=== PATIENT | male | born 1990 | race Caucasian/White ===

== ENCOUNTER 2017-09-25 17:48 | Emergency (ER) | payer SELFPAY ==
[~2017-09-25 17:48] MED LIST: CEPHALEXIN 500 MG CAP PO SCH
[2017-09-25] MEDS ORDERED: EPINEPHrine RACEMIC INH 0.5 ML DEYVIAL IH ONE (19:05)
[2017-09-25] MEDS ORDERED: IPRATROPIUM/ALBUTEROL 3 ML DEYVIAL ONE (19:06)
[2017-09-25] MEDS ORDERED: ALBUTEROL 3 ML DEYVIAL ONE (19:06)
--- NOTE | 2017-09-25 19:34 | EDPHY ---
H & P Stated Complaint: FELL YESTERDAY CUT R HAND ON ROCK/?INFECTION KNUCKLE Time Seen by Provider: 09/25/17 19:18 HPI/ROS: CHIEF COMPLAINT: Infection HISTORY OF PRESENT ILLNESS: The patient is a 26-year-old homeless man who comes to the emergency department complaining of infection to his right hand. He has an old abrasion/laceration to his right 3rd MTP joint with swelling and purulence. He states that he had an infection there year ago and had to stay in the hospital because he got into his arm and tendon. He states that it was healed until yesterday when he scraped it on a rock trying to climb and now it is swollen and painful again. He states that he saw some pus come out of it. He denies fight bite. He has no pain with movement of his joint. REVIEW OF SYSTEMS: Constitutional: denies: chills, fever, recent illness, recent injury EENTM: denies: blurred vision, double vision, nose congestion Respiratory: denies: cough, shortness of breath Cardiac: denies: chest pain, irregular heart rate, lightheadedness, palpitations Gastrointestinal/Abdominal: denies: abdominal pain, diarrhea, nausea, vomiting, blood streaked stools Genitourinary: denies: dysuria, frequency, hematuria, pain Musculoskeletal: denies: joint pain, muscle pain Skin: See HPI Neurological: denies: headache, numbness, paresthesia, tingling, dizziness, weakness Hematologic/Lymphatic: denies: blood clots, easy bleeding, easy bruising Immunologic/allergic: denies: HIV/AIDS, transplant EXAM: GENERAL: Well-appearing, well-nourished and in no acute distress. HEAD: Atraumatic, normocephalic. EYES: Pupils equal round and reactive to light, extraocular movements intact, sclera anicteric, conjunctiva are normal. ENT: TMs normal, nares patent, oropharynx clear without exudates. Moist mucous membranes. NECK: Normal range of motion, supple without lymphadenopathy or JVD. LUNGS: Breath sounds clear to auscultation bilaterally and equal. No wheezes rales or rhonchi. HEART: Regular rate and rhythm without murmurs, rubs or gallops. ABDOMEN: Soft, nontender, normoactive bowel sounds. No guarding, no rebound. No masses appreciated. BACK: No CVA tenderness, no spinal tenderness, step-offs or deformities EXTREMITIES: Old wound, purulence and swelling over the right MTP joint. Fluctuant, NEUROLOGICAL: Cranial nerves II through XII grossly intact. Normal speech, normal gait. 5/5 strength, normal movement in all extremities, normal sensation PSYCH: Normal mood, normal affect. SKIN: Warm, dry, normal turgor, no visible rashes or lesions. Source: Patient Exam Limitations: No limitations - Personal History Current Tetanus/Diphtheria Vaccine: Unsure - Medical/Surgical History Hx Asthma: No Hx Chronic Respiratory Disease: No Hx Diabetes: No Hx Cardiac Disease: No Hx Renal Disease: No Hx Cirrhosis: No Hx Alcoholism: No Hx HIV/AIDS: No Hx Splenectomy or Spleen Trauma: No Other PMH: TENDON INFECTION - Family History Significant Family History: No pertinent family hx - Social History Smoking Status: Current every day smoker Alcohol Use: Heavy Drug Use: Other Constitutional: Initial Vital Signs Temperature (C) 37 C 09/25/17 17:58 Heart Rate 102 H 09/25/17 17:58 Respiratory Rate 18 09/25/17 17:58 Blood Pressure 125/72 H 09/25/17 17:58 O2 Sat (%) 94 09/25/17 17:58 O2 Delivery Mode Room Air Allergies/Adverse Reactions: No Known Allergies Allergy (Unverified 09/25/17 17:58) Home Medications: Medication Instructions Recorded Cephalexin [Keflex] 500 mg PO Q6H #28 cap 09/25/17 Medical Decision Making ED Course/Re-evaluation: Tried to I and D the patient's infection. I do not think at this point that it is in the joint. He adamantly denies fight bite injury. He refuses I and D because he is scared of needles and scalpel. I warned him sternly that his symptoms will likely get worse if it is not ID'd. He continues to refuse I and D just wants to start taking Keflex. He states that this worked for him last time. He understands that this is against my medical advice. He is currently not febrile or toxic appearing. Differential Diagnosis: Partial list of the Differential diagnosis considered include but were not limited to; abscess, osteomyelitis, septic joint, fight bite and although unlikely based on the history and physical exam, I also considered flexor tenosynovitis, sepsis. - Data Points Medications Given: Discontinued Medications Cephalexin HCl (Keflex) 500 mg PO EDNOW ONE PRN Reason: Protocol Stop: 09/25/17 19:37 Last Admin: 09/25/17 19:42 Dose: 500 mg Departure - Departure Disposition: Against Medical Advice Clinical Impression: Abscess of right hand Condition: Fair Instructions: Abscess (ED) Referrals: NONE *PRIMARY CARE P,. [Primary Care Provider] - As per Instructions Prescriptions: Cephalexin [Keflex] 500 mg PO Q6H #28 cap
[2017-09-25] MEDS ORDERED: CEPHALEXIN 500 MG CAP PO ONE (19:36)
[2017-09-25 19:46] VITALS: BP 124/70; PULSE 90; RESP 20; TEMP 98.1; O2SAT 97
== END 2017-09-25 20:05 | disposition left against medical advice (07) ==
DX: L02.511 Cutaneous abscess of right hand (principal); F17.200 Nicotine dependence, unspecified, uncomplicated
CPT/HCPCS: J7613

== ENCOUNTER 2017-10-24 13:16 | Inpatient (IN) | payer MEDICAID ==
--- NOTE | 2017-10-24 13:42 | EDPHY ---
H & P Stated Complaint: right hand infection Time Seen by Provider: 10/24/17 13:28 HPI/ROS: CHIEF COMPLAINT: "My right hand is infected" HISTORY OF PRESENT ILLNESS: 26-year-old [id number] homeless male with up-to-date tetanus complaining of progressive pain, erythema, purulence and smell to his right hand dorsal aspect at the 3rd MCP. This has been present for several weeks, initially occurred after he bumped a pre-existing abrasion approximately 4 weeks ago, when he was climbing a rock. Denies altercation or contact with a persons mouth. He was seen the ER shortly thereafter started on oral antibiotics. He notes that the pain swelling and discharge have progressively increased. He is unable to actively or passively extend or flex secondary to pain. No fever or chills. No nausea or vomiting. PRIMARY CARE PROVIDER: None REVIEW OF SYSTEMS: A ten point review of systems was performed and is negative with the exception of the items mentioned in the HPI PAST MEDICAL & SURGICAL HISTORY: No pertinent medical or surgical history . Tetanus is up-to-date SOCIAL HISTORY: Positive smoker. Homeless. PHYSICAL EXAM (Prior to examination, patient consented to physical exam, hands were washed and my usual and customary physical exam procedures followed) 1) GENERAL: Well-developed, well-nourished, alert and oriented. Appears to be in no acute distress. 2) HEAD: Normocephalic, atraumatic 3) HEENT: Pupils equal, round, reactive to light bilaterally. Sclera anicteric. 4) NECK: Full range of motion, no meningeal signs. 5) LUNGS: Clear auscultation bilaterally, no wheezes, no rhonchi, no retractions. 6) HEART: Regular rate and rhythm, no murmur, no heave, no gallop. 7) ABDOMEN: No guarding, no rebound, no focal tenderness, 8) MUSCULOSKELETAL: Right upper extremity: Right 3rd MCP dorsal aspect erythema , soft tissue swelling, purulent foul-smelling discharge. Patient is unable to actively or passively extend secondary to pain. No crepitus. No lymphangitic streaking. 9) BACK: No visual or palpable abnormality. 10) SKIN: No rash, no petechiae. 11) Psychiatric: Patient is oriented X 3, there is no agitation. DIFFERENTIAL DIAGNOSIS: In no particular include but limited to cellulitis, abscess, septic arthritis, osteomyelitis, necrotizing fasciitis - Personal History Current Tetanus Diphtheria and Acellular Pertussis (TDAP): Unsure - Medical/Surgical History Hx Asthma: No Hx Chronic Respiratory Disease: No Hx Diabetes: No Hx Cardiac Disease: No Hx Renal Disease: No Hx Cirrhosis: No Hx Alcoholism: No Hx HIV/AIDS: No Hx Splenectomy or Spleen Trauma: No Other PMH: TENDON INFECTION - Social History Smoking Status: Current every day smoker Constitutional: Initial Vital Signs Temperature (C) 36.3 C 10/24/17 13:17 Heart Rate 86 10/24/17 13:17 Respiratory Rate 18 10/24/17 13:17 Blood Pressure 140/87 H 10/24/17 13:17 O2 Sat (%) 99 10/24/17 13:17 O2 Delivery Mode Room Air Allergies/Adverse Reactions: No Known Allergies Allergy (Unverified 09/25/17 17:58) Home Medications: Medication Instructions Recorded Albuterol [Proventil Inhaler HFA 1 - 2 puffs IH Q4H PRN 10/24/17 (*)] Cyanocobalamin [Vitamin B12 (*)] 1,000 mcg PO DAILY 10/24/17 Medical Decision Making - Diagnostics Imaging Results: Imaging Impressions Hand X-Ray 10/24/17 13:25 Impression: No acute osseous abnormality seen right hand. Images reviewed myself ED Course/Re-evaluation: 1:40 p.m.: Phone consultation with hospitalist Rekha, admit to Dr. Mcrae. Awaiting hand consultation call back. Care of patient under supervision of secondary supervising physician Dr Chopra with whom I discussed case . 1:50 p.m.: Phone consult Dr. Kandace Deleon will plan on taking the patient to the operating room this afternoon for irrigation and and debridement. Patient remains NPO since dinner last night. - Data Points Microbiology Results: MICROBIOLOGY 10/24/17 11:30 Hand - Swab Gram Stain - Final Medications Given: Vancomycin/Sodium Chloride (Vancomycin 1 Gm (Premix)) 250 mls @ 250 mls/hr IV EDNOW ONE PRN Reason: Protocol Stop: 10/24/17 14:44 Last Admin: 10/24/17 14:11 Dose: 250 mls Departure - Departure Disposition: [facility] Inpatient Acute Clinical Impression: Cellulitis of right hand Condition: Fair
[2017-10-24] MEDS ORDERED: VANCOMYCIN HCL/NORMAL SALINE 250 ML IV ONE (13:45)
[2017-10-24 13:49] LABS: PLATELET COUNT 222 10^3/uL (150-400)
[2017-10-24] MEDS ORDERED: ONDANSETRON 4 MG/2 ML VIAL IVP PRN (15:02)
[2017-10-24] MEDS ORDERED: ONDANSETRON DISINTEGRATING 4 MG TAB PO PRN (15:02)
[2017-10-24] MEDS ORDERED: methylPREDNISolone SOD SUCC 125 MG/2 ML VIAL IVP ONE (15:05)
--- NOTE | 2017-10-24 15:11 | PDGENHP ---
History and Physical - Chief Complaint right hand pain - History of Present Illness 26-year-old [id number] homeless male with up-to-date tetanus complaining of progressive pain, erythema, purulence and smell to his right hand dorsal aspect at the 3rd MCP. This has been present for several weeks, initially occurred after he bumped a pre-existing abrasion approximately 4 weeks ago, when he was climbing a rock. Denies altercation or contact with a persons mouth. He was seen the ER shortly thereafter started on oral antibiotics. He notes that the pain swelling and discharge have progressively increased. He is unable to actively or passively extend or flex secondary to pain. No fever or chills. No nausea or vomiting. Dr. Kandace Deleon is planning on I&D today. He does c/o of coughing and wheezing. He is on RA. He has a hx of Asthma. He has not had a fever. He is not tachycardic. His cough is not productive He denies cp or SOB. PAST MEDICAL & SURGICAL HISTORY: Asthma, previous right hand I&D SOCIAL HISTORY: Positive tobacco smoker. Homeless. no ETOH, + Marijuana FmHx: + CV disease both mother and father Labs/studies: hand XR unremarkable, (personally reviewed) CBC ok, BMP ok History Information - Allergies/Home Medication List Allergies/Adverse Reactions: No Known Allergies Allergy (Unverified 09/25/17 17:58) Home Medications: Albuterol [Proventil Inhaler HFA (*)] 1 - 2 puffs IH Q4H PRN 10/24/17 [Last Taken 10/24/17] Cyanocobalamin [Vitamin B12 (*)] 1,000 mcg PO DAILY 10/24/17 [Last Taken Unknown ] I have personally reviewed and updated: medical history, social history - Social History Smoking Status: Current every day smoker Review of Systems Review of Systems: ROS: 10pt was reviewed & negative except for what was stated in HPI & below Physical Exam Physical Exam: Temp Pulse Resp BP Pulse Ox 36.3 C 86 18 140/87 H 99 10/24/17 13:17 10/24/17 13:17 10/24/17 13:17 10/24/17 13:17 10/24/17 13:17 Constitutional: no apparent distress, appears nourished Eyes: PERRL, EOMI Ears, Nose, Mouth, Throat: moist mucous membranes, hearing normal Cardiovascular: regular rate and rhythym, no murmur, rub, or gallop, No edema Respiratory: no respiratory distress, expiratory wheeze Gastrointestinal: normoactive bowel sounds, soft, non-tender abdomen Genitourinary: no bladder fullness Skin: warm Musculoskeletal: full muscle strength Neurologic: AAOx3 Psychiatric: interacting appropriately, not anxious, not encephalopathic, thought process linear Lymph, Heme, Immunologic: No petechiae Lab Data & Imaging Review 10/24/17 13:45 10/24/17 13:45 WBC 7.79 10^3/uL (3.80-9.50) 10/24/17 13:45 RBC 5.04 10^6/uL (4.40-6.38) 10/24/17 13:45 Hgb 14.4 g/dL (13.7-17.5) 10/24/17 13:45 Hct 42.6 % (40.0-51.0) 10/24/17 13:45 MCV 84.5 fL (81.5-99.8) 10/24/17 13:45 MCH 28.6 pg (27.9-34.1) 10/24/17 13:45 MCHC 33.8 g/dL (32.4-36.7) 10/24/17 13:45 RDW 14.2 % (11.5-15.2) 10/24/17 13:45 Plt Count 222 10^3/uL (150-400) 10/24/17 13:45 MPV 9.1 fL (8.7-11.7) 10/24/17 13:45 Neut % (Auto) 54.7 % (39.3-74.2) 10/24/17 13:45 Lymph % (Auto) 32.9 % (15.0-45.0) 10/24/17 13:45 Culberson % (Auto) 8.5 % (4.5-13.0) 10/24/17 13:45 Eos % (Auto) 3.1 % (0.6-7.6) 10/24/17 13:45 Baso % (Auto) 0.5 % (0.3-1.7) 10/24/17 13:45 Nucleat RBC Rel Count 0.0 % (0.0-0.2) 10/24/17 13:45 Absolute Neuts (auto) 4.27 10^3/uL (1.70-6.50) 10/24/17 13:45 Absolute Lymphs (auto) 2.56 10^3/uL (1.00-3.00) 10/24/17 13:45 Absolute Monos (auto) 0.66 10^3/uL (0.30-0.80) 10/24/17 13:45 Absolute Eos (auto) 0.24 10^3/uL (0.03-0.40) 10/24/17 13:45 Absolute Basos (auto) 0.04 10^3/uL (0.02-0.10) 10/24/17 13:45 Absolute Nucleated RBC 0.00 10^3/uL (0-0.01) 10/24/17 13:45 Immature Gran % 0.3 % (0.0-1.1) 10/24/17 13:45 Immature Gran # 0.02 10^3/uL (0.00-0.10) 10/24/17 13:45 Sodium 142 mEq/L (135-145) 10/24/17 13:45 Potassium 5.1 mEq/L (3.5-5.2) 10/24/17 13:45 Chloride 109 mEq/L (97-110) 10/24/17 13:45 Carbon Dioxide 25 mEq/l (22-31) 10/24/17 13:45 Anion Gap 8 mEq/L (8-16) 10/24/17 13:45 BUN 10 mg/dL (7-23) 10/24/17 13:45 Creatinine 0.7 mg/dL (0.7-1.3) 10/24/17 13:45 Estimated GFR > 60 10/24/17 13:45 Glucose 76 mg/dL (70-100) 10/24/17 13:45 Calcium 9.2 mg/dL (8.5-10.4) 10/24/17 13:45 Specimen Hemolysis 126 10/24/17 13:45 Assessment & Plan Assessment: #Cellulitis of right hand (Acute) #Asthma with mild exacerbation #Tobacco abuse disorder #Homelessness Plan: Surgical mgmt today Cont Vancomycin Given that he will have surgery, I will give one time dose of IV steroids. Plan for oral steroids tomorrow, can treat with short burst Nebs pain mgmt IVF early ambulation full code
[2017-10-24] MEDS ORDERED: D5W 1/2 NS 1,000 ML IV SCH (15:15)
[2017-10-24] MEDS ORDERED: BACITRACIN 50,000 UNITS/10 ML SYR IRR ONE (16:19)
[2017-10-24] MEDS ORDERED: BUPIVACAINE 0.5% 30 ML SDV ONE (16:19)
[2017-10-24] MEDS ORDERED: POLYMYXIN B SULFATE 500,000 UNIT/10 ML SYR IRR ONE (16:19)
[2017-10-24] MEDS ORDERED: LR 1,000 ML IV ONE (16:34)
[2017-10-24] MEDS: ALBUTEROL 3 ML DEYVIAL IH SCH ×2 (17:00→20:49)
--- NOTE | 2017-10-24 17:34 | PDANEPAE ---
ANE History of Present Illness 26yo with infected right hand ANE Past Medical History - Pulmonary History Hx Asthma/Reactive Airway Disease: Yes Hx Oxygen in Use at Home: No Hx Sleep Apnea: No - Endocrine History Hx Diabetes: No ANE Review of Systems Review of Systems: - Systems Respiratory: Reports: wheezing ANE Patient History - Allergies Allergies/Adverse Reactions: No Known Allergies Allergy (Unverified 09/25/17 17:58) - Home Medications Home Medications: Albuterol [Proventil Inhaler HFA (*)] 1 - 2 puffs IH Q4H PRN 10/24/17 [Last Taken 10/24/17] Cyanocobalamin [Vitamin B12 (*)] 1,000 mcg PO DAILY 10/24/17 [Last Taken Unknown ] - NPO status NPO Since - Liquids (Date): 10/23/17 NPO Since - Solids (Date): 10/23/17 - Smoking Hx Smoking Status: Current every day smoker ANE Labs/Vital Signs - Labs Result Diagrams: 10/24/17 13:45 10/24/17 13:45 - Vital Signs Blood Pressure: 147/85 Heart Rate: 65 Respiratory Rate: 16 O2 Sat (%): 90 Height: 200.66 cm Weight: 104.326 kg ANE Physical Exam - Airway Mallampati Score: Class 1 - Pulmonary Pulmonary: no respiratory distress, expiratory wheeze - Cardiovascular Cardiovascular: regular rate and rhythym - ASA Status ASA Status: II ANE Anesthesia Plan Anesthesia Plan: GA w LMA
[2017-10-24] MEDS ORDERED: MIDAZOLAM 2 MG/2 ML VIAL IVP ONE (17:37)
[2017-10-24] MEDS: ALBUTEROL 3 ML DEYVIAL IH PRN ×2 (17:43→17:55)
--- NOTE | 2017-10-24 18:03 | PDMN ---
Medical Necessity Medical necessity: est los>2mn for R hand cellulitis, & mild asthma exacerbation ; admit for I&D, IV abx, nebs, and IVF; comorbid asthma, homelessness; per order and H&P 10/24/17
[2017-10-24] MEDS ORDERED: fentaNYL 100 MCG/2 ML INJ ONE ×2 (18:04→19:25)
[2017-10-24] MEDS ORDERED: PROPOFOL 200 MG/20 ML VIAL ONE (18:05)
[2017-10-24] MEDS ORDERED: ALBUTEROL 3 ML DEYVIAL IH PRN (19:05)
[2017-10-24] MEDS ORDERED: HYDROmorphONE/DILAUDID 2 MG/ML INJ IVP PRN (19:05)
[2017-10-24] MEDS ORDERED: PROMETHAZINE HCL 25 MG/ML INJ IVP PRN (19:05)
[2017-10-24] MEDS ORDERED: NALOXONE HCL 0.4 MG/ML INJ IVP PRN (19:05)
--- NOTE | 2017-10-24 19:18 | POSTOPPROG ---
Post Op Note Date of Operation: 10/24/17 Surgeon: Kandace Deleon Anesthesiologist: warm Anesthesia: LMA Pre-op Diagnosis: r hand infection Procedure: I&D r hand Inf/Abcess present in the surg proc area at time of surgery?: Yes Depth: Deep Incisional (Fascial) EBL: 50-100
[2017-10-24] MEDS: fentaNYL 100 MCG/2 ML INJ IVP PRN ×3 (19:26→19:48)
--- NOTE | 2017-10-24 19:26 | POSTANESTH ---
Post Anesthetic Evaluation Cardiovascular Status: Normal, Stable Respiratory Status: Normal, Stable Level of Consciousness/Mental Status: Mildly Sleepy, Arousable Pain Control: Adequate, Prn Tx Ordered Nausea/Vomiting Control: Adequate, Prn Tx Ordered Complications Possibly Related to Anesthesia: None Noted
--- NOTE | 2017-10-24 19:43 | SOAPPROG ---
SOAP Progress Note Assessment/Plan: Assessment: Plan: Subjective: pain in hand neg fluctuance and neg Kanavel signs cont abx will re-eval tomorrow full note dictated Objective: Vital Signs Temp Pulse Resp BP Pulse Ox 36.4 C 65 16 147/85 H 95 10/24/17 19:19 10/24/17 17:47 10/24/17 17:47 10/24/17 17:47 10/24/17 19:19 ICD10 Worksheet Patient Problems: Problems Problem Status Onset Cellulitis of right hand Acute
[2017-10-24] MEDS ORDERED: HYDROmorphONE/DILAUDID 2 MG/ML INJ ONE (19:48)
--- NOTE | 2017-10-24 19:59 | GOP ---
[f rep st] OPERATIVE REPORT DATE OF OPERATION: 10/24/2017 SURGEON: Kandace Deleon MD ANESTHESIA: LMA. PREOPERATIVE DIAGNOSIS: Right hand infection. POSTOPERATIVE DIAGNOSIS: Right hand infection. PROCEDURE PERFORMED: I and D of right hand. FINDINGS: INDICATIONS: This is a 26-year-old male, who states that he has been dealing with some sort of infec tion on the knuckle of the middle finger for the last month. He has been treated by antibiotics by [facility] different emergency rooms, but is getting worse as time goes on. It was decided that he need ed surgery in order to resolve the problem. DESCRIPTION OF PROCEDURE: The patient brought to the operating room after the right third finger had been identified as the correct finger by the patient, nurse, and physician. Once in the operating r oom, he was placed under general anesthesia using LMA. Once asleep, a tourniquet placed around the u pper portion of the right forearm, with the right upper extremity sterilely prepped and draped in usu al fashion using GSI solution. Once prepped and draped, the limb was elevated for 2 minutes. Tourni quet was inflated to 250 mmHg. There was a large 3 cm x 1 cm opening over the area of the dorsal por tion of the third MCP joint. A culture swab was taken, driven deep into the wound in order to try to attempt to get a decent culture. The area was then debrided. The wound was extended 2 cm both prox imally and distally in order to gain further access onto the extensor miranda. The extensor tendon was noted to be intact, but macerated. There appeared to have a nidus of infection at the ulnar border o f the MCP joint of the middle finger at the area of the lumbricals. Therefore, the area was debrided . Tissues were . There was no pocket of pus noted anywhere. 3 L of antibiotic solution wa s irrigated through the wound using a bulb syringe. Once completed, the covering over the extensor t endon was sewn over the extensor tendon in order to gain some kind of coverage. Once in place, a Pen leta drain was placed and the skin was closed over the Annie drain to try to get apposition of the skin. Tourniquet was deflated at 30 minutes. 20 cc of Marcaine 0.5% plain was injected around eithe r side of the metacarpal. The wound was dressed with Xeroform, 4 x 4's, wrapped in Kerlix. Arm was completely undraped in the operating room, tourniquet removed from the forearm, and an Uriel wrap place d around the hand. The patient was then woken up, extubated, transferred onto a bed, and sent to rec overy room in good condition. TOURNIQUET TIME: 30 minutes. /[id number]/MODL
--- NOTE | 2017-10-24 20:03 | GCON ---
[f rep st] CONSULTATION DATE OF CONSULTATION: 10/24/2017 CURRENT COMPLAINT: Right hand pain and drainage. HISTORY OF PRESENT ILLNESS: The patient is a 26-year-old male, who states that he had abrasion on th e dorsal portion of his knuckle that continued to get irritated and more inflamed. He felt it was ge tting infected and over the last month has gone from emergency room to emergency room getting treated with antibiotics, but the wound continues to get worse. He presented to the ER. I was asked to see the patient for further evaluation and more definitive treatment. He remains grossly neurologically intact to the radial, median, and ulnar nerves. He has a large abimbola ining wound on the dorsal portion of his 3rd MCP joint. He is able to move his flexor tendons, but h as any pain to motion across the MCP joint secondary to the wound he has in the area. It was decided taken to the operating room. ASSESSMENT: The patient is status post right hand infection. PLAN: To take him to the operating room, as soon as time is available for formal irrigation and debr idement. /[id number]/MODL
[2017-10-24] MEDS: oxyCODONE IR 5 MG TAB PO PRN (20:32)
[2017-10-24] MEDS: VANCOMYCIN 1.5 GM in NS 250 ML IV SCH (22:07)
[2017-10-24] MEDS: traMADol 50 MG TAB PO SCH (23:27)
[2017-10-25 04:53] LABS: PLATELET COUNT 188 10^3/uL (150-400)
[2017-10-25] MEDS: NICOTINE 21 MG/24 HR PATCH TD SCH ×2 (05:26→08:08)
[2017-10-25] MEDS: traMADol 50 MG TAB PO SCH ×3 (05:27→17:44)
[2017-10-25] MEDS: ALBUTEROL 3 ML DEYVIAL IH SCH ×4 (06:11→22:03)
[2017-10-25] MEDS: ACETAMINOPHEN 325 MG TAB PO PRN (08:10)
[2017-10-25] MEDS: predniSONE 20 MG TAB PO SCH (08:10)
[2017-10-25] MEDS: VANCOMYCIN 1.5 GM in NS 250 ML IV SCH (08:13)
[2017-10-25] MEDS: oxyCODONE IR 5 MG TAB PO PRN ×2 (10:23→20:07)
--- NOTE | 2017-10-25 13:19 | SOAPPROG ---
SOAP Progress Note Assessment/Plan: Assessment: Plan: Subjective: pain is slightly less than yesterday digits NVI min drainage from alejandro cont abx await ID input Objective: Vital Signs Temp Pulse Resp BP Pulse Ox 36.9 C 64 15 128/63 H 94 10/25/17 11:34 10/25/17 11:34 10/25/17 11:34 10/25/17 11:34 10/25/17 11:34 Microbiology 10/24/17 18:36 Gram Stain - Final Hand - Eswab Laboratory Results 10/25/17 04:25 10/25/17 04:25 10/24/17 10/25/17 10/26/17 05:59 05:59 05:59 Intake Total 1020 Output Total 10 Balance 1010 ICD10 Worksheet Patient Problems: Problems Problem Status Onset Cellulitis of right hand Acute
--- NOTE | 2017-10-25 14:10 | HOSPPROG ---
Hospitalist Progress Note Assessment/Plan: * Right hand cellulitis s/p I&D -IV [facility] -d/w Dr. Urbina - ID to consult * Asthma exacerbation -prednisone, nebs * Tobacco dependence -nicotine patch * Homeless Subjective: no complaints Objective: Vital Signs Temp Pulse Resp BP Pulse Ox 36.9 C 64 15 128/63 H 94 10/25/17 11:34 10/25/17 11:34 10/25/17 11:34 10/25/17 11:34 10/25/17 11:34 Microbiology 10/24/17 18:36 Gram Stain - Final Hand - Eswab Laboratory Results 10/25/17 04:25 10/25/17 04:25 10/24/17 10/25/17 10/26/17 05:59 05:59 05:59 Intake Total 1020 Output Total 10 Balance 1010 Hand xray - no osteo - Physical Exam Constitutional: no apparent distress, appears nourished, not in pain Cardiovascular: regular rate and rhythym, no murmur, rub, or gallop Respiratory: no respiratory distress, no rales or rhonchi, clear to auscultation Gastrointestinal: normoactive bowel sounds, soft, non-tender abdomen, no palpable masses Skin: no rashes or abrasions, no fluctuance, no induration Neurologic: AAOx3, sensation intact bilaterally Psychiatric: interacting appropriately, not anxious, not encephalopathic, thought process linear ICD10 Worksheet Patient Problems: Problems Problem Status Onset Cellulitis of right hand Acute
--- NOTE | 2017-10-25 15:28 | ASMTCMCOM ---
CM Note CM Note Notes: Pt is homeless, here w/hand infection- had I&D yesterday. ID to consult. DC needs not clear yet. Date Signed: 10/25/2017 03:28 PM Electronically Signed By:Janet Lozano RN
--- NOTE | 2017-10-25 18:47 | GCON ---
[f rep st] CONSULTATION DATE OF CONSULTATION: 10/25/2017 REFERRING PHYSICIAN: Shawna Barker MD REASON FOR CONSULTATION: Right hand infection. CHIEF COMPLAINT: Pain, swelling, and drainage from the right hand. HISTORY OF PRESENT ILLNESS: This is a 26-year-old homeless gentleman with a past medical history significant for asthma and a previous right hand infection 1 year ago. He states that about 1-2 months ago he said he was hiking [employer] and slipped and fell, cut his hand right over an area where he has had previous abrasion and infection over the 3rd MCP. He stated that after climbing to the top, he came down and then washed his hands. He came to the ER the next day because it became red, swollen, and started draining pus. Upon review of the ER note, he states that he was advised to have an I and D, but he refused. No cultures were taken at the time. No labs were done, and he was placed on Keflex. The patient tells me that he was put on Keflex for a couple of weeks, and then because of increasing swelling and redness, he went to see [facility] in [place] and was evaluated there. He states that nothing further was done for him there either, but he was put on a couple weeks of Keflex. He states that he has been off antibiotics for 1 week now and there has been increased redness and pain and swelling. He denies fevers or shaking chills throughout this process. He went to the OR yesterday where he had an I and D. upon review of the operative notes, it states that he had a large 3 x 1 cm opening over the area of the distal portion of the 3rd MCP joint. A swab was taken from that site and then the area was debrided. The wound was extended 2 cm proximally and distally. The tendon was noted and was macerated. There was also a statement of a nidus infection on the ulnar border of the MCP joint at the area of the lumbricals. This area was debrided as well. Cultures at present are showing a preliminary MSSA. Patient has been on vancomycin at this time. Infectious Disease is now consulted for further opinion. REVIEW OF SYSTEMS: GENERAL: No fevers or shaking chills. HEAD: No headaches. EYES: He does normally wear glasses and is having some difficulty with vision. He does not have his glasses with it. HEENT: Denies any sore throat, difficulty swallowing, ear pain or drainage. CARDIOVASCULAR: No chest pain or rapid heartbeat. RESPIRATORY: Has some chronic shortness of breath and cough and sputum production. ABDOMEN: No nausea, vomiting, abdominal pain , diarrhea. : No dysuria. MUSCULOSKELETAL: No other joint pains or muscle aches. SKIN: No other rashes or open wounds. Rest of 10-point review of systems essentially negative except as above. PAST MEDICAL HISTORY: Significant for asthma, a previous history of right 3rd MCP infection. This is 1 year ago in [place]. He cannot remember what the infection was due to, but he states he was on antibiotics for a while. He, however, states that he was not on IV antibiotics. He was just on oral antibiotics for like a month. He states that he did have to come back in between that time for recurrent infection, but then thereafter it had healed. Other past medical history, he had some type of tree branch injury to his right leg when he was 17 years of age. PAST SURGICAL HISTORY: Significant for surgery as outlined above from yesterday , surgery from his right leg at the age of 17, and the likely previous debridement of his right MCP, although the details of this is really vague. ALLERGIES: No known drug allergies. SOCIAL HISTORY: He smokes. He denies alcohol. He uses marijuana. He denies any history of illicit drug usage. He is homeless. He is sexually active with a female preference. He states he uses condoms all the time. FAMILY HISTORY: He states his father in his sleep when the patient was 16 years of age, and he became estranged to his mother, and at some point, his mother as well, although he does not know from what. He states that there has been coronary artery disease in the history as well as aneurysms in the history from his family. MEDICATIONS: As per SEP. PHYSICAL EXAMINATION: VITAL SIGNS: Temperature current is 36.6, pulse 65, blood pressure 137/88, respiratory rate is 12, saturation 92% on room air. GENERAL: Patient is sitting up in bed. No acute respiratory distress. Awake, alert, and oriented x3. HEENT: Head is normocephalic, atraumatic. Eyes without conjunctival injection or petechiae. Oropharynx is clear. There is no posterior erythema or thrush. CARDIOVASCULAR: S1, S2. Regular rate and rhythm. No obvious murmurs appreciated. RESPIRATORY: Clear to auscultation bilaterally. No rhonchi or rales appreciated. ABDOMEN: Positive bowel sounds in all quadrants. Soft, nontender, nondistended. EXTREMITIES: No lower extremity edema. Previous right lower extremity scar noted which is well healed. Right hand, an operative dressing, so I did not take down. There does not appear to be any lymphangitic cellulitic spread up the forearm or arm at this time. LABORATORY DATA: White blood cell count is 5.9, hemoglobin 12.9, platelets are 188, neutrophil count is 74%. Sodium 139, potassium 5.0, chloride 106, bicarb 26, BUN is 8, creatinine 0.7. Blood cultures x2 sets are pending. Hand swab from the ER as well as operative swabs are growing out Staph aureus with a preliminary ID of MSSA. The patient is currently on vancomycin. IMAGING: Hand x-ray noted, reviewed, and shows joint spaces are normal with remodeling of the midshaft of the right 5th metacarpal from a previous remote fracture. ASSESSMENT: 1. Right hand infection with abscess and probable infectious tenosynovitis secondary to methicillin-susceptible Staph aureus. PLAN: Given preliminary ID of MSSA, we will change vancomycin to Ancef therapy 2 g IV q.8 hours. Will add C-reactive protein to labs from 10/24/2017 to help follow going forward if elevated. Will examine the wound once operative dressings are taken down. Care coordinated with Dr. Deleon, he states joint and bone not involved. Plan of care was discussed with the patient in detail. Care coordinated with his nurse as well. I thank you very much for the opportunity to care for your patient in consultation. /[id number]/MODL MTDD
[2017-10-25] MEDS: ceFAZolin 2 GM/SWFI 2 GM/20 ML SYR IVP SCH (22:21)
[2017-10-26] MEDS: ceFAZolin 2 GM/SWFI 2 GM/20 ML SYR IVP SCH ×3 (06:00→22:56)
[2017-10-26] MEDS: traMADol 50 MG TAB PO SCH ×5 (06:01→22:55)
[2017-10-26] MEDS: ALBUTEROL 3 ML DEYVIAL IH SCH ×3 (06:07→16:31)
[2017-10-26] MEDS: ACETAMINOPHEN 325 MG TAB PO PRN ×2 (06:32→16:05)
[2017-10-26] MEDS: NICOTINE 21 MG/24 HR PATCH TD SCH (06:45)
[2017-10-26] MEDS: CYANO/VITAMIN B12 1000 MCG TAB PO SCH (08:51)
[2017-10-26] MEDS: predniSONE 20 MG TAB PO SCH (08:51)
--- NOTE | 2017-10-26 12:58 | PCMIDPN ---
Assessment/Plan: Assessment/Plan: 1. Right hand infection with abscess and possible infectious tenosynovitis: - s/p I & D - appreciate ortho. discussed OPerative findings - Cultures with MSSA - on Ancef -blood cx ngtd -Continue with treatment - care coordinated with ortho today Meds ancef 2g q8- 10/25/17 Subjective: afebrile. still with pain on movement of fingers. has numbness involving index, middle, finger and thumb. op dressing in place. denies sob. denies abd pain or diarrhea. had BM today Objective: Vital Signs Temp Pulse Resp BP Pulse Ox 36.7 C 78 14 112/61 96 10/26/17 08:28 10/26/17 11:37 10/26/17 11:37 10/26/17 08:28 10/26/17 11:37 Microbiology 10/24/17 18:36 Gram Stain - Final Hand - Eswab Laboratory Results 10/25/17 04:25 10/25/17 04:25 10/25/17 10/26/17 10/27/17 05:59 05:59 05:59 Intake Total 1020 1716 Output Total 10 Balance 1010 1716 C-Reactive Protein 7.7 mg/L (<10.0) 10/25/17 04:25 - Physical Exam General Appearance: alert, no apparent distress Respiratory: lungs clear Cardiac/Chest: regular rate, rhythm Extremities: other (right hand dressed in operative dressing.) Abdomen: normal bowel sounds, non-tender, soft, No distended Skin: No erythema ICD10 Worksheet Patient Problems: Problems Problem Status Onset Cellulitis of right hand Acute
--- NOTE | 2017-10-26 15:42 | SOAPPROG ---
SOAP Progress Note Assessment/Plan: Assessment: Plan: Subjective: states his hand still hurts but is a little better than yesterday dressings with no change in drainage cont abx change dressing tomorrow Objective: Vital Signs Temp Pulse Resp BP Pulse Ox 36.7 C 78 14 112/61 96 10/26/17 08:28 10/26/17 11:37 10/26/17 11:37 10/26/17 08:28 10/26/17 11:37 Microbiology 10/24/17 18:36 Gram Stain - Final Hand - Eswab Laboratory Results 10/25/17 04:25 10/25/17 04:25 10/25/17 10/26/17 10/27/17 05:59 05:59 05:59 Intake Total 1020 1716 Output Total 10 Balance 1010 1716 ICD10 Worksheet Patient Problems: Problems Problem Status Onset Cellulitis of right hand Acute
--- NOTE | 2017-10-26 17:21 | HOSPPROG ---
Hospitalist Progress Note Assessment/Plan: * Right hand cellulitis s/p I&D -IV Ancef (MSSA) -ortho to take down dressing in am * Asthma exacerbation -prednisone, nebs * Tobacco dependence -nicotine patch * Homeless Subjective: No new complaints Objective: Vital Signs Temp Pulse Resp BP Pulse Ox 37.0 C 67 14 132/81 H 96 10/26/17 16:00 10/26/17 16:32 10/26/17 16:32 10/26/17 16:00 10/26/17 16:32 Microbiology 10/24/17 18:36 Gram Stain - Final Hand - Eswab Laboratory Results 10/25/17 04:25 10/25/17 04:25 10/25/17 10/26/17 10/27/17 05:59 05:59 05:59 Intake Total 1020 1716 Output Total 10 Balance 1010 1716 - Physical Exam Constitutional: no apparent distress, appears nourished, not in pain Cardiovascular: regular rate and rhythym, no murmur, rub, or gallop Respiratory: no respiratory distress, expiratory wheeze, rhonchi, No inspiratory crackles Gastrointestinal: normoactive bowel sounds, soft, non-tender abdomen, no palpable masses Skin: no rashes or abrasions, no fluctuance, no induration Neurologic: AAOx3, sensation intact bilaterally Psychiatric: interacting appropriately, not anxious, not encephalopathic, thought process linear ICD10 Worksheet Patient Problems: Problems Problem Status Onset Cellulitis of right hand Acute
[2017-10-26] MEDS: oxyCODONE IR 5 MG TAB PO PRN (20:48)
[2017-10-26] MEDS: ALBUTEROL 3 ML DEYVIAL IH PRN (21:05)
[2017-10-26] MEDS: FLUTICASONE/SALMETER 250/50MCG DISKUS IH SCH (21:06)
[2017-10-27] MEDS: traMADol 50 MG TAB PO SCH ×4 (05:33→22:58)
[2017-10-27] MEDS: ceFAZolin 2 GM/SWFI 2 GM/20 ML SYR IVP SCH ×3 (05:33→22:58)
[2017-10-27] MEDS: ALBUTEROL 3 ML DEYVIAL IH PRN ×3 (06:26→21:02)
[2017-10-27] MEDS: predniSONE 20 MG TAB PO SCH (10:28)
[2017-10-27] MEDS: oxyCODONE IR 5 MG TAB PO PRN (10:29)
[2017-10-27] MEDS: CYANO/VITAMIN B12 1000 MCG TAB PO SCH (10:29)
[2017-10-27] MEDS: FLUTICASONE/SALMETER 250/50MCG DISKUS IH SCH ×3 (10:30→21:04)
[2017-10-27] MEDS: NICOTINE 21 MG/24 HR PATCH TD SCH (13:20)
--- NOTE | 2017-10-27 13:48 | HOSPPROG ---
Hospitalist Progress Note Assessment/Plan: # R hand cellulitis/abscess s/p I&D by Dr Deleon - cx with MSSA - cont ancef # asthma exacerbation - prednisone x 5 days, inhalers # tobacco use - nicotine patch # homeless Subjective: hand feels better; ROM improving; still numb in 2nd finger Objective: Vital Signs Temp Pulse Resp BP Pulse Ox 36.6 C 71 20 106/59 L 99 10/27/17 08:00 10/27/17 11:32 10/27/17 11:32 10/27/17 08:00 10/27/17 11:32 Microbiology 10/24/17 18:36 Gram Stain - Final Hand - Eswab Laboratory Results 10/25/17 04:25 10/25/17 04:25 10/26/17 10/27/17 10/28/17 05:59 05:59 05:59 Intake Total 1716 400 Balance 1716 400 chart reviewed op note reviewed hand XR reviewed - Physical Exam Constitutional: no apparent distress, appears nourished Cardiovascular: regular rate and rhythym, no murmur, rub, or gallop Respiratory: no respiratory distress, no rales or rhonchi Gastrointestinal: soft, non-tender abdomen, no palpable masses Musculoskeletal: other (R hand in emilia wrap) ICD10 Worksheet Patient Problems: Problems Problem Status Onset Cellulitis of right hand Acute
--- NOTE | 2017-10-27 14:29 | SOAPPROG ---
SOAP Progress Note Assessment/Plan: Assessment: Plan: - dressing changed, drain advanced, will monitor closely 10/27/17 14:28 Subjective: pt is doing well, minimal pain, no issues with the dressing Objective: Vital Signs Temp Pulse Resp BP Pulse Ox 36.6 C 71 20 106/59 L 99 10/27/17 08:00 10/27/17 11:32 10/27/17 11:32 10/27/17 08:00 10/27/17 11:32 Microbiology 10/24/17 18:36 Gram Stain - Final Hand - Eswab Laboratory Results 10/25/17 04:25 10/25/17 04:25 10/26/17 10/27/17 10/28/17 05:59 05:59 05:59 Intake Total 1716 400 Balance 1716 400 mod drainage from alejandro, good rom of fingers, nvi - Time Spent With Patient Time Spent With Patient: 10 - Pending Discharge Pending Discharge Within 24 Hours: No Pending Discharge Within 48 Hours: No ICD10 Worksheet Patient Problems: Problems Problem Status Onset Cellulitis of right hand Acute
--- NOTE | 2017-10-27 16:21 | PCMIDPN ---
Assessment/Plan: Assessment: Right Hand abscess and tenosynovitis secondary to methicillin sensitive Staph aureus. Patient now on IV cefazolin. Suspect since the tendon is involved that the patient will need 4 weeks of IV antibiotic therapy. This complicates his discharge as he is homeless. Will discuss situation with case management. Plan: 1. Continue IV cefazolin. 2. Follow surgical opinion. 3. Follow up with case management about need for probable 4 weeks of treatment. 10/27/17 16:19 Subjective: Patient is resting comfortably in his hospital bed. He notes no new complaint. States that he regained feeling in his right thumb. Right index and 3rd fingers are still somewhat numb. Swelling is decreased. No fevers or chills. Objective: Cefazolin # 2 Vital Signs Temp Pulse Resp BP Pulse Ox 36.6 C 71 20 106/59 L 99 10/27/17 08:00 10/27/17 11:32 10/27/17 11:32 10/27/17 08:00 10/27/17 11:32 Microbiology 10/24/17 18:36 Gram Stain - Final Hand - Eswab Laboratory Results 10/25/17 04:25 10/25/17 04:25 10/26/17 10/27/17 10/28/17 05:59 05:59 05:59 Intake Total 1716 400 Balance 1716 400 C-Reactive Protein 7.7 mg/L (<10.0) 10/25/17 04:25 - Physical Exam General Appearance: WD/WN, alert, no apparent distress, non-toxic Cardiac/Chest: regular rate, rhythm, No tachycardia Extremities: non-tender, No normal inspection (Right hand status post surgery. No dressing strike through.) Skin: normal color, warm/dry, No rash Neuro/Psych: alert, normal mood/affect, oriented x 3 ICD10 Worksheet Patient Problems: Problems Problem Status Onset Cellulitis of right hand Acute
[2017-10-27] MEDS: HYDROCODONE/APAP 5/325 TAB PO PRN ×2 (17:43→19:16)
[2017-10-27] MEDS ORDERED: levETIRAcetam 500 MG TAB PO SCH (21:00)
[2017-10-28] MEDS: ceFAZolin 2 GM/SWFI 2 GM/20 ML SYR IVP SCH ×3 (05:52→22:33)
[2017-10-28] MEDS: traMADol 50 MG TAB PO SCH ×4 (05:52→22:33)
[2017-10-28] MEDS: FLUTICASONE/SALMETER 250/50MCG DISKUS IH SCH ×2 (08:17→20:45)
[2017-10-28] MEDS: predniSONE 20 MG TAB PO SCH (08:21)
[2017-10-28] MEDS: CYANO/VITAMIN B12 1000 MCG TAB PO SCH (08:22)
[2017-10-28] MEDS: NICOTINE 21 MG/24 HR PATCH TD SCH (08:23)
[2017-10-28] MEDS: ALBUTEROL 3 ML DEYVIAL IH PRN ×2 (08:41→21:48)
--- NOTE | 2017-10-28 09:45 | PCMIDPN ---
Assessment/Plan: Assessment/Plan: 1. Right hand infection with abscess and possible infectious tenosynovitis: - s/p I & D - appreciate ortho. discussed OPerative findings - Cultures with MSSA, gbs - on Ancef -blood cx ngtd -Continue with treatment -care coordinated with case management. will have her work on possible Ceftriaxone via 3E and PIV. hesitate to put in picc line given he is homeless. - discussed treatment options wiht pateint and he is fine with this option. -Pt still have alejandro drain in place and will this is out before leaving. - care coordinated with hospitalist team Meds ancef 2g q8- 10/25/17 Subjective: afebrile. feeling better. residual numbness involving right 2nd 3rd fingers. able to flex fingers a little better but still painful. alejandro drain still in place. no erythema up forearm. denies sob, abd pain, or diarrhea. Objective: Vital Signs Temp Pulse Resp BP Pulse Ox 36.4 C 58 L 17 147/73 H 96 10/28/17 08:10 10/28/17 08:42 10/28/17 08:42 10/28/17 08:10 10/28/17 08:42 Microbiology 10/24/17 18:36 Gram Stain - Final Hand - Eswab Laboratory Results 10/25/17 04:25 10/25/17 04:25 10/27/17 10/28/17 10/29/17 05:59 05:59 05:59 Intake Total 4350 Output Total 2500 Balance 1850 C-Reactive Protein 7.7 mg/L (<10.0) 10/25/17 04:25 - Physical Exam General Appearance: alert, no apparent distress Respiratory: lungs clear Cardiac/Chest: regular rate, rhythm Extremities: swelling Abdomen: normal bowel sounds, non-tender, soft, No distended Skin: other (right hand: incision on dorsum of hand with alejandro drain noted. tender around that area. pain with movement of fingers. no erythema. residual swelling of hand. ), No erythema - Time Spent With Patient Time Spent with Patient: greater than 35 minutes Time Spent with Patient: Greater than 35 minutes spent on this patients care, greater than 50% of time spent counseling, educating, and coordinating care regarding the above mentioned plan. ICD10 Worksheet Patient Problems: Problems Problem Status Onset Cellulitis of right hand Acute
--- NOTE | 2017-10-28 09:47 | HOSPPROG ---
Hospitalist Progress Note Assessment/Plan: # R hand cellulitis/abscess s/p I&D by Dr Deleon - cx with MSSA, group B strep - cont ancef # asthma exacerbation - prednisone x 5 days, dc after dose tomorrow, inhalers # tobacco use - nicotine patch # homeless # dispo - somewhat difficult; will need at least 2 weeks IV abx; still has alejandro drain; CM involved Subjective: bandage taken down today by ID; still very tender, some reduced ROM Objective: Vital Signs Temp Pulse Resp BP Pulse Ox 36.4 C 58 L 17 147/73 H 96 10/28/17 08:10 10/28/17 08:42 10/28/17 08:42 10/28/17 08:10 10/28/17 08:42 Microbiology 10/24/17 18:36 Gram Stain - Final Hand - Eswab Laboratory Results 10/25/17 04:25 10/25/17 04:25 10/27/17 10/28/17 10/29/17 05:59 05:59 05:59 Intake Total 4350 Output Total [address] Shruthi Urbina - Physical Exam Constitutional: no apparent distress, appears nourished Cardiovascular: regular rate and rhythym, no murmur, rub, or gallop Respiratory: no respiratory distress, no rales or rhonchi Gastrointestinal: soft, non-tender abdomen, no palpable masses ICD10 Worksheet Patient Problems: Problems Problem Status Onset Cellulitis of right hand Acute
--- NOTE | 2017-10-28 12:10 | SOAPPROG ---
SOAP Progress Note Assessment/Plan: Assessment: Plan: - cont dressing, will monitor 10/27/17 14:28 10/28/17 12:09 Subjective: pain improved, overall doing better Objective: Vital Signs Temp Pulse Resp BP Pulse Ox 36.4 C 58 L 17 147/73 H 96 10/28/17 08:10 10/28/17 08:42 10/28/17 08:42 10/28/17 08:10 10/28/17 08:42 Microbiology 10/24/17 18:36 Gram Stain - Final Hand - Eswab Laboratory Results 10/25/17 04:25 10/25/17 04:25 10/27/17 10/28/17 10/29/17 05:59 05:59 05:59 Intake Total 4350 Output Total 2500 Balance 1850 dressing cdi, nvi, infect improving - Time Spent With Patient Time Spent With Patient: 5 - Pending Discharge Pending Discharge Within 24 Hours: No Pending Discharge Within 48 Hours: No ICD10 Worksheet Patient Problems: Problems Problem Status Onset Cellulitis of right hand Acute
[2017-10-28] MEDS: HYDROCODONE/APAP 5/325 TAB PO PRN ×3 (12:30→22:34)
--- NOTE | 2017-10-28 14:19 | SOAPPROG ---
SOAP Progress Note Assessment/Plan: Assessment: Plan: Subjective: states he's been comfrtable dressing with min drainage skin continues to improve drain advanced cont abx will change dressing tomorrow Objective: Vital Signs Temp Pulse Resp BP Pulse Ox 36.4 C 58 L 17 147/73 H 96 10/28/17 08:10 10/28/17 08:42 10/28/17 08:42 10/28/17 08:10 10/28/17 08:42 Microbiology 10/24/17 18:36 Gram Stain - Final Hand - Eswab Laboratory Results 10/25/17 04:25 10/25/17 04:25 10/27/17 10/28/17 10/29/17 05:59 05:59 05:59 Intake Total 4350 Output Total 2500 Balance 1850 ICD10 Worksheet Patient Problems: Problems Problem Status Onset Cellulitis of right hand Acute
[2017-10-28] MEDS: HYDROmorphone HCL/NS 0.5 MG/ML SYR IVP PRN (15:11)
[2017-10-29 05:13] LABS: PLATELET COUNT 251 10^3/uL (150-400)
[2017-10-29] MEDS: traMADol 50 MG TAB PO SCH ×4 (05:43→22:59)
[2017-10-29] MEDS: ceFAZolin 2 GM/SWFI 2 GM/20 ML SYR IVP SCH ×3 (05:44→22:57)
[2017-10-29] MEDS: HYDROCODONE/APAP 5/325 TAB PO PRN ×3 (08:37→18:22)
[2017-10-29] MEDS: CYANO/VITAMIN B12 1000 MCG TAB PO SCH (08:37)
[2017-10-29] MEDS: predniSONE 20 MG TAB PO SCH (08:38)
[2017-10-29] MEDS: NICOTINE 21 MG/24 HR PATCH TD SCH (08:38)
--- NOTE | 2017-10-29 08:55 | ASMTCMCOM ---
CM Note CM Note Notes: Pt requires 2-4 weeks IV Ancef and can come to [facility] infusion center with peripheral IV. As of yesterday pt still had alejandro drain. CM to follow. Date Signed: 10/29/2017 08:54 AM Electronically Signed By:REUBEN Reyes
--- NOTE | 2017-10-29 10:00 | SOAPPROG ---
SOAP Progress Note Assessment/Plan: Assessment: Plan: - changed dressing today, advanced drain - cont abx - ortho will follow 10/27/17 14:28 10/28/17 12:09 10/29/17 09:59 Subjective: Reports improvement in pain, no issues. Objective: Vital Signs Temp Pulse Resp BP Pulse Ox 36.5 C 61 12 142/71 H 97 10/29/17 08:00 10/29/17 08:00 10/29/17 08:00 10/29/17 08:00 10/29/17 08:00 Microbiology 10/24/17 18:36 Gram Stain - Final Hand - Eswab Laboratory Results 10/29/17 04:17 10/29/17 04:17 10/28/17 10/29/17 10/30/17 05:59 05:59 05:59 Intake Total 4350 500 Output Total 2500 Balance 1850 500 Dressing removed, minimal drainage from drain, advanced drain, good ROM of fingers, nvi - Time Spent With Patient Time Spent With Patient: 10 - Pending Discharge Pending Discharge Within 24 Hours: No Pending Discharge Within 48 Hours: No ICD10 Worksheet Patient Problems: Problems Problem Status Onset Cellulitis of right hand Acute
[2017-10-29] MEDS: HYDROmorphone HCL/NS 0.5 MG/ML SYR IVP PRN (11:12)
[2017-10-29] MEDS: FLUTICASONE/SALMETER 250/50MCG DISKUS IH SCH ×2 (12:36→20:14)
--- NOTE | 2017-10-29 13:10 | HOSPPROG ---
Hospitalist Progress Note Assessment/Plan: 26y male with c/o hand pain and being tired. First encounter, chart reviewed. D/ W RN and CM. # R hand cellulitis/abscess s/p I&D by Dr Deleon - cx with MSSA, group B strep - cont ancef -attempt to arrange outpt abx # asthma exacerbation - prednisone x 5 days, dc # tobacco use - nicotine patch # homeless # dispo - somewhat difficult; will need at least 2 weeks IV abx; still has alejandro drain; CM involved D/W Dr Mitchell Subjective: Feeling better today. Tired. Less pain. Objective: Vital Signs Temp Pulse Resp BP Pulse Ox 36.5 C 86 18 142/71 H 96 10/29/17 08:00 10/29/17 12:35 10/29/17 12:35 10/29/17 08:00 10/29/17 12:35 Microbiology 10/24/17 18:36 Gram Stain - Final Hand - Eswab Laboratory Results 10/29/17 04:17 10/29/17 04:17 10/28/17 10/29/17 10/30/17 05:59 05:59 05:59 Intake Total 4350 500 Output Total 2500 Balance 1850 500 - Physical Exam Constitutional: no apparent distress, appears nourished, uncomfortable Eyes: PERRL, anicteric sclera, EOMI Ears, Nose, Mouth, Throat: moist mucous membranes, hearing normal, ears appear normal Cardiovascular: regular rate and rhythym, No JVD, No edema Respiratory: no respiratory distress, no rales or rhonchi, reduced air movement Gastrointestinal: normoactive bowel sounds, No tenderness, No ascites Skin: warm, abrasion, erythema Musculoskeletal: no joint effusions, joint tenderness, pain with ROM, generalized weakness Neurologic: AAOx3 Psychiatric: interacting appropriately, not anxious, not encephalopathic, thought process linear ICD10 Worksheet Patient Problems: Problems Problem Status Onset Cellulitis of right hand Acute
--- NOTE | 2017-10-29 16:45 | PCMIDPN ---
Assessment/Plan: R hand tenosynovitis over 3rd MCP, MSSA GBP. obvious exposed tendon, no residual cellulitis, mildly purulent drainage --cefazolin while in house --> start ceftriaxone daily tomorrow for dc --wound healing visit 11/05 11am --IV ceftriaxone for 2 weeks, D#5 today, 11/07 last day med cefazolin 2gm IV q8h #4 Subjective: patient still w fair amount of pain does not want to leave hospital unless he has a place to stay since he is homeless Objective: Vital Signs Temp Pulse Resp BP Pulse Ox 36.5 C 63 12 173/93 H 96 10/29/17 16:00 10/29/17 16:00 10/29/17 16:00 10/29/17 16:00 10/29/17 16:00 Microbiology 10/24/17 18:36 Gram Stain - Final Hand - Eswab Laboratory Results 10/29/17 04:17 10/29/17 04:17 10/28/17 10/29/17 10/30/17 05:59 05:59 05:59 Intake Total 4350 500 Output Total 2500 Balance 1850 500 C-Reactive Protein 7.7 mg/L (<10.0) 10/25/17 04:25 - Physical Exam General Appearance: alert, no apparent distress, thin Respiratory: No accessory muscle use Cardiac/Chest: regular rate, rhythm Extremities: other (R hand open wound over 3rd MCP with semi-purulent discharge , no erythema, ROM limited by pain, no cellulitic changes), No pedal edema Skin: normal color, warm/dry, No rash Neuro/Psych: alert, normal mood/affect, oriented x 3 - Time Spent With Patient Time Spent with Patient: greater than 35 minutes (care coordinated with hospitalist, case management, wound healing center) Time Spent with Patient: Greater than 35 minutes spent on this patients care, greater than 50% of time spent counseling, educating, and coordinating care regarding the above mentioned plan. ICD10 Worksheet Patient Problems: Problems Problem Status Onset Cellulitis of right hand Acute
--- NOTE | 2017-10-29 16:49 | ASMTCMCOM ---
CM Note CM Note Notes: Today MDs would like a plan to assist Pt. with getting outpatient care safely. After discussion with team and CM Agricultural Research Technician, came up with the following plan for d/c tomorrow 10/30/17: 3 nights in [facility] respite hotel - [facility] appt - 11/03/17, show up at 2:25pm, appt. at 2:40pm, [facility] Xiong [facility] - Friday11/05/17 at 11:00, [address] Daily [facility] infusion center appointment at 10:00am for ceftriaxone via peripheral IV SWer met w/ Pt. in room. Pt. good with above plan. Pt. signed [facility] contract. To arrange Meals on Wheels tomorrow morning. To get meds filled by [facility] tomorrow am. To arrange transport to hotel. CM to follow. Date Signed: 10/29/2017 04:49 PM Electronically Signed By:Zainab Moran LCSW
[2017-10-29] MEDS: ALBUTEROL 3 ML DEYVIAL IH PRN (17:13)
[2017-10-30] MEDS: traMADol 50 MG TAB PO SCH (05:50)
[2017-10-30 07:43] VITALS: BP 138/90
[2017-10-30] MEDS: FLUTICASONE/SALMETER 250/50MCG DISKUS IH SCH (08:14)
[2017-10-30] MEDS: ALBUTEROL 3 ML DEYVIAL IH PRN (08:16)
[2017-10-30] MEDS: HYDROCODONE/APAP 5/325 TAB PO PRN (08:42)
[2017-10-30] MEDS: CYANO/VITAMIN B12 1000 MCG TAB PO SCH (08:46)
[2017-10-30] MEDS: NICOTINE 21 MG/24 HR PATCH TD SCH (08:46)
[2017-10-30] MEDS ORDERED: cefTRIAXone 2 GM in STERILE WATER INJ 20 ML IV SCH (09:00)
--- NOTE | 2017-10-30 09:45 | SOAPPROG ---
SOAP Progress Note Assessment/Plan: Assessment: Plan: - changed dressing, will follow 10/27/17 14:28 10/28/17 12:09 10/29/17 09:59 10/30/17 09:44 Subjective: Improvement in pain and function over yesterday. Objective: Vital Signs Temp Pulse Resp BP Pulse Ox 37.1 C 65 18 138/90 H 96 10/30/17 07:42 10/30/17 08:17 10/30/17 08:17 10/30/17 07:42 10/30/17 08:17 Microbiology 10/24/17 18:36 Gram Stain - Final Hand - Eswab Laboratory Results 10/29/17 04:17 10/29/17 04:17 10/29/17 10/30/17 10/31/17 05:59 05:59 05:59 Intake Total 500 200 Balance 500 200 Wound still weeping a few cc's of pus, but improving, erythema and swelling improved. - Time Spent With Patient Time Spent With Patient: 20 - Pending Discharge Pending Discharge Within 24 Hours: No Pending Discharge Within 48 Hours: No ICD10 Worksheet Patient Problems: Problems Problem Status Onset Cellulitis of right hand Acute
--- NOTE | 2017-10-30 11:15 | ASMTCMCOM ---
CM Note CM Note Notes: Pt. is discharging today to the [facility] hot respite program for a 3 night stay. [facility] - Conf #[id number]. Approved by CM Assembly Machine Feeder. Pt. signed agreement and SWer gave him a copy. See chart for original. Pt's follow up appointments are as planned from yesterday (see yesterday's note). Pt. to have outpatient infusion for IV antibiotics at [facility] infusion center beginning tomorrow at 10:00 daily. Pt. informed. SWer put all appointments in nursing d/c teaching information. Meals on Wheels in set up to deliver for Friday and Friday at the hot. SWer provided bus passes. Gave Pt. food for today. Per hospitalist, Pt. has family in [facility] but is estranged. Reports a mother with a drug addiction and a father who when Pt. was age 16. Date Signed: 10/30/2017 11:15 AM Electronically Signed By:Zainab Moran LCSW
--- NOTE | 2017-10-30 13:59 | GDS ---
[f rep st] DISCHARGE SUMMARY DISCHARGE DIAGNOSES: Right hand tenosynovitis. CONSULTATIONS: 1. Infectious Disease. 2. Orthopedics. PHYSICAL EXAM: GENERAL: The patient is alert. VITAL SIGNS: Afebrile at 37.1, pulse 61, respirator y rate is 18, blood pressure is 138/90. He is saturating 90% on room air. I have seen and evaluated the patient on the day of discharge. HOSPITAL COURSE: The patient is a 26-year-old male who presented to the emergency room with complain ts of right hand pain. He was evaluated and diagnosed with: 1. Right hand cellulitis with abscess and tenosynovitis. During this hospitalization, he received a n I and D performed by Dr. Deleon. Cultures have demonstrated MSSA and he is been treated with IV Ance f during this hospitalization. He will be transitioned to IV Rocephin for daily infusions, to return to [facility] at 10 a.m. to receive these. The patient is in agreement with this plan. He will also cid ve dressing changes in the outpatient setting, which Case Management has arranged for him. 2. Asthma exacerbation. He has been on prednisone for a total of 5 days. This has been resolved. DISPOSITION: The patient will be discharged to respite care in the outpatient setting. He will foll ow up with daily IV infusions at 10 a.m. He will also follow up at [facility] on 11/03/2017, at 2:25 in the afternoon. Case Management has also arranged Wound Care Clinic for him on Friday, , at 11 a.m. I spent greater than 35 minutes in the care, coordination, and management of this patient's dispositi on. /[id number]/MODL
== END 2017-10-30 11:39 | disposition home or self-care (01) | DRG 364 ==
LOC: OBSVTOIN 15:02 → F3N 15:14 → F3E 10-28 17:27
PROVIDERS: ADMIT Family Medicine; ATTEND Family Medicine
PROC: 0J9J00Z Drainage of Right Hand Subcutaneous Tissue and Fascia with Drainage Device, Open Approach (ICD-10-PCS; principal; 2017-10-24 15:30)
DX: L02.511 Cutaneous abscess of right hand (principal); J45.901 Unspecified asthma with (acute) exacerbation; L03.113 Cellulitis of right upper limb; M65.141 Other infective (teno)synovitis, right hand; B95.61 Methicillin susceptible Staphylococcus aureus infection as the cause of diseases classified elsewhere; Z59.0 Homelessness; Z72.0 Tobacco use
CPT/HCPCS: 96365; J0690; J0696; J1170; J2250; J2704; J3010; J3370; J7512; J7613

== ENCOUNTER 2017-11-08 14:59 | Emergency (ER) | payer MEDICAID ==
--- NOTE | 2017-11-08 15:49 | EDPHY ---
H & P Time Seen by Provider: 11/08/17 15:08 HPI/ROS: Chief complaint. Hand infection, out of inhaler HPI. 26-year-old male who had been seen in our hospital on October 24 for abrasion and concern for tenosynovitis had a washout in the OR. Cultures grew a.m. SSA. He was discharged October 30. He was supposed to go to wound clinic and return to [facility] at 10:00 a.m. Daily for daily infusions of Rocephin. He has not been doing this and has not had antibiotics for 1 week. He has asthma and he is out of his inhaler. He does not think he is going to be able to return for his daily Rocephin next week as he is camping. He has stiffness to move his finger. No fever. No redness. Patient is right handed. He has had no fever ROS Constitutional. no fever/chills, no weakness Eyes. no problems with vision ENT. no sore throat, no nasal drainage Cardiovascular. no chest pain Respiratory. Needs inhaler with some cough Abdominal. no abdominal pain, no nausea/vomiting, no diarrhea . no problems urinating MS. no calf pain/swelling, no neck/back pain, no joint pain Skin. Right hand infection status post OR Lymph. no swollen glands Neuro. no headache, no dizziness, no difficulty walking or with speech Past Medical/Surgical History: Tenosynovitis, asthma Social History: Single homeless, daily smoker, no alcohol, Smoking Status: Current every day smoker Physical Exam: General Appearance: Alert well-developed male no distress vital signs are stable. He is afebrile Eyes: Pupils equal and round no pallor or injection. ENT, Mouth: Mucous membranes are moist. Respiratory: There are no retractions, lungs are clear to auscultation. Cardiovascular: Regular rate and rhythm. Gastrointestinal: Abdomen is soft and nontender, no masses, bowel sounds normal. Neurological: Awake and alert, sensory and motor exams grossly normal. Skin: Warm and dry, no rashes. Musculoskeletal: Neck is supple nontender. Extremities dorsum of his right hand shows a healing wound. Sutures are in place still. It is somewhat swollen right over the incision but no surrounding erythema or swelling. No lymphangitis. He does move the 3rd digit spontaneously both flexion and extension. Psychiatric: Patient is oriented X 3, there is no agitation. Constitutional: Initial Vital Signs Temperature (C) 36.6 C 11/08/17 15:05 Heart Rate 76 11/08/17 15:05 Respiratory Rate 18 11/08/17 15:05 Blood Pressure 121/76 H 11/08/17 15:05 O2 Sat (%) 98 11/08/17 15:05 O2 Delivery Mode Room Air Allergies/Adverse Reactions: No Known Allergies Allergy (Verified 11/08/17 15:04) Home Medications: Medication Instructions Recorded Albuterol [Proventil Inhaler HFA 1 - 2 puffs IH Q4H PRN 10/24/17 (*)] Cyanocobalamin [Vitamin B12 (*)] 1,000 mcg PO DAILY 10/24/17 Acetaminophen [Tylenol 325mg (*)] 650 mg PO Q4HRS PRN tab 10/30/17 Fluticasone/Salmeter 250/50Mcg 1 puffs IH BID disk 10/30/17 [Advair 250/50 (*)] Hydrocodone/APAP 5/325 [[place] 1 - 2 tab PO Q4HRS PRN #15 tab 10/30/17 5/325 (*)] cefTRIAXone [Rocephin] 2 gm IV DAILY vial 10/30/17 Albuterol Hfa Anes Only [Proair 2 puffs IH QID PRN #1 mdi 11/08/17 Hfa Icu (*)] Cephalexin [Keflex (*)] 500 mg PO TID #21 cap 11/08/17 Medical Decision Making ED Course/Re-evaluation: Will get gearcase assembler to try to fill prescription for cephalexin and albuterol MDI. Patient and I discussed the importance of continuing to return to the wound clinic and further evaluation and treatment. He expresses understanding and agrees Differential Diagnosis: Healing MSSA infection on the right hand. No obvious evidence for infection, tenosynovitis, lymphangitis. Out of his inhaler however there is no retractions or wheezing or evidence of needing antibiotics or prednisone. Departure - Departure Disposition: Home, Routine, Self-Care Clinical Impression: Hand laceration Qualifiers: Encounter type: sequela Foreign body presence: without foreign body Laterality : right Qualified Code(s): S61.411S - Laceration without foreign body of right hand, sequela Condition: Good Instructions: Cellulitis (ED) Additional Instructions: Keep you're hand clean and dry. Cephalexin as antibiotic 3 times daily. On Friday return to [facility] at 10:00 a.m. For IV Rocephin infusion. Referrals: NONE *PRIMARY CARE P,. [Primary Care Provider] - As per Instructions Karime Mitchell MD [Medical Doctor] - 2-3 days without fail Prescriptions: Albuterol Hfa Anes Only [Proair Hfa Icu (*)] 2 puffs IH QID PRN #1 mdi PRN Reason: Short Of Breath/Dyspnea Cephalexin [Keflex (*)] 500 mg PO TID #21 cap
[2017-11-08 16:42] VITALS: BP 135/89
--- NOTE | 2017-11-08 17:18 | ASMTCMCOM ---
CM Note CM Note Notes: Pt presented to the Emergency Department with a hand infection. Pt was discharged from [facility] on 10/24/17 with tenosynovitis s/p a washout. The pt was supposed to follow up at the [address] [place] [address] for IV antibiotics, but failed to do so. Pt is single and homeless. Asked to see pt by Dr. Hartley for assistance with medications and discharge needs. Pt states he does not have any money or ability to pay for prescriptions. Pt has Medicaid, but denies the ability to obtain the prescriptions from a pharmacy. Due to noncompliance Dr. Hartley requesting CM provide medications via MAP. Call placed to Marianela in the Pharmacy xt [phone]. Per Marianela, Keflex will cost $1.63. Marianela suggested the ED RN obtain the Proair from the take-home ready packets in the omni in the Emergency Department. Update provided to JAUN Sy and Dr. Hartley. Keflex obtained through MAP and provided to pt; Proair inhaler provided by JAUN Sy. Pt requesting information on [facility] (see below). Information provided via handout. CM available for any further issues or concerns. [facility] [place] is open and accepting ONLY [facility] [place] clients on active plans tonight only (Friday). [facility] [place] [facility] is CLOSED tonight only (Friday) [facility] [place] will be offered at [facility] ([place] [facility]; bus SKIP). Line-up begins at 6:30PM and doors open at 7:00PM to 9:00PM. [facility] [place] and [facility] are programs of [facility]. Date Signed: 11/08/2017 05:17 PM Electronically Signed By:Lizabeth Oleary RN
== END 2017-11-08 17:18 | disposition home or self-care (01) ==
DX: S61.411D Laceration without foreign body of right hand, subsequent encounter (principal); J45.909 Unspecified asthma, uncomplicated; F17.200 Nicotine dependence, unspecified, uncomplicated; X58.XXXD Exposure to other specified factors, subsequent encounter; Y82.8 Other medical devices associated with adverse incidents

== ENCOUNTER 2017-11-26 18:41 | Inpatient (IN) | payer MEDICAID ==
--- NOTE | 2017-11-26 18:51 | EDPHY ---
H & P Stated Complaint: slow-healing wound in right hand, now swollen and painful Time Seen by Provider: 11/26/17 18:51 HPI/ROS: CHIEF COMPLAINT: Recurrent redness, swelling and pain over dorsum of right hand HISTORY OF PRESENT ILLNESS: The patient is a homeless gentleman who presents to the emergency department with complaints of recurrent pain, erythema and redness involving the dorsal aspect of his right hand. The patient was admitted to our hospital during the 1st week of October with similar symptoms. At that point time he underwent an incision and drainage by Dr. Deleon. He was noted to have MSSA. There is no evidence of a septic arthritis at that point time. The patient had a macerated extensor tendon during that evaluation. REVIEW OF SYSTEMS: A comprehensive 10 point review of systems is otherwise negative aside from elements mentioned in the history of present illness. Source: Patient - Personal History Current Tetanus Diphtheria and Acellular Pertussis (TDAP): Yes Tetanus Vaccine Date: 2009 - Medical/Surgical History Hx Asthma: Yes Hx Chronic Respiratory Disease: No Hx Diabetes: No Hx Cardiac Disease: No Hx Renal Disease: No Hx Cirrhosis: No Hx Alcoholism: No Hx HIV/AIDS: No Hx Splenectomy or Spleen Trauma: No Other PMH: TENDON INFECTION R HAND, asthma - Social History Smoking Status: Current every day smoker - Physical Exam Exam: General Appearance: Alert, slightly disheveled Eyes: Pupils equal and round no pallor or injection ENT, Mouth: Mucous membranes moist Respiratory: There are no retractions, lungs are clear to auscultation Cardiovascular: Regular rate and rhythm Gastrointestinal: Abdomen is soft and nontender, no masses, bowel sounds normal Neurological: Motor and sensory function noted to be intact throughout the right upper extremity. Skin: Warm and dry, no rashes Musculoskeletal: Open wound over the dorsum of the right MCP. Purulent drainage is noted. Constitutional: Initial Vital Signs Temperature (C) 36.9 C 11/26/17 18:44 Heart Rate 104 H 11/26/17 18:44 Respiratory Rate 18 11/26/17 18:44 Blood Pressure 110/85 H 11/26/17 18:44 O2 Sat (%) 95 11/26/17 18:44 O2 Delivery Mode Room Air Allergies/Adverse Reactions: No Known Allergies Allergy (Verified 11/26/17 18:42) Home Medications: Medication Instructions Recorded Albuterol [Proventil Inhaler HFA 1 - 2 puffs IH Q4H PRN 10/24/17 (*)] Cyanocobalamin [Vitamin B12 (*)] 1,000 mcg PO DAILY 10/24/17 Fluticasone/Salmeter 250/50Mcg 1 puffs IH BID disk 10/30/17 [Advair 250/50 (*)] Albuterol Hfa Anes Only [Proair 2 puffs IH QID PRN #1 mdi 11/08/17 Hfa Icu (*)] Medical Decision Making ED Course/Re-evaluation: I reviewed the patient's prior hospitalization. Blood cultures, screening laboratory studies and a superficial wound culture were obtained. I consulted with Dr. Deleon at 8:00 p.m. He will evaluate the patient tomorrow. He is fine with initiating IV antibiotic therapy this evening. The patient will be started on Ancef given his prior wound culture. I consulted with the hospitalist. The patient will be admitted by Dr. Rosette Berman. Differential Diagnosis: Differential diagnosis considered includes cellulitis, septic arthritis, tenosynovitis - Data Points Laboratory Results: Laboratory Results 11/26/17 19:40 11/26/17 11/26/17 19:40 19:40 WBC 7.36 10^3/uL 10^3/uL (3.80-9.50) RBC 5.04 10^6/uL 10^6/uL (4.40-6.38) Hgb 14.4 g/dL g/dL (13.7-17.5) Hct 43.6 % % (40.0-51.0) MCV 86.5 fL fL (81.5-99.8) MCH 28.6 pg pg (27.9-34.1) MCHC 33.0 g/dL g/dL (32.4-36.7) RDW 14.5 % % (11.5-15.2) Plt Count 223 10^3/uL 10^3/uL (150-400) MPV 9.1 fL fL (8.7-11.7) Neut % (Auto) 51.9 % % (39.3-74.2) Lymph % (Auto) 34.6 % % (15.0-45.0) [place] % (Auto) 9.8 % % (4.5-13.0) Eos % (Auto) 2.9 % % (0.6-7.6) Baso % (Auto) 0.5 % % (0.3-1.7) Nucleat RBC Rel Count 0.0 % % (0.0-0.2) Absolute Neuts (auto) 3.82 10^3/uL 10^3/uL (1.70-6.50) Absolute Lymphs (auto) 2.55 10^3/uL 10^3/uL (1.00-3.00) Absolute Monos (auto) 0.72 10^3/uL 10^3/uL (0.30-0.80) Absolute Eos (auto) 0.21 10^3/uL 10^3/uL (0.03-0.40) Absolute Basos (auto) 0.04 10^3/uL 10^3/uL (0.02-0.10) Absolute Nucleated RBC 0.00 10^3/uL 10^3/uL (0-0.01) Immature Gran % 0.3 % % (0.0-1.1) Immature Gran # 0.02 10^3/uL 10^3/uL (0.00-0.10) ESR Pending Sodium Pending Potassium Pending Chloride Pending Carbon Dioxide Pending Anion Gap Pending BUN Pending Creatinine Pending Estimated GFR Pending Glucose Pending Calcium Pending C-Reactive Protein Pending Departure - Departure Disposition: [facility] Inpatient Acute Clinical Impression: Cellulitis of right hand Condition: Good Referrals: NONE *PRIMARY CARE P,. [Primary Care Provider] - As per Instructions
[2017-11-26 19:57] LABS: PLATELET COUNT 223 10^3/uL (150-400)
[2017-11-26] MEDS ORDERED: ceFAZolin 2 GM/DEXTROSE 100 ML IV ONE (20:08)
[2017-11-26] MEDS ORDERED: ceFAZolin 2 GM/SWFI 2 GM/20 ML SYR IVP ONE (20:45)
[2017-11-26] MEDS ORDERED: ONDANSETRON 4 MG/2 ML VIAL IVP PRN (21:12)
[2017-11-26] MEDS ORDERED: LORazepam 0.5 MG TAB PO PRN (21:12)
[2017-11-26] MEDS ORDERED: PROMETHAZINE HCL 25 MG/ML INJ IVP PRN (21:12)
[2017-11-26] MEDS ORDERED: ONDANSETRON DISINTEGRATING 4 MG TAB PO PRN (21:12)
[2017-11-26] MEDS ORDERED: ACETAMINOPHEN 325 MG TAB PO PRN (21:12)
[2017-11-26] MEDS ORDERED: ZOLPIDEM TARTRATE 5 MG TAB PO PRN (21:49)
[2017-11-26] MEDS ORDERED: ceFAZolin 2 GM/DEXTROSE 100 ML IV SCH (22:00)
[2017-11-26] MEDS ORDERED: ALBUTEROL 60 PUFFS/8 GM MDI IH PRN (22:42)
[2017-11-26] MEDS ORDERED: ALBUTEROL 3 ML DEYVIAL IH PRN (22:42)
[2017-11-26] MEDS ORDERED: NICOTINE POLACRILEX 2 MG GUM B PRN (22:42)
[2017-11-26] MEDS: NICOTINE 21 MG/24 HR PATCH TD SCH (22:43)
[2017-11-26] MEDS: oxyCODONE IR 5 MG TAB PO PRN (22:44)
--- NOTE | 2017-11-26 22:46 | PDGENHP ---
History and Physical - Chief Complaint pain/swelling in hand - History of Present Illness 27 yo homeless man presenting with increased pain and swelling around a chronic wound over his right third MCP. Patient notes the wound has been present for months, he was hospitalized for this last month, underwent surgical debridement and at that time noted to have MSSA in wound and tenosynovitis with exposed tendon. He was discharged several weeks ago and with a plan to come to the infusion center for daily infusions but per a post discharge ED note, he was not doing that. At the last eval in the ER, it appeared that the area was healing however. Today he notes the pain and swelling are worse, he is essentially unable to move his hand. He has had chills but not sure if he has had fevers. He also notes that he has had some wheezing related to his asthma, has been out of asthma meds. History Information - Allergies/Home Medication List Allergies/Adverse Reactions: No Known Allergies Allergy (Verified 11/26/17 18:42) Home Medications: Albuterol [Proventil Inhaler HFA (*)] 1 - 2 puffs IH Q4H PRN 10/24/17 [Last Taken 10/24/17] I have personally reviewed and updated: family history, medical history, social history, surgical history - Past Medical History asthma Additional medical history: tenosynovitis/cellulitis/abscess of hand - Surgical History Additional surgical history: I& D of tenosynovitis - Family History Positive for: non-pertinent - Social History Smoking Status: Current every day smoker Alcohol Use: Occasionally Drug Use: None Review of Systems Review of Systems: ROS: 10pt was reviewed & negative except for what was stated in HPI & below Physical Exam Physical Exam: Temp Pulse Resp BP Pulse Ox 36.9 C 91 16 114/74 95 11/26/17 21:14 11/26/17 21:14 11/26/17 21:14 11/26/17 21:14 11/26/17 21:14 Constitutional: no apparent distress, appears nourished, unkempt Eyes: PERRL Ears, Nose, Mouth, Throat: moist mucous membranes, hearing normal Cardiovascular: regular rate and rhythym, no murmur, rub, or gallop, No edema Respiratory: no respiratory distress, expiratory wheeze Gastrointestinal: normoactive bowel sounds, soft, non-tender abdomen Genitourinary: no bladder tenderness Skin: warm, abrasion, erythema Musculoskeletal: full muscle strength Neurologic: AAOx3 Psychiatric: interacting appropriately, not anxious, not encephalopathic Lab Data & Imaging Review 11/26/17 19:40 11/26/17 19:40 WBC 7.36 10^3/uL (3.80-9.50) 11/26/17 19:40 RBC 5.04 10^6/uL (4.40-6.38) 11/26/17 19:40 Hgb 14.4 g/dL (13.7-17.5) 11/26/17 19:40 Hct 43.6 % (40.0-51.0) 11/26/17 19:40 MCV 86.5 fL (81.5-99.8) 11/26/17 19:40 MCH 28.6 pg (27.9-34.1) 11/26/17 19:40 MCHC 33.0 g/dL (32.4-36.7) 11/26/17 19:40 RDW 14.5 % (11.5-15.2) 11/26/17 19:40 Plt Count 223 10^3/uL (150-400) 11/26/17 19:40 MPV 9.1 fL (8.7-11.7) 11/26/17 19:40 Neut % (Auto) 51.9 % (39.3-74.2) 11/26/17 19:40 Lymph % (Auto) 34.6 % (15.0-45.0) 11/26/17 19:40 [place] % (Auto) 9.8 % (4.5-13.0) 11/26/17 19:40 Eos % (Auto) 2.9 % (0.6-7.6) 11/26/17 19:40 Baso % (Auto) 0.5 % (0.3-1.7) 11/26/17 19:40 Nucleat RBC Rel Count 0.0 % (0.0-0.2) 11/26/17 19:40 Absolute Neuts (auto) 3.82 10^3/uL (1.70-6.50) 11/26/17 19:40 Absolute Lymphs (auto) 2.55 10^3/uL (1.00-3.00) 11/26/17 19:40 Absolute Monos (auto) 0.72 10^3/uL (0.30-0.80) 11/26/17 19:40 Absolute Eos (auto) 0.21 10^3/uL (0.03-0.40) 11/26/17 19:40 Absolute Basos (auto) 0.04 10^3/uL (0.02-0.10) 11/26/17 19:40 Absolute Nucleated RBC 0.00 10^3/uL (0-0.01) 11/26/17 19:40 Immature Gran % 0.3 % (0.0-1.1) 11/26/17 19:40 Immature Gran # 0.02 10^3/uL (0.00-0.10) 11/26/17 19:40 ESR 7 MM/HR (0-15) 11/26/17 19:40 Sodium 140 mEq/L (135-145) 11/26/17 19:40 Potassium 3.9 mEq/L (3.5-5.2) 11/26/17 19:40 Chloride 103 mEq/L (97-110) 11/26/17 19:40 Carbon Dioxide 26 mEq/l (22-31) 11/26/17 19:40 Anion Gap 11 mEq/L (8-16) 11/26/17 19:40 BUN 10 mg/dL (7-23) 11/26/17 19:40 Creatinine 0.9 mg/dL (0.7-1.3) 11/26/17 19:40 Estimated GFR > 60 11/26/17 19:40 Glucose 88 mg/dL (70-100) 11/26/17 19:40 Calcium 8.9 mg/dL (8.5-10.4) 11/26/17 19:40 C-Reactive Protein 8.4 mg/L (<10.0) 11/26/17 19:40 Assessment & Plan Assessment: Cellulitis of right hand (Acute) 27 yo M with recent hospitalization for tenosynovitis of right 3rd MCP admitted with cellulitis in same area # cellulitis/tenosynovitis/abscess: with recent hospitalization for same as well as tenosynovitis/abscess of affected 3rd digit. Pain and swelling have increased since going off of abx, abx were discontinued earlier than planned. Previously growing MSSA. At this time, will start ancef, Dr. Deleon consulted who has seen the patient previously as well. Suspect he will require surgical debridement and he will be kept npo after midnight. # RAD: without e/o exacerbation however wheezing noted on exam, will start albuterol prn and monitor # tobacco use: patch and gum, recommend cessation # observation status Patient new to my care. Old records reviewed and summarized as above. Care plan reviewed with ER doctor including plans for ortho hand consult
[2017-11-27 05:17] LABS: PLATELET COUNT 208 10^3/uL (150-400)
[2017-11-27] MEDS: ceFAZolin 2 GM/SWFI 2 GM/20 ML SYR IVP SCH ×3 (05:18→21:17)
[2017-11-27] MEDS: oxyCODONE IR 5 MG TAB PO PRN ×3 (09:42→21:17)
[2017-11-27] MEDS: NICOTINE 21 MG/24 HR PATCH TD SCH (09:43)
--- NOTE | 2017-11-27 10:43 | SOAPPROG ---
SOAP Progress Note Assessment/Plan: Assessment: Plan: - continue abx - may need another I&D today or tomorrow 11/27/17 10:43 Subjective: Infection has been ongoing past week or so. Reports more severe sx last 3 days. Objective: Vital Signs Temp Pulse Resp BP Pulse Ox 36.9 C 65 16 147/84 H 94 11/27/17 08:00 11/27/17 08:00 11/27/17 08:00 11/27/17 08:00 11/27/17 08:00 Laboratory Results 11/27/17 04:20 11/26/17 11/27/17 11/28/17 05:59 05:59 05:59 Intake Total 450 Balance 450 Swelling of the 3th MP joint into the finger and about 2-3 cm proximal. No fluctuance, no drainage. Wound bed has some minor bleeding, cannot express any puss. Limited ROM of the finger and MP joint secondary to pain. No pain along extensor tendon or flexor. NVI - Time Spent With Patient Time Spent With Patient: 15 - Pending Discharge Pending Discharge Within 24 Hours: No Pending Discharge Within 48 Hours: No ICD10 Worksheet Patient Problems: Problems Problem Status Onset Cellulitis of right hand Acute
--- NOTE | 2017-11-27 12:13 | ASMTLACE ---
BONNIE # of Emergency department Answers: 3-4 visits in the last 6 months Social determinants Answers: Homelessness (street, usp) Lack of community resources and/or lack of social support (no pcp, lives alone, transportation, pankaj d) Score: 10 Date Signed: 11/27/2017 12:13 PM Electronically Signed By:Zainab Moran LCSW
--- NOTE | 2017-11-27 12:20 | ASMTCMCOM ---
CM Note CM Note Notes: Pt. is a 27-year-old man admitted with a chronic wound on his R hand - r hand cellulitis. Pt. admitted in October 2017 for same wound. Having surgical debridement(s). Currently on Ancef IV antibiotics. Pt. his homeless. Hx. of every day smoking. Pt. was discharged in October to three-night [facility] hotel respite program stay at the [facility]. Meals on Wheels set up. Pt. was not compliant with his outpatient IV antibiotic regimen. Appears that Pt. will need more asthma meds at d/c. According to past chart, Pt.s Dad when Pt. was age 16. Mother has a hx. of drug addiction. D/c plan TBD. Date Signed: 11/27/2017 12:19 PM Electronically Signed By:Zainab Moran LCSW
--- NOTE | 2017-11-27 14:20 | HOSPPROG ---
Hospitalist Progress Note Assessment/Plan: 27 yo M with recent hospitalization for tenosynovitis of right 3rd MCP admitted with cellulitis in same area. # cellulitis/tenosynovitis/abscess: with recent hospitalization for same as well as tenosynovitis/abscess of affected 3rd digit. Pain and swelling have increased since going off of abx, abx were discontinued earlier than planned. Previously growing MSSA. At this time, will start ancef, Dr. Deleon consulted who has seen the patient previously as well. Suspect he will require surgical debridement # RAD: without e/o exacerbation however wheezing noted on exam, will start albuterol prn and monitor # tobacco use: patch and gum, recommend cessation # Dispo change to inpt will need cont IV abx and monitoring Subjective: Tired and hungry. Objective: Vital Signs Temp Pulse Resp BP Pulse Ox 36.6 C 71 16 129/82 H 92 11/27/17 11:11 11/27/17 11:11 11/27/17 11:11 11/27/17 11:11 11/27/17 11:11 Laboratory Results 11/27/17 12:45 11/26/17 11/27/17 11/28/17 05:59 05:59 05:59 Intake Total 450 Balance 450 - Physical Exam Constitutional: chronically ill appearing, uncomfortable Eyes: PERRL, anicteric sclera Ears, Nose, Mouth, Throat: moist mucous membranes, hearing normal Cardiovascular: No JVD, No edema Respiratory: no respiratory distress, no rales or rhonchi Gastrointestinal: No tenderness, No ascites Skin: warm, erythema, induration Musculoskeletal: joint tenderness, pain with ROM, generalized weakness Neurologic: AAOx3 Psychiatric: not anxious, thought process linear, poor insight, poor judgement ICD10 Worksheet Patient Problems: Problems Problem Status Onset Cellulitis of right hand Acute
--- NOTE | 2017-11-27 16:13 | PDMN ---
Medical Necessity Medical necessity: Change to IP, as of 11/27/17, per PRODUCT MANAGER; los >2 mn for ongoing management of cellulitis/tenosynovitis/abscess of R 3rd digit; admit for further monitoring, IV abx, possible surgical debridement & pain management; hx RAD, tobacco use, homelessness; per progress note & order 11/27/17
[2017-11-27] MEDS ORDERED: VANCOMYCIN HCL/NORMAL SALINE 250 ML IV ONE (19:46)
--- NOTE | 2017-11-27 19:46 | HOSPPROG ---
Hospitalist Progress Note Assessment/Plan: wound culture reviewed - alex millan previously MSSA; - will give one dose of vanc while awaiting sensitivities Objective: Vital Signs Temp Pulse Resp BP Pulse Ox 37.3 C 66 12 132/79 H 97 11/27/17 19:17 11/27/17 19:17 11/27/17 19:17 11/27/17 19:17 11/27/17 19:17 Laboratory Results 11/27/17 12:45 11/26/17 11/27/17 11/28/17 05:59 05:59 05:59 Intake Total 450 Balance 450 ICD10 Worksheet Patient Problems: Problems Problem Status Onset Cellulitis of right hand Acute
[2017-11-27] MEDS: FLUTICASONE/SALMETER 250/50MCG DISKUS IH SCH (21:02)
[2017-11-28] MEDS: ceFAZolin 2 GM/SWFI 2 GM/20 ML SYR IVP SCH ×3 (05:13→21:51)
[2017-11-28] MEDS: oxyCODONE IR 5 MG TAB PO PRN ×2 (05:13→20:22)
[2017-11-28] MEDS: FLUTICASONE/SALMETER 250/50MCG DISKUS IH SCH ×2 (09:09→21:51)
[2017-11-28] MEDS: NICOTINE 21 MG/24 HR PATCH TD SCH (09:09)
--- NOTE | 2017-11-28 09:13 | SOAPPROG ---
SOAP Progress Note Assessment/Plan: Assessment: Plan: - continue abx - unlikely to require surgery 11/27/17 10:43 11/28/17 09:13 Subjective: Pt reports subjective improvement in sx, somewhat. Still having pain limited motion. Objective: Vital Signs Temp Pulse Resp BP Pulse Ox 36.8 C 57 L 16 122/68 H 94 11/28/17 08:00 11/28/17 08:00 11/28/17 08:00 11/28/17 08:00 11/28/17 08:00 Laboratory Results 11/27/17 12:45 11/27/17 11/28/17 11/29/17 05:59 05:59 05:59 Intake Total 450 500 Balance 450 500 Slight improvement in swelling, no crepitation no evidence of tendon involvement. - Time Spent With Patient Time Spent With Patient: 5 - Pending Discharge Pending Discharge Within 24 Hours: No Pending Discharge Within 48 Hours: No ICD10 Worksheet Patient Problems: Problems Problem Status Onset Cellulitis of right hand Acute
--- NOTE | 2017-11-28 10:30 | HOSPPROG ---
Hospitalist Progress Note Assessment/Plan: 27 yo M with recent hospitalization for tenosynovitis of right 3rd MCP admitted with cellulitis in same area. # cellulitis/tenosynovitis/abscess: with recent hospitalization for same as well as tenosynovitis/abscess of affected 3rd digit. Pain and swelling have increased since going off of abx abx were discontinued earlier than planned, pt not compliant Previously growing MSSA now with staph, cont vanco until sensitivities back Dr. Deleon consulted who has seen the patient previously as well. D/W Trace Esposito no surgery currently # RAD: without e/o exacerbation # tobacco use: patch and gum, recommend cessation # Dispo continue IV abx monitor Subjective: Tired today. Some hand pain. No other issues. Objective: Vital Signs Temp Pulse Resp BP Pulse Ox 36.8 C 57 L 16 122/68 H 94 11/28/17 08:00 11/28/17 08:00 11/28/17 08:00 11/28/17 08:00 11/28/17 08:00 Laboratory Results 11/27/17 12:45 11/27/17 11/28/17 11/29/17 05:59 05:59 05:59 Intake Total 450 500 Balance 450 500 - Physical Exam Constitutional: no apparent distress, appears nourished, uncomfortable Eyes: PERRL, anicteric sclera, EOMI Ears, Nose, Mouth, Throat: moist mucous membranes, hearing normal, ears appear normal Cardiovascular: No JVD, No tachycardia, No edema Respiratory: no respiratory distress, no rales or rhonchi, reduced air movement Gastrointestinal: normoactive bowel sounds, No tenderness, No ascites Skin: warm, erythema, induration Musculoskeletal: joint tenderness, pain with ROM, generalized weakness Neurologic: AAOx3 Psychiatric: not encephalopathic, thought process linear, poor insight, poor judgement ICD10 Worksheet Patient Problems: Problems Problem Status Onset Cellulitis of right hand Acute
--- NOTE | 2017-11-28 11:32 | ASMTCMCOM ---
CM Note CM Note Notes: Jens discussed Pt with hospitalist. Plan for d/c possibly Friday, likely with outpatient infusion center for IV antibiotics again. CM to check in with Pt. at d/c to see if he would like to go to [facility] detention bed or if he is linked in already with [facility] for either detention stays or [facility] stays. F/u [facility] appt. CM to follow. Date Signed: 11/28/2017 11:32 AM Electronically Signed By:Zainab Moran LCSW
--- NOTE | 2017-11-28 14:18 | PCMIDPN ---
Assessment/Plan: # Tenosynovitis of right 3rd MCP, open crater above 3rd MCP with purulent drainage. Swelling around the 3rd MCP, minimal cellulitic changes. Cultures show MSSA and group B strep - same pathogens as a month ago. The patient came for 3 doses of ceftriaxone after discharge 10/30/2017, 5 days a short of the planned 2 weeks of IV therapy - cont Ancef - seems like it needs debridement will obtain MRI to understand the depth of infection Medication antibiotic # 2 Ancef 2 g IV Q 8, # 1 Subjective: Patient reports significant pain over the 3rd MCP on his right hand. also has pain with flexion of his middle finger , no diarrhea Objective: Vital Signs Temp Pulse Resp BP Pulse Ox 36.8 C 57 L 16 122/68 H 94 11/28/17 08:00 11/28/17 08:00 11/28/17 08:00 11/28/17 08:00 11/28/17 08:00 Laboratory Results 11/27/17 12:45 11/27/17 11/28/17 11/29/17 05:59 05:59 05:59 Intake Total 450 500 Balance 450 500 ESR 14 MM/HR (0-15) 11/27/17 12:45 C-Reactive Protein 11.2 mg/L (<10.0) H 11/27/17 12:45 - Physical Exam General Appearance: alert, no apparent distress, other (Tanned) Respiratory: No accessory muscle use Extremities: swelling (Over right MCP with crater like area with purulent drainage in the base. Tender to palpation, range of motion of MCP is intact but painful) Skin: No rash Neuro/Psych: alert, other (Cooperative) - Time Spent With Patient Time Spent with Patient: greater than 25 minutes (discussed w Rekha Jerome) Time Spent with Patient: Greater than 25 minutes spent on this patients care, greater than 50% of time spent counseling, educating, and coordinating care regarding the above mentioned plan. ICD10 Worksheet Patient Problems: Problems Problem Status Onset Cellulitis of right hand Acute
[2017-11-28] MEDS: ALBUTEROL 60 PUFFS/8 GM MDI IH PRN ×2 (14:27→20:17)
[2017-11-28] MEDS ORDERED: LORazepam 2 MG/ML INJ IVP ONE (16:40)
--- NOTE | 2017-11-28 16:52 | GCON ---
[f rep st] CONSULTATION DATE OF CONSULTATION: 11/27/2017 CURRENT COMPLAINT: Hand pain. HISTORY OF PRESENT ILLNESS: The patient is a 27-year-old male who has previously undergone a formal irrigation and debridement of his hand with closure of a wound. He did have exposed tendon tissue in the area. He was placed on antibiotics and once discharged, was supposed to follow up for further a ntibiotics. He states he did not do this. Of late, he has had increasing pain and swelling across t he hand. He was admitted for antibiotic treatment. PHYSICAL EXAMINATION: RIGHT HAND: He has minor amount of drainage noted to the dorsal portion of th e hand. He has swelling around the 3rd MCP joint with no fluctuance and no drainage at that time. H is wound bed continues to have minor bleeding. He has limited range of motion secondary to pain. He has no tenderness along the sheath associated with the flexor tendon. He remains neurologically int act distally. ASSESSMENT AND PLAN: The patient is status post right hand infection. He is to continue with antibi otics. We will continue to follow him while he is here in the hospital, assess him for surgical elsa tment if needed. /[id number]/MODL
[2017-11-28] MEDS ORDERED: GADOBUTROL 10 ML VIAL IVP ONE (18:50)
[2017-11-28] MEDS ORDERED: BISACODYL 10 MG SUPP PR PRN (22:36)
[2017-11-28] MEDS ORDERED: POLYETHYLENE GLYCOL 3350 17 GM PKT PO PRN (22:36)
[2017-11-28] MEDS ORDERED: MAGNESIUM HYDROXIDE 30 ML UDCUP PO PRN (22:36)
[2017-11-28] MEDS ORDERED: LACTULOSE 20 GM/30 ML UDCUP PO PRN (22:36)
[2017-11-29] MEDS: oxyCODONE IR 5 MG TAB PO PRN ×4 (06:08→19:33)
[2017-11-29] MEDS: ALBUTEROL 60 PUFFS/8 GM MDI IH PRN ×2 (06:22→21:54)
[2017-11-29] MEDS: ceFAZolin 2 GM/SWFI 2 GM/20 ML SYR IVP SCH ×2 (06:25→14:13)
[2017-11-29] MEDS ORDERED: BENZONATATE 100 MG CAP PO PRN (08:48)
--- NOTE | 2017-11-29 08:51 | HOSPPROG ---
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, had not completed recommended course of abx previously - MSSA, group B strep - suspect will need debridement - cont ancef # RAD and cough - doubt pna - cont nebs/inhalers, start tessalon pearls # abd pain - occurred when coughing; no evidence of hernia - continue to monitor # tobacco use - patch and gum Subjective: still ongoing hand pain; abd pain when coughing Objective: Vital Signs Temp Pulse Resp BP Pulse Ox 37.0 C 55 L 16 103/49 L 93 11/29/17 00:00 11/29/17 00:00 11/29/17 00:00 11/29/17 00:00 11/29/17 00:00 Laboratory Results 11/27/17 12:45 11/28/17 11/29/17 11/30/17 05:59 05:59 05:59 Intake Total 500 350 Balance 500 350 chart reviewed MRI reviewed - Physical Exam Constitutional: uncomfortable Cardiovascular: regular rate and rhythym, no murmur, rub, or gallop Respiratory: no respiratory distress, expiratory wheeze, rhonchi, No reduced air movement Gastrointestinal: normoactive bowel sounds, other (soft, no hernia appreciated; TTP RUQ (no Salazar's)) ICD10 Worksheet Patient Problems: Problems Problem Status Onset Cellulitis of right hand Acute
[2017-11-29] MEDS: SENNOSIDES/DOCUSATE SODIUM TAB PO SCH ×2 (09:52→21:05)
[2017-11-29] MEDS: NICOTINE 21 MG/24 HR PATCH TD SCH (09:52)
[2017-11-29] MEDS: FLUTICASONE/SALMETER 250/50MCG DISKUS IH SCH ×2 (11:35→21:02)
--- NOTE | 2017-11-29 14:11 | PCMIDPN ---
Assessment/Plan: Assessment/Plan: * Right 3rd MCP infection with non-resolving wound: Patient feels like hand improved with less pain. MRI shows possible small abscess with question of osteomyelitis of 3rd MCP head. Cultures show growth of MSSA and Group B strep. Suspect will require repeat debridement based on MRI and clinical findings. Await additional input from Dr. Deleon. Continue cefazolin. 11/29/17 14:08 Subjective: Patient with less right hand pain. Objective: Vital Signs Temp Pulse Resp BP Pulse Ox 36.9 C 78 14 117/84 H 92 11/29/17 08:00 11/29/17 08:00 11/29/17 08:00 11/29/17 08:00 11/29/17 08:00 Laboratory Results 11/27/17 12:45 11/28/17 11/29/17 11/30/17 05:59 05:59 05:59 Intake Total 500 350 720 Balance 500 350 720 ESR 14 MM/HR (0-15) 11/27/17 12:45 C-Reactive Protein 11.2 mg/L (<10.0) H 11/27/17 12:45 Cefazolin #3 Hand cultures MSSA, Group B strep Blood cultures X 2 no growth MRI right hand with 2 X 1.3 X 0.4 cm fluid collection with enhancement between 3rd MCP head and extensor tendon; edema in medial aspect of 3rd MCP head suggestive of osteomyelitis - Physical Exam General Appearance: alert, no apparent distress EENT: No scleral icterus, No thrush Respiratory: lungs clear, No respiratory distress Cardiac/Chest: regular rate, rhythm, No systolic murmur Extremities: inflammation (right hand over dorsal surface with edematous, heaped up wound with central depression and scab with associated tenderness; no drainage; no erythema; no pain with range of motion of 3rd digit) Lymphatic: other (no right upper extremity lymphangitis) ICD10 Worksheet Patient Problems: Problems Problem Status Onset Cellulitis of right hand Acute
--- NOTE | 2017-11-29 14:56 | SOAPPROG ---
SOAP Progress Note Assessment/Plan: Assessment: Plan: Subjective: states he feels much better than on admission NVI wound granulating from base and sides no pain to MCP motion actively or passively cont abx Objective: Vital Signs Temp Pulse Resp BP Pulse Ox 36.9 C 78 14 117/84 H 92 11/29/17 08:00 11/29/17 08:00 11/29/17 08:00 11/29/17 08:00 11/29/17 08:00 Laboratory Results 11/27/17 12:45 11/28/17 11/29/17 11/30/17 05:59 05:59 05:59 Intake Total 819 183 6864 Balance 108 948 0880 ICD10 Worksheet Patient Problems: Problems Problem Status Onset Cellulitis of right hand Acute
[2017-11-29] MEDS: ceFAZolin 2 GM/DEXTROSE 100 ML IV SCH (21:03)
[2017-11-29] MEDS: BACITRACIN OINTMENT 1 PACKET TP SCH (21:05)
[2017-11-30] MEDS: oxyCODONE IR 5 MG TAB PO PRN ×4 (05:41→22:03)
[2017-11-30] MEDS: ceFAZolin 2 GM/DEXTROSE 100 ML IV SCH ×3 (05:43→21:10)
[2017-11-30] MEDS: BACITRACIN OINTMENT 1 PACKET TP SCH ×2 (08:42→21:09)
[2017-11-30] MEDS: SENNOSIDES/DOCUSATE SODIUM TAB PO SCH ×2 (08:43→21:27)
[2017-11-30] MEDS: NICOTINE 21 MG/24 HR PATCH TD SCH (08:44)
[2017-11-30] MEDS: HYDROmorphone HCL/NS 0.5 MG/ML SYR IVP PRN (08:55)
--- NOTE | 2017-11-30 09:04 | HOSPPROG ---
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, had not completed recommended course of abx previously - MSSA, group B strep, cont ancef # abd pain - recurred today - will treat with IV narcotics - check stat CT abd/pelvis with IV contrast, check CBC, CMP, lipase # RAD and cough - doubt pna - cont nebs/inhalers, tessalon pearls # tobacco use - patch and gum Subjective: curled over in severe abd pain; says this is different than yesterday; he is unable to let me examine him d/t the pain; had a normal BM last night; no emesis Objective: Vital Signs Temp Pulse Resp BP Pulse Ox 36.8 C 73 18 135/73 H 93 11/29/17 22:47 11/29/17 22:47 11/29/17 22:47 11/29/17 22:47 11/29/17 22:47 Laboratory Results 11/27/17 12:45 11/29/17 11/30/17 12/01/17 05:59 05:59 05:59 Intake Total 350 1200 Balance 350 1200 - Physical Exam Constitutional: uncomfortable (writhing and holding abdomne) Eyes: anicteric sclera Ears, Nose, Mouth, Throat: hearing normal Cardiovascular: regular rate and rhythym, no murmur, rub, or gallop Respiratory: no respiratory distress, no rales or rhonchi Gastrointestinal: other (unable to examine) Genitourinary: No horne in urethra Skin: warm Musculoskeletal: full muscle strength Neurologic: AAOx3 Psychiatric: agitated (d/t pain) ICD10 Worksheet Patient Problems: Problems Problem Status Onset Cellulitis of right hand Acute
[2017-11-30] MEDS ORDERED: IOPAMIDOL (ISOVUE-300) 100 ML BTL ONE (09:14)
[2017-11-30 09:17] LABS: PLATELET COUNT 269 10^3/uL (150-400)
[2017-11-30] MEDS: FLUTICASONE/SALMETER 250/50MCG DISKUS IH SCH ×2 (11:41→21:31)
--- NOTE | 2017-11-30 15:13 | SOAPPROG ---
SOAP Progress Note Assessment/Plan: Assessment: Plan: Subjective: states he continues to feel better but reports some minimal drainage from chiquis wound base and sides of wound look mildly better but still has some serous drainage will continue to watch ESR/CRP are borderline if not significantly better soon, will consider formal debridement again Objective: Vital Signs Temp Pulse Resp BP Pulse Ox 36.7 C 54 L 18 111/55 L 91 L 11/30/17 11:35 11/30/17 11:35 11/30/17 11:35 11/30/17 11:35 11/30/17 11:35 Laboratory Results 11/30/17 09:10 11/30/17 09:10 11/29/17 11/30/17 12/01/17 05:59 05:59 05:59 Intake Total 350 1200 Balance 350 1200 ICD10 Worksheet Patient Problems: Problems Problem Status Onset Cellulitis of right hand Acute
--- NOTE | 2017-11-30 16:36 | PCMIDPN ---
Assessment/Plan: Assessment/Plan: * Right 3rd MCP infection with non-resolving wound: Improved range of motion today with slightly softer margins of wound. Continue cefazolin based on culture findings of MSSA and group B Streptococcus. Follow clinical exam as may ultimately require additional debridement for full resolution. 11/30/17 16:34 Subjective: Patient with improved range of motion of digits. Less pain around wound bed. Objective: Vital Signs Temp Pulse Resp BP Pulse Ox 36.8 C 73 18 130/90 H 92 11/30/17 15:49 11/30/17 15:49 11/30/17 15:49 11/30/17 15:49 11/30/17 15:49 Laboratory Results 11/30/17 09:10 11/30/17 09:10 11/29/17 11/30/17 12/01/17 05:59 05:59 05:59 Intake Total 350 1200 Balance 350 1200 ESR 14 MM/HR (0-15) 11/27/17 12:45 C-Reactive Protein 11.2 mg/L (<10.0) H 11/27/17 12:45 Cefazolin # 4 - Physical Exam General Appearance: alert, no apparent distress Extremities: inflammation (Wound margins slightly less firm in texture; softer appearance to central scab with slight serous drainage; no pain with range of motion of middle finger) ICD10 Worksheet Patient Problems: Problems Problem Status Onset Cellulitis of right hand Acute
[2017-11-30] MEDS: ALBUTEROL 60 PUFFS/8 GM MDI IH PRN (21:09)
[2017-12-01] MEDS: ceFAZolin 2 GM/DEXTROSE 100 ML IV SCH ×3 (06:00→22:48)
[2017-12-01] MEDS: HYDROmorphone HCL/NS 0.5 MG/ML SYR IVP PRN (06:45)
[2017-12-01] MEDS: NICOTINE 21 MG/24 HR PATCH TD SCH (09:21)
[2017-12-01] MEDS: BACITRACIN OINTMENT 1 PACKET TP SCH ×2 (09:22→22:48)
[2017-12-01] MEDS: SENNOSIDES/DOCUSATE SODIUM TAB PO SCH ×2 (09:26→22:48)
[2017-12-01] MEDS: FLUTICASONE/SALMETER 250/50MCG DISKUS IH SCH ×2 (09:30→21:40)
--- NOTE | 2017-12-01 09:43 | HOSPPROG ---
Hospitalist Progress Note Assessment/Plan: Patient is a 27-year-old homeless man who presented the emergency room with increased pain and swelling around the chronic wound over his right 3rd MCP. He was hospitalized last month for this and underwent surgical debridement. He was discharged in the plan was to come to the infusion center but he did not follow up. Today is my 1st encounter with the patient. Chart reviewed. 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 Subjective: Lizabeth is feeling overall well. Objective: Vital Signs Temp Pulse Resp BP Pulse Ox 36.7 C 54 L 16 143/79 H 94 12/01/17 07:42 12/01/17 07:42 12/01/17 07:42 12/01/17 07:42 12/01/17 07:42 Laboratory Results 11/30/17 09:10 11/30/17 09:10 11/30/17 12/01/17 12/02/17 05:59 05:59 05:59 Intake Total 1200 500 Balance 1200 500 - Physical Exam Constitutional: no apparent distress, appears nourished, not in pain Eyes: PERRL Ears, Nose, Mouth, Throat: hearing normal Cardiovascular: regular rate and rhythym Respiratory: no respiratory distress Gastrointestinal: normoactive bowel sounds Skin: warm, other (right mcp with some swelling, no redness) Musculoskeletal: full muscle strength Neurologic: AAOx3 Psychiatric: interacting appropriately, not anxious ICD10 Worksheet Patient Problems: Problems Problem Status Onset Cellulitis of right hand Acute
--- NOTE | 2017-12-01 13:40 | ASMTCMCOM ---
CM Note CM Note Notes: CM spoke w/ Dr. Ruiz and Bruce RN regarding d/c POC. Anticipate d/c for tomorrow unless if pt needs to go in for a debridement. CM to follow. Plan: [facility] Outpatient infusion Date Signed: 12/01/2017 01:40 PM Electronically Signed By:CATHERINE Abraham
--- NOTE | 2017-12-01 14:06 | PCMIDPN ---
Assessment/Plan: Assessment: Right hand dorsal wound infection. The wound appears that is improving overnight with cefazolin therapy. The borders are not nearly is heaped up as described. Would continue the cefazolin and observe at least another 24 hr. If everything looks good would probably discharge on oral antibiotics. The reason that this wound is hard to heal is also its location. Wonder if some sort of splint that prevents flexion would allow for better outcome. Plan: 1. Continue IV cefazolin. 2. Continue wound care. New 12/01/17 14:03 Subjective: Patient is taking a nap this morning. Awakened to examine. He notes no new complaints. Denies fevers or chills. Denies rash. Objective: Cefazolin # 2 Vital Signs Temp Pulse Resp BP Pulse Ox 36.7 C 54 L 16 143/79 H 94 12/01/17 07:42 12/01/17 07:42 12/01/17 07:42 12/01/17 07:42 12/01/17 07:42 Laboratory Results 11/30/17 09:10 11/30/17 09:10 11/30/17 12/01/17 12/02/17 05:59 05:59 05:59 Intake Total 1200 500 Balance 1200 500 ESR 14 MM/HR (0-15) 11/27/17 12:45 C-Reactive Protein 11.2 mg/L (<10.0) H 11/27/17 12:45 - Physical Exam General Appearance: WD/WN, alert, non-toxic Respiratory: lungs clear, normal breath sounds, No respiratory distress Cardiac/Chest: regular rate, rhythm, No tachycardia Extremities: non-tender, No normal inspection Skin: normal color, warm/dry, No rash Neuro/Psych: alert, normal mood/affect, oriented x 3 ICD10 Worksheet Patient Problems: Problems Problem Status Onset Cellulitis of right hand Acute
[2017-12-01] MEDS: oxyCODONE IR 5 MG TAB PO PRN ×3 (14:58→22:48)
[2017-12-01] MEDS: VANCOMYCIN 125 MG/2.5 ML UDL PO SCH ×2 (18:40→22:47)
--- NOTE | 2017-12-01 20:45 | SOAPPROG ---
SOAP Progress Note Assessment/Plan: Assessment: Plan: Subjective: states his finger feels and looks better edges guille with base with beefier red tissue and no drainage will continue abx Objective: Vital Signs Temp Pulse Resp BP Pulse Ox 36.7 C 84 16 143/79 H 97 12/01/17 15:58 12/01/17 15:58 12/01/17 15:58 12/01/17 15:58 12/01/17 15:58 Microbiology 12/01/17 15:45 Gastrointestinal Tract Panel (PCR) - Final Stool Clostridium Difficile Detected Laboratory Results 11/30/17 09:10 11/30/17 09:10 11/30/17 12/01/17 12/02/17 05:59 05:59 05:59 Intake Total 1200 500 Balance 1200 500 ICD10 Worksheet Patient Problems: Problems Problem Status Onset Cellulitis of right hand Acute
[2017-12-02 00:10] VITALS: BP 128/71
[2017-12-02] MEDS: oxyCODONE IR 5 MG TAB PO PRN ×2 (02:44→06:08)
[2017-12-02] MEDS: ceFAZolin 2 GM/DEXTROSE 100 ML IV SCH (06:08)
[2017-12-02] MEDS: VANCOMYCIN 125 MG/2.5 ML UDL PO SCH (06:08)
--- NOTE | 2017-12-02 08:19 | HOSPPROG ---
Hospitalist Progress Note Assessment/Plan: Patient is a 27-year-old homeless man who presented the emergency room with increased pain and swelling around the chronic wound over his right 3rd MCP. He was hospitalized last month for this and underwent surgical debridement. He was discharged in the plan was to come to the infusion center but he did not follow up. 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 #agitation -during my interview with the patient today, he was very sleepy but willing for me to evaluate his right MCP. He told me that he was having some abdominal pain last night. I told him the CT scan was reassuring and did not show anything acute. He then stood up out of the bed and proceeded to scream at me stating he had abdominal pain. When I asked him to tell me where his pain was, he declined and continued to scream using profanity. The nurse asked the patient to quit screaming and we were there to help him. He slammed the door and security was asked to come see him due to his agitated state. He left AMA with security following him. The police were notified about the patient's discharge. Subjective: Lizabeth was screaming, refused to tell me where his abdominal pain was located. Objective: Vital Signs Temp Pulse Resp BP Pulse Ox 36.5 C 68 16 128/71 H 92 12/02/17 00:00 12/02/17 00:00 12/02/17 00:00 12/02/17 00:00 12/02/17 00:00 Microbiology 12/01/17 15:45 Gastrointestinal Tract Panel (PCR) - Final Stool Clostridium Difficile Detected Laboratory Results 11/30/17 09:10 11/30/17 09:10 12/01/17 12/02/17 12/03/17 05:59 05:59 05:59 Intake Total 500 1200 Balance 500 1200 - Physical Exam Ears, Nose, Mouth, Throat: hearing normal Psychiatric: agitated ICD10 Worksheet Patient Problems: Problems Problem Status Onset C. difficile colitis Acute Cellulitis of right hand Acute
[2017-12-02] MEDS: NICOTINE 21 MG/24 HR PATCH TD SCH (08:59)
[2017-12-02] MEDS: BACITRACIN OINTMENT 1 PACKET TP SCH (08:59)
[2017-12-02] MEDS: SENNOSIDES/DOCUSATE SODIUM TAB PO SCH (09:35)
[2017-12-02] MEDS: FLUTICASONE/SALMETER 250/50MCG DISKUS IH SCH (10:09)
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
== END 2017-12-02 10:25 | disposition left against medical advice (07) | DRG 383 ==
LOC: OBSVTOIN 21:12 → F3E 21:28
PROVIDERS: ADMIT Internal Medicine; ATTEND Internal Medicine
DX: L03.113 Cellulitis of right upper limb (principal); A04.72 Enterocolitis due to Clostridium difficile, not specified as recurrent; L02.511 Cutaneous abscess of right hand; A49.01 Methicillin susceptible Staphylococcus aureus infection, unspecified site; K59.00 Constipation, unspecified; J45.909 Unspecified asthma, uncomplicated; R45.1 Restlessness and agitation; Z72.0 Tobacco use; Z59.0 Homelessness
CPT/HCPCS: 96374; A9585; G0378; J0690; J1170; J2060; J2270; J2405; J3370; J7613; Q9967

== ENCOUNTER 2017-12-02 11:03 | Emergency (ER) | payer MEDICAID ==
[2017-12-02 11:10] VITALS: BP 128/104
--- NOTE | 2017-12-02 11:11 | EDPHY ---
H & P Smoking Status: Current every day smoker Time Seen by Provider: 12/02/17 11:04 HPI/ROS: CHIEF COMPLAINT: Medical screening for incarceration HISTORY OF PRESENT ILLNESS: 27-year-old male arrives via police, in custody of police, for medical screening prior to incarceration. He left the hospital this morning, was diagnosed with C diff colitis as well as MSSA right hand. He expresses his displeasure at his hospitalization. PHYSICAL EXAM (Prior to examination, patient consented to physical exam, hands were washed and my usual and customary physical exam procedures followed) 1) GENERAL: Well-developed, well-nourished, alert and oriented. Appears to be in no acute distress. He is handcuffed behind his back, visibly upset. 2) HEAD: Normocephalic 3) HEENT: sclera anicteric 4) LUNGS: Breathing comfortably. 5) SKIN: Right 3rd MCP tissue discoloration noted. (Subhash Tyler) Constitutional: Initial Vital Signs Temperature (C) 37 C 12/02/17 11:08 Heart Rate 81 12/02/17 11:08 Respiratory Rate 16 12/02/17 11:08 Blood Pressure 128/104 H 12/02/17 11:08 O2 Sat (%) 96 12/02/17 11:08 O2 Delivery Mode Room Air Allergies/Adverse Reactions: No Known Allergies Allergy (Verified 12/02/17 11:11) Home Medications: Medication Instructions Recorded Albuterol [Proventil Inhaler HFA 1 - 2 puffs IH Q4H PRN 10/24/17 (*)] Fluticasone/Salmeter 250/50Mcg 1 puffs IH BID disk 10/30/17 [Advair 250/50 (*)] Cephalexin [Keflex] 500 mg PO TID 10 Days cap 12/02/17 Vancomycin [Vancomycin (*)] 125 mg PO Q6 14 Days cap 12/02/17 MDM/Departure - MDM ED Course/Re-evaluation: 11:09 a.m.: I reviewed the medical chart on this patient. I discussed case with secondary supervising physician Dr. Ricardo Hartley in the ER and also spoke with hospitalist Alka Ochoa who is familiar with this care. He needs to be on oral vancomycin for his C diff colitis for 14 days, 125 mg every 6 hr, as well as oral Keflex for his MSSA right hand abscess. (Subhash Tyler) I did not see this patient while he was in the emergency department. However his care is discussed with the PA while the patient is in the department. I agree with treatment plan and management (Ricardo Hartley) - Depart Disposition: Law Enforcement/Court/Fdc Clinical Impression: Cellulitis of right hand, C. difficile colitis Condition: Good Instructions: Cellulitis (ED), Clostridium Difficile Infection (ED) Additional Instructions: You are medically cleared for incarceration. You need to stay on a regimen of prescribed antibiotic Prescriptions: Cephalexin [Keflex] 500 mg PO TID 10 Days cap Vancomycin [Vancomycin (*)] 125 mg PO Q6 14 Days cap Referrals: [facility] (ED,. [Edm Groups for Call Sched] - 12/16/17
== END 2017-12-02 11:25 ==
DX: L03.113 Cellulitis of right upper limb (principal); A04.72 Enterocolitis due to Clostridium difficile, not specified as recurrent; F17.200 Nicotine dependence, unspecified, uncomplicated

== ENCOUNTER 2017-12-10 19:58 | Emergency (ER) | payer MEDICAID ==
[2017-12-10 20:05] VITALS: BP 118/74
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
== END 2017-12-10 20:39 | disposition home or self-care (01) ==
DX: L03.113 Cellulitis of right upper limb (principal); A04.72 Enterocolitis due to Clostridium difficile, not specified as recurrent; F17.200 Nicotine dependence, unspecified, uncomplicated; J45.909 Unspecified asthma, uncomplicated

== ENCOUNTER 2017-12-30 17:47 | Emergency (ER) | payer MEDICAID ==
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
[2017-12-31 06:49] VITALS: BP 128/72
== END 2017-12-30 20:01 | disposition home or self-care (01) ==
DX: S00.83XA Contusion of other part of head, initial encounter (principal); T81.4XXA Infection following a procedure, initial encounter; J45.909 Unspecified asthma, uncomplicated; F17.200 Nicotine dependence, unspecified, uncomplicated; Y09 Assault by unspecified means; Y82.8 Other medical devices associated with adverse incidents

== ENCOUNTER 2018-01-06 15:10 | Emergency (ER) | payer MEDICAID ==
--- NOTE | 2018-01-06 15:29 | EDPHY ---
H & P Stated Complaint: med clearance Time Seen by Provider: 01/06/18 15:13 HPI/ROS: CHIEF COMPLAINT: Here for medical clearance HISTORY OF PRESENT ILLNESS: This is a 27-year-old male who arrives in police custody for medical clearance prior to being taken to long term. He has no current complaints. He was recently hospitalized with Clostridium difficile and tells me that he has completed the course of antibiotics and has not had diarrhea recently. He was also treated for a staphylococcal infection of his right hand which he tells me is not markedly improved. [facility] but was arrested before he could do so. REVIEW OF SYSTEMS: A ten point review of systems was performed and is negative with the exception of the items mentioned in the HPI. Past medical history: 1. Reactive airway disease 2. Tobacco abuse 3. Right hand MSSA 4. Clostridium difficile Social history: He is homeless. He continues to smoke cigarettes daily. General Appearance: Alert. Vital signs reviewed. Discharge hold. Eyes: Pupils equal and round, no conjunctival injection, no discharge. Anicteric. ENT, Mouth: Mucous membranes are dry, no oropharyngeal erythema or edema. Neck: No lymphadenopathy, supple. Respiratory: Lungs with bilateral wheezes. Cardiovascular: Regular rate and rhythm; no murmur, rub, or gallop. Gastrointestinal: Abdomen is soft and nontender, no masses or organomegaly, bowel sounds normal. Skin: Warm and dry, no rashes on exposed skin, normal color. Skin is saha. Back: Nontender to palpation over the thoracolumbar spine. Extremities: No lower extremity edema, no calf tenderness or swelling. He is in handcuffs. His right upper extremity has splint and Uriel wrap in place. Brisk capillary refill right digits. Dressing was removed. There is sutures in place on the dorsum of his right hand. There is mild swelling and surrounding erythema, no warmth or purulence. Neurological: Alert and oriented. Moving all four extremities easily and equally. Psychiatric: Normal affect. Cooperative, no agitation. - Personal History Current Tetanus/Diphtheria Vaccine: Yes Current Tetanus Diphtheria and Acellular Pertussis (TDAP): Yes Tetanus Vaccine Date: 2009 - Medical/Surgical History Hx Asthma: Yes Hx Chronic Respiratory Disease: No Hx Diabetes: No Hx Cardiac Disease: No Hx Renal Disease: No Hx Cirrhosis: No Hx Alcoholism: No Hx HIV/AIDS: No Hx Splenectomy or Spleen Trauma: No Other PMH: TENDON INFECTION R HAND, asthma - Social History Smoking Status: Current every day smoker Constitutional: Initial Vital Signs Temperature (C) 36.8 C 01/06/18 15:10 Heart Rate 90 01/06/18 15:10 Respiratory Rate 18 01/06/18 15:10 Blood Pressure 114/70 01/06/18 15:10 O2 Sat (%) 98 01/06/18 15:10 O2 Delivery Mode Room Air Allergies/Adverse Reactions: No Known Allergies Allergy (Verified 12/10/17 20:02) Home Medications: Medication Instructions Recorded Albuterol [Proventil Inhaler HFA 1 - 2 puffs IH Q4H PRN 10/24/17 (*)] Fluticasone/Salmeter 250/50Mcg 1 puffs IH BID disk 10/30/17 [Advair 250/50 (*)] Cephalexin [Keflex] 500 mg PO TID 10 Days cap 12/02/17 Vancomycin [Vancomycin (*)] 125 mg PO Q6 14 Days cap 12/02/17 Cephalexin [Keflex (*)] 500 mg PO TID #21 cap 12/10/17 Vancomycin [Vancomycin (*)] 125 mg PO Q6 #14 cap 12/10/17 Medical Decision Making ED Course/Re-evaluation: His right hand was cleaned and redressed. He was given a DuoNeb treatment in the emergency department with subsequent clearing of wheezes. His pulse ox was all was in the mid to high 90s while in the department. He was given an albuterol MDI to take with him. He is medically cleared for incarceration. I have not found evidence of a medical issue that would preclude incarceration. - Data Points Medications Given: Discontinued Medications Albuterol Sulfate (Proventil Inh Prepack) 1 mdi TAKEHOME EDNOW ONE Stop: 01/06/18 15:31 Last Admin: 01/06/18 16:00 Dose: 1 mdi Albuterol/Ipratropium (Duoneb) 3 ml IH EDNOW ONE Stop: 01/06/18 15:31 Last Admin: 01/06/18 15:39 Dose: 3 ml Ibuprofen (Motrin) 600 mg PO EDNOW ONE Stop: 01/06/18 15:41 Last Admin: 01/06/18 15:42 Dose: 600 mg Departure - Departure Disposition: Home, Routine, Self-Care Clinical Impression: Medical clearance for incarceration Condition: Good Instructions: Reactive Airways Disease (ED) Additional Instructions: So be a good time to quit smoking. Your wheezing in the emergency department. I am providing an albuterol inhaler that I recommend you use, 2 puffs at a time 4 times daily. Continue with your plans to follow up at [facility] for your right hand cellulitis. Referrals: [facility],. [Clinic] - As per Instructions
[2018-01-06] MEDS ORDERED: IPRATROPIUM/ALBUTEROL 3 ML DEYVIAL IH ONE (15:30)
[2018-01-06] MEDS ORDERED: ALBUTEROL INH PREPACK MDI TAKEHOME ONE (15:30)
[2018-01-06] MEDS ORDERED: IBUPROFEN 600 MG TAB PO ONE ×2 (15:40→15:41)
[2018-01-06] MEDS ORDERED: ALBUTEROL 3 ML DEYVIAL ONE (15:41)
[2018-01-06 16:07] VITALS: BP 130/69
== END 2018-01-06 16:09 | disposition home or self-care (01) ==
DX: Z02.89 Encounter for other administrative examinations (principal); J45.909 Unspecified asthma, uncomplicated; F17.200 Nicotine dependence, unspecified, uncomplicated
CPT/HCPCS: J7613

== ENCOUNTER 2018-01-10 09:22 | Emergency (ER) | payer MEDICAID ==
[2018-01-10 09:37] VITALS: BP 137/92
[2018-01-10] MEDS ORDERED: IBUPROFEN 600 MG TAB PO ONE ×2 (09:49→09:50)
[2018-01-10] MEDS ORDERED: CEPHALEXIN 500 MG CAP PO ONE (09:49)
[2018-01-10] MEDS ORDERED: SULFAMETHOX/TMP 800/160 MG 1 TAB PO ONE (09:49)
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
== END 2018-01-10 10:28 | disposition home or self-care (01) ==
DX: S61.411A Laceration without foreign body of right hand, initial encounter (principal); J45.909 Unspecified asthma, uncomplicated; F17.200 Nicotine dependence, unspecified, uncomplicated; X58.XXXA Exposure to other specified factors, initial encounter

== ENCOUNTER 2018-01-19 12:25 | Emergency (ER) | payer MEDICAID ==
[2018-01-19 12:34] VITALS: BP 132/85
--- NOTE | 2018-01-19 12:35 | EDPHY ---
H & P Stated Complaint: med clear for custodial/ skin lesions r hand on bactrim and keflex Time Seen by Provider: 01/19/18 12:35 - Personal History Current Tetanus Diphtheria and Acellular Pertussis (TDAP): Yes Tetanus Vaccine Date: 2017 - Medical/Surgical History Hx Asthma: Yes Hx Chronic Respiratory Disease: No Hx Diabetes: No Hx Cardiac Disease: No Hx Renal Disease: No Hx Cirrhosis: No Hx Alcoholism: No Hx HIV/AIDS: No Hx Splenectomy or Spleen Trauma: No Other PMH: TENDON INFECTION R HAND, asthma - Social History Smoking Status: Current every day smoker Constitutional: Initial Vital Signs Temperature (C) 36.7 C 01/19/18 12:31 Heart Rate 90 01/19/18 12:31 Respiratory Rate 17 01/19/18 12:31 Blood Pressure 132/85 H 01/19/18 12:31 O2 Sat (%) 94 01/19/18 12:31 O2 Delivery Mode Room Air Allergies/Adverse Reactions: procaine [From Novocain] Allergy (Severe, Verified 01/19/18 12:31) hard to breathe Home Medications: Medication Instructions Recorded Cephalexin [Keflex (*)] 500 mg PO QID 10 Days cap 01/10/18 Sulfamethox/Tmp 800/160 mg 1 tab PO BID 10 Days tab 01/10/18 [Bactrim Ds] Medical Decision Making ED Course/Re-evaluation: CHIEF COMPLAINT: Medical clearance HISTORY OF PRESENT ILLNESS: The patient is a 27 y/o male arriving with [facility] for medical clearance. The patient suffered from a hand laceration several weeks ago and had sutures placed. The sutures were removed and he was placed on Bactrim and Keflex for a potential infection. Today, [facility] wanted to make sure that the infection did not worsen. Denies fever, cough, sore throat, chest pain , shortness of breath, abdominal pain, urinary or bowel complaints, numbness, paresthesias. REVIEW OF SYSTEMS: A 10 point review of systems was performed and is negative with the exception of the elements mentioned in the history of present illness. PHYSICAL EXAM: HR, BP, O2 Sat, RR. Temp noted General Appearance: Tearful, alert, well hydrated, appropriate, and non-toxic appearing. Head: Atraumatic without scalp tenderness or obvious injury Eyes: Pupils equal, round, reactive to light and accommodation, EOMI, no trauma , no injection. Ears: Clear bilaterally, no perforation, normal landmarks Nose: Atraumatic, no rhinorrhea, clear. Throat: There is no erythema or exudates, no lesions, normal tonsils, mucus membranes moist. Neck: Supple, nontender, no lymphadenopathy. Respiratory: No retractions, no distress, no wheezes, and no accessory muscle use. Lungs are clear to auscultation bilaterally. Cardiovascular: Regular rate and rhythm, no murmurs, rubs, or gallops. Bilateral carotid, radial, dorsalis pedis, and posterior tibial pulses intact. Good capillary refill all extremities. Gastrointestinal: Abdomen is soft, nontender, non-distended, no masses, no rebound, no guarding, no peritoneal signs. Musculoskeletal: Normal active ROM of all extremities, well-healing wound on dorsal aspect of right hand. Neurological: Alert, appropriate, and interactive. The patient has normal DTRs and non-focal cranial nerves, motor, sensory, and cerebellar exam. Skin: No rashes, good turgor, no nodules on palpation. Past medical history: Asthma, right hand tendon infection Past surgical history: Denies Family history: Denies Social history: Homeless, single, not employed DIFFERENTIAL DIAGNOSIS: The differential diagnosis for the patient's healing wound included but was not limited to healing laceration, ligamentous injury, contusion, abrasion. MEDICAL DECISION MAKING: The patient is a 27 y/o male arriving with [facility] for medical clearance , to make sure that the patient's right hand is not infected. On exam there is a well-healing right hand laceration. Laboratory and imaging studies are not indicated at this time. 1245: Reassessed patient and discussed discharge instructions. Patient is safe to be discharged with the [facility]. Departure - Departure Disposition: Law Enforcement/Court/[facility] Clinical Impression: healing laceration of hand Laceration of right hand Qualifiers: Encounter type: initial encounter Foreign body presence: without foreign body Qualified Code(s): S61.411A - Laceration without foreign body of right hand, initial encounter Condition: Good Instructions: Acute Wounds (ED) Additional Instructions: 1. Follow-up with your primary doctor within 72 hours. 2. Return to the Emergency Department for fever, chest pain, shortness of breath , increasing pain or other worsening of condition. 3. Keep the healing wound clean and dry. Referrals: [facility],. [Clinic] - As per Instructions Report Scribed for: Gabino Olguin Report Scribed by: aMry Bose Date of Report: 01/19/18 Time of Report: 12:37
== END 2018-01-19 12:50 ==
LOC: EEVIPCON 12:25
DX: S61.411D Laceration without foreign body of right hand, subsequent encounter (principal); J45.909 Unspecified asthma, uncomplicated; F17.200 Nicotine dependence, unspecified, uncomplicated; X58.XXXD Exposure to other specified factors, subsequent encounter

== ENCOUNTER 2018-01-26 01:31 | Emergency (ER) | payer MEDICAID ==
--- NOTE | 2018-01-26 01:48 | EDPHY ---
H & P Time Seen by Provider: 01/26/18 01:48 HPI/ROS: HPI CHIEF COMPLAINT: Medical clearance for assisted. Wound to right hand. HISTORY OF PRESENT ILLNESS: 27-year-old male, presents emergency room for medical clearance for assisted. He present here for wound on the right hand. He has had this wound there for months. He states initially was a MRSA infection. He reports to me currently he is on Keflex. He was sent here because the wound needs to be dressed in clean prior to him going to assisted. Additionally upon arrival the patient states he smokes 2 packs per day and has a wheezing and he would like a breathing treatment here. Past Medical History: Asthma, chronic right hand wound. Past Surgical History: No recent surgery Social History: Smokes 2 packs per day. Denies drugs or alcohol. Family History: Noncontributory ROS REVIEW OF SYSTEMS: A comprehensive 10 point review of systems is otherwise negative aside from elements mentioned in the history of present illness. Exam Constitutional triage nursing summary reviewed, vital signs reviewed, awake/ alert. Eyes normal conjunctivae and sclera, EOMI, PERRLA. HENT normal inspection, atraumatic, moist mucus membranes, no epistaxis, neck supple/ no meningismus, no raccoon eyes. Respiratory faint wheezing bilaterally, no distress normal breath sounds, no respiratory distress Cardiovascular rate normal, regular rhythm, no murmur, no edema, distal pulses normal. Gastrointestinal soft, non-tender, no rebound, no guarding, normal bowel sounds, no distension, no pulsatile mass. Genitourinary no CVA tenderness. Musculoskeletal no midline vertebral tenderness, full range of motion, no calf swelling, no tenderness of extremities, no meningismus, good pulses, neurovascularly intact. Skin right hand: Dorsum of the right hand there is a 2 cm x 3 cm wound that is chronic in nature there is no significant redness or drainage or discharge. Appears chronic. He is already on Keflex. No abscess. No bony or tendon involvement. Full range of motion of the right hand, neurovascular intact. Neurologic awake, alert and oriented x 3, AAOx3, moves all 4 extremities equally, motor intact, sensory intact, CN II-XII intact, normal cerebellar, normal vision, normal speech. Psychiatric normal mood/affect. Heme/Lymph/Immune no lymphadenopathy. Differential Diagnosis: Includes but is not limited to in a particular order tobacco abuse, bronchitis, asthma, need for wound care. Medical Decision Making: Plan for this patient DuoNeb breathing treatment due to the wheezing, recommend refrain from smoking tobacco. Additionally will clean and dress his wound so that he can be medically cleared for assisted. He is already on Keflex recommend continuing this. 0253: Re-examination feels much better after [facility] breathing treatment. Clear lung sounds bilaterally. Good air movement. The patient's right hand wound has been dressed and cleaned. Recommend continuing Keflex. New Keflex prescription provided for him. Return precautions discussed he understands return emergency room if develops worsening signs of infection of his right hand this includes swelling, pain, redness, fever. Source: Patient, Police - Personal History Tetanus Vaccine Date: 2017 - Medical/Surgical History Hx Asthma: Yes Hx Chronic Respiratory Disease: No Hx Diabetes: No Hx Cardiac Disease: No Hx Renal Disease: No Hx Cirrhosis: No Hx Alcoholism: No Hx HIV/AIDS: No Hx Splenectomy or Spleen Trauma: No Other PMH: TENDON INFECTION R HAND, asthma - Social History Smoking Status: Current every day smoker Constitutional: Initial Vital Signs Temperature (C) 36.8 C 01/26/18 01:31 Heart Rate 70 01/26/18 01:31 Respiratory Rate 16 01/26/18 01:31 Blood Pressure 143/79 H 01/26/18 01:31 O2 Sat (%) 94 01/26/18 01:31 O2 Delivery Mode Room Air Allergies/Adverse Reactions: procaine [From Novocain] Allergy (Severe, Verified 01/19/18 12:31) hard to breathe Home Medications: Medication Instructions Recorded Albuterol 01/26/18 Cephalexin [Keflex] 500 mg PO Q6H #28 cap 01/26/18 Medical Decision Making - Data Points Medications Given: Discontinued Medications Albuterol Sulfate (Proventil Inh Prepack) 1 mdi TAKEHOME EDNOW ONE Stop: 01/26/18 02:12 Last Admin: 01/26/18 02:17 Dose: 1 mdi Albuterol/Ipratropium (Duoneb) 3 ml IH EDNOW ONE Stop: 01/26/18 02:08 Last Admin: 01/26/18 02:17 Dose: 3 ml Departure - Departure Disposition: Home, Routine, Self-Care Clinical Impression: Open wound, hand Qualifiers: Encounter type: initial encounter Open wound type: unspecified Foreign body presence: without foreign body Laterality: right Qualified Code(s): S61.401A - Unspecified open wound of right hand, initial encounter Condition: Good Instructions: Wound Infection (ED) Additional Instructions: 1. Refrain from smoking. 2. Medically cleared for assisted. 3. Continue her Keflex as previously prescribed. Referrals: NONE *PRIMARY CARE P,. [Primary Care Provider] - As per Instructions Prescriptions: Cephalexin [Keflex] 500 mg PO Q6H #28 cap
[2018-01-26] MEDS ORDERED: IPRATROPIUM/ALBUTEROL 3 ML DEYVIAL IH ONE (02:07)
[2018-01-26] MEDS ORDERED: ALBUTEROL INH PREPACK MDI TAKEHOME ONE (02:11)
[2018-01-26 03:01] VITALS: BP 138/72
== END 2018-01-26 03:11 | disposition home or self-care (01) ==
DX: S61.401D Unspecified open wound of right hand, subsequent encounter (principal); J45.909 Unspecified asthma, uncomplicated; F17.200 Nicotine dependence, unspecified, uncomplicated; X58.XXXD Exposure to other specified factors, subsequent encounter

== ENCOUNTER 2018-05-15 16:15 | Inpatient (IN) | payer MEDICAID ==
[2018-05-15] MEDS ORDERED: DAPTOMYCIN IV ONE (17:37)
[2018-05-15] MEDS ORDERED: NS IV ONE (17:37)
[2018-05-15] MEDS ORDERED: HYDROmorphONE/DILAUDID 2 MG/ML INJ IVP ONE (17:40)
[2018-05-15 17:57] LABS: PLATELET COUNT 214 10^3/uL (150-400)
[2018-05-15] MEDS ORDERED: LR 1,000 ML IV ONE (18:31)
[2018-05-15] MEDS ORDERED: LIDOCAINE 1% 300 MG/30 ML SDV ONE (18:45)
[2018-05-15] MEDS ORDERED: BUPIVACAINE 0.5% 30 ML SDV ONE (18:46)
[2018-05-15] MEDS ORDERED: BACITRACIN 50,000 UNITS/10 ML SYR IRR ONE ×2 (18:46→20:40)
[2018-05-15] MEDS ORDERED: HYDROmorphONE/DILAUDID 2 MG/ML INJ ONE (19:16)
[2018-05-15] MEDS ORDERED: MIDAZOLAM 2 MG/2 ML VIAL IVP ONE (19:34)
[2018-05-15] MEDS ORDERED: HYDROmorphONE/DILAUDID 1 MG/ML INJ IVP PRN ×2 (19:37→19:46)
--- NOTE | 2018-05-15 19:38 | PDANEPAE ---
ANE History of Present Illness Right hand injury, here for I&D ad possible ORIF ANE Past Medical History - Cardiovascular History Hx Hypertension: No Hx Arrhythmias: No Hx Chest Pain: No Hx Coronary Artery / Peripheral Vascular Disease: No Hx CHF / Valvular Disease: No Hx Palpitations: No - Pulmonary History Hx Asthma/Reactive Airway Disease: Yes Hx Oxygen in Use at Home: No Hx Sleep Apnea: No - Endocrine History Hx Diabetes: No - Renal History Hx Renal Disorders: No - Liver History Hx Hepatic Disorders: No - Neurological & Psychiatric Hx Hx Neurological and Psychiatric Disorders: No - Congenital Disorder History Hx Congenital Disorders: No - GI History GERD: no Hx Gastrointestinal Disorders: No - Chronic Pain History Chronic Pain: No ANE Review of Systems Review of Systems: ANE Patient History - Allergies Allergies/Adverse Reactions: procaine [From Novocain] Allergy (Severe, Verified 01/19/18 12:31) hard to breathe - Home Medications Home Medications: Albuterol 01/26/18 [Last Taken Unknown] - NPO status NPO Status: no food or drink >8 hours (Ate peanutbutter sandwhich at 1600, 16oz water at 1730) NPO Since - Liquids (Date): 05/15/18 NPO Since - Liquids (Time): 17:30 NPO Since - Solids (Date): 05/15/18 NPO Since - Solids (Time): 15:00 - Anes Hx Anes Hx: no prior problems - Smoking Hx Smoking Status: Current every day smoker ANE Labs/Vital Signs - Labs Result Diagrams: 05/15/18 17:45 05/15/18 17:45 - Vital Signs Blood Pressure: 125/60 Heart Rate: 70 Respiratory Rate: 14 O2 Sat (%): 94 Height: 203.2 cm Weight: 106.594 kg ANE Physical Exam - Airway Neck exam: FROM Mallampati Score: Class 2 Mouth exam: normal dental/mouth exam - Pulmonary Pulmonary: no respiratory distress - Cardiovascular Cardiovascular: regular rate and rhythym - ASA Status ASA Status: II, E (surgeon deems patient emergent on records) ANE Anesthesia Plan Anesthesia Plan: general endotracheal anesthesia Total IV Anesthesia: No
--- NOTE | 2018-05-15 19:46 | SOAPPROG ---
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 PE: RUE: Right long finger longitudinal wound dehiscence overlying the dorsal MCPJ at previous site of surgery No TTP overlying the flexor sheath No pain with passive extension +FDS, FDP, FDP-I, FPL, EPL, DI, PI <2 seconds capillary refill Right hand radiographs: no evidence for fracture, air in soft tissue or osteomyelitis Assessment and Plan 27 year old male with recurrent infection of right long finger dorsal MCPJ after previous irrigation and debridement on 10/24/17. -Recommend emergent right hand irrigation and debridement -Patient has signed the informed consent form for surgery Plan: 05/15/18 19:44 05/15/18 21:26 05/17/18 16:09 Objective: Vital Signs Temp Pulse Resp BP Pulse Ox 36.6 C 70 14 125/60 H 94 05/15/18 18:59 05/15/18 19:38 05/15/18 19:38 05/15/18 19:38 05/15/18 19:38 ICD10 Worksheet Patient Problems: Problems Problem Status Onset Cellulitis of right hand Acute
[2018-05-15] MEDS ORDERED: PROPOFOL 200 MG/20 ML VIAL ONE (19:47)
[2018-05-15] MEDS ORDERED: fentaNYL 250 MCG/5 ML INJ ONE (19:47)
[2018-05-15] MEDS ORDERED: LIDOCAINE 2% 5 ML SDV ONE (19:47)
[2018-05-15] MEDS ORDERED: SUCCINYLCHOLINE CHLORIDE 200 MG/10 ML SYR IVP ONE (19:47)
[2018-05-15] MEDS ORDERED: PROMETHAZINE HCL 25 MG/ML INJ IVP PRN ×2 (19:48→21:04)
[2018-05-15] MEDS ORDERED: ONDANSETRON 4 MG/2 ML VIAL IVP PRN (19:48)
[2018-05-15] MEDS ORDERED: POLYMYXIN B SULFATE 500,000 UNIT/10 ML SYR IRR ONE ×2 (19:52→20:40)
[2018-05-15] MEDS ORDERED: fentaNYL 100 MCG/2 ML INJ ONE ×2 (20:42→22:01)
[2018-05-15] MEDS ORDERED: HYDROCODONE/APAP 5/325 TAB PO PRN (21:04)
[2018-05-15] MEDS ORDERED: fentaNYL 100 MCG/2 ML INJ IVP PRN (21:04)
[2018-05-15] MEDS ORDERED: NALOXONE HCL 0.4 MG/ML INJ IVP PRN (21:04)
[2018-05-15] MEDS ORDERED: ONDANSETRON 4 MG/2 ML VIAL ONE (21:06)
[2018-05-15] MEDS ORDERED: SUGAMMADEX SODIUM 200 MG/2 ML VIAL IVP ONE (21:07)
[2018-05-15] MEDS ORDERED: DEXAMETHASONE 4 MG/ML VIAL ONE (21:07)
--- NOTE | 2018-05-15 21:29 | POSTOPPROG ---
Post Op Note Date of Operation: 05/15/18 Surgeon: Kumar Carney Anesthesiologist: Ben Fortune Anesthesia: GET(General Endotracheal) Pre-op Diagnosis: Right long finger MCPJ infection Post-op Diagnosis: Right long finger MCPJ infection Indication: Right long finger MCPJ infection Procedure: Right long finger MCPJ irrigation and debridement Findings: james purulence with bone involvement Inf/Abcess present in the surg proc area at time of surgery?: Yes Depth: Deep Incisional (Fascial) EBL: Minimal Complications: None
--- NOTE | 2018-05-15 21:31 | GHP ---
DATE OF ADMISSION: 05/15/2018 CHIEF COMPLAINT: Hand infection. HISTORY: The patient is a 27-year-old male with a history of an MSSA hand infection which was debrid ed in the spring. He was discharged to follow up with IV antibiotics, but he failed to follow up. Nicole hurtado was subsequently readmitted for ongoing problems with the hand infection. On his 2nd hospitalizati on, he got extremely agitated and dangerous toward staff, and eventually when security arrived he lef t AMA. He says his hand never really healed after his cellulitis in the spring and continued to fest er, although now it has gotten much worse in the last week. He has severe pain in the hand. He melinda ot use the hand because it is so swollen and debilitated. It is draining pus. He is having chills, and he does not know if he has fevers. He is homeless and it does not sound like he is keeping it cl jorje. PAST MEDICAL HISTORY: Asthma. MEDICATIONS: Please see computer record for full detailed list. ALLERGIES: Procaine. SOCIAL HISTORY: He smokes tobacco and smokes marijuana, but denies alcohol and denies any other drug use. He is homeless. His girlfriend is at bedside. REVIEW OF SYSTEMS: Complete review of systems obtained. Review of systems negative regarding consti tutional, HEENT, GI, pulmonary, cardiovascular, , hematology, skin, musculoskeletal, endocrine, psy chiatric, except for positives and negatives noted in HPI. FAMILY HISTORY: Reviewed, noncontributory to presenting complaint. PHYSICAL EXAMINATION: GENERAL: Well-developed, well-nourished male in no acute distress. VITAL SIG NS: Temperature is 36.6, pulse 90, blood pressure 141/81, saturating at 98% on room air. EYES: Nor mal conjunctivae. Pupils equal and react to light. ENT: Normal ears and nose. Hearing intact. No rmal teeth. Oropharynx moist. NECK: Trachea midline. No thyromegaly. CHEST: Normal respiratory effort. Lungs clear to auscultation bilaterally. CARDIOVASCULAR SYSTEM: Regular rhythm. No murmur . No lower extremity edema. ABDOMEN: Soft, nontender. No hepatosplenomegaly. SKIN: His right cid nd is extremely swollen with the skin on the dorsal side being split open with purulent-like material . He has decreased range of motion throughout most of the hand joints with erythema extending up tow jud the wrist. MUSCULOSKELETAL: No cyanosis or clubbing. Strength 5/5, upper and lower extremities . NEUROLOGIC: Cranial nerves intact. Normal sensation to light touch. PSYCHIATRIC: Alert and abhilash ented x3. Normal affect. Normal judgment and insight. Normal memory. LABORATORIES: White count 8.4, hematocrit 43.4, platelets 214. Sodium 141, potassium 4.3, chloride 105, bicarb 24, BUN 13, creatinine 0.8, glucose 97. This case was discussed with KAREL Silveira, in the emergency room regarding ER course. Hand x-ray shows positive for soft tissue swelling with no osteomyelitis. Medical records have been reviewed. I summarized them above regarding his 2 hospitalizations in the spring for a similar hand infection. ASSESSMENT AND PLAN: 1. Right hand infection with abscess. Going to surgery imminently this evening with Dr. Byrnes for incision and drainage. Infectious Disease has been consulted. They are recommending IV daptomycin as there is a concern he may now also have methicillin-resistant Staphylococcus aureus. Blood cultur es and wound cultures have been sent. Pain control has been difficult in the emergency room, and he has been using intravenous Dilaudid, which we will continue for now, but that can be deescalated in t he postoperative state. 2. Asthma. This is stable. We will prescribe nebulizers as needed. 3. Tobacco dependence. Will offer a nicotine patch. 4. Deep vein thrombosis prophylaxis: He is low risk. Will ambulate early. CODE STATUS: Full. ADMISSION STATUS: Will admit to inpatient given the severity of this infection. Anticipate greater t petersen 2 midnights required for stabilization. /[id number]/MODL
--- NOTE | 2018-05-15 21:32 | SOAPPROG ---
SOAP Progress Note Assessment/Plan: Assessment: HPI: 27 year old male POD#0 from right long finger MCPJ irrigation and debridement on 05/15/18 PE: RUE: Right hand dressing CDI +FPL, FDS, FDP, FDP-I, DI, PI +SILT in M/R/U distributions <2 seconds capillary refill 2+ radial and ulnar pulses Assessment and Plan 27 year old male POD#0 from right long finger MCPJ irrigation and debridement on 05/15/18 -Leave current dressing in place and keep clean and dry -Admit to medicine for long-term IV antibiotics in a controlled setting -Consult ID for recommendations on long-term IV antibiotics -Dressing to be changed by a member of the hand team on Friday or Friday ( currently three packing strips in place) -Recommend right long finger ROM as tolerated to minimize stiffness 05/15/18 21:29 Objective: Vital Signs Temp Pulse Resp BP Pulse Ox 36.6 C 70 14 125/60 H 94 05/15/18 18:59 05/15/18 19:38 05/15/18 19:38 05/15/18 19:38 05/15/18 19:38 ICD10 Worksheet Patient Problems: Problems Problem Status Onset Cellulitis of right hand Acute
[2018-05-15] MEDS ORDERED: KETOROLAC 30 MG/1 ML SDV ONE (21:43)
--- NOTE | 2018-05-15 21:44 | POSTANESTH ---
Post Anesthetic Evaluation Cardiovascular Status: Normal, Stable Respiratory Status: Normal, Stable Level of Consciousness/Mental Status: Can Participate in Eval Pain Control: Adequate, Prn Tx Ordered Nausea/Vomiting Control: Adequate, Prn Tx Ordered Complications Possibly Related to Anesthesia: None Noted
[2018-05-15] MEDS: KETOROLAC 30 MG/1 ML SDV IVP PRN (21:50)
[2018-05-15] MEDS: IPRATROPIUM/ALBUTEROL 3 ML DEYVIAL IH PRN (22:13)
--- NOTE | 2018-05-15 23:03 | EDPHY ---
H & P Stated Complaint: Right hand infection and general malaise. Time Seen by Provider: 05/15/18 17:15 HPI/ROS: Chief complaint: Right hand infection History of present illness: This is a 27-year-old male who presents to the emergency department for a right hand infection. He has had intermittent issues over the last year with an infection. He has been admitted previously for this infection that has required surgical incision and drainage and IV antibiotics. He has not followed up well with post hospitalization treatment. He states symptoms have again worsened over the last few days. He describes warmth, swelling and severe pain. He cannot use the hand secondary to the pain. He has had associated malaise. Review of systems: A 10 point review of systems was obtained and other than described above was negative - Personal History Current Tetanus Diphtheria and Acellular Pertussis (TDAP): Yes Tetanus Vaccine Date: 2017 - Medical/Surgical History Hx Asthma: Yes Hx Chronic Respiratory Disease: No Hx Diabetes: No Hx Cardiac Disease: No Hx Renal Disease: No Hx Cirrhosis: No Hx Alcoholism: No Hx HIV/AIDS: No Hx Splenectomy or Spleen Trauma: No Other PMH: TENDON INFECTION R HAND, asthma - Social History Smoking Status: Current every day smoker - Physical Exam Exam: General Appearance: Alert, appears unwell. Eyes: Pupils equal and round no pallor or injection. ENT, Mouth: Mucous membranes moist. Respiratory: There are no retractions, lungs are clear to auscultation. Cardiovascular: Regular rate and rhythm. Neurological: Alert. Skin: Diffuse erythema and edema to the dorsum of the right hand with an open wound actively draining pus. Musculoskeletal: Patient is a umbilical to move the digits of his of right hand secondary to pain. There is associated discomfort moving his wrist although he can do this. He is moving other extremities well. Psychiatric: Patient is oriented X 3, there is no agitation. Constitutional: Initial Vital Signs Temperature (C) 36.6 C 05/15/18 16:32 Heart Rate 90 05/15/18 16:32 Respiratory Rate 18 05/15/18 16:32 Blood Pressure 141/81 H 05/15/18 16:32 O2 Sat (%) 98 05/15/18 16:32 O2 Delivery Mode Room Air Allergies/Adverse Reactions: procaine [From Novocain] Allergy (Severe, Verified 01/19/18 12:31) hard to breathe Home Medications: Medication Instructions Recorded Albuterol 01/26/18 Cephalexin [Keflex] 500 mg PO Q6H #28 cap 01/26/18 Medical Decision Making - Diagnostics Imaging Results: Imaging Impressions Hand X-Ray 05/15/18 17:36 Impression: Diffuse soft tissue swelling. No evidence for underlying osteomyelitis. Imaging: I viewed and interpreted images myself ED Course/Re-evaluation: Patient is discussed with my secondary supervising physician Dr. Gabino Olguin. Patient presents to the emergency department for a right hand infection. He appears to have a severe infection to the right hand. Baseline blood studies, blood culture, a wound culture and x-ray are obtained. I have consulted with Infectious Disease, Dr. Gabino Ruiz. He recommends starting patient on daptomycin 6 milligrams/kilogram every 24 hr. I have consulted with Dr. Kumar Carney who will take the patient to the operating room this evening for debridement. I have consulted with the hospitalist Dr. Shawna Barker who will admit this patient for further evaluation and care. The plan has been discussed with the patient who voiced understanding and agreement with it. Differential Diagnosis: Included but not limited to cellulitis, abscess, infectious tenosynovitis, osteomyelitis, septic joint - Data Points Laboratory Results: Laboratory Results 05/15/18 17:45 05/15/18 17:45 05/15/18 05/15/18 17:45 17:45 WBC 8.40 10^3/uL 10^3/uL (3.80-9.50) RBC 5.04 10^6/uL 10^6/uL (4.40-6.38) Hgb 14.6 g/dL g/dL (13.7-17.5) Hct 43.4 % % (40.0-51.0) MCV 86.1 fL fL (81.5-99.8) MCH 29.0 pg pg (27.9-34.1) MCHC 33.6 g/dL g/dL (32.4-36.7) RDW 13.5 % % (11.5-15.2) Plt Count 214 10^3/uL 10^3/uL (150-400) MPV 9.2 fL fL (8.7-11.7) Neut % (Auto) 57.1 % % (39.3-74.2) Lymph % (Auto) 28.2 % % (15.0-45.0) [place] % (Auto) 12.1 % % (4.5-13.0) Eos % (Auto) 2.0 % % (0.6-7.6) Baso % (Auto) 0.4 % % (0.3-1.7) Nucleat RBC Rel Count 0.0 % % (0.0-0.2) Absolute Neuts (auto) 4.79 10^3/uL 10^3/uL (1.70-6.50) Absolute Lymphs (auto) 2.37 10^3/uL 10^3/uL (1.00-3.00) Absolute Monos (auto) 1.02 10^3/uL H 10^3/uL (0.30-0.80) Absolute Eos (auto) 0.17 10^3/uL 10^3/uL (0.03-0.40) Absolute Basos (auto) 0.03 10^3/uL 10^3/uL (0.02-0.10) Absolute Nucleated RBC 0.00 10^3/uL 10^3/uL (0-0.01) Immature Gran % 0.2 % % (0.0-1.1) Immature Gran # 0.02 10^3/uL 10^3/uL (0.00-0.10) Sodium 141 mEq/L mEq/L (135-145) Potassium 4.3 mEq/L mEq/L (3.3-5.0) Chloride 105 mEq/L mEq/L (97-110) Carbon Dioxide 24 mEq/l mEq/l (22-31) Anion Gap 12 mEq/L mEq/L (6-14) BUN 13 mg/dL mg/dL (7-23) Creatinine 0.8 mg/dL mg/dL (0.7-1.3) Estimated GFR > 60 Glucose 97 mg/dL mg/dL (70-100) Calcium 9.3 mg/dL mg/dL (8.5-10.4) Microbiology Results: MICROBIOLOGY 05/15/18 17:20 Hand - Swab Gram Stain - Final 05/15/18 17:20 Hand - Swab Wound Culture - Preliminary Medications Given: Albuterol/Ipratropium (Duoneb) 3 ml IH Q6 PRN PRN Reason: Short of Breath/Dyspnea Stop: 11/11/18 19:46 Last Admin: 05/15/18 22:13 Dose: 3 ml Hydromorphone HCl (Dilaudid) 0.2 - 0.4 mg IVP Q1H PRN PRN Reason: Pain, Severe Stop: 05/25/18 19:36 Last Admin: 05/15/18 19:45 Dose: 0.4 mg Ketorolac Tromethamine (Toradol) 30 mg IVP Q6HRS PRN PRN Reason: Pain, Moderate Stop: 05/20/18 19:47 Last Admin: 05/15/18 21:50 Dose: 30 mg Discontinued Medications Bacitracin (Bacitracin Syringe) Confirm Administered Dose 50,000 units IRR .STK- MED ONE Stop: 05/15/18 18:47 Last Admin: 05/15/18 20:30 Dose: 50,000 units Bacitracin (Bacitracin Syringe) Confirm Administered Dose 50,000 units IRR .STK- MED ONE Stop: 05/15/18 20:41 Last Admin: 05/15/18 20:42 Dose: 50,000 units Bupivacaine HCl (Sensorcaine 0.5% Vial) Confirm Administered Dose 30 ml .ROUTE .STK-MED ONE Stop: 05/15/18 18:47 Last Admin: 05/15/18 21:18 Dose: Not Given Fentanyl (Sublimaze) 25 - 100 mcg IVP Q5M PRN PRN Reason: PACU, IMMEDIATE Pain control Stop: 05/15/18 22:04 Last Admin: 05/15/18 22:05 Dose: 50 mcg Hydromorphone HCl (Dilaudid) 1 mg IVP EDNOW ONE Stop: 05/15/18 17:41 Last Admin: 05/15/18 17:55 Dose: 1 mg Daptomycin 639 mg/ Sodium (Chloride) 112.78 mls @ 200 mls/hr IV EDNOW ONE PRN Reason: Protocol Stop: 05/15/18 18:10 Last Admin: 05/15/18 18:23 Dose: 112.78 mls Lidocaine HCl (Lidocaine Hcl 1%) Confirm Administered Dose 300 mg .ROUTE .STK- MED ONE Stop: 05/15/18 18:46 Last Admin: 05/15/18 21:18 Dose: Not Given Midazolam HCl (Versed) 2 mg IVP ONCE ONE Stop: 05/15/18 19:35 Last Admin: 05/15/18 19:55 Dose: 2 mg Polymyxin B Sulfate (Polymyxin B Syringe) Confirm Administered Dose 500,000 unit IRR .STK-MED ONE Stop: 05/15/18 19:53 Last Admin: 05/15/18 20:30 Dose: 500,000 unit Polymyxin B Sulfate (Polymyxin B Syringe) Confirm Administered Dose 500,000 unit IRR .STK-MED ONE Stop: 05/15/18 20:41 Last Admin: 05/15/18 20:42 Dose: 500,000 unit Departure - Departure Disposition: To OP Cath/Surgery Clinical Impression: Cellulitis of right hand Condition: Fair
[2018-05-15] MEDS: oxyCODONE IR 5 MG TAB PO PRN ×2 (23:26→23:43)
[2018-05-16] MEDS: oxyCODONE IR 5 MG TAB PO PRN ×5 (02:57→19:13)
[2018-05-16] MEDS: NICOTINE 21 MG/24 HR PATCH TD SCH (09:40)
[2018-05-16] MEDS: DAPTOmycin 600 MG in NS 100 ML IV SCH (09:41)
--- NOTE | 2018-05-16 12:19 | GCON ---
Patient Name: JERZY JIMÉNEZ N-Number: [id number] Date of : 1990 Patient Status: Inpatient Attending Doctor: Nova Barker MD Consulting Doctor: Kumar Carney MD Date of service: 05/15/18 CPT codes: CPT code 57741 ER visit requiring admission or initial inpatient visit, level three Modifier 57 decision for surgery CHIEF COMPLAINT: Right long finger MCP joint wound with pain and drainage HISTORY OF PRESENT ILLNESS: This is a 27 year old male with a significant history for IVDU and a previous right long finger MCP joint infection required irrigation and debridement on 10/24 (Dr. Kandace Deleon). Following his surgery in October, the patient was instructed to follow-up as an outpatient for long-term IV antibiotics. It is unclear if the patient received long-term IV antibiotics following his original surgery in October of 2017. He presented to the [facility] ED earlier today (05/15/18) due to a right long finger dorsal MCP joint open wound with pain, swelling, and drainage consistent with wound dehiscence and recurrent and/or persistent infection. PROBLEM LIST: Right long finger MCP joint infection PAST MEDICAL HISTORY: Right long finger MCPJ joint infection SURGERIES: Right long finger MCP joint irrigation and debridement (10/24/17, Dr. Kandace Deleon) SOCIAL HISTORY: Probable IVDU (Heroin) FAMILY HISTORY: Non-contributory CURRENT MEDICATIONS: None ALLERGIES: NKDA REVIEW OF SYSTEMS Constitutional: No unexpected weight loss, weight gain, fevers, chills, or fatigue. Eyes: No blurred or double vision, no eye pain, redness or swelling. ENT: No headaches, difficulty swallowing, nose bleeds, tinnitus, or earaches. Cardiovascular: No chest pain, palpitations, fainting or murmurs. Respiratory: No shortness of breath, wheezing, cough, of difficulty breathing. GI: No reflux, no nausea or vomiting, no constipation, diarrhea, or bloody stools. Genitourinary: No urinary frequency or urgency, no pain with urination. Skin: No skin changes, rashes, itching, or redness. Neurologic: No unsteadiness of gait, no dizziness, tremors, or seizures. Psychiatric: No nervousness, anxiety, depression, or hallucinations. Hematologic: No increased bleeding or easy bruising. Endocrine: No excessive thirst or urination and no heat or cold intolerances. Allergic: No reactions to food or environment. Musculoskeletal: See history of present illness. PHYSICAL EXAM General: No apparent distress. Orientation: Alert and oriented times three Mood and affect: Calm, appropriate. Gait and station: Normal gait and station. Skin: Warm, dry. Lymph: Non tender neck, axillary and inguinal nodes. Chest: Equal expansion, no pain with deep breaths, speaks in coherent sentences. Cardiovascular: Regular pulse. Abdomen: Soft, non-tender, no masses, no palpable hernias. Bilateral finger examination Inspection/palpation: Right: 2cm longitudinal open wound overlying the dorsal aspect of the right long finger MCP joint consistent with wound dehiscence from prior surgery with recurrent and/or persistent right long finger MCP joint infection, minimal pain with passive extension of the right long finger, no TTP overlying the right long finger flexor sheath Left: Soft, no tenderness to palpation. Finger ROM Index MCP: 0-80 / 0-80 / 0-80 PIP: 0-105 / 0-105 / 0-105 DIP: 0-75 / 0-75 / 0-75 Long MCP: 0-20 / 0-80 / 0-80 PIP: 0-25 / 0-105 / 0-105 DIP: 0-25 / 0-75 / 0-75 Ring MCP: 0-80 / 0-80 / 0-80 PIP: 0-105 / 0-105 / 0-105 DIP: 0-75 / 0-75 / 0-75 Small MCP: 0-80 / 0-80 / 0-80 PIP: 0-105 / 0-105 / 0-105 DIP: 0-75 / 0-75 / 0-75 Finger motor and sensory Index FDS: + / + / + FDP: + / + / + EDC: + / + / + RDN: + / + / + UDN: + / + / + Long FDS: + / + / + FDP: + / + / + EDC: + / + / + RDN: + / + / + UDN: + / + / + Ring FDS: + / + / + FDP: + / + / + EDC: + / + / + RDN: + / + / + UDN: + / + / + Small FDS: + / + / + FDP: + / + / + EDC: + / + / + RDN: + / + / + UDN: + / + / + Medical decision making Data Imaging study: right hand MRI (11/2017) Action: interpreted Interpretation / pertinent findings: abscess deep to the right long finger extensor at the level of the right long finger MCP joint Imaging study: right hand radiographs, three views Action: interpreted Interpretation / pertinent findings: no evidence for fracture, dislocation, air in soft tissues, or discrete evidence for osteomyelitis Diagnoses New diagnosis: right 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 Work-up planned: yes: see assessment and plan Assessment and plan This is a 27 year old male with 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 and an associated wound dehiscence -As such I have discussed with the patient the risks, benefits, alternatives, and complications associated with both non-operative (specifically, observation , antibiotics, local wound care) and operative (specifically, right long finger MCP joint irrigation and debridement) forms of treatment and I am recommending emergent operative intervention -The patient fully understands the risks, benefits, alternatives, and complications of both forms of treatment and the patient wishes to proceed with operative intervention as outlined above - He has signed the informed consent form for surgery and surgery will be performed as soon as the OR is available Time I have spent 80 minutes of [id number] time with the patient during this visit. Over fifty percent of this time was spent counseling the patient on the risks, benefits, alternatives, and complications of both non-operative and operative forms of treatment as outlined above. /[id number]/MODL MTDD
--- NOTE | 2018-05-16 13:15 | HOSPPROG ---
Hospitalist Progress Note Assessment/Plan: 27 yo M w long finger abscess, difficulties w care abscess: appreciate hand surgery prompt attention s/p I+D on dapto micro: h/o MSSA. some abx exposure await sensitivities will likely need terminal clerk ABX behavioral issues: have been an issue currently respectful and quiet pain: continue multimodal therapy dc IV pain meds in AM proph: ambulatory Subjective: case d/w dr leon. afebrile. microw s aureus and strep Objective: Vital Signs Temp Pulse Resp BP Pulse Ox 36.9 C 90 16 132/75 H 95 05/16/18 09:50 05/16/18 09:50 05/16/18 09:50 05/16/18 09:50 05/16/18 09:50 Microbiology 05/15/18 21:52 Gram Stain - Final Finger - Other 05/15/18 20:25 Gram Stain - Final Finger - Eswab 05/15/18 05/16/18 05/17/18 05:59 05:59 05:59 Intake Total 1430 Output Total 570 650 Balance 860 -650 - Physical Exam Constitutional: no apparent distress, appears nourished Eyes: PERRL, anicteric sclera Ears, Nose, Mouth, Throat: moist mucous membranes, hearing normal Cardiovascular: regular rate and rhythym, no murmur, rub, or gallop Respiratory: no respiratory distress, no rales or rhonchi Gastrointestinal: normoactive bowel sounds, soft, non-tender abdomen Genitourinary: no bladder fullness, No horne in urethra Skin: warm, normal color Musculoskeletal: other (T middle finger bandaged, neurovascularly intact) Neurologic: AAOx3, sensation intact bilaterally Psychiatric: interacting appropriately ICD10 Worksheet Patient Problems: Problems Problem Status Onset Cellulitis of right hand Acute
--- NOTE | 2018-05-16 16:14 | ASMTCMCOM ---
CM Note CM Note Notes: Pt has been admitted with R hand cellulitis and is s/p I&D. He is on IV ABX. Pt has been here multiple times for this. In October he was discharged to a 3 day respite with planned outpatient infusion in 3E which he did not follow up with. He is homeless. D/C plan unclear at this time, most likely will need IV ABX. CM will follow for d/c needs. Date Signed: 05/16/2018 04:13 PM Electronically Signed By:REUBEN Plummer
--- NOTE | 2018-05-16 16:32 | PCMIDPN ---
Assessment/Plan: Assessment: Right dorsal hand infection-status post debridement last evening. Culture results reveal both MRSA and group a strep. Patient is on daptomycin which we will continue given its once daily dosing and likely need to continue as an outpatient. Clinically the patient is doing fairly well postoperatively. Still with some discomfort in the right hand and forearm. We will continue to follow this going forward. Plan: 1. Continue IV daptomycin at present dose. 2. Check CK at next lab draw. 05/16/18 16:29 Subjective: Patient is resting comfortably in his hospital room. He gets pain in his right hand and arm with any movement. No fevers or chills. Objective: Daptomycin # 2 Vital Signs Temp Pulse Resp BP Pulse Ox 36.9 C 83 14 141/76 H 97 05/16/18 16:00 05/16/18 16:00 05/16/18 16:00 05/16/18 16:00 05/16/18 16:00 Microbiology 05/15/18 21:52 Gram Stain - Final Finger - Other 05/15/18 20:25 Gram Stain - Final Finger - Eswab 05/15/18 05/16/18 05/17/18 05:59 05:59 05:59 Intake Total 1430 Output Total 570 650 Balance 860 -650 - Physical Exam General Appearance: WD/WN, alert, no apparent distress, non-toxic Extremities: other (No erythema or inflammation above wrist on the right side), No non-tender, No normal inspection Skin: normal color, warm/dry, No rash Neuro/Psych: alert, normal mood/affect, oriented x 3 ICD10 Worksheet Patient Problems: Problems Problem Status Onset Cellulitis of right hand Acute
--- NOTE | 2018-05-16 17:40 | PDMN ---
Medical Necessity Medical necessity: Change to IP, as of 05/16/18, per & [facility] PG-WS (Wound & Skin Management); los >2 mn for ongoing management of R hand infection w/ abscess s/p I&D; requiring further monitoring, IV abx & IV pain meds; hx MSSA hand infection, homelessness
--- NOTE | 2018-05-16 18:06 | GOP ---
PATIENT: JERZY JIMÉNEZ DATE OF SERVICE: 05/15/18 PATIENT DATE OF : 1990 SURGEON: Kumar Carney M.D. NUT GRINDER: Alessia ANESTHESIA: General PRE-OPERATIVE DIAGNOSES: Right long finger MCP joint septic arthritis (ICD-10 code M00.9 septic arthritis) Right long finger abscess (ICD-10 code L02.519 -- cutaneous abscess of hand) Right long finger dorsal MCP joint wound dehiscence (ICD-10 code S61.202S right long finger wound dehiscence) Right long finger purulent extensor tenosynovitis (ICD-10 code M65.9 right long finger purulent extensor tenosynovitis) POST-OPERATIVE DIAGNOSES: Right long finger MCP joint septic arthritis (ICD-10 code M00.9 septic arthritis) Right long finger abscess (ICD-10 code L02.519 -- cutaneous abscess of hand) Right long finger dorsal MCP joint wound dehiscence (ICD-10 code S61.202S right long finger wound dehiscence) Right long finger purulent extensor tenosynovitis (ICD-10 code M65.9 right long finger purulent extensor tenosynovitis) OPERATIVE PROCEDURES: CPT code 75192 -- Right long finger metacarpophalangeal joint arthrotomy with irrigation and debridement CPT code 95501 Right long finger drainage of extensor tendon sheath CPT code 38799 Right long finger abscess incision and drainage CPT code 15649 Right long finger metacarpal incision and drainage CPT code 24247 Debridement of bone, first 20 square cm or less CPT code 80023 Right long finger wound dehiscence repair, 2.6cm to 7.5cm Modifier 47 Regional anesthesia by surgeon EBL: 0.3cc COMPLICATIONS: None TOURNIQUET TIME: 61 minutes at 250 mmHg IMPLANTS: Three inch nu-gauze iodoform packing strips were implanted into the wound for later removal BRIEF CLINICAL NOTE: This is a 27 year old male with a 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 As such , I discussed the risks, benefits, alternatives, and complications associated with both non-operative (specifically, observation, antibiotics, local wound care) and operative (specifically, right long finger irrigation and debridement with repair of wound dehiscence) forms of treatment. The patient fully understood the risks, benefits, alternatives, and complications associated with both forms of treatment and wished to proceed with operative intervention as outlined above. The patient signed the informed consent form for surgery. OPERATIVE NOTE: On the day of surgery, all of the patients questions were answered. The patient was then transferred from the pre-operative area into the operating room and a formal, Time-Out procedure was performed. The patient was identified by name, medical record number, social security number, and date of . In addition, the patients right upper extremity was identified as the correct portion of the patients body for surgery with the patients right hand and long finger being identified as the correct portion of that extremity for surgery. The brachium was padded with webril and an 18-inch tourniquet was applied. The extremity was then prepped and draped in the normal sterile fashion. The extremity was then elevated for several minutes and the tourniquet was inflated to 250mm Hg. Dorsal longitudinal incisions were marked out immediately proximal and distal to the patients wound dehiscence overlying the right long finger MCP joint. A number 15 blade was used to incise the skin and meticulous hemostasis was obtained in the subcutaneous plane. Superficial sensory nerve branches were identified and protected. The EDC to the right long finger and the sagittal band were identified within a dense layer of scar tissue. The ulnar joint line demonstrated an abscess as well as a large tract emanating from the MCP joint with purulent drainage. The abscess was decompressed and the MCP joint capsule was incised (arthrotomy) to provide full exposure to the joint space. Swab and tissue cultures were obtained from the wound. Intravenous antibiotics were administered after cultures were obtained. The entire wound was then sharply surgically debrided including the extensor tendon and sheath, the MCP joint, and the metacarpal head. The wound was copiously irrigated with sterile normal saline mixed with bacitracin and polymixin. Three one-quarter inch nu-gauze iodoform packing strips were inserted into the wound. The incisions and the area of wound dehiscence from prior surgery was re-approximated with 3-0 nylon sutures. The hand, fingers, and thumb were then cleaned with sterile normal saline and dried. Betadine soaked gauze was applied to the incision followed by a dry sterile dressing and a compressive Coban wrap. Once the dressing was completely in place, the tourniquet was deflated. After complete deflation of the tourniquet, all fingers and the thumb demonstrated brisk capillary refill. The patient was then reversed from anesthesia and transferred from the operating room table onto the post-operative gurney and transferred from the operating room to the post-anesthesia care unit in stable condition. POST-OPERATIVE PLAN: The patient will remain in the current dressing for the next two days. The patient will be admitted to the hospitalist team and the infectious disease team will be consulted for recommendations on long-term antibiotics. The packing strips will be removed and/or replaced in 48 to 72 hours by a member of the hand team. /[id number]/MODL MTDD
[2018-05-16] MEDS: ACETAMINOPHEN 325 MG TAB PO PRN (20:06)
[2018-05-17] MEDS: IPRATROPIUM/ALBUTEROL 3 ML DEYVIAL IH PRN ×2 (00:04→15:02)
[2018-05-17] MEDS: oxyCODONE IR 5 MG TAB PO PRN ×4 (04:34→19:48)
[2018-05-17 05:22] LABS: CREATINE KINASE 91 IU/L (0-224)
[2018-05-17] MEDS: ALBUTEROL 60 PUFFS/8 GM MDI IH PRN ×2 (08:29→13:49)
[2018-05-17] MEDS: FLUTICASONE HFA 110 MCG MDI IH SCH ×2 (08:29→21:58)
[2018-05-17] MEDS: NICOTINE 21 MG/24 HR PATCH TD SCH (08:40)
[2018-05-17] MEDS: DAPTOmycin 600 MG in NS 100 ML IV SCH (09:41)
--- NOTE | 2018-05-17 10:18 | HOSPPROG ---
Hospitalist Progress Note Assessment/Plan: 27 yo M w long finger abscess, difficulties w care abscess: appreciate hand surgery prompt attention s/p I+D on dapto micro: . now MRSA ?osteomyelitis: not seen on plain film (interp by me) scenario s/o possibility of OM check esr + blood cx: c/w contaminant behavioral issues: have been an issue currently respectful and quiet 05/17- he acknowledges difficulties in past pleasant thus far pain: continue multimodal therapy dc IV pain meds in AM proph: ambulatory Subjective: case d/w dr leon. blood cx 07/22 CoNS Objective: Vital Signs Temp Pulse Resp BP Pulse Ox 36.6 C 80 12 126/75 H 95 05/17/18 08:00 05/17/18 08:00 05/17/18 08:00 05/17/18 08:00 05/17/18 08:00 05/16/18 05/17/18 05/18/18 05:59 05:59 05:59 Intake Total 1500 Balance 1500 - Physical Exam Constitutional: no apparent distress, appears nourished Eyes: PERRL, anicteric sclera Ears, Nose, Mouth, Throat: moist mucous membranes, hearing normal Cardiovascular: regular rate and rhythym, no murmur, rub, or gallop Respiratory: no respiratory distress, no rales or rhonchi Gastrointestinal: normoactive bowel sounds, soft, non-tender abdomen Genitourinary: no bladder fullness, No horne in urethra Skin: warm Musculoskeletal: other (R hand w less edema, NV intact w increased ROM. still bandaged) Neurologic: AAOx3, sensation intact bilaterally Psychiatric: interacting appropriately ICD10 Worksheet Patient Problems: Problems Problem Status Onset Cellulitis of right hand Acute
--- NOTE | 2018-05-17 13:54 | PCMIDPN ---
Assessment/Plan: Assessment: Right dorsal hand infection-status post debridement last evening. Culture results reveal both MRSA and group a strep. Patient is on daptomycin which we will continue given its once daily dosing and likely need to continue as an outpatient. Clinically the patient is doing fairly well postoperatively with regard to the right upper extremity. Still with some discomfort in the right hand and forearm but this is decreasing. We will continue to follow this going forward. Patient complains of shortness of breath today and his lung exam is quite wheezy. He does have a history of asthma. Will have him either take his asthma inhaler doses now or get a nebulizer treatment to him. I will also obtain a CBC to look for rising eosinophilia given that he is using daptomycin which on a very rare occasion can cause a drug related eosinophilic syndrome which may present with shortness of breath. Creatine kinase level is 91. Plan: 1. Continue IV daptomycin at present dose. 2. Check CBC. 3. Either nebulizer albuterol treatment as per hospitalist orders. Subjective: Patient is resting in his hospital bed. He has mildly increased effort of breathing. Complains of being short of breath. No fevers or chills. States that his right upper extremity discomfort is gradually reducing. Objective: Daptomycin # 3 Vital Signs Temp Pulse Resp BP Pulse Ox 36.6 C 80 12 126/75 H 95 05/17/18 08:00 05/17/18 08:00 05/17/18 08:00 05/17/18 08:00 05/17/18 08:00 05/16/18 05/17/18 05/18/18 05:59 05:59 05:59 Intake Total 1500 Balance 1500 - Physical Exam General Appearance: WD/WN, alert, apparent distress (Mild respiratory), non- toxic Respiratory: lungs clear, respiratory distress (Mild), crackles (Mild diffuse), wheezing, No normal breath sounds, No stridor Cardiac/Chest: regular rate, rhythm, No tachycardia Extremities: No non-tender, No normal inspection Skin: normal color, warm/dry, No rash Neuro/Psych: alert, normal mood/affect, oriented x 3 ICD10 Worksheet Patient Problems: Problems Problem Status Onset Cellulitis of right hand Acute
[2018-05-17] MEDS: KETOROLAC 30 MG/1 ML SDV IVP PRN (14:36)
[2018-05-17 14:57] LABS: PLATELET COUNT 213 10^3/uL (150-400)
--- NOTE | 2018-05-17 16:20 | SOAPPROG ---
SOAP Progress Note Assessment/Plan: Assessment: HPI: 27 year old male now POD#2 from right long finger MCPJ irrigation and debridement on 05/15/18 PE: RUE: Dressing CDI Incision nicely approximated +FDS, FDP, FDP-I, FPL, EPL, DI, PI <2 seconds capillary refill Assessment and Plan 27 year old male now POD#2 from right long finger MCPJ irrigation and debridement on 05/15/18 -All three packing strips removed -New dry sterile dressing applied to be left in place -Keep the right hand clean and dry -Continue on IV antibiotics per recommendations from infectious disease -Patient will need to remain in a controlled environment for the entirety of his antibiotic course to prevent recurrence of his infection 05/17/18 16:17 Objective: Vital Signs Temp Pulse Resp BP Pulse Ox 36.9 C 97 12 139/66 H 90 L 05/17/18 15:43 05/17/18 15:43 05/17/18 15:43 05/17/18 15:43 05/17/18 15:43 Laboratory Results 05/17/18 14:25 05/16/18 05/17/18 05/18/18 05:59 05:59 05:59 Intake Total 1500 Balance 1500 ICD10 Worksheet Patient Problems: Problems Problem Status Onset Cellulitis of right hand Acute
[2018-05-18 05:00] LABS: PLATELET COUNT 198 10^3/uL (150-400)
[2018-05-18] MEDS ORDERED: HYDROmorphONE/DILAUDID 1 MG/ML INJ IVP ONE (08:30)
--- NOTE | 2018-05-18 08:31 | SOAPPROG ---
SOAP Progress Note Assessment/Plan: Progress Note S: 27 year old male now POD#3 from right long finger MCPJ irrigation and debridement on 05/15/[address] Carney PE: RUE: Dressing CDI Incision nicely approximated with sutures intact. +FDS, FDP, FDP-I, FPL, EPL, DI, PI <2 seconds capillary refill Assessment and Plan 27 year old male now POD#3 from right long finger MCPJ irrigation and debridement on 05/15/18 -Previous dressing removed and a scant amount of yellow thin fluid expressed from mid and distal wound. Applied a new dry sterile dressing applied to be left in place -Keep the right hand clean and dry -Continue on IV antibiotics per recommendations from infectious disease -Patient will need to remain in a controlled environment for the entirety of his antibiotic course to prevent recurrence of his infection Patient was discussed with Dr. Master Darleen Lopez PA-C 05/18/18 10:39 Objective: Vital Signs Temp Pulse Resp BP Pulse Ox 36.6 C 81 16 118/73 93 05/18/18 08:00 05/18/18 08:00 05/18/18 08:00 05/18/18 08:00 05/18/18 08:00 Laboratory Results 05/18/18 04:50 05/18/18 04:50 05/17/18 05/18/18 05/19/18 05:59 05:59 05:59 Intake Total 1500 Balance 1500 ICD10 Worksheet Patient Problems: Problems Problem Status Onset Cellulitis of right hand Acute
[2018-05-18] MEDS: ALBUTEROL 60 PUFFS/8 GM MDI IH PRN ×2 (08:35→13:26)
[2018-05-18] MEDS: oxyCODONE IR 5 MG TAB PO PRN ×3 (08:38→19:54)
[2018-05-18] MEDS: NICOTINE 21 MG/24 HR PATCH TD SCH (08:39)
[2018-05-18] MEDS: FLUTICASONE HFA 110 MCG MDI IH SCH ×2 (08:42→20:02)
--- NOTE | 2018-05-18 08:57 | HOSPPROG ---
Hospitalist Progress Note Assessment/Plan: #Right 3rd MCP abscess, tenosynovitis (MRSA, Group A Strep) POD #2 debridement. Daptomycin #Asthma: no wheezing today, no eosinophilia #h/o IVDU: counseled on cessation. CM to assist with resources #DVT ppx: ambulating Inpatient admission for IV abx, pain control Subjective: pain improved this morning Objective: Vital Signs Temp Pulse Resp BP Pulse Ox 36.6 C 81 16 118/73 93 05/18/18 08:00 05/18/18 08:00 05/18/18 08:00 05/18/18 08:00 05/18/18 08:00 Laboratory Results 05/18/18 04:50 05/18/18 04:50 05/17/18 05/18/18 05/19/18 05:59 05:59 05:59 Intake Total 1500 Balance 1500 - Time Spent With Patient Time Spent with Patient: greater than 25 minutes Time Spent with Patient: Greater than 25 minutes spent on this patients care, greater than 50% of time spent counseling, educating, and coordinating care regarding the above mentioned plan. ICD10 Worksheet Patient Problems: Problems Problem Status Onset Cellulitis of right hand Acute
[2018-05-18] MEDS: DAPTOmycin 600 MG in NS 100 ML IV SCH (09:21)
--- NOTE | 2018-05-18 11:15 | PCMIDPN ---
Assessment/Plan: Assessment/Plan: * Right 3rd finger MCP septic arthritis/abscess/tenosynovitis due to MRSA and group a Streptococcus status post incision and drainage: Clinically improved post incision and drainage. Continue daptomycin which is favored over vancomycin as may be difficult to achieve good levels based on age. No further wheezing and CBC did not show evidence of eosinophilia. Resting comfortably without cough making hypersensitivity pneumonitis unlikely. * Positive blood culture for coagulase-negative Staph: Consistent with skin contamination. 05/18/18 11:12 05/18/18 11:17 Subjective: Patient notes tenderness in right hand decreased. No further wheezing or shortness of breath. Objective: Vital Signs Temp Pulse Resp BP Pulse Ox 36.6 C 81 16 118/73 93 05/18/18 08:00 05/18/18 08:00 05/18/18 08:00 05/18/18 08:00 05/18/18 08:00 Laboratory Results 05/18/18 04:50 05/18/18 04:50 05/17/18 05/18/18 05/19/18 05:59 05:59 05:59 Intake Total 1500 Balance 1500 ESR 42 MM/HR (0-15) H 05/18/18 04:50 Daptomycin # 4 Blood cultures 05/15/2018 1/2 sets coagulase-negative staph Hand cultures MRSA, group A Streptococcus - Physical Exam General Appearance: alert, no apparent distress, non-toxic Respiratory: lungs clear, No respiratory distress Cardiac/Chest: regular rate, rhythm, other (Distant heart tones) Extremities: inflammation (Right hand dressed postoperatively; pain with movement of 3rd digit with edema present) ICD10 Worksheet Patient Problems: Problems Problem Status Onset Cellulitis of right hand Acute
[2018-05-18] MEDS: IPRATROPIUM/ALBUTEROL 3 ML DEYVIAL IH PRN (17:08)
[2018-05-19] MEDS: FLUTICASONE HFA 110 MCG MDI IH SCH ×2 (09:42→21:04)
[2018-05-19] MEDS: ALBUTEROL 60 PUFFS/8 GM MDI IH PRN ×2 (09:43→21:05)
[2018-05-19] MEDS: NICOTINE 21 MG/24 HR PATCH TD SCH (09:43)
[2018-05-19] MEDS: oxyCODONE IR 5 MG TAB PO PRN ×2 (09:43→17:26)
[2018-05-19] MEDS: DAPTOmycin 600 MG in NS 100 ML IV SCH (10:08)
--- NOTE | 2018-05-19 12:06 | ASMTCMCOM ---
CM Note CM Note Notes: CM spoke to Dr. Rizo regarding d/c POC. Pt will most likely need several weeks of ivabx here at the hospital. Pt discharged last time w/ follow up to the outpatient infusion center and was non compliant. CM to follow. Plan: TBD Date Signed: 05/19/2018 12:06 PM Electronically Signed By:CATHERINE Abraham
--- NOTE | 2018-05-19 12:58 | HOSPPROG ---
Hospitalist Progress Note Assessment/Plan: #Right 3rd MCP abscess, tenosynovitis (MRSA, Group A Strep) POD #2 debridement. Daptomycin -need to determine length and route of abx with ID #Asthma: no wheezing today, no eosinophilia #h/o IVDU: counseled on cessation. CM to assist with resources #DVT ppx: ambulating Inpatient admission for IV abx, pain control Subjective: pain improved Objective: Vital Signs Temp Pulse Resp BP Pulse Ox 36.9 C 63 14 128/54 H 94 05/19/18 07:56 05/19/18 07:56 05/19/18 07:56 05/19/18 07:56 05/19/18 07:56 Laboratory Results 05/18/18 04:50 05/18/18 04:50 - Time Spent With Patient Time Spent with Patient: greater than 35 minutes Time Spent with Patient: Greater than 35 minutes spent on this patients care, greater than 50% of time spent counseling, educating, and coordinating care regarding the above mentioned plan. - Physical Exam Constitutional: no apparent distress Eyes: PERRL Ears, Nose, Mouth, Throat: moist mucous membranes Cardiovascular: regular rate and rhythym Respiratory: no respiratory distress Gastrointestinal: normoactive bowel sounds Genitourinary: no bladder fullness Skin: warm Musculoskeletal: other (right hand swollen, TTP over dorsum) Neurologic: AAOx3, CN II-XII Intact Psychiatric: interacting appropriately ICD10 Worksheet Patient Problems: Problems Problem Status Onset Cellulitis of right hand Acute
--- NOTE | 2018-05-19 16:26 | PCMIDPN ---
Assessment/Plan: Assessment/Plan: * Right 3rd finger MCP septic arthritis/abscess/tenosynovitis due to MRSA and group A Streptococcus status post incision and drainage: Slow clinical improvement with improving range of motion of digits. Still has limited extension. Continue daptomycin. Will repeat CPK in a.m.. Typically would treat with 3-4 weeks of IV antibiotics; disposition complicated by prior noncompliance and homelessness. * Positive blood culture for coagulase-negative Staph: Consistent with skin contamination. 05/19/18 16:22 05/19/18 16:26 Subjective: Patient complains of persistent right hand pain although less prominent and range of motion improving. Notes productive cough. Objective: Vital Signs Temp Pulse Resp BP Pulse Ox 36.7 C 77 14 140/74 H 96 05/19/18 15:04 05/19/18 15:04 05/19/18 15:04 05/19/18 15:04 05/19/18 15:04 Laboratory Results 05/18/18 04:50 05/18/18 04:50 ESR 42 MM/HR (0-15) H 05/18/18 04:50 Daptomycin # 5 Blood cultures 1/2 coagulase-negative Staph Operative cultures MRSA, group A Streptococcus - Physical Exam General Appearance: alert, no apparent distress EENT: No scleral icterus, No thrush Respiratory: wheezing (Occasional inspiratory bilaterally) Cardiac/Chest: regular rate, rhythm Extremities: inflammation (Right hand dressed postoperatively; improved range of motion of digits with limitation remaining with extension of 3rd through 5th digits) Abdomen: non-tender, No distended ICD10 Worksheet Patient Problems: Problems Problem Status Onset Cellulitis of right hand Acute
[2018-05-19] MEDS: IPRATROPIUM/ALBUTEROL 3 ML DEYVIAL IH PRN (17:32)
[2018-05-19] MEDS ORDERED: SODIUM CL NASAL 45 ML BTL EACHNARE PRN (17:49)
[2018-05-19] MEDS: KETOROLAC 30 MG/1 ML SDV IVP PRN (21:52)
[2018-05-20] MEDS: oxyCODONE IR 5 MG TAB PO PRN ×4 (07:55→22:41)
[2018-05-20] MEDS: KETOROLAC 30 MG/1 ML SDV IVP PRN (08:04)
[2018-05-20] MEDS: DAPTOmycin 600 MG in NS 100 ML IV SCH (09:07)
[2018-05-20] MEDS: NICOTINE 21 MG/24 HR PATCH TD SCH (09:11)
[2018-05-20] MEDS: FLUTICASONE HFA 110 MCG MDI IH SCH ×2 (09:51→20:56)
[2018-05-20] MEDS: ALBUTEROL 60 PUFFS/8 GM MDI IH PRN ×2 (09:52→20:55)
--- NOTE | 2018-05-20 10:02 | SOAPPROG ---
SOAP Progress Note Assessment/Plan: Progress Note S: 27 year old male now POD#5 from right long finger MCPJ irrigation and debridement on 05/15/[address] Carney PE: RUE: Dressing CDI Incision nicely approximated with sutures intact. +FDS, FDP, FDP-I, FPL, EPL, DI, PI <2 seconds capillary refill Assessment and Plan 27 year old male now POD#3 from right long finger MCPJ irrigation and debridement on 05/15/18 -Previous dressing removed and a scant amount of yellow bloody fluid expressed from mid and distal wound. Applied betadine and a new dry sterile dressing applied to be left in place at all times. -Keep the right hand clean and dry -Continue on IV antibiotics per recommendations from infectious disease -Patient will need to remain in a controlled environment for the entirety of his antibiotic course to prevent recurrence of his infection Patient was discussed with Dr. Master Darleen Lopez PA-C 05/20/18 10:00 Objective: Vital Signs Temp Pulse Resp BP Pulse Ox 36.8 C 69 14 115/63 95 05/20/18 07:31 05/20/18 07:31 05/20/18 07:31 05/20/18 07:31 05/20/18 07:31 Laboratory Results 05/18/18 04:50 05/18/18 04:50 ICD10 Worksheet Patient Problems: Problems Problem Status Onset Cellulitis of right hand Acute
[2018-05-20 11:15] LABS: CREATINE KINASE 36 IU/L (0-224)
[2018-05-20] MEDS: IPRATROPIUM/ALBUTEROL 3 ML DEYVIAL IH PRN (15:34)
--- NOTE | 2018-05-20 15:54 | HOSPPROG ---
Hospitalist Progress Note Assessment/Plan: #Right 3rd MCP abscess, tenosynovitis (MRSA, Group A Strep) POD #5 debridement. -Daptomycin. Concern is that he may leave AMA before recommended therapy duration per past actions #Asthma: no wheezing today, no eosinophilia #h/o IVDU: counseled on cessation. CM to assist with resources #DVT ppx: ambulating Inpatient admission for IV abx, pain control Subjective: no acute events. Dressing changed today Objective: Vital Signs Temp Pulse Resp BP Pulse Ox 36.8 C 89 14 146/90 H 95 05/20/18 15:17 05/20/18 15:17 05/20/18 15:17 05/20/18 15:17 05/20/18 15:17 Laboratory Results 05/18/18 04:50 05/18/18 04:50 - Time Spent With Patient Time Spent with Patient: greater than 25 minutes Time Spent with Patient: Greater than 25 minutes spent on this patients care, greater than 50% of time spent counseling, educating, and coordinating care regarding the above mentioned plan. - Physical Exam Constitutional: no apparent distress Eyes: PERRL Ears, Nose, Mouth, Throat: moist mucous membranes Cardiovascular: regular rate and rhythym Respiratory: no respiratory distress Gastrointestinal: normoactive bowel sounds Genitourinary: no bladder fullness Skin: warm Musculoskeletal: other (right handed dresses, swollen, good radial pulse and cap refill) Neurologic: AAOx3, CN II-XII Intact Psychiatric: flat affect, other (mildly agitated today) ICD10 Worksheet Patient Problems: Problems Problem Status Onset Cellulitis of right hand Acute
--- NOTE | 2018-05-20 18:56 | PCMIDPN ---
Assessment/Plan: Assessment/Plan: * Right 3rd finger MCP septic arthritis/abscess/tenosynovitis due to MRSA and group A Streptococcus status post incision and drainage: Continues to show slow improvement in range of motion of digits. Completing 3-4 weeks of IV daptomycin for isolated pathogens. Previously noncompliant with outpatient follow-up which complicates disposition. Patient also notes injection drug use using methamphetamines with last use of 1 month ago. CPK stable. * Positive blood culture for coagulase-negative Staph: Consistent with skin contamination. 05/20/18 18:53 Subjective: Patient notes range of motion of digits improving. Notes frustration with required hospitalization but recognizes need for IV antibiotics. No muscle pain. Objective: Vital Signs Temp Pulse Resp BP Pulse Ox 36.8 C 78 16 146/90 H 95 05/20/18 15:17 05/20/18 15:30 05/20/18 15:30 05/20/18 15:17 05/20/18 15:30 Laboratory Results 05/18/18 04:50 05/18/18 04:50 05/19/18 05/20/18 05/21/18 05:59 05:59 05:59 Intake Total 1 Balance 1 ESR 42 MM/HR (0-15) H 05/18/18 04:50 Daptomycin # 6 Laboratory Tests 05/20/18 10:26 Creatine Kinase 36 - Physical Exam General Appearance: alert, no apparent distress EENT: No scleral icterus Respiratory: No respiratory distress, No wheezing Cardiac/Chest: regular rate, rhythm Extremities: inflammation (Right hand dressed postoperatively; improved flexion of digits with some limitation in full extension) Abdomen: non-tender ICD10 Worksheet Patient Problems: Problems Problem Status Onset Cellulitis of right hand Acute
[2018-05-21] MEDS: FLUTICASONE HFA 110 MCG MDI IH SCH ×2 (09:45→19:48)
[2018-05-21] MEDS: ALBUTEROL 60 PUFFS/8 GM MDI IH PRN ×2 (09:45→17:25)
[2018-05-21] MEDS: DAPTOmycin 600 MG in NS 100 ML IV SCH (10:05)
[2018-05-21] MEDS: NICOTINE 21 MG/24 HR PATCH TD SCH (10:05)
--- NOTE | 2018-05-21 14:29 | HOSPPROG ---
Hospitalist Progress Note Assessment/Plan: #Right 3rd MCP abscess, tenosynovitis (MRSA, Group A Strep) POD #6 debridement. -less swollen today -Daptomycin. Concern is that he may leave AMA before recommended therapy duration per past actions #Asthma: no wheezing today, no eosinophilia #h/o IVDU: counseled on cessation. CM to assist with resources. Has become threatening in past when narcotics stopped #DVT ppx: ambulating Inpatient admission for IV abx, pain control Subjective: hand less swollen today Objective: Vital Signs Temp Pulse Resp BP Pulse Ox 36.6 C 77 14 111/70 94 05/21/18 08:00 05/21/18 09:45 05/21/18 09:45 05/21/18 08:00 05/21/18 09:45 Laboratory Results 05/18/18 04:50 05/18/18 04:50 05/20/18 05/21/18 05/22/18 05:59 05:59 05:59 Intake Total 1 Balance 1 - Time Spent With Patient Time Spent with Patient: greater than 25 minutes Time Spent with Patient: Greater than 25 minutes spent on this patients care, greater than 50% of time spent counseling, educating, and coordinating care regarding the above mentioned plan. - Physical Exam Constitutional: no apparent distress Eyes: PERRL Ears, Nose, Mouth, Throat: moist mucous membranes Cardiovascular: regular rate and rhythym Respiratory: no respiratory distress Gastrointestinal: normoactive bowel sounds Genitourinary: No horne in urethra Skin: warm Musculoskeletal: other (left hand left swollen. Small amount blood on dressing) Neurologic: AAOx3, CN II-XII Intact Psychiatric: interacting appropriately ICD10 Worksheet Patient Problems: Problems Problem Status Onset Cellulitis of right hand Acute
[2018-05-21] MEDS: oxyCODONE IR 5 MG TAB PO PRN ×2 (16:05→19:39)
[2018-05-21] MEDS: traMADol 50 MG TAB PO PRN (17:38)
[2018-05-21] MEDS: IPRATROPIUM/ALBUTEROL 3 ML DEYVIAL IH PRN (19:46)
[2018-05-22] MEDS: oxyCODONE IR 5 MG TAB PO PRN ×3 (07:33→20:42)
--- NOTE | 2018-05-22 08:27 | SOAPPROG ---
SOAP Progress Note Assessment/Plan: Progress Note S: 27 year old male now POD#7 from right long finger MCPJ irrigation and debridement on 05/15/[address] Carney. He reports that his pain has not worsened. PE: Gen: NAD RUE: Incision nicely approximated with most sutures intact. Scant amount of expressible purulent and bloody drainage from the mid/distal aspect of incision. No worsening erythema. Moderate amount of swelling. +FDS, FDP, FDP-I, FPL, EPL, DI, PI <2 seconds capillary refill Assessment and Plan 27 year old male now POD#7 from right long finger MCPJ irrigation and debridement on 05/15/[address] Carney -Previous dressing removed. Small amount of fluid expressed from mid/distal aspect of incision. Applied betadine and a new dry sterile dressing applied to be left in place at all times. -Keep the right hand clean and dry -Continue on IV antibiotics per recommendations from infectious disease -Patient will need to remain in a controlled environment for the entirety of his antibiotic course to prevent recurrence of his infection Patient was discussed with Dr. Master Darleen Lopez PA-C 05/22/18 08:22 Objective: Vital Signs Temp Pulse Resp BP Pulse Ox 36.9 C 73 16 131/69 H 96 05/21/18 22:28 05/21/18 22:28 05/21/18 22:28 05/21/18 22:28 05/21/18 22:28 Laboratory Results 05/18/18 04:50 05/18/18 04:50 05/21/18 05/22/18 05/23/18 05:59 05:59 05:59 Intake Total 1 Balance 1 ICD10 Worksheet Patient Problems: Problems Problem Status Onset Cellulitis of right hand Acute
[2018-05-22] MEDS: FLUTICASONE HFA 110 MCG MDI IH SCH ×2 (09:58→23:08)
[2018-05-22] MEDS: ALBUTEROL 60 PUFFS/8 GM MDI IH PRN ×2 (09:58→17:45)
--- NOTE | 2018-05-22 10:05 | PCMIDPN ---
Assessment/Plan: 1. Right 3rd finger MCP septic arthritis/tenosynovitis with abscess status post incision and drainage: Long conversation with patient today. He tells me that he will stay another week, then he is leaving. Warned him of incomplete treatment and risk of ongoing infection/development of osteomyelitis. Continue daptomycin as is; check liver function tests in the morning. CK fine. Continue wound care. 2. History of intravenous methamphetamine use: Will order HIV test and hepatitis a, B, and C serologies. Last Tdap within the past year. 3. Miscellaneous: Patient expressed lack of comprehension behind the"no visitors"policy for him. Will have social work come and talk to him. Over 25 min spent with this patient today. Subjective: Frustrated about having to be here. Worried about his girlfriend, who is homeless and not allowed to visit him. No diarrhea, nausea, vomiting or rash. Objective: Daptomycin 600 mg IV daily day 8 No fevers Vital Signs Temp Pulse Resp BP Pulse Ox 36.9 C 73 16 131/69 H 96 05/21/18 22:28 05/21/18 22:28 05/21/18 22:28 05/21/18 22:28 05/21/18 22:28 Laboratory Results 05/18/18 04:50 05/18/18 04:50 05/21/18 05/22/18 05/23/18 05:59 05:59 05:59 Intake Total 1 Balance 1 ESR 42 MM/HR (0-15) H 05/18/18 04:50 No new microbiology - Physical Exam General Appearance: alert, no apparent distress EENT: pharynx normal, No thrush Respiratory: lungs clear Extremities: other (Right hand wrapped. Patient tells me that it was just wrapped by Orthopedics and he does not want me to take the dressing off.) Abdomen: non-tender, soft Skin: No rash, No embolic lesions ICD10 Worksheet Patient Problems: Problems Problem Status Onset Cellulitis of right hand Acute
[2018-05-22] MEDS: traMADol 50 MG TAB PO PRN (10:34)
[2018-05-22] MEDS: NICOTINE 21 MG/24 HR PATCH TD SCH (10:34)
[2018-05-22] MEDS: DAPTOmycin 600 MG in NS 100 ML IV SCH (10:35)
[2018-05-22 12:32] LABS: HEPATITIS A ANTIBODY TOTAL NEGATIVE (NEGATIVE); HEPATITIS B CORE AB TOTAL NEGATIVE (NEGATIVE); HEPATITIS B SURFACE ANTIGEN NEGATIVE (NEGATIVE); HEPATITIS C ANTIBODY TOTAL NEGATIVE (NEGATIVE); HIV TYPE 1 AND 2 NEGATIVE (NEGATIVE)
--- NOTE | 2018-05-22 13:33 | HOSPPROG ---
Hospitalist Progress Note Assessment/Plan: # third finger septic arthritis, abscess, tenosynovitis s/p I&D WCX with MRSA and GAS - cont dapto per ID, ck ok - checking LFTs tomorrow # hx IVDU - HIV neg # dispo - he has been non-compliant with completing abx previously; he also has left AMA after threatening staff; he has decisional capacity; if he leaves AMA, would attempt to give him a prescription for doxy and augmentin; otherwise, plan to keep him inpatient for iv abx although he is refusing to stay for more than another week Subjective: concerned about the safety of his girlfriend; hand feels ok, pain not worse Objective: Vital Signs Temp Pulse Resp BP Pulse Ox 36.9 C 73 16 131/69 H 96 05/21/18 22:28 05/21/18 22:28 05/21/18 22:28 05/21/18 22:28 05/21/18 22:28 Laboratory Results 05/18/18 04:50 05/18/18 04:50 05/21/18 05/22/18 05/23/18 05:59 05:59 05:59 Intake Total 1 Balance 1 chart reviewed hand XR reviewed brief op note reviewed - Physical Exam Constitutional: no apparent distress, appears nourished Cardiovascular: regular rate and rhythym, no murmur, rub, or gallop Respiratory: no respiratory distress, no rales or rhonchi, clear to auscultation Gastrointestinal: soft, non-tender abdomen, no palpable masses, No guarding, No rebound, No distension ICD10 Worksheet Patient Problems: Problems Problem Status Onset Cellulitis of right hand Acute
--- NOTE | 2018-05-22 15:21 | ASMTCMCOM ---
CM Note CM Note Notes: Pt is a homeless man who has a history of leaving AMA. He is admitted for a hand infection. Last time he was here for this he was dc'd to outpt infusion but was non compliant. Plan is for him to stay and finish his course of IV abx if possible. Pt is not allowed to have visitors, due to his girlfriend using IV drugs in his room. DC Plan: Independent/ Residential? Date Signed: 05/22/2018 03:20 PM Electronically Signed By:Maggie Angela RN
[2018-05-22] MEDS: diphenhydrAMINE 25 MG CAP PO PRN (21:58)
[2018-05-22] MEDS: IPRATROPIUM/ALBUTEROL 3 ML DEYVIAL IH PRN (23:06)
[2018-05-23] MEDS: NICOTINE 21 MG/24 HR PATCH TD SCH (08:44)
[2018-05-23] MEDS: oxyCODONE IR 5 MG TAB PO PRN ×4 (08:44→21:26)
[2018-05-23] MEDS: FLUTICASONE HFA 110 MCG MDI IH SCH ×2 (08:46→21:48)
[2018-05-23] MEDS: DAPTOmycin 600 MG in NS 100 ML IV SCH (08:54)
--- NOTE | 2018-05-23 15:01 | HOSPPROG ---
Hospitalist Progress Note Assessment/Plan: # third finger septic arthritis, abscess, tenosynovitis s/p I&D WCX with MRSA and GAS - cont dapto per ID, ck ok - checking LFTs tomorrow # hx IVDU - HIV neg # dispo - The patient tells me he is leaving on Friday or Friday when his brother arrives. The plan has been to continue IV antibiotics for his complete course given his difficulties with compliance and homelessness. I discussed with Dr. Mitchell, we will likely be able to set him up for outpatient IV antibiotics as this is a better overall plan than oral antibiotics for him, and better than nothing. Subjective: discussed overall plans for abx Objective: Vital Signs Temp Pulse Resp BP Pulse Ox 36.6 C 58 L 16 134/68 H 96 05/23/18 08:00 05/23/18 08:00 05/23/18 08:00 05/23/18 08:00 05/23/18 08:00 Laboratory Results 05/18/18 04:50 05/18/18 04:50 05/22/18 05/23/18 05/24/18 05:59 05:59 04:59 Intake Total 550 Balance 550 - Physical Exam Constitutional: no apparent distress, appears nourished Eyes: anicteric sclera Ears, Nose, Mouth, Throat: hearing normal Cardiovascular: No edema Respiratory: no respiratory distress Gastrointestinal: No distension Genitourinary: No horne in urethra Skin: normal color Musculoskeletal: full muscle strength, other (R hand wrapped in surgical dressing) Neurologic: AAOx3 Psychiatric: not anxious ICD10 Worksheet Patient Problems: Problems Problem Status Onset Cellulitis of right hand Acute
[2018-05-23] MEDS: IPRATROPIUM/ALBUTEROL 3 ML DEYVIAL IH PRN (15:59)
[2018-05-23] MEDS: ACETAMINOPHEN 325 MG TAB PO PRN (16:44)
[2018-05-23] MEDS: diphenhydrAMINE 25 MG CAP PO PRN (21:31)
[2018-05-23] MEDS: ALBUTEROL 60 PUFFS/8 GM MDI IH PRN (21:48)
[2018-05-24] MEDS: oxyCODONE IR 5 MG TAB PO PRN ×5 (00:48→23:39)
[2018-05-24] MEDS: ACETAMINOPHEN 325 MG TAB PO PRN ×3 (00:50→13:16)
[2018-05-24] MEDS: DAPTOmycin 600 MG in NS 100 ML IV SCH (08:26)
[2018-05-24] MEDS: NICOTINE 21 MG/24 HR PATCH TD SCH (08:27)
[2018-05-24] MEDS: IPRATROPIUM/ALBUTEROL 3 ML DEYVIAL IH PRN ×2 (08:48→21:53)
[2018-05-24] MEDS: FLUTICASONE HFA 110 MCG MDI IH SCH ×2 (08:48→21:54)
--- NOTE | 2018-05-24 12:58 | HOSPPROG ---
Hospitalist Progress Note Assessment/Plan: # third finger septic arthritis, abscess, tenosynovitis s/p I&D WCx with MRSA and GAS - pain much worse today - Dr Carney will evaluate - check labs today - cont dapto per ID, ck ok # hx IVDU - HIV neg Subjective: shaking; c/o severe, worsening hand pain Objective: Vital Signs Temp Pulse Resp BP Pulse Ox 36.8 C 68 14 124/65 H 94 05/24/18 08:00 05/24/18 08:51 05/24/18 08:51 05/24/18 08:00 05/24/18 08:51 Laboratory Results 05/18/18 04:50 05/18/18 04:50 05/23/18 05/24/18 05/25/18 06:59 05:59 05:59 Intake Total Balance discussed with Dr Carney high risk - Physical Exam Constitutional: uncomfortable Cardiovascular: regular rate and rhythym, no murmur, rub, or gallop Respiratory: no respiratory distress, no rales or rhonchi, clear to auscultation Gastrointestinal: soft, non-tender abdomen, no palpable masses, No guarding, No rebound, No distension ICD10 Worksheet Patient Problems: Problems Problem Status Onset Cellulitis of right hand Acute
[2018-05-24 14:21] LABS: PLATELET COUNT 298 10^3/uL (150-400)
[2018-05-24] MEDS ORDERED: HYDROmorphONE/DILAUDID 4 MG TAB PO ONE (14:24)
--- NOTE | 2018-05-24 14:33 | SOAPPROG ---
SOAP Progress Note Assessment/Plan: Assessment: HPI: 27 year old male now POD#9 from right long finger MCPJ irrigation and debridement on 05/15/18 PE: RUE: Dressing CDI Incision healing well with 2cm area of superficial wound dehiscence overlying the MCP joint with healthy appearing granulation tissue, no erythema, no drainage +FDS, FDP, FDP-I, FPL, EPL, DI, PI <2 seconds capillary refill Assessment and Plan 27 year old male now POD#9 from right long finger MCPJ irrigation and debridement on 05/15/18 doing well -Some of the sutures removed today -New dry sterile dressing applied to be left in place -Keep the right hand clean and dry -Continue on IV antibiotics per recommendations from infectious disease -Patient will need to remain in a controlled environment for the entirety of his antibiotic course to prevent recurrence of his infection 05/24/18 14:31 Objective: Vital Signs Temp Pulse Resp BP Pulse Ox 36.8 C 68 14 124/65 H 94 05/24/18 08:00 05/24/18 08:51 05/24/18 08:51 05/24/18 08:00 05/24/18 08:51 Laboratory Results 05/24/18 14:00 05/23/18 05/24/18 05/25/18 06:59 05:59 05:59 Intake Total Balance ICD10 Worksheet Patient Problems: Problems Problem Status Onset Cellulitis of right hand Acute
--- NOTE | 2018-05-24 15:09 | PCMIDPN ---
Assessment/Plan: Assessment/Plan: * Right 3rd finger MCP septic arthritis/abscess/tenosynovitis due to MRSA and group A Streptococcus status post incision and drainage: Slow clinical improvement. Plan 3 weeks of IV daptomycin if patient can remain compliant with therapy. Discussed with him returning to the infusion center daily with new peripheral IV daily to complete 3 weeks of therapy. He states he will comply with this and that previous noncompliance with follow-up on the infusion center was due to he was in halfway. Would recommend providing prescription for amoxicillin 1 g orally twice daily and doxycycline 100 mg orally twice daily in event patient cannot return to infusion center. Will add CPK on to blood work done earlier today. * Positive blood culture for coagulase-negative Staph: Consistent with skin contamination. 05/24/18 15:07 Subjective: Patient complains of right hand pain after dressing change earlier today. No diffuse muscle pain. Objective: Vital Signs Temp Pulse Resp BP Pulse Ox 36.8 C 68 14 124/65 H 94 05/24/18 08:00 05/24/18 08:51 05/24/18 08:51 05/24/18 08:00 05/24/18 08:51 Laboratory Results 05/24/18 14:00 05/24/18 14:00 05/23/18 05/24/18 05/25/18 06:59 05:59 05:59 Intake Total Balance ESR 42 MM/HR (0-15) H 05/18/18 04:50 Daptomycin # 10 Laboratory Tests 05/24/18 14:00 Total Bilirubin 0.2 AST 49 ALT 64 Alkaline Phosphatase 92 - Physical Exam General Appearance: alert, no apparent distress EENT: No scleral icterus, No thrush, No conjunctival petechiae Respiratory: lungs clear, No respiratory distress Cardiac/Chest: regular rate, rhythm Extremities: other (Improving range of motion of 3rd digit) Skin: No rash ICD10 Worksheet Patient Problems: Problems Problem Status Onset Cellulitis of right hand Acute
[2018-05-24 15:31] LABS: CREATINE KINASE 46 IU/L (0-224)
[2018-05-24] MEDS: diphenhydrAMINE 25 MG CAP PO PRN (22:13)
[2018-05-24] MEDS ORDERED: LORazepam 0.5 MG TAB PO ONE (23:16)
[2018-05-25] MEDS: oxyCODONE IR 5 MG TAB PO PRN (08:20)
[2018-05-25] MEDS: NICOTINE 21 MG/24 HR PATCH TD SCH (08:21)
[2018-05-25] MEDS ORDERED: oxyCODONE IR 5 MG TAB PO PRN (08:27)
[2018-05-25 08:40] VITALS: BP 127/70
--- NOTE | 2018-05-25 09:11 | SOAPPROG ---
SOAP Progress Note Assessment/Plan: Progress Note S: 27 year old male now POD#10 from right long finger MCPJ irrigation and debridement on 05/15/[address] Carney. He states that he wants to leave the hospital and see his girlfriend. PE: Gen: NAD RUE: Incision nicely approximated with most proximal sutures intact. Scant amount of expressible thin yellow and bloody drainage from the mid/distal aspect of incision. No worsening erythema. Mild amount of swelling. +FDS, FDP, FDP-I, FPL, EPL, DI, PI <2 seconds capillary refill Assessment and Plan 27 year old male now POD#10 from right long finger MCPJ irrigation and debridement on 05/15/[address] Carney -Previous dressing removed. Scant amount of fluid expressed from mid/distal aspect of incision. Applied betadine and a new dry sterile dressing applied to be left in place at all times. -Keep the right hand clean and dry -Continue on IV antibiotics per recommendations from infectious disease -Patient will need to remain in a controlled environment for the entirety of his antibiotic course to prevent recurrence of his infection. I advised him that it would be against medical advice if he left the hospital today and he would be at risk for possible worsening infection, amputation, or . Patient was discussed with Dr. Master Darleen Lopez PA-C 05/25/18 09:08 Objective: Vital Signs Temp Pulse Resp BP Pulse Ox 36.7 C 66 20 127/70 H 95 05/25/18 08:37 05/25/18 08:37 05/25/18 08:37 05/25/18 08:37 05/25/18 08:37 Laboratory Results 05/24/18 14:00 05/24/18 14:00 ICD10 Worksheet Patient Problems: Problems Problem Status Onset Cellulitis of right hand Acute
[2018-05-25] MEDS: DAPTOmycin 600 MG in NS 100 ML IV SCH (09:43)
[2018-05-25] MEDS: FLUTICASONE HFA 110 MCG MDI IH SCH (09:54)
[2018-05-25] MEDS: ALBUTEROL 60 PUFFS/8 GM MDI IH PRN (09:55)
--- NOTE | 2018-05-25 11:08 | ASMTLACE ---
LACE Length of stay for Answers: 7-13 days current admission Acuity / Level of Answers: Yes Care: Did the patient have an inpatient admission? # of Emergency department Answers: 9-12 visits in the last 6 months Social determinants Answers: Homelessness (street, longterm) Lack of community resources and/or lack of social support (no pcp, lives alone, transportation, pankaj d) Score: 20 Date Signed: 05/25/2018 11:07 AM Electronically Signed By:CATHERINE Abraham
--- NOTE | 2018-05-25 11:19 | ASMTDCNOTE ---
Case Management Discharge Discharge Order Complete? Answers: Yes Patient to Obtain Answers: Independently Medications Transportation Arranged Answers: Bus Tokens EMTALA Complete Answers: No Case Management Transport Answers: No Form Complete Faxed Final Orders Answers: No Agency/Facility Transfer Answers: No Report Printed & Faxed to Receiving Agency Family Notified Answers: No Discharge Comments Notes: CM spoke to Dr. Ruiz and Dr. Park regarding d/c POC. Pt is being discharged today to follow up at the outpatient infusion center. Pt will get a new peripheral iv daily to complete ivabx until 06/07. CM scheduled the appointments for ivabx. CM met w/ pt and went over the appointments w/ him. Pt will also be given oral prescription if he cannot return to the infusion center. CM provided pt w/ a bus pass. CM reserved a custodial bed for pt. CM available for changes. Plan: [facility] outpatient infusion follow up Date Signed: 05/25/2018 11:17 AM Electronically Signed By:CATHERINE Abraham
--- NOTE | 2018-05-25 12:56 | ASMTCMCOM ---
CM Note CM Note Notes: Pt is leaving AMA. Jayde spoke w/ Dr. Park about having pt come to [facility] outpatient infusion. Jayde is OK w/ making an exception for pt to come to [facility] outpatient infusion with leaving AMA. Date Signed: 05/25/2018 12:43 PM Electronically Signed By:CATHERINE Abraham
--- NOTE | 2018-05-25 19:40 | GDS ---
ALL DIAGNOSES: 1. Third finger septic arthritis, abscess, tenosynovitis. 2. History of intravenous drug use. HOSPITAL COURSE: This is a 27-year-old man who has had long-standing problems with infection in his right hand. He had been admitted here in November, as well as October for the same thing. He had been initia lly debrided at that time, had been set up for outpatient IV antibiotics. He had failed to show up in the infusion center. He does have problems with this due to his homelessness. He also has had recent intravenous drug use. On this admission, he was I and D'd again. Cultures grow MRSA, as well as Stre ptococcus pyogenes. He has been treated with daptomycin intravenous for this. He is quite restless in the hospital, is insisting on leaving. We have explained that this is not our recommendation given p revious events, he does state that he will be compliant with following up in the infusion center. He has capacity to make this decision. We have set him up with outpatient antibiotics. Given his noncomp liance, I have also given him a prescription for oral antibiotics, which would be better than better than nothing. He understands this. I have also given him Dr. Carney's information for him to follow u p. He can follow up with anyone in the Infectious Disease office as well, I have given him that sivakumar scott. BILLING: I spent more than 30 minutes on the day of discharge coordinating care. /[id number]/MODL
== END 2018-05-25 12:48 | disposition left against medical advice (07) | DRG 316 ==
LOC: INTOOBSV 17:59 → F3E 22:48 → OBSVTOIN 05-16 17:09
PROVIDERS: ADMIT Internal Medicine; ATTEND Internal Medicine
PROC: 0L970ZZ Drainage of Right Hand Tendon, Open Approach (ICD-10-PCS; principal; 2018-05-16)
PROC: 0RBW0ZZ Excision of Right Finger Phalangeal Joint, Open Approach (ICD-10-PCS; principal; 2018-05-16)
PROC: 0PBT0ZZ Excision of Right Finger Phalanx, Open Approach (ICD-10-PCS; principal; 2018-05-16)
PROC: 0R9U0ZZ Drainage of Right Metacarpophalangeal Joint, Open Approach (ICD-10-PCS; principal; 2018-05-16)
DX: M65.141 Other infective (teno)synovitis, right hand (principal); L03.113 Cellulitis of right upper limb; M00.841 Arthritis due to other bacteria, right hand; L02.511 Cutaneous abscess of right hand; T81.30XA Disruption of wound, unspecified, initial encounter; B95.62 Methicillin resistant Staphylococcus aureus infection as the cause of diseases classified elsewhere; B95.0 Streptococcus, group A, as the cause of diseases classified elsewhere; J45.909 Unspecified asthma, uncomplicated; F17.210 Nicotine dependence, cigarettes, uncomplicated
CPT/HCPCS: 86704-90; 86708-90; 97165-GO; G0378; G0472; J0330; J0878; J1100; J1170; J1885; J2250; J2405; J2704; J3010

== ENCOUNTER 2018-05-28 17:03 | Inpatient (IN) | payer MEDICAID ==
--- NOTE | 2018-05-28 17:12 | EDPHY ---
H & P Time Seen by Provider: 05/28/18 17:09 HPI/ROS: HPI CHIEF COMPLAINT: Medical clearance for half-way. HISTORY OF PRESENT ILLNESS: 27-year-old male brought in by police for medical clearance for half-way. Patient has a history of right hand abscess and infection gross MRSA. He recently left the hospital on May 25. Was recommend he stays in the hospital for IV antibiotics however patient refused. He was given a prescription for doxycycline. He now presents emergency room for medical clearance for half-way. His right hand is in a splint/dressing. Past Medical History: IV drug use, history of hand MRSA infection abscess and septic joint. Past Surgical History: Recent I and D. Social History: Homeless, IV drug use. Family History: Noncontributory ROS REVIEW OF SYSTEMS: 10 Systems were reviewed and negative with the exception of the elements mentioned in the history of present illness. Exam Constitutional nontoxic. No acute distress, triage nursing summary reviewed, vital signs reviewed, awake/alert. Eyes normal conjunctivae and sclera, EOMI, PERRLA. HENT normal inspection, atraumatic, moist mucus membranes, no epistaxis, neck supple/ no meningismus, no raccoon eyes. Respiratory clear to auscultation bilaterally, normal breath sounds, no respiratory distress, no wheezing. Cardiovascular rate normal, regular rhythm, no murmur, no edema, distal pulses normal. Gastrointestinal soft, non-tender, no rebound, no guarding, normal bowel sounds, no distension, no pulsatile mass. Genitourinary no CVA tenderness. Musculoskeletal right hand: Dorsum of the right hand is erythematous, purulent drainage present. Drainage from incision site. No crepitus. Does have significant tenderness when you move his 3rd digit passively. no midline vertebral tenderness, full range of motion, no calf swelling, no tenderness of extremities, no meningismus, good pulses, neurovascularly intact. Skin pink, warm, & dry, no rash, skin atraumatic. Neurologic awake, alert and oriented x 3, AAOx3, moves all 4 extremities equally, motor intact, sensory intact, CN II-XII intact, normal cerebellar, normal vision, normal speech. Psychiatric normal mood/affect. Heme/Lymph/Immune no lymphadenopathy. Differential Diagnosis: Includes but is not limited to in a particular order medical clearance for half-way, ongoing hand infection, re-evaluation of hand infection. Medical Decision Making: This patient is right-hand appears swollen, red, there is purulent drainage coming out of the dorsum of the right hand where it is noted that he has a septic arthritis, the patient is noncompliant with his medications. He has not received any IV peripheral dapto outpatient. He only took 1 dose of doxycycline. Re-evaluation: 1717: Plan for patient be readmitted the hospital for deep space right hand infection. I have ordered him IV daptomycin. He was getting Iv Dapto 600 mg q.8 hours. Will consult the hospitalist service for readmission. The patient does agree for admission. The patient is under arrest. Plan for this patient will consult Hand surgery. I have admitted the patient to the hospitalist service. IV daptomycin has been ordered. This is what he was getting a few days ago for his hand infection. Spoke with Hand Surgery Dr. Ramos, recommends consult Dr. Carney as it is his patient. Spoke with Dr. Cheatham, discussed case in detail however he does not have hand surgery prove urges. He would recommend that I chest space with Hand surgery. Dr. Ramos will consult on patient. Dr. Douglas has accepted. Hand Surgery has been consulted. IV dapto ordered. Patient agrees for admission. Source: Patient, Police - Personal History Tetanus Vaccine Date: 2017 - Medical/Surgical History Hx Asthma: Yes Hx Chronic Respiratory Disease: No Hx Diabetes: No Hx Cardiac Disease: No Hx Renal Disease: No Hx Cirrhosis: No Hx Alcoholism: No Hx HIV/AIDS: No Hx Splenectomy or Spleen Trauma: No Other PMH: TENDON INFECTION R HAND, asthma - Social History Smoking Status: Current every day smoker Constitutional: Initial Vital Signs Temperature (C) 36.8 C 05/28/18 17:11 Heart Rate 84 05/28/18 17:11 Respiratory Rate 18 05/28/18 17:11 Blood Pressure 144/84 H 05/28/18 17:11 O2 Sat (%) 99 05/28/18 17:11 O2 Delivery Mode Room Air Allergies/Adverse Reactions: procaine [From Novocain] Allergy (Severe, Verified 01/19/18 12:31) hard to breathe Home Medications: Medication Instructions Recorded Albuterol Sulfate [Ventolin Hfa] 1 - 2 puffs IH Q4H PRN 01/26/18 Fluticasone Hfa 110 Mcg [Flovent 1 - 2 puffs IH BID 05/16/18 110 MCG Hfa MDI (*)] Amoxicillin Trihydrate [Amoxil] 1,000 mg PO BID #44 cap 05/25/18 Doxycycline Hyclate [Vibramycin 100 mg PO BID #22 cap 05/25/18 100 MG (*)] oxyCODONE IR [Oxycodone Ir (*)] 5 - 10 mg PO Q3HRS PRN #10 tab 05/25/18 Medical Decision Making - Data Points Laboratory Results: Laboratory Results 05/28/18 17:33 05/28/18 17:33 Medications Given: Albuterol (Proventil Neb) 3 ml IH Q2HRS PRN PRN Reason: Short of Breath/Dyspnea Stop: 11/24/18 20:17 Last Admin: 05/28/18 21:13 Dose: 3 ml Fluticasone Propionate (Flovent Hfa) 2 puffs IH BID MARJORIE Stop: 11/25/18 08:59 Last Admin: 05/29/18 09:46 Dose: Not Given Hydromorphone HCl (Dilaudid) 0.2 - 0.4 mg IVP Q4HRS PRN PRN Reason: Pain, Severe Unable to Take PO Stop: 06/07/18 19:25 Last Admin: 05/29/18 05:01 Dose: 0.4 mg Potassium Chloride/Dextrose/Sod Cl (D5w Ns W/ 20 Kcl/L) 1,000 mls @ 100 mls/hr IV CONT MARJORIE Stop: 11/24/18 19:44 Last Admin: 05/29/18 05:02 Dose: 1,000 mls Discontinued Medications Daptomycin 600 mg/ Sodium (Chloride) 112 mls @ 200 mls/hr IV EDNOW ONE PRN Reason: Protocol Stop: 05/28/18 17:50 Last Admin: 05/28/18 20:03 Dose: 112 mls Departure - Departure Disposition: [facility] Acute Clinical Impression: Infected hand Condition: Fair
[2018-05-28] MEDS ORDERED: DAPTOmycin 600 MG in NS 100 ML IV ONE (17:17)
[2018-05-28 17:50] LABS: PLATELET COUNT 292 10^3/uL (150-400)
[2018-05-28] MEDS ORDERED: ACETAMINOPHEN 325 MG TAB PO PRN (19:26)
[2018-05-28] MEDS ORDERED: ONDANSETRON 4 MG/2 ML VIAL IVP PRN (19:26)
[2018-05-28] MEDS ORDERED: ONDANSETRON DISINTEGRATING 4 MG TAB PO PRN (19:26)
--- NOTE | 2018-05-28 19:44 | PDGENHP ---
History and Physical - Chief Complaint right hand pain - History of Present Illness 27 yo male with h/o right hand infection, initially diagnosed in October 2017 and required I&D. His cultures have grown MRSA and strep pyogenes. He was recently re-hospitalized and followed by ID, treated with IV Daptomycin. He opted to leave AMA and it was recommended he receive daily IV Daptomycin at outpt infusion. He has not gone for IV atbx for several days. He was given oral atbx as a backup plan, high dose Amoxicillin and Doxycycline. He says he has been compliant with these meds, but today has increased hand pain and swelling. Says he can't move his right middle finger due to pain. In the ED, he was given ID Daptomycin. Hand surgery was consulted. He is admitted for further management. History Information - Allergies/Home Medication List Allergies/Adverse Reactions: procaine [From Novocain] Allergy (Severe, Verified 01/19/18 12:31) hard to breathe Home Medications: Albuterol Sulfate [Ventolin Hfa] 1 - 2 puffs IH Q4H PRN 01/26/18 [Last Taken 03/07 09:00] Fluticasone Hfa 110 Mcg [Flovent 110 MCG Hfa MDI (*)] 1 - 2 puffs IH BID [Last Taken 05/28/18 09:00] I have personally reviewed and updated: family history, medical history, social history, surgical history - Past Medical History asthma Additional medical history: tenosynovitis/cellulitis/abscess of hand. IVDA - Surgical History Additional surgical history: I& D of tenosynovitis - Family History Positive for: non-pertinent - Social History Smoking Status: Current every day smoker Drug Use: Other (IVDA) Additional social history: homeless Review of Systems Review of Systems: ROS: 10pt was reviewed & negative except for what was stated in HPI & below Physical Exam Physical Exam: Temp Pulse Resp BP Pulse Ox 37.0 C 95 16 137/68 H 97 05/28/18 18:42 05/28/18 18:42 05/28/18 18:42 05/28/18 18:42 05/28/18 18:42 Constitutional: no apparent distress Eyes: PERRL Ears, Nose, Mouth, Throat: moist mucous membranes Cardiovascular: regular rate and rhythym, no murmur, rub, or gallop Respiratory: no respiratory distress, clear to auscultation Gastrointestinal: normoactive bowel sounds, soft, non-tender abdomen Skin: warm Musculoskeletal: full muscle strength, other (right hand with erythema and edema surrounding prior incision, no james purulence. Decreased flexion / extension of 3rd finger 2/2 pain) Neurologic: AAOx3 Psychiatric: flat affect, other (sleepy / sedated) Lab Data & Imaging Review 05/28/18 17:33 05/28/18 17:33 WBC 7.05 10^3/uL (3.80-9.50) 05/28/18 17:33 RBC 4.29 10^6/uL (4.40-6.38) L 05/28/18 17:33 Hgb 12.3 g/dL (13.7-17.5) L 05/28/18 17:33 Hct 36.7 % (40.0-51.0) L 05/28/18 17:33 MCV 85.5 fL (81.5-99.8) 05/28/18 17:33 MCH 28.7 pg (27.9-34.1) 05/28/18 17:33 MCHC 33.5 g/dL (32.4-36.7) 05/28/18 17:33 RDW 13.5 % (11.5-15.2) 05/28/18 17:33 Plt Count 292 10^3/uL (150-400) 05/28/18 17:33 MPV 8.3 fL (8.7-11.7) L 05/28/18 17:33 Neut % (Auto) 50.7 % (39.3-74.2) 05/28/18 17:33 Lymph % (Auto) 36.0 % (15.0-45.0) 05/28/18 17:33 [place] % (Auto) 10.2 % (4.5-13.0) 05/28/18 17:33 Eos % (Auto) 2.6 % (0.6-7.6) 05/28/18 17:33 Baso % (Auto) 0.4 % (0.3-1.7) 05/28/18 17:33 Nucleat RBC Rel Count 0.0 % (0.0-0.2) 05/28/18 17:33 Absolute Neuts (auto) 3.57 10^3/uL (1.70-6.50) 05/28/18 17:33 Absolute Lymphs (auto) 2.54 10^3/uL (1.00-3.00) 05/28/18 17:33 Absolute Monos (auto) 0.72 10^3/uL (0.30-0.80) 05/28/18 17:33 Absolute Eos (auto) 0.18 10^3/uL (0.03-0.40) 05/28/18 17:33 Absolute Basos (auto) 0.03 10^3/uL (0.02-0.10) 05/28/18 17:33 Absolute Nucleated RBC 0.00 10^3/uL (0-0.01) 05/28/18 17:33 Immature Gran % 0.1 % (0.0-1.1) 05/28/18 17:33 Immature Gran # 0.01 10^3/uL (0.00-0.10) 05/28/18 17:33 ESR 21 MM/HR (0-15) H 05/28/18 17:33 Sodium 139 mEq/L (135-145) 05/28/18 17:33 Potassium 3.7 mEq/L (3.3-5.0) 05/28/18 17:33 Chloride 105 mEq/L (97-110) 05/28/18 17:33 Carbon Dioxide 25 mEq/l (22-31) 05/28/18 17:33 Anion Gap 9 mEq/L (6-14) 05/28/18 17:33 BUN 17 mg/dL (7-23) 05/28/18 17:33 Creatinine 0.8 mg/dL (0.7-1.3) 05/28/18 17:33 Estimated GFR > 60 05/28/18 17:33 Glucose 117 mg/dL (70-100) H 05/28/18 17:33 Calcium 9.3 mg/dL (8.5-10.4) 05/28/18 17:33 C-Reactive Protein 5.9 mg/L (<10.0) 05/28/18 17:33 Assessment & Plan Assessment: Right 3rd finger septic arthritis / tenosynovitis with prior abscess - returns after leaving AMA and was non-compliant with outpt IV atbx plan, but says he has been taking the oral atbx (Amox and Doxy). -NPO until hand surgery evaluates, likely warrants another I&D -cont IV Daptomycin per previous ID recs, ID consult in am IVDA - recent HIV, hepatitis panel neg. -check drug screen Full code Dispo - inpt, anticipate >48 hrs hospitalization for ongoing management of complicated hand infection
[2018-05-28] MEDS: HYDROmorphONE/DILAUDID 1 MG/ML INJ IVP PRN (20:02)
[2018-05-28] MEDS: D5W NS W/ 20 KCl/L 1,000 ML IV SCH (20:05)
[2018-05-28] MEDS: ALBUTEROL 3 ML DEYVIAL IH PRN (21:13)
[2018-05-29] MEDS: HYDROmorphONE/DILAUDID 1 MG/ML INJ IVP PRN ×2 (05:01→20:25)
[2018-05-29] MEDS: D5W NS W/ 20 KCl/L 1,000 ML IV SCH (05:02)
[2018-05-29 09:19] LABS: PLATELET COUNT 241 10^3/uL (150-400)
[2018-05-29] MEDS: FLUTICASONE HFA 110 MCG MDI IH SCH ×3 (09:46→20:21)
--- NOTE | 2018-05-29 09:54 | PDMN ---
Medical Necessity Medical necessity: Pt meets IP criteria per & MCG M-70; est los >2 mn for eval/tx of R 3rd finger septic arthritis/tenosynovitis w/prior abscess; pt returns after leaving hospital AMA & was non-compliant w/outpatient IV abx; requiring further monitoring, IV abx, ID consult & Hand Surgery consult w/ likely I&D ; hx IV drug use, homelessness; per IP order 05/28/18
--- NOTE | 2018-05-29 10:57 | PCMIDPN ---
Assessment/Plan: # Right 3rd finger MCP septic arthritis/abscess/tenosynovitis due to MRSA and group A Streptococcus status post incision and drainage, re-admitted after arrest by police --continue daptomycin 600mg IV daily, original plan was to give daptomycin through the Jun 08. On daptomycin due to difficulty getting adequate troughs w vancomycin and likely would not tolerate continuous infusion. Not safe to place PICC due to flight risk --patient states he is willing to star for Rx --no obvious surgical need by my exam; hand team to come by and remove stitches --contact precautions for MRSA # Drug use: HIV, HCV screen neg in 05/2018 meds daptomycin 600mg IV daily Microbiology 05/15/18 21:52 Finger - Cx: MRSA; Streptococcus Pyogenes Grp A Subjective: patient reports taking PO Amoxicillin and doxycycline but was arrested and police squeezed his hand and patient requested medical attention Objective: Vital Signs Temp Pulse Resp BP Pulse Ox 37.6 C 64 14 121/48 H 93 05/29/18 04:58 05/29/18 04:58 05/29/18 04:58 05/29/18 04:58 05/29/18 04:58 Laboratory Results 05/29/18 08:50 05/28/18 05/29/18 05/30/18 05:59 05:59 05:59 Intake Total 100 Balance 100 ESR 21 MM/HR (0-15) H 05/28/18 17:33 C-Reactive Protein 5.9 mg/L (<10.0) 05/28/18 17:33 - Physical Exam General Appearance: alert, no apparent distress, other (smells of MJ) Respiratory: No accessory muscle use Extremities: swelling (R hand over metacarpel; incision without prulence, couple stitches still in place), other (MCP with fairly good movement, no fluctuance, no erythema, few stitches still in place; radial pulse good), No erythema Skin: other (tanned), No rash Neuro/Psych: alert, normal mood/affect - Time Spent With Patient Time Spent with Patient: greater than 25 minutes Time Spent with Patient: Greater than 25 minutes spent on this patients care, greater than 50% of time spent counseling, educating, and coordinating care regarding the above mentioned plan. ICD10 Worksheet Patient Problems: Problems Problem Status Onset Infected hand Acute Cellulitis of right hand Acute
[2018-05-29 11:23] LABS: CREATINE KINASE 107 IU/L (0-224)
--- NOTE | 2018-05-29 12:41 | HOSPPROG ---
Hospitalist Progress Note Assessment/Plan: Right 3rd finger septic arthritis / tenosynovitis with prior abscess -historically non compliant with treatment recommendations -no surgery necessary at this time per ID/ortho -wound care -cont IV Daptomycin -NO PICC LINE -length of treatment per ID -discussed care plan with Dr Mitchell and Dr Fitz CASTILLO - recent HIV, hepatitis panel neg -watch closely for MS changes/check UDS MELISSA if any concerns Homeless- CM assist with dispo when appropriate as was arrested prior to admission Full code Dispo >48 hrs hospitalization for ongoing management of complicated hand infection/IV abx Subjective: Pain OK, denies n/v/d/SOB. Says he will stay as long as needed for treatment Objective: Vital Signs Temp Pulse Resp BP Pulse Ox 99.6 F 64 14 121/48 H 93 05/29/18 04:58 05/29/18 04:58 05/29/18 04:58 05/29/18 04:58 05/29/18 04:58 Laboratory Results 05/29/18 08:50 05/28/18 05/29/18 05/30/18 11:59 11:59 11:59 Intake Total 100 Balance 100 - Time Spent With Patient Time Spent with Patient: greater than 25 minutes Time Spent with Patient: Greater than 25 minutes spent on this patients care, greater than 50% of time spent counseling, educating, and coordinating care regarding the above mentioned plan. - Physical Exam Constitutional: no apparent distress, not in pain Eyes: PERRL, anicteric sclera Ears, Nose, Mouth, Throat: moist mucous membranes, hearing normal Cardiovascular: regular rate and rhythym, no murmur, rub, or gallop Respiratory: no respiratory distress, no rales or rhonchi, clear to auscultation Gastrointestinal: normoactive bowel sounds, soft, non-tender abdomen, no palpable masses, No guarding, No rebound, No distension Skin: warm Musculoskeletal: other (R hand/finger in dressing- did not remove, no obvious swelling/erythema noted on edges of dressing, moves hands/fingers without difficulty) Psychiatric: interacting appropriately, not encephalopathic ICD10 Worksheet Patient Problems: Problems Problem Status Onset Infected hand Acute Cellulitis of right hand Acute
--- NOTE | 2018-05-29 15:18 | ASMTCMCOM ---
CM Note CM Note Notes: Pt is a 27y/o homeless male who was initially brought to the ED for medical clearance prior to going to [facility]. Pt has a hx of IV drug use. Pt had recently left [facility] AMA while being treated for a hand abcess and MRSA infection. He declined to stay for IV anti-biotics and did not follow through with out-pt antibiotics. Pt readmitted with same infection. Might need [facility] bed at [facility] when d/[place]. May need appts for out-pt antibiotics infusion. Discuss possible resources for substance abuse treatment. CM will follow. D/C Plan: Possible bed at [facility]/ referral to coordinated entry and substance abuse resources. Date Signed: 05/29/2018 03:05 PM Electronically Signed By:Amanda Maya
[2018-05-29] MEDS ORDERED: DAPTOmycin 600 MG in NS 100 ML IV SCH (17:00)
--- NOTE | 2018-05-29 17:19 | SOAPPROG ---
SOAP Progress Note Assessment/Plan: Orthopedic Consultation Note S: 27 year old male now POD#14 from right long finger MCPJ irrigation and debridement on 05/15/[address] Carney. He endorses right hand pain. PE: Gen: NAD RUE: Incision nicely approximated with most proximal sutures intact. Scant amount of expressible thin yellow and bloody drainage from the mid/distal aspect of incision. Less erythema compared to a few days ago. Mild amount of swelling. +FDS, FDP, FDP-I, FPL, EPL, DI, PI <2 seconds capillary refill Assessment and Plan 27 year old male now POD#14 from right long finger MCPJ irrigation and debridement on 05/15/[address] Carney -Sutures were removed. Applied betadine and a new dry sterile dressing applied to be left in place at all times. -Keep the right hand clean and dry -Continue on IV antibiotics per recommendations from infectious disease -Patient will need to remain in a controlled environment for the entirety of his antibiotic course to prevent recurrence of his infection. Patient was discussed with Dr. Master Darleen Lopez PA-C 05/29/18 17:15 Objective: Vital Signs Temp Pulse Resp BP Pulse Ox 37.6 C 64 14 121/48 H 93 05/29/18 04:58 05/29/18 04:58 05/29/18 04:58 05/29/18 04:58 05/29/18 04:58 Laboratory Results 05/29/18 08:50 05/28/18 05/29/18 05/30/18 05:59 05:59 05:59 Intake Total 100 Balance 100 ICD10 Worksheet Patient Problems: Problems Problem Status Onset Infected hand Acute Cellulitis of right hand Acute
[2018-05-29] MEDS: DAPTOmycin 600 MG in NS 100 ML IV SCH (17:26)
--- NOTE | 2018-05-29 17:30 | ASMTCMCOM ---
CM Note CM Note Notes: ADDENDUM: Offered pt resources for drug and alcohol recovery provided by Medicaid. Pt stated he did not have a problem and wasn't using. Pt accepted list of resources however. Pt may benefit from information about coordinated entry. Date Signed: 05/29/2018 04:59 PM Electronically Signed By:Kamala Rahman
--- NOTE | 2018-05-29 17:31 | ASMTCMCOM ---
CM Note CM Note Notes: Second Addendum: Pt has a warrant for his arrest and [facility] has requested we notify them when pt is discharged. No officer at the door at this time. Date Signed: 05/29/2018 05:00 PM Electronically Signed By:Kamala Rahman
[2018-05-29] MEDS: HYDROCODONE/APAP 5/325 TAB PO PRN (20:12)
[2018-05-29] MEDS: IBUPROFEN 600 MG TAB PO PRN (20:13)
[2018-05-29] MEDS: ALBUTEROL 3 ML DEYVIAL IH PRN (20:21)
[2018-05-30] MEDS: FLUTICASONE HFA 110 MCG MDI IH SCH ×2 (08:28→19:44)
[2018-05-30] MEDS: IBUPROFEN 600 MG TAB PO PRN ×2 (11:29→20:27)
[2018-05-30] MEDS: HYDROCODONE/APAP 5/325 TAB PO PRN ×3 (11:29→22:37)
[2018-05-30] MEDS: ALBUTEROL 3 ML DEYVIAL IH PRN ×2 (12:28→19:44)
[2018-05-30] MEDS: DAPTOmycin 600 MG in NS 100 ML IV SCH (18:32)
[2018-05-31] MEDS: FLUTICASONE HFA 110 MCG MDI IH SCH ×2 (07:40→19:48)
[2018-05-31] MEDS: HYDROCODONE/APAP 5/325 TAB PO PRN ×3 (07:46→19:14)
--- NOTE | 2018-05-31 09:01 | HOSPPROG ---
Hospitalist Progress Note Assessment/Plan: Right 3rd finger septic arthritis / tenosynovitis with prior abscess -historically non compliant with treatment recommendations -no surgery necessary at this time per ID/ortho -wound care -cont IV Daptomycin -NO PICC LINE -length of treatment per ID -discussed care plan with Dr Paula CASTILLO - recent HIV, hepatitis panel neg -watch closely for MS changes/check UDS MELISSA if any concerns Homeless- CM assist with dispo when appropriate as was arrested prior to admission Anemia -check iron studies, stool Full code Dispo >48 hrs hospitalization for ongoing management of complicated hand infection/IV abx Subjective: Feels OK. Pain OK. No n/v/d/c. Encouraged ambulation. Objective: Vital Signs Temp Pulse Resp BP Pulse Ox 98.0 F 62 14 124/61 H 95 05/31/18 07:42 05/31/18 07:42 05/31/18 07:42 05/31/18 07:42 05/31/18 07:42 Laboratory Results 05/29/18 08:50 05/29/18 05/30/18 05/31/18 11:59 11:59 11:59 Intake Total 100 500 700 Balance 100 500 700 - Physical Exam Constitutional: no apparent distress, appears nourished, not in pain Eyes: PERRL, anicteric sclera Ears, Nose, Mouth, Throat: moist mucous membranes, hearing normal Cardiovascular: regular rate and rhythym, no murmur, rub, or gallop Respiratory: no respiratory distress, no rales or rhonchi, clear to auscultation Gastrointestinal: normoactive bowel sounds, soft, non-tender abdomen, no palpable masses Skin: warm Musculoskeletal: other (R hand/finger in dressing, did not remove) Psychiatric: interacting appropriately, not encephalopathic ICD10 Worksheet Patient Problems: Problems Problem Status Onset Infected hand Acute Cellulitis of right hand Acute
--- NOTE | 2018-05-31 09:04 | HOSPPROG ---
Hospitalist Progress Note Assessment/Plan: Right 3rd finger septic arthritis / tenosynovitis s/p right long finger MCPJ irrigation and debridement on 05/15/[address] Carney -historically non compliant with treatment recommendations -no surgery necessary at this time per ID/ortho -wound care per ortho recommendations -cont IV Daptomycin until 06/08/2018 per ID -NO PICC LINE IVDA - recent HIV, hepatitis panel neg -watch closely for MS changes/check UDS MELISSA if any concerns Homeless- assist with dispo when appropriate as was arrested prior to admission Anemia -check iron studies, stool sample Asthma -OK to leave inhalers at bedside for pt to administer TOB abuse -nicotine patch ordered Full code Dispo >48 hrs hospitalization for ongoing management of complicated hand infection/IV abx Subjective: Frustrated today, wants patch and inhalers. Pain OK with meds. Denies n/v/d. Objective: Vital Signs Temp Pulse Resp BP Pulse Ox 98.0 F 62 14 124/61 H 95 05/31/18 07:42 05/31/18 07:42 05/31/18 07:42 05/31/18 07:42 05/31/18 07:42 Laboratory Results 05/29/18 08:50 05/29/18 05/30/18 05/31/18 11:59 11:59 11:59 Intake Total 100 500 700 Balance 100 500 700 - Physical Exam Constitutional: no apparent distress, unkempt Eyes: PERRL, anicteric sclera Ears, Nose, Mouth, Throat: moist mucous membranes, hearing normal Cardiovascular: regular rate and rhythym, no murmur, rub, or gallop Respiratory: no respiratory distress, expiratory wheeze Gastrointestinal: normoactive bowel sounds, soft, non-tender abdomen Musculoskeletal: other (R hand/finger with bandage intact-did not remove, moves fingers/wrist, no erythema/swelling noted) Psychiatric: not encephalopathic, flat affect ICD10 Worksheet Patient Problems: Problems Problem Status Onset Infected hand Acute Cellulitis of right hand Acute
--- NOTE | 2018-05-31 09:28 | ASMTCMCOM ---
CM Note CM Note Notes: Pt returns for finger infection, last left AMA. Has been non compliant with IV abx, he is a homeless gentleman well known to us. He has a warrent out for his arrest, please call [facility] at [place] Plan: [facility], call [phone] Date Signed: 05/31/2018 09:27 AM Electronically Signed By:Maggie Angela RN
[2018-05-31] MEDS: IBUPROFEN 600 MG TAB PO PRN (12:39)
[2018-05-31] MEDS: ALBUTEROL 3 ML DEYVIAL IH PRN ×2 (13:33→20:55)
[2018-05-31] MEDS: NICOTINE 14 MG/24 HR PATCH TD SCH (13:33)
[2018-05-31] MEDS: DAPTOmycin 600 MG in NS 100 ML IV SCH (18:00)
[2018-05-31] MEDS: ZOLPIDEM TARTRATE 5 MG TAB PO PRN (22:28)
[2018-06-01 08:46] LABS: PLATELET COUNT 282 10^3/uL (150-400)
--- NOTE | 2018-06-01 09:08 | HOSPPROG ---
Hospitalist Progress Note Assessment/Plan: #Right hand infection/3rd MCP septic arthritis (Group A strep/MRSA) noncompliant with ongoing follow-up at [address] [place] [address]. IV Daptomycin through 06/08. CPK normal #Asthma: albuterol #h/o IVDU: counseled on cessation #DVT: ambulating Inpatient admission: High-risk for recurrent infection, thus inpt abx warranted given noncompliance Subjective: pain in dorsum of right hand Objective: Vital Signs Temp Pulse Resp BP Pulse Ox 36.7 C 71 16 132/63 H 96 05/31/18 22:48 05/31/18 22:48 05/31/18 22:48 05/31/18 22:48 05/31/18 22:48 Laboratory Results 06/01/18 08:30 05/31/18 06/01/18 06/02/18 05:59 05:59 05:59 Intake Total 700 750 Balance 700 750 - Time Spent With Patient Time Spent with Patient: greater than 25 minutes Time Spent with Patient: Greater than 25 minutes spent on this patients care, greater than 50% of time spent counseling, educating, and coordinating care regarding the above mentioned plan. - Physical Exam Constitutional: no apparent distress Ears, Nose, Mouth, Throat: moist mucous membranes Cardiovascular: regular rate and rhythym Respiratory: expiratory wheeze Gastrointestinal: normoactive bowel sounds, soft, non-tender abdomen Genitourinary: No horne in urethra Skin: warm Musculoskeletal: other (right hand dressed. No extending erythema) Psychiatric: interacting appropriately, flat affect ICD10 Worksheet Patient Problems: Problems Problem Status Onset Infected hand Acute Cellulitis of right hand Acute
[2018-06-01] MEDS: FLUTICASONE HFA 110 MCG MDI IH SCH ×2 (09:26→20:37)
[2018-06-01] MEDS: NICOTINE 14 MG/24 HR PATCH TD SCH (10:18)
[2018-06-01] MEDS: HYDROCODONE/APAP 5/325 TAB PO PRN ×3 (12:37→20:35)
--- NOTE | 2018-06-01 15:13 | PCMIDPN ---
Assessment/Plan: Assessment/Plan: * Right hand infection/3rd MCP septic arthritis due to group A Streptococcus and MRSA: Patient noncompliant with ongoing follow-up at [address] [place] [address]. Now readmitted for ongoing care. Tolerating daptomycin well. Continue daptomycin through 06/08/2018 given presence of septic arthritis. CPK normal. 06/01/18 15:11 Subjective: Patient readmitted for ongoing care of right 3rd MCP septic arthritis. Well known to our service from recent admission for right 3rd finger MCP septic arthritis due to group A Streptococcus and MRSA. Objective: Vital Signs Temp Pulse Resp BP Pulse Ox 36.7 C 68 14 132/63 H 98 05/31/18 22:48 06/01/18 09:28 06/01/18 09:28 05/31/18 22:48 06/01/18 09:28 Laboratory Results 06/01/18 08:30 06/01/18 08:30 05/31/18 06/01/18 06/02/18 05:59 05:59 05:59 Intake Total 700 750 Balance 700 750 ESR 21 MM/HR (0-15) H 05/28/18 17:33 C-Reactive Protein 5.9 mg/L (<10.0) 05/28/18 17:33 Daptomycin (end date 06/08/2018) Laboratory Tests 05/29/18 08:50 Creatine Kinase 107 - Physical Exam General Appearance: alert, no apparent distress Extremities: inflammation (Improved range of motion of digits on right hand versus last visit; no erythema over right wrist; hand dressed postoperatively) ICD10 Worksheet Patient Problems: Problems Problem Status Onset Infected hand Acute Cellulitis of right hand Acute
[2018-06-01] MEDS: DAPTOmycin 600 MG in NS 100 ML IV SCH (18:05)
[2018-06-01] MEDS: IBUPROFEN 600 MG TAB PO PRN (18:10)
[2018-06-01] MEDS: ZOLPIDEM TARTRATE 5 MG TAB PO PRN (20:35)
[2018-06-02] MEDS: HYDROCODONE/APAP 5/325 TAB PO PRN ×4 (06:11→22:14)
[2018-06-02] MEDS: NICOTINE 14 MG/24 HR PATCH TD SCH (09:50)
[2018-06-02] MEDS: IBUPROFEN 600 MG TAB PO PRN ×2 (09:50→19:46)
[2018-06-02] MEDS: ALBUTEROL 60 PUFFS/8 GM MDI IH PRN (09:51)
[2018-06-02] MEDS: FLUTICASONE HFA 110 MCG MDI IH SCH ×2 (09:51→20:04)
--- NOTE | 2018-06-02 16:48 | HOSPPROG ---
Hospitalist Progress Note Assessment/Plan: #Right hand infection/3rd MCP septic arthritis (Group A strep/MRSA) noncompliant with ongoing follow-up at [address] [place] [address]. IV Daptomycin through 06/08. CPK normal #Asthma: albuterol. Less wheezing today #h/o IVDU: counseled on cessation #DVT: ambulating Inpatient admission: High-risk for recurrent infection, thus inpt abx warranted given noncompliance Subjective: no wheezing today. Objective: Vital Signs Temp Pulse Resp BP Pulse Ox 36.9 C 60 15 123/67 H 96 06/02/18 08:49 06/02/18 09:56 06/02/18 09:56 06/02/18 08:49 06/02/18 09:56 Laboratory Results 06/01/18 08:30 06/01/18 08:30 06/01/18 06/02/18 06/03/18 05:59 05:59 05:59 Intake Total 750 400 500 Balance 750 400 500 - Time Spent With Patient Time Spent with Patient: greater than 25 minutes Time Spent with Patient: Greater than 25 minutes spent on this patients care, greater than 50% of time spent counseling, educating, and coordinating care regarding the above mentioned plan. - Physical Exam Constitutional: no apparent distress Eyes: PERRL Ears, Nose, Mouth, Throat: moist mucous membranes, hearing normal Cardiovascular: regular rate and rhythym Respiratory: no respiratory distress, No expiratory wheeze Gastrointestinal: normoactive bowel sounds Genitourinary: no bladder fullness Musculoskeletal: other (right hand dressed. Good radial pulse. TTP over dorsum) Neurologic: AAOx3, CN II-XII Intact Psychiatric: interacting appropriately, flat affect ICD10 Worksheet Patient Problems: Problems Problem Status Onset Infected hand Acute Cellulitis of right hand Acute
[2018-06-02] MEDS: DAPTOmycin 600 MG in NS 100 ML IV SCH (17:32)
[2018-06-02] MEDS: ZOLPIDEM TARTRATE 5 MG TAB PO PRN (19:46)
[2018-06-03] MEDS: NICOTINE 14 MG/24 HR PATCH TD SCH (10:43)
[2018-06-03] MEDS: FLUTICASONE HFA 110 MCG MDI IH SCH ×2 (10:43→21:51)
[2018-06-03] MEDS: HYDROCODONE/APAP 5/325 TAB PO PRN ×3 (10:46→18:22)
--- NOTE | 2018-06-03 16:00 | ASMTCMCOM ---
CM Note CM Note Notes: Patient paln of care reviewed in rounds. Recurrent infectious process in right hand due to noncompliance with out patient infusion orders. Was at [facility]. CM to follow. Plan: TBD Date Signed: 06/03/2018 03:59 PM Electronically Signed By:Judith Butler RN
--- NOTE | 2018-06-03 17:17 | HOSPPROG ---
Hospitalist Progress Note Assessment/Plan: #Right hand infection/3rd MCP septic arthritis (Group A strep/MRSA) -Daptomycin through 06/08. Dressing changes to be done by Hand surgeon #Asthma: albuterol #h/o IVDU: counseled on cessation #DVT: ambulating Inpatient admission: High-risk for recurrent infection, thus inpt abx warranted given noncompliance Subjective: no acute events Objective: Vital Signs Temp Pulse Resp BP Pulse Ox 36.8 C 65 14 139/81 H 98 06/03/18 15:13 06/03/18 15:13 06/03/18 15:13 06/03/18 15:13 06/03/18 15:13 Laboratory Results 06/01/18 08:30 06/01/18 08:30 06/02/18 06/03/18 06/04/18 05:59 05:59 05:59 Intake Total 400 500 Output Total 900 Balance 400 -400 - Time Spent With Patient Time Spent with Patient: greater than 25 minutes Time Spent with Patient: Greater than 25 minutes spent on this patients care, greater than 50% of time spent counseling, educating, and coordinating care regarding the above mentioned plan. - Physical Exam Constitutional: no apparent distress Eyes: PERRL Ears, Nose, Mouth, Throat: moist mucous membranes Cardiovascular: regular rate and rhythym Respiratory: no respiratory distress, No expiratory wheeze Gastrointestinal: normoactive bowel sounds Genitourinary: no bladder fullness Skin: warm Musculoskeletal: other (left hand dressed. Some incision exposed, healing. TTP improved) Neurologic: AAOx3, CN II-XII Intact Psychiatric: flat affect ICD10 Worksheet Patient Problems: Problems Problem Status Onset Infected hand Acute Cellulitis of right hand Acute
[2018-06-03] MEDS: DAPTOmycin 600 MG in NS 100 ML IV SCH (17:24)
[2018-06-03] MEDS: ZOLPIDEM TARTRATE 5 MG TAB PO PRN (18:22)
[2018-06-03] MEDS: ALBUTEROL 60 PUFFS/8 GM MDI IH PRN (19:30)
[2018-06-04] MEDS: FLUTICASONE HFA 110 MCG MDI IH SCH ×2 (08:56→21:03)
[2018-06-04] MEDS: ALBUTEROL 60 PUFFS/8 GM MDI IH PRN (08:56)
[2018-06-04] MEDS: HYDROCODONE/APAP 5/325 TAB PO PRN ×4 (09:23→21:07)
[2018-06-04] MEDS: NICOTINE 14 MG/24 HR PATCH TD SCH (09:23)
--- NOTE | 2018-06-04 16:52 | HOSPPROG ---
Hospitalist Progress Note Assessment/Plan: #Right hand infection/3rd MCP septic arthritis (Group A strep/MRSA) -Daptomycin through 06/08. Dressing changes to be done by Hand surgeon #Asthma: albuterol. No wheezing today #h/o IVDU: counseled on cessation #DVT: ambulating Inpatient admission: High-risk for recurrent infection, thus inpt abx warranted given noncompliance Subjective: dressing coming off. No fevers. Objective: Vital Signs Temp Pulse Resp BP Pulse Ox 36.6 C 56 L 16 120/69 95 06/04/18 08:00 06/04/18 08:00 06/04/18 08:00 06/04/18 08:00 06/04/18 08:00 Laboratory Results 06/01/18 08:30 06/01/18 08:30 06/03/18 06/04/18 06/05/18 05:59 05:59 05:59 Intake Total 500 120 Output Total 900 Balance -400 120 - Time Spent With Patient Time Spent with Patient: greater than 25 minutes Time Spent with Patient: Greater than 25 minutes spent on this patients care, greater than 50% of time spent counseling, educating, and coordinating care regarding the above mentioned plan. - Physical Exam Constitutional: no apparent distress Eyes: PERRL Ears, Nose, Mouth, Throat: moist mucous membranes Cardiovascular: regular rate and rhythym Respiratory: no respiratory distress Gastrointestinal: normoactive bowel sounds Genitourinary: no bladder fullness Skin: warm Musculoskeletal: other (right hand wrap. No drainage. Hand less swollen) Neurologic: AAOx3, CN II-XII Intact Psychiatric: interacting appropriately ICD10 Worksheet Patient Problems: Problems Problem Status Onset Infected hand Acute Cellulitis of right hand Acute
[2018-06-04] MEDS: DAPTOmycin 600 MG in NS 100 ML IV SCH (17:04)
[2018-06-04] MEDS: ZOLPIDEM TARTRATE 5 MG TAB PO PRN (21:07)
[2018-06-05] MEDS: NICOTINE 14 MG/24 HR PATCH TD SCH (09:12)
[2018-06-05] MEDS: ALBUTEROL 60 PUFFS/8 GM MDI IH PRN (09:18)
[2018-06-05] MEDS: FLUTICASONE HFA 110 MCG MDI IH SCH ×2 (09:19→20:14)
--- NOTE | 2018-06-05 09:35 | HOSPPROG ---
Hospitalist Progress Note Assessment/Plan: # third finger septic arthritis, abscess, tenosynovitis s/p I&D WCx with MRSA and GAS - cont dapto per ID (through 06/08 per last ID note), ck ok - pain control with PO narcotics # hx IVDU - HIV neg Subjective: c/o R hand pain Objective: Vital Signs Temp Pulse Resp BP Pulse Ox 36.8 C 64 16 127/73 H 93 06/05/18 09:19 06/05/18 09:19 06/05/18 09:19 06/05/18 09:19 06/05/18 09:19 Laboratory Results 06/01/18 08:30 06/01/18 08:30 06/04/18 06/05/18 06/06/18 05:59 05:59 05:59 Intake Total 120 1040 Balance 120 1040 chart reviewed - Physical Exam Constitutional: no apparent distress, appears nourished Cardiovascular: regular rate and rhythym, no murmur, rub, or gallop Respiratory: no respiratory distress, no rales or rhonchi, clear to auscultation Gastrointestinal: normoactive bowel sounds, soft, non-tender abdomen, no palpable masses, No rebound, No distension Musculoskeletal: other (R hand in REBECCA bandage, sensation intact in R fingers) ICD10 Worksheet Patient Problems: Problems Problem Status Onset Cellulitis of right hand Acute Infected hand Acute
[2018-06-05] MEDS: oxyCODONE IR 5 MG TAB PO PRN ×3 (10:03→18:23)
[2018-06-05 12:35] LABS: CREATINE KINASE 45 IU/L (0-224)
--- NOTE | 2018-06-05 13:48 | ASMTCMCOM ---
CM Note CM Note Notes: Patient plan of care reviewed in rounds. Septic arthritis being treated with IV antibiotics through Friday, no other needs identified at this time. Plan: dc no needs when medically cleared. Date Signed: 06/05/2018 01:21 PM Electronically Signed By:Judith Butler RN
[2018-06-05] MEDS: IBUPROFEN 600 MG TAB PO PRN (13:51)
[2018-06-05] MEDS: DAPTOmycin 600 MG in NS 100 ML IV SCH (17:48)
[2018-06-05] MEDS: ZOLPIDEM TARTRATE 5 MG TAB PO PRN (19:37)
[2018-06-05] MEDS: ALBUTEROL 3 ML DEYVIAL IH PRN (20:24)
[2018-06-06] MEDS: oxyCODONE IR 5 MG TAB PO PRN ×3 (09:58→19:04)
[2018-06-06] MEDS: NICOTINE 14 MG/24 HR PATCH TD SCH (09:58)
[2018-06-06] MEDS: FLUTICASONE HFA 110 MCG MDI IH SCH ×2 (10:33→19:08)
--- NOTE | 2018-06-06 14:01 | HOSPPROG ---
Hospitalist Progress Note Assessment/Plan: # third finger septic arthritis, abscess, tenosynovitis s/p I&D WCx with MRSA and GAS - cont dapto per ID (through 06/08 per last ID note), ck ok - pain control with PO narcotics # hx IVDU - HIV neg # behavioral - we discussed his outburst and that it is entirely inappropriate in a hospital Subjective: this morning bradley became quite aggrivated with an RT and screamed profanities in the carter; he is calm and cooperative when i see him in the afternoon Objective: Vital Signs Temp Pulse Resp BP Pulse Ox 36.9 C 84 16 130/68 H 96 06/06/18 10:00 06/06/18 10:00 06/06/18 10:00 06/06/18 10:00 06/06/18 10:00 Laboratory Results 06/01/18 08:30 06/01/18 08:30 06/05/18 06/06/18 06/07/18 05:59 05:59 05:59 Intake Total 1040 1390 Balance 1040 1390 - Physical Exam Constitutional: no apparent distress, appears nourished Eyes: anicteric sclera Ears, Nose, Mouth, Throat: hearing normal Cardiovascular: No edema Respiratory: no respiratory distress Gastrointestinal: No distension Genitourinary: No horne in urethra Skin: warm Musculoskeletal: no muscle tenderness Neurologic: AAOx3 Psychiatric: not anxious ICD10 Worksheet Patient Problems: Problems Problem Status Onset Cellulitis of right hand Acute Infected hand Acute
--- NOTE | 2018-06-06 17:15 | SOAPPROG ---
SOAP Progress Note Assessment/Plan: Orthopedic Progress Note S: 27 year old male now 3 weeks s/p right long finger MCPJ irrigation and debridement on 05/15/[address] Carney. He endorses right hand pain. PE: Gen: NAD RUE: Incision nicely approximated with scabbing. No expressible drainage. Minimal erythema. Mild swelling. +FDS, FDP, FDP-I, FPL, EPL, DI, PI <2 seconds capillary refill Assessment and Plan 27 year old male now 3 weeks s/p right long finger MCPJ irrigation and debridement on 05/15/[address] Carney -Previous dressing was removed. Applied betadine and a new dry sterile dressing applied to be left in place at all times. -Keep the right hand clean and dry -Continue on IV antibiotics per recommendations from infectious disease -Patient will need to remain in a controlled environment for the entirety of his antibiotic course to prevent recurrence of his infection. Patient was discussed with Dr. Master Darleen Lopez PA-C 06/05/18 Objective: Vital Signs Temp Pulse Resp BP Pulse Ox 37.1 C 86 20 137/67 H 94 06/06/18 16:00 06/06/18 16:00 06/06/18 16:00 06/06/18 16:00 06/06/18 16:00 Laboratory Results 06/01/18 08:30 06/01/18 08:30 06/05/18 06/06/18 06/07/18 05:59 05:59 05:59 Intake Total 1040 1390 Balance 1040 1390 ICD10 Worksheet Patient Problems: Problems Problem Status Onset Infected hand Acute Cellulitis of right hand Acute
[2018-06-06] MEDS: DAPTOmycin 600 MG in NS 100 ML IV SCH (18:40)
[2018-06-06] MEDS: ZOLPIDEM TARTRATE 5 MG TAB PO PRN (19:05)
[2018-06-07] MEDS: oxyCODONE IR 5 MG TAB PO PRN ×3 (09:38→18:44)
[2018-06-07] MEDS: NICOTINE 14 MG/24 HR PATCH TD SCH (09:39)
[2018-06-07] MEDS: FLUTICASONE HFA 110 MCG MDI IH SCH ×2 (09:39→20:07)
--- NOTE | 2018-06-07 10:59 | HOSPPROG ---
Hospitalist Progress Note Assessment/Plan: # third finger septic arthritis, abscess, tenosynovitis s/p I&D WCx with MRSA and GAS - cont dapto per ID (through 06/08 per last ID note), ck ok - pain control with PO narcotics - i discussed with Dr Ames - the ideal plan tomorrow would be to have ID and hand surgery visualize the hand tomorrow at the end of abx - he will need assistance with dressing changes on discharge - CM involved # hx IVDU - HIV neg # behavioral - he has exhibited multiple inappropriate episodes of behavioral outbursts; i have discussed this with him Subjective: hand feels ok; Objective: Vital Signs Temp Pulse Resp BP Pulse Ox 37.0 C 88 17 128/66 H 98 06/07/18 09:20 06/07/18 09:20 06/07/18 09:20 06/07/18 09:20 06/07/18 09:20 Laboratory Results 06/01/18 08:30 06/01/18 08:30 06/06/18 06/07/18 06/08/18 05:59 05:59 05:59 Intake Total 1390 Balance 1390 - Physical Exam Constitutional: no apparent distress, appears nourished Cardiovascular: regular rate and rhythym, no murmur, rub, or gallop Respiratory: no respiratory distress, no rales or rhonchi, clear to auscultation Gastrointestinal: normoactive bowel sounds, soft, non-tender abdomen, no palpable masses, No guarding, No rebound Musculoskeletal: other (R hand with gauze; good ROM of fingers) ICD10 Worksheet Patient Problems: Problems Problem Status Onset Cellulitis of right hand Acute Infected hand Acute
--- NOTE | 2018-06-07 15:54 | ASMTCMCOM ---
CM Note CM Note Notes: Patient plan of care reviewed in rounds. Patient likely to discharge tomorrow, He has no shoes. He wears a 15 and we have none that size. He shares with me he will go to the alf at discharge. CM available to reserve alf bed if needed. Plan: dc to alf when medically cleared for discharge. Date Signed: 06/07/2018 03:53 PM Electronically Signed By:Judith Butler RN
[2018-06-07] MEDS: IBUPROFEN 600 MG TAB PO PRN (17:49)
[2018-06-07] MEDS: DAPTOmycin 600 MG in NS 100 ML IV SCH (17:50)
[2018-06-07 19:38] VITALS: BP 139/81
[2018-06-07] MEDS: ZOLPIDEM TARTRATE 5 MG TAB PO PRN (20:05)
--- NOTE | 2018-06-08 09:06 | ASMTLACE ---
LACE Length of stay for Answers: 7-13 days current admission Acuity / Level of Answers: Yes Care: Did the patient have an inpatient admission? # of Emergency department Answers: 9-12 visits in the last 6 months Social determinants Answers: History of substance abuse (ETOH, street drugs, prescription drugs, etc.) Homelessness (street, long term) Score: 19 Date Signed: 06/08/2018 09:05 AM Electronically Signed By:Judith Butler RN
--- NOTE | 2018-06-08 09:06 | ASDISCHSUM ---
Discharge Information Plan Status:Home with No Needs Medically Cleared to Leave: Discharge Date: CM D/C Disposition:Against Medical Advice ADT D/C Disposition: Projected Discharge Date: Transportation at D/C: Discharge Delay Reason: Follow-Up Date: Discharge Slot: Final Diagnosis: Placement Information Patient Contact Information Contact Name:JANNY Relationship: Address: Home Phone: Work Phone: City: Alternate Phone: State/[employer] Code: Email: Financial Information Financial Class:Medicaid Primary Plan Desc:[employer] Primary Plan Number:[id number] Secondary Plan Desc: Secondary Plan Number: Assessment Information [facility] CM Progress Note CM Note CM Note Notes: Pt is a 27y/o homeless male who was initially brought to the ED for medical clearance prior to going to longterm. Pt has a hx of IV drug use. Pt had recently left [facility] while being treated for a hand abcess and MRSA infection. He declined to stay for IV anti-biotics and did not follow through with out-pt antibiotics. Pt readmitted with same infection. Might need [facility] bed at [facility] when d/javier. May need appts for out-pt antibiotics infusion. Discuss possible resources for substance abuse treatment. CM will follow. D/C Plan: Possible bed at [facility]/ referral to coordinated entry and substance abuse resources. Date Signed: 05/29/2018 03:05 PM Electronically Signed By:Amanda Maya [facility] CM Progress Note CM Note CM Note Notes: ADDENDUM: Offered pt resources for drug and alcohol recovery provided by Medicaid. Pt stated he did not have a problem and wasn't using. Pt accepted list of resources however. Pt may benefit from information about coordinated entry. Date Signed: 05/29/2018 04:59 PM Electronically Signed By:Kamala Rahman [facility] CM Progress Note CM Note CM Note Notes: Second Addendum: Pt has a warrant for his arrest and [facility] has requested we notify them when pt is discharged. No officer at the door at this time. Date Signed: 05/29/2018 05:00 PM Electronically Signed By:Kamala Rahman [facility] CM Progress Note CM Note CM Note Notes: Pt returns for finger infection, last left [facility]. Has been non compliant with IV abx, he is a homeless gentleman well known to us. He has a warrent out for his arrest, please call [facility] at md. [place] Plan: [facility], call [phone] Date Signed: 05/31/2018 09:27 AM Electronically Signed By:Maggie Angela RN [facility] CM Progress Note CM Note CM Note Notes: Patient paln of care reviewed in rounds. Recurrent infectious process in right hand due to noncompliance with out patient infusion orders. Was at [facility]. CM to follow. Plan: TBD Date Signed: 06/03/2018 03:59 PM Electronically Signed By:Judith Butler RN [facility] Progress Note CM Note CM Note Notes: Patient plan of care reviewed in rounds. Septic arthritis being treated with IV antibiotics through Friday, no other needs identified at this time. Plan: dc no needs when medically cleared. Date Signed: 06/05/2018 01:21 PM Electronically Signed By:Judith Butler RN [facility] CM Progress Note CM Note CM Note Notes: Patient plan of care reviewed in rounds. Patient likely to discharge tomorrow, He has no shoes. He wears a 15 and we have none that size. He shares with me he will go to the [facility] at discharge. CM available to reserve [facility] bed if needed. Plan: dc to [facility] when medically cleared for discharge. Date Signed: 06/07/2018 03:53 PM Electronically Signed By:Judith Butler RN Intervention Information Intervention Type:*Incorrect Registration Date of Service:05/28/2018 09:33 AM Patient Type:Observation Staff Member:JAUN Alvarado Courtney Hours: Discipline: Severity: Comment:
== END 2018-06-08 09:07 | disposition left against medical advice (07) | DRG 351 ==
LOC: OBSVTOIN 18:38 → F1N 18:39
PROVIDERS: ADMIT Hospitalist; ATTEND Hospitalist
DX: M65.141 Other infective (teno)synovitis, right hand (principal); M00.841 Arthritis due to other bacteria, right hand; T36.8X6A Underdosing of other systemic antibiotics, initial encounter; D64.9 Anemia, unspecified; Z72.0 Tobacco use; Z59.0 Homelessness
CPT/HCPCS: 80307; G0480; J0878; J1170; J7613

== ENCOUNTER 2018-06-17 02:11 | Observation (INO) | payer MEDICAID ==
[2018-06-17] MEDS ORDERED: ONDANSETRON DISINTEGRATING 4 MG TAB PO PRN (02:48)
[2018-06-17] MEDS ORDERED: ONDANSETRON 4 MG/2 ML VIAL IVP PRN (02:48)
[2018-06-17] MEDS ORDERED: ACETAMINOPHEN 325 MG TAB PO PRN (02:48)
--- NOTE | 2018-06-17 03:10 | PDGENHP ---
History and Physical - Chief Complaint R hand swelling - History of Present Illness 27 yo M w/ hx of IVDU presents with R hand swelling. The police brought him in for medical clearance in the setting of multiple warrants for arrest. The patient has been admitted here twice over the last month for management of R 3rd MCP septic arthritis. His course has been complicated by non-adherence to treatment and this is now his third admission for the same issue. He has not been taking any antibiotics since leaving [place] on 06/07 and has not followed up with any outpatient providers. 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 He can no longer fully close his had and it has become red. He has been experiencing chills for the last few days, as well. Case discussed with ED physician Dr. Luna; records reviewed and summarized above. History Information - Allergies/Home Medication List Allergies/Adverse Reactions: procaine [From Novocain] Allergy (Severe, Verified 01/19/18 12:31) hard to breathe Home Medications: Albuterol Sulfate [Ventolin Hfa] 1 - 2 puffs IH Q4H PRN 01/26/18 [Last Taken 03/07 09:00] Fluticasone Hfa 110 Mcg [Flovent 110 MCG Hfa MDI (*)] 1 - 2 puffs IH BID [Last Taken 05/28/18 09:00] I have personally reviewed and updated: family history, medical history - Past Medical History asthma Additional medical history: tenosynovitis/cellulitis/abscess of hand. IVDA - Surgical History Additional surgical history: I& D of tenosynovitis - Family History Positive for: non-pertinent - Social History Smoking Status: Current every day smoker Additional social history: homeless Review of Systems Review of Systems: ROS: 10pt was reviewed & negative except for what was stated in HPI & below Physical Exam Physical Exam: Temp Pulse Resp BP Pulse Ox 36.5 C 79 147/99 H 97 06/17/18 02:16 06/17/18 02:16 06/17/18 02:16 06/17/18 02:16 Constitutional: no apparent distress, unkempt Eyes: PERRL, EOMI Ears, Nose, Mouth, Throat: moist mucous membranes, no oral mucosal ulcers Cardiovascular: regular rate and rhythym, no murmur, rub, or gallop Respiratory: no respiratory distress, clear to auscultation Gastrointestinal: normoactive bowel sounds, soft, non-tender abdomen Skin: warm, other (Swollen, erythematous, painful dorsal R hand surrounding 3rd MCP) Musculoskeletal: joint tenderness, pain with ROM Neurologic: AAOx3, CN II-XII Intact Psychiatric: interacting appropriately, not anxious Assessment & Plan Assessment: 27 yo M w/ hx of IVDU presents with recurrent infection to R 3rd MCP joint. Plan: 1. Right hand infection - With history of 3rd MCP septic arthritis due to Group A Strep and MRSA. He has been non-compliant with ongoing care and this encounter thakur his 3rd admission for the same. He has not been on antibiotics or seen an outpatient provider since last leaving [facility] on 06/07. - Admit for observation - Obtain CBC, CMP, CRP, CPK - Blood cultures ordered - Restart Daptomycin IV - ID consult placed in [facility] - May need surgical intervention, will defer pending ID evaluation 2. Hx IVDU - HIV recently negative Diet - Regular Code - Full Ppx - Low risk, ambulate TID Dispo - Admit under observation status
[2018-06-17] MEDS ORDERED: oxyCODONE IR 5 MG TAB PO PRN (03:15)
--- NOTE | 2018-06-17 03:24 | EDPHY ---
H & P Time Seen by Provider: 06/17/18 02:31 HPI/ROS: Chief Complaint: Hand pain and swelling HPI: 27-year-old male with a recent discharged after an episode of MRSA in his right hand. He is being brought in for med clearance for usp today. Patient states he has not followed up with Infectious Disease with the hand surgeons. He has been having worsening pain and swelling in the dorsum of his right hand since yesterday. He is unable to make a fist. Since he has been having increasing swelling and warmth. ROS: 10 systems were reviewed and were negative except those elements noted in the HPI. PMH: Right hand MRSA with tenosynovitis Social History: Positive smoking Family History: non-contributory Physical Exam: Gen: Awake, Alert, No Distress HEENT: Nose: no rhinorrhea Eyes: PERRLA, EOMI Mouth: Moist mucosa Neck: Supple, no JVD Chest: nontender, lungs clear to auscultation Heart: S1, S2 normal, no murmur Abd: Soft, non-tender, no guarding Back: no CVA tenderness, no midline tenderness Ext: Right hand: He has got swelling on the dorsum of his right hand primarily over the 3rd MCP joint. He is an able to flex secondary to the swelling and pain. Is moderately warm to touch. The incision is crusted but there is no discharge or dehiscence. There is no fluctuance. Skin: no rash Neuro: CN II-XII intact, Sensation grossly intact, Strength 5/5 in bilateral upper and lower extremities - Personal History Tetanus Vaccine Date: 2017 - Medical/Surgical History Hx Asthma: Yes Hx Chronic Respiratory Disease: No Hx Diabetes: No Hx Cardiac Disease: No Hx Renal Disease: No Hx Cirrhosis: No Hx Alcoholism: No Hx HIV/AIDS: No Hx Splenectomy or Spleen Trauma: No Other PMH: TENDON INFECTION R HAND, asthma - Social History Smoking Status: Current every day smoker Constitutional: Initial Vital Signs Temperature (C) 36.5 C 06/17/18 02:16 Heart Rate 79 06/17/18 02:16 Blood Pressure 147/99 H 06/17/18 02:16 O2 Sat (%) 97 06/17/18 02:16 O2 Delivery Mode Room Air Allergies/Adverse Reactions: procaine [From Novocain] Allergy (Severe, Verified 01/19/18 12:31) hard to breathe Home Medications: Medication Instructions Recorded Albuterol Sulfate [Ventolin Hfa] 1 - 2 puffs IH Q4H PRN 01/26/18 Fluticasone Hfa 110 Mcg [Flovent 1 - 2 puffs IH BID 05/16/18 110 MCG Hfa MDI (*)] Amoxicillin Trihydrate [Amoxil] 1,000 mg PO BID #44 cap 05/25/18 Doxycycline Hyclate [Vibramycin 100 mg PO BID #22 cap 05/25/18 100 MG (*)] oxyCODONE IR [Oxycodone Ir (*)] 5 - 10 mg PO Q3HRS PRN #10 tab 05/25/18 Medical Decision Making ED Course/Re-evaluation: A 27-year-old male with history of MRSA tenosynovitis and septic joint in his right hand with worsening symptoms. He has history of very poor medical compliance is soft followed up with Infectious Disease or and surgery. He is here for medical clearance. Patient will require evaluation by Infectious Disease and Hand surgery. I have discussed with the hospitalist, Dr. Lay. He will admit to his service for further evaluation to arrange for consultation. Departure - Departure Disposition: [facility] Inpatient Acute Clinical Impression: Infected hand Condition: Fair
[2018-06-17] MEDS ORDERED: DAPTOmycin 600 MG in NS 100 ML IV SCH (03:30)
[2018-06-17 03:32] LABS: PLATELET COUNT 211 10^3/uL (150-400)
[2018-06-17 03:48] LABS: CREATINE KINASE 172 IU/L (0-224)
[2018-06-17] MEDS ORDERED: FLUTICASONE HFA 110 MCG MDI IH SCH (09:45)
--- NOTE | 2018-06-17 10:35 | ASMTCMCOM ---
CM Note CM Note Notes: CM spoke to Dr. Landa regarding d/c POC. Pt is a 27 y.o man admitted for hand infection. Pt has a hx of leaving [facility] and substance abuse. Police brought pt in for med clearance. CM spoke to Officer Agusto. Pt has multiple warrants for his arrest. Staff will need to notify dispatch once he is medically stable to d/c. The phone number for dispatch is [phone]. ID has been consulted. Needs are TBD at this time. CM to follow. Plan: TBD Date Signed: 06/17/2018 10:35 AM Electronically Signed By:CATHERINE Abraham
--- NOTE | 2018-06-17 10:58 | PCMIDPN ---
Assessment/Plan: Right 3rd finger MCP septic arthritis/abscess/tenosynovitis due to MRSA and group A Streptococcus status post incision and drainage 05/15/18. Patient has underlying mental illness, substance abuse and has had multiple admissions leaving [facility], completed majority of IV therapy. Today hand looks the best I have ever seen it look, there is limited ROM of 3rd MCP but some may be expected post op (plus lack of formal PT) --doxycycline 100mg PO BID + amoxicillin 1gm PO BID x 10 days --care coordinated with hospitalist team --no ID f/u needed Subjective: 27 yo male well known to ID service who has MCP septic arthritis/abscess/ tenosynovitis due to MRSA and group A Streptococcus s/p patient reports increasing problems bending his R hand x 3 days and is brought to ER for medical clearance after being arrested. Has been off antibiotics since he left hospital 06/07. Objective: Vital Signs Temp Pulse Resp BP Pulse Ox 36.4 C 90 18 136/69 H 93 06/17/18 08:41 06/17/18 10:22 06/17/18 10:22 06/17/18 08:41 06/17/18 10:22 Laboratory Results 06/17/18 03:20 06/17/18 03:20 06/16/18 06/17/18 06/18/18 05:59 05:59 05:59 Intake Total 100 Balance 100 C-Reactive Protein < 5.0 mg/L (<10.0) 06/17/18 03:20 - Physical Exam General Appearance: alert, no apparent distress Respiratory: No accessory muscle use Extremities: other (mild swelling over 3rd MCP/carpel, incision completely healed without drainge. Limited flexon at MCP, approx 70% of normal. No fluctuance. No erythema. Mild expected pinkness, radial pulse intact. Mild warmth, normal cap refill; R 3rd digit mildly swollen) Skin: other (tanned), No rash Neuro/Psych: alert, oriented x 3 - Time Spent With Patient Time Spent with Patient: greater than 25 minutes Time Spent with Patient: Greater than 25 minutes spent on this patients care, greater than 50% of time spent counseling, educating, and coordinating care regarding the above mentioned plan. ICD10 Worksheet Patient Problems: Problems Problem Status Onset Infected hand Acute Cellulitis of right hand Acute
[2018-06-17 11:57] VITALS: BP 136/63
[2018-06-17] MEDS ORDERED: ALBUTEROL 3 ML DEYVIAL IH SCH (12:00)
--- NOTE | 2018-06-17 12:53 | PDDCSUM ---
Discharge Summary Discharge Summary: Date of Admission: 06/17/2018 Date of Discharge: 06/17/2018 Consultants: infectious disease (Karime Mitchell) Studies/Procedures: none Disposition: discharged in custody of [facility], he is medically cleared to leave the hospital Discharge Diagnoses: 1. Right 3rd MCP septic arthritis/tenosynovitis/abscess due to MRSA and group A Strep 2. H/o IVDU 3. Aggressive behavior/behavioral issues with staff 4. Reactive airways disease 5. Homelessness Brief Hospital Course: 27 yo M w/ hx of IVDU brought in by police for medical evaluation of increased swelling and pain in right hand. This is his 4th admission since 10/2017 for the same due to him not adhering to antibiotic regimen and leaving [facility]. Prior imaging has shown abscess, tenosynovitis, and early osteomyelitis at 3rd MCP on the right hand. Cultures from 11/05 grew MSSA and group B Strep but most recent cultures after washout grew MRSA and group A Strep. He has left the hospital AMA the last two admissions and has not followed through on antibiotic plan ( either outpatient IV or PO). Per ID, he has completed the majority of his IV antibiotic therapy while inpatient but this has been rather disjointed. On admission today, his hand does not have signs of significant infection. There is some limited ROM of 3rd MCP but this is rather expected without formal PT. Additionally, he has no signs of systemic illness, his inflammatory markers are normal. He is being discharged to complete 10 more days of amoxicillin and doxycycline. He is medically cleared to leave the hospital and return to the custody of the police. Of note, he has been aggressive towards staff in the past. When he was notified that he was being discharged today, he became agitated and reportedly threatened the police and security when they arrived. Medications: Please refer to EMR. Paper prescriptions were given to the [facility]' s department for the following medications - amoxicillin 1g PO BID #20, doxycycline 100mg PO BID #20, no refills. Follow Up Plan: 1. Complete antibiotics as above, establish with PCP Physical Exam: Vitals reviewed, afebrile and normotensive. Alert and oriented, RRR without m/r/g, lungs with mild wheeze but no distress, abdomen soft and nontender, well healing incision on dorsum of right hand without surrounding erythema or drainage, mild swelling of dorsum of right hand, able to partially flex fingers at MCP/PIP/DIP joints, no e/o tenosynovitis.
--- NOTE | 2018-06-17 12:58 | ASMTLACE ---
LACE Length of stay for Answers: Less than 1 day current admission Acuity / Level of Answers: No Care: Did the patient have an inpatient admission? Comorbidities - select Answers: Other Notes: Cellulitis; Asthma all that apply # of Emergency department Answers: 5-8 visits in the last 6 months Social determinants Answers: History of substance abuse (ETOH, street drugs, prescription drugs, etc.) Score: 8 Date Signed: 06/17/2018 12:57 PM Electronically Signed By:CATHERINE Abraham
--- NOTE | 2018-06-17 13:04 | ASMTDCNOTE ---
Case Management Discharge Discharge Order Complete? Answers: Yes Patient to Obtain Answers: Other Notes: [facility] Medications Transportation Arranged Answers: Other Notes: [place] [employer] Complete Answers: No Case Management Transport Answers: No Form Complete Faxed Final Orders Answers: No Agency/Facility Transfer Answers: No Report Printed & Faxed to Receiving Agency Family Notified Answers: No Discharge Comments Notes: Pts case discussed w/ Dr. Landa. Pt is being discharged today back to [facility]. CM called and notified dispatch. Hard scripts have been written and given to discharge coordinator. CM notified JAUN Shaffer and aid of the d/c. CM available for changes. Plan: [facility] Date Signed: 06/17/2018 01:03 PM Electronically Signed By:CATHERINE Abraham
== END 2018-06-17 13:40 ==
LOC: F3E 05:28
PROVIDERS: ADMIT Student in an Organized Health Care Education/Training Program; ATTEND Internal Medicine
DX: L03.113 Cellulitis of right upper limb (principal); M65.141 Other infective (teno)synovitis, right hand; M00.841 Arthritis due to other bacteria, right hand; B95.62 Methicillin resistant Staphylococcus aureus infection as the cause of diseases classified elsewhere; B95.0 Streptococcus, group A, as the cause of diseases classified elsewhere; F19.10 Other psychoactive substance abuse, uncomplicated; J45.909 Unspecified asthma, uncomplicated; F17.210 Nicotine dependence, cigarettes, uncomplicated; Z16.11 Resistance to penicillins; Z91.14 Patient's other noncompliance with medication regimen; Z59.0 Homelessness
CPT/HCPCS: 96374; 99285; G0378; J0878; J7613

== ENCOUNTER 2018-08-28 16:34 | Emergency (ER) | payer MEDICAID ==
[2018-08-28] MEDS ORDERED: KETOROLAC 30 MG/1 ML SDV IM ONE (17:15)
[2018-08-28] MEDS ORDERED: DOXYCYCLINE 100 MG PREPACK#2 BTL TAKEHOME ONE (17:56)
--- NOTE | 2018-08-28 17:56 | EDPHY ---
H & P Stated Complaint: Right thumb swelling Time Seen by Provider: 08/28/18 17:00 HPI/ROS: Chief complaint: Right thumb pain and swelling History of present illness: This is a 27-year-old male who presents to the emergency department for right thumb pain and swelling. He reports he was out in the cold yesterday, he moved his thumb and felt a pop. Since then he has had pain and some swelling. He has a history of significant infections in this hand, this does not involve the previous sites of infection and does not feel like an infection. No direct trauma. No abnormal coolness or paresthesias. - Personal History Current Tetanus/Diphtheria Vaccine: Yes Tetanus Vaccine Date: 2017 - Medical/Surgical History Hx Asthma: Yes Hx Chronic Respiratory Disease: No Hx Diabetes: No Hx Cardiac Disease: No Hx Renal Disease: No Hx Cirrhosis: No Hx Alcoholism: No Hx HIV/AIDS: No Hx Splenectomy or Spleen Trauma: No Other PMH: TENDON INFECTION R HAND, asthma, IV drug use - Social History Smoking Status: Current every day smoker - Physical Exam Exam: General: Alert, nontoxic. Skin: Callus formation to the right thumb. It is tender to palpation. No induration or fluctuance to suggest abscess. No erythema or edema to suggest infection. Musculoskeletal: He is able to move the PIP and MCP joint well. The rest of the hand is unremarkable. His previous sites of infection appear to be doing well. Vascular: Capillary refill brisk in all digits of the right hand. Neurologic: Sensation appears intact in all digits of the right hand. Constitutional: Initial Vital Signs Temperature (C) 36.7 C 08/28/18 16:41 Heart Rate 100 08/28/18 16:41 Respiratory Rate 18 08/28/18 16:41 Blood Pressure 147/86 H 08/28/18 16:41 O2 Sat (%) 97 08/28/18 16:41 O2 Delivery Mode Room Air Allergies/Adverse Reactions: procaine [From Novocain] Allergy (Severe, Verified 08/28/18 16:44) hard to breathe Home Medications: Medication Instructions Recorded Albuterol Sulfate [Ventolin Hfa] 1 - 2 puffs IH Q4H PRN 01/26/18 Fluticasone Hfa 110 Mcg [Flovent 2 puffs IH BID 05/16/18 110 MCG Hfa MDI (*)] oxyCODONE IR [Oxycodone Ir (*)] 5 - 10 mg PO Q3HRS PRN #10 tab 05/25/18 Amoxicillin Trihydrate [Amoxil] 1,000 mg PO BID #20 cap 06/17/18 Doxycycline Hyclate [Vibramycin 100 mg PO BID #20 cap 06/17/18 100 MG (*)] Doxycycline Hyclate 100 mg PO BID #20 tab 08/28/18 Medical Decision Making - Diagnostics Imaging Results: Imaging Impressions Hand X-Ray 08/28/18 17:12 Impression: Soft tissue swelling dorsal aspect of the right hand. No acute osseous abnormality. Imaging: I viewed and interpreted images myself ED Course/Re-evaluation: Patient is discussed with my secondary supervising physician Dr. Anatoliy Godoy. Patient presents for right thumb pain. Thumb is neurovascularly intact. There is no erythema or edema. He is moving the joints well. This is not the site of his previous infection. I doubt infection at this time. X-rays obtained, no acute findings in the right thumb region. I have discussed symptomatic care including care of the skin. Pain management. Given he has had significant infections in the past I will prophylactically cover him with antibiotics. He is to follow up with a primary care doctor or hand doctor both of whom he has seen before. Referral information is again provided. He is given strict return precautions. Differential Diagnosis: Included but not limited to sprain or strain, skin breakdown from environmental exposure, infection - Data Points Medications Given: Discontinued Medications Doxycycline Hyclate (Vibramycin 100 Mg Prepack#2) 1 btl TAKEHOME EDNOW ONE Stop: 08/28/18 17:57 Last Admin: 08/28/18 18:03 Dose: 1 btl Ketorolac Tromethamine (Toradol) 60 mg IM EDNOW ONE Stop: 08/28/18 17:16 Last Admin: 08/28/18 17:31 Dose: 60 mg Departure - Departure Disposition: Home, Routine, Self-Care Clinical Impression: Pain of right thumb Condition: Good Instructions: Doxycycline (By mouth) Additional Instructions: Follow-up with her primary care doctor or your hand doctor for continued evaluation and care Take antibiotics as prescribed until finished even feeling better Use ibuprofen 600 mg 3 times a day for the next 2-3 days for pain control If symptoms worsen or new symptoms develop return to the emergency room for recheck Referrals: NONE *PRIMARY CARE P,. [Primary Care Provider] - As per Instructions [facility],. [Clinic] - As per Instructions Kumar Carney MD [Medical Doctor] - As per Instructions Prescriptions: Doxycycline Hyclate 100 mg PO BID #20 tab
[2018-08-28 18:05] VITALS: BP 139/88
== END 2018-08-28 18:05 | disposition home or self-care (01) ==
DX: M79.644 Pain in right finger(s) (principal); Z86.19 Personal history of other infectious and parasitic diseases
CPT/HCPCS: J1885

== ENCOUNTER 2018-09-13 14:28 | Inpatient (IN) | payer OTHER, MEDICAID ==
--- NOTE | 2018-09-13 14:39 | EDPHY ---
H & P Stated Complaint: med clear, thumb injury Time Seen by Provider: 09/13/18 14:38 HPI/ROS: HPI CHIEF COMPLAINT: Right thumb infection, medical clearance for detention. HISTORY OF PRESENT ILLNESS: This patient is a 27-year-old male, history of IV drug use, presents emergency room for medical clearance for detention in police custody. He presents emergency room with right thumb discomfort an obvious infection. Patient states approximately 8 days ago he was holding a tarp over him in his girlfriend where they were sleeping outside to keep the wet weather off of them. His hand was sticking out the edge of the tarp and he got frostbite injury to the distal aspect of his right thumb. Since then he has increasing pain, swelling and now pus coming from his thumb. No fever. Complains of a throbbing pain. Patient is right-hand dominant. Past Medical History: IV drug use. Past Surgical History: Denies Social History: homeless. History of IV drug use. Family History: Noncontributory ROS REVIEW OF SYSTEMS: 10 Systems were reviewed and negative with the exception of the elements mentioned in the history of present illness. Exam Constitutional triage nursing summary reviewed, vital signs reviewed, awake/ alert. Eyes normal conjunctivae and sclera, EOMI, PERRLA. HENT normal inspection, atraumatic, moist mucus membranes, no epistaxis, neck supple/ no meningismus, no raccoon eyes. Respiratory clear to auscultation bilaterally, normal breath sounds, no respiratory distress, no wheezing. Cardiovascular rate normal, regular rhythm, no murmur, no edema, distal pulses normal. Gastrointestinal soft, non-tender, no rebound, no guarding, normal bowel sounds, no distension, no pulsatile mass. Genitourinary no CVA tenderness. Musculoskeletal right hand: Thumb has skin peeling around the edge of the thumb. Distal aspect the thumb is swollen, red, when I press on and there is some pus that comes out. Tender. No sausage digit. no midline vertebral tenderness, full range of motion, no calf swelling, no tenderness of extremities, no meningismus, good pulses, neurovascularly intact. Skin pink, warm, & dry, no rash, skin atraumatic. Neurologic awake, alert and oriented x 3, AAOx3, moves all 4 extremities equally, motor intact, sensory intact, CN II-XII intact, normal cerebellar, normal vision, normal speech. Psychiatric normal mood/affect. Heme/Lymph/Immune no lymphadenopathy. Differential Diagnosis: Includes but is not limited to in a particular order thumb infection, digital infection, tendon infection, thumb abscess, osteomyelitis Medical Decision Making: Plan for this patient IV establishment, basic blood work, x-ray the right thumb. Re-evaluation: 1533: I have consult Hand surgery Dr. Byrnes, who is reviewing the patient's imaging. Most likely plan for admission the hospital for hand infection right thumb infection. IV Ancef as been ordered. Basic blood work and x-ray. X-ray right thumb I do not appreciate a fracture or gas or osteomyelitis. Soft tissue swelling noted. 1633: Dr. Miles consulted with the medicine service for admission. Dr. Carney's consult for hand surgery. Dr. Carney's to take to OR for I+D. Dr. Miles consulted for admission. Source: Patient - Personal History Current Tetanus/Diphtheria Vaccine: Yes Current Tetanus Diphtheria and Acellular Pertussis (TDAP): Yes Tetanus Vaccine Date: 2017 - Medical/Surgical History Hx Asthma: Yes Hx Chronic Respiratory Disease: No Hx Diabetes: No Hx Cardiac Disease: No Hx Renal Disease: No Hx Cirrhosis: No Hx Alcoholism: No Hx HIV/AIDS: No Hx Splenectomy or Spleen Trauma: No Other PMH: TENDON INFECTION R HAND, asthma, IV drug use - Social History Smoking Status: Current every day smoker Constitutional: Initial Vital Signs Temperature (C) 36.6 C 09/13/18 14:28 Heart Rate 81 09/13/18 14:28 Respiratory Rate 16 09/13/18 14:28 Blood Pressure 158/98 H 09/13/18 14:28 O2 Sat (%) 94 09/13/18 14:28 O2 Delivery Mode Room Air Allergies/Adverse Reactions: procaine [From Novocain] Allergy (Severe, Verified 09/13/18 16:24) hard to breathe Home Medications: Medication Instructions Recorded Albuterol Hfa Anes Only [Proair 2 puffs IH TID 09/13/18 Hfa Icu (*)] Ascorbic Acid [Vitamin C 500 mg 500 mg PO DAILY 09/13/18 (*)] Multivit-Min/Iron/Folic/Vit K1 1 each PO DAILY 09/13/18 [Centrum Chewables Adults Tab] Medical Decision Making - Diagnostics Imaging Results: Imaging Impressions Finger X-Ray 09/13/18 14:58 Impression: 1. Development of focal erosion distal tuft right thumb. The possibility of osteomyelitis is possible. If indicated, consider confirmation with MRI right hand with contrast as clinically directed. - Data Points Laboratory Results: Laboratory Results 09/13/18 15:23 09/13/18 15:23 09/13/18 09/13/18 15:23 15:23 WBC 5.36 10^3/uL 10^3/uL (3.80-9.50) RBC 4.90 10^6/uL 10^6/uL (4.40-6.38) Hgb 14.1 g/dL g/dL (13.7-17.5) Hct 43.1 % % (40.0-51.0) MCV 88.0 fL fL (81.5-99.8) MCH 28.8 pg pg (27.9-34.1) MCHC 32.7 g/dL g/dL (32.4-36.7) RDW 13.8 % % (11.5-15.2) Plt Count 236 10^3/uL 10^3/uL (150-400) MPV 9.1 fL fL (8.7-11.7) Neut % (Auto) 56.6 % % (39.3-74.2) Lymph % (Auto) 29.9 % % (15.0-45.0) [place] % (Auto) 11.0 % % (4.5-13.0) Eos % (Auto) 1.9 % % (0.6-7.6) Baso % (Auto) 0.4 % % (0.3-1.7) Nucleat RBC Rel Count 0.0 % % (0.0-0.2) Absolute Neuts (auto) 3.04 10^3/uL 10^3/uL (1.70-6.50) Absolute Lymphs (auto) 1.60 10^3/uL 10^3/uL (1.00-3.00) Absolute Monos (auto) 0.59 10^3/uL 10^3/uL (0.30-0.80) Absolute Eos (auto) 0.10 10^3/uL 10^3/uL (0.03-0.40) Absolute Basos (auto) 0.02 10^3/uL 10^3/uL (0.02-0.10) Absolute Nucleated RBC 0.00 10^3/uL 10^3/uL (0-0.01) Immature Gran % 0.2 % % (0.0-1.1) Immature Gran # 0.01 10^3/uL 10^3/uL (0.00-0.10) Sodium 136 mEq/L mEq/L (135-145) Potassium 3.8 mEq/L mEq/L (3.5-5.2) Chloride 104 mEq/L mEq/L (97-110) Carbon Dioxide 25 mEq/l mEq/l (22-31) Anion Gap 7 mEq/L mEq/L (6-14) BUN 8 mg/dL mg/dL (7-23) Creatinine 0.7 mg/dL mg/dL (0.7-1.3) Estimated GFR > 60 Glucose 95 mg/dL mg/dL (70-100) Calcium 8.8 mg/dL mg/dL (8.5-10.4) Medications Given: Hydrocodone Bitart/Acetaminophen (Dillon 5/325) 1 - 2 tab PO Q6H PRN PRN Reason: Pain, Moderate Able to Take PO Stop: 09/23/18 18:27 Last Admin: 09/13/18 20:13 Dose: 2 tab Discontinued Medications Hydrocodone Bitart/Acetaminophen (Dillon 5/325) 1 - 2 tab PO Q4HRS PRN PRN Reason: PACU, Pain Moderate Stop: 09/13/18 19:37 Last Admin: 09/13/18 19:14 Dose: 2 tab Bacitracin (Bacitracin Syringe) Confirm Administered Dose 100,000 units IRR .STK -MED ONE Stop: 09/13/18 17:21 Last Admin: 09/13/18 17:23 Dose: 100,000 units Bacitracin (Bacitracin Ointment Tube) Confirm Administered Dose 14.2 kaylee TP .STK -MED ONE Stop: 09/13/18 18:00 Last Admin: 09/13/18 18:00 Dose: 1 tube Bupivacaine HCl (Sensorcaine 0.5% Vial) Confirm Administered Dose 30 ml .ROUTE .STK-MED ONE Stop: 09/13/18 16:25 Last Admin: 09/13/18 17:26 Dose: Not Given Fentanyl (Sublimaze) 25 - 100 mcg IVP Q5M PRN PRN Reason: PACU, IMMEDIATE Pain control Stop: 09/13/18 19:36 Last Admin: 09/13/18 18:58 Dose: 50 mcg Cefazolin Sodium/Dextrose (Ancef) 100 mls @ 200 mls/hr IV EDNOW ONE PRN Reason: Protocol Stop: 09/13/18 15:32 Last Admin: 09/13/18 15:16 Dose: 100 mls Lidocaine HCl (Lidocaine Hcl 1%) Confirm Administered Dose 300 mg .ROUTE .STK- MED ONE Stop: 09/13/18 16:25 Last Admin: 09/13/18 17:27 Dose: Not Given Midazolam HCl (Versed) 2 mg IVP ONCALL ONE Stop: 09/13/18 16:32 Last Admin: 09/13/18 16:59 Dose: 2 mg Polymyxin B Sulfate (Polymyxin B Syringe) Confirm Administered Dose 500,000 unit IRR .STK-MED ONE Stop: 09/13/18 16:26 Last Admin: 09/13/18 16:42 Dose: 500,000 unit Departure - Departure Disposition: [facility] Inpatient Acute Clinical Impression: Infected hand Condition: Fair
[2018-09-13] MEDS ORDERED: ceFAZolin 2 GM/DEXTROSE 100 ML IV ONE (15:03)
[2018-09-13 15:32] LABS: PLATELET COUNT 236 10^3/uL (150-400)
[2018-09-13] MEDS ORDERED: POLYMYXIN B SULFATE 500,000 UNIT/10 ML SYR IRR ONE (16:25)
[2018-09-13] MEDS ORDERED: MIDAZOLAM 2 MG/2 ML VIAL IVP ONE (16:31)
[2018-09-13] MEDS ORDERED: ONDANSETRON 4 MG/2 ML VIAL IVP PRN ×2 (16:42→18:36)
[2018-09-13] MEDS: LIDOCAINE 1% 300 MG/30 ML SDV ONE ×2 (16:42→17:27)
[2018-09-13] MEDS ORDERED: ONDANSETRON DISINTEGRATING 4 MG TAB PO PRN (16:42)
[2018-09-13] MEDS: BUPIVACAINE 0.5% 30 ML SDV ONE ×2 (16:42→17:26)
[2018-09-13] MEDS ORDERED: ACETAMINOPHEN 325 MG TAB PO PRN (16:42)
--- NOTE | 2018-09-13 16:47 | SOAPPROG ---
SOAP Progress Note Assessment/Plan: Assessment: HPI: This is a 27 year old male with a right thumb infection which started on or around 08/28/18. He represented today (09/13/18) due to increased pain and swelling after being arrested. He has a significant history for IVDU and previous right long finger MCP joint infection requiring multiple irrigation and debridements. PE: Gen: NAD AVSS RUE: Moderate enlargement of right thumb distal phalanx volarly, TTP overlying the volar distal phalanx, minimal tenderness overlying the flexor sheath +EPL, FPL, FDS, FDP, FDP-I, DI, PI +M/R/U SILT 2+ DP and PT pulses Right hand radiographs: evidence of right thumb distal phalanx tuft erosion c/w possible underlying osteomyelitis. Assessment and Plan This is a 27 year old male with a right thumb infection -- current s/s c/w a chronic felon with possible underlying osteomyelitis -I have discussed with the patient risks, benefits, alternative and complications associated with both non-operative (specifically, observation, antibiotics) and operative (specifically, right thumb irrigation and debridement ) forms of treatment and I am recommending emergent operative intervention -He fully understands the risks, benefits, alternative and complications associated with both forms of treatment and wishes to proceed with operative intervention as outlined above -He has signed the informed consent form for surgery and surgery will be performed as soon as the OR is available 09/13/18 16:37 Objective: Vital Signs Temp Pulse Resp BP Pulse Ox 36.6 C 80 16 150/60 H 95 09/13/18 14:28 09/13/18 16:23 09/13/18 16:23 09/13/18 16:23 09/13/18 16:23 09/12/18 09/13/18 09/14/18 05:59 05:59 05:59 Intake Total 1000 Balance 1000 ICD10 Worksheet Patient Problems: Problems Problem Status Onset Infected hand Acute Cellulitis of right hand Acute
[2018-09-13] MEDS ORDERED: MIDAZOLAM 2 MG/2 ML VIAL ONE (16:53)
--- NOTE | 2018-09-13 16:55 | PDANEPAE ---
ANE History of Present Illness Right thumb I and D ANE Past Medical History - Cardiovascular History Hx Hypertension: No Hx Arrhythmias: No Hx Chest Pain: No Hx Coronary Artery / Peripheral Vascular Disease: No Hx CHF / Valvular Disease: No Hx Palpitations: No - Pulmonary History Hx Asthma/Reactive Airway Disease: Yes Hx Oxygen in Use at Home: No Hx Sleep Apnea: No - Endocrine History Hx Diabetes: No - Renal History Hx Renal Disorders: No - Liver History Hx Hepatic Disorders: No - Neurological & Psychiatric Hx Hx Neurological and Psychiatric Disorders: No - Congenital Disorder History Hx Congenital Disorders: No - GI History Hx Gastrointestinal Disorders: No - Chronic Pain History Chronic Pain: No ANE Review of Systems Review of Systems: - Exercise capacity METS (RN): 4 METS ANE Patient History - Allergies Allergies/Adverse Reactions: procaine [From Novocain] Allergy (Severe, Verified 09/13/18 16:24) hard to breathe - Home Medications Home medications: home medication list seen and reviewed Home Medications: Albuterol Hfa Anes Only [Proair Hfa Icu (*)] 2 puffs IH TID 09/13/18 [Last Taken 09/13/18 09:00] Ascorbic Acid [Vitamin C 500 mg (*)] 500 mg PO DAILY 09/13/18 [Last Taken 09:00] Multivit-Min/Iron/Folic/Vit K1 [Centrum Chewables Adults Tab] 1 each PO DAILY [Last Taken 09/13/18 09:00] - NPO status NPO Status: no food or drink >8 hours NPO Since - Liquids (Date): 09/13/18 NPO Since - Liquids (Time): 10:00 NPO Since - Solids (Date): 09/12/18 - Anes Hx Anes Hx: no prior problems - Smoking Hx Smoking Status: Current every day smoker Marijuana use: Yes - Family Anes Hx Family Anes Hx: none ANE Labs/Vital Signs - Labs Result Diagrams: 09/13/18 15:23 09/13/18 15:23 - Vital Signs Blood Pressure: 150/60 Heart Rate: 80 Respiratory Rate: 16 O2 Sat (%): 95 Height: 200.66 cm Weight: 113.398 kg ANE Physical Exam - Airway Neck exam: decreased ROM Mallampati Score: Class 1 Mouth exam: normal dental/mouth exam, poor dentition - Pulmonary Pulmonary: no respiratory distress, no rales or rhonchi - Cardiovascular Cardiovascular: regular rate and rhythym, no murmur, rub, or gallop - ASA Status ASA Status: II ANE Anesthesia Plan Anesthesia Plan: general endotracheal anesthesia
[2018-09-13] MEDS ORDERED: PROPOFOL/EMULSION 500 MG/50 ML BOTTLE IV ONE (16:59)
[2018-09-13] MEDS ORDERED: fentaNYL 250 MCG/5 ML INJ ONE (16:59)
[2018-09-13] MEDS ORDERED: ONDANSETRON 4 MG/2 ML VIAL ONE (17:11)
[2018-09-13] MEDS ORDERED: GLYCOPYRROLATE 0.2 MG/1 ML VIAL ONE ×4 (17:11→17:50)
[2018-09-13] MEDS ORDERED: ROCURONIUM 50 MG/5 ML VIAL ONE (17:11)
[2018-09-13] MEDS ORDERED: KETAMINE 200 MG/20 ML VIAL ONE (17:13)
[2018-09-13] MEDS ORDERED: HYDROmorphONE/DILAUDID 2 MG/ML INJ ONE ×2 (17:14→18:38)
[2018-09-13] MEDS ORDERED: BACITRACIN 50,000 UNITS/10 ML SYR IRR ONE (17:20)
[2018-09-13] MEDS ORDERED: BACITRACIN ZINC 0.5 OZ OINTTUBE TP ONE (17:59)
[2018-09-13] MEDS ORDERED: NEOSTIGMINE METHYLSULFATE 5 MG/5 ML SYR ONE (18:04)
--- NOTE | 2018-09-13 18:16 | POSTOPPROG ---
Post Op Note Date of Operation: 09/13/18 Surgeon: Kumar Carney Sheet Hanger: none Anesthesiologist: Kandace Martin MD Anesthesia: GET(General Endotracheal) Pre-op Diagnosis: right thumb felon, right thumb distal phalanx osteomyelitis Post-op Diagnosis: right thumb felon, right thumb distal phalanx osteomyelitis Indication: right thumb felon, right thumb distal phalanx osteomyelitis Procedure: right thumb irrigation and debridement, distal phalanx partial excision Inf/Abcess present in the surg proc area at time of surgery?: Yes Depth: Deep Incisional (Fascial) EBL: Minimal Complications: none Drains: Other (two 1/4 inch nu-gauze packing strips)
[2018-09-13] MEDS ORDERED: LIDOCAINE 2% 5 ML SDV ONE (18:17)
--- NOTE | 2018-09-13 18:19 | SOAPPROG ---
SOAP Progress Note Assessment/Plan: Assessment: HPI: This is a 27 year old male now POD#0 from right thumb felon I&D and right thumb distal phalanx partial excision for osteomyelitis on 09/13/18. PE: Gen: NAD AVSS RUE: Dressing CDI +EPL, FPL, FDS, FDP, FDP-I, DI, PI +M/R/U SILT 2+ DP and PT pulses Assessment and Plan This is a 27 year old male now POD#0 from right thumb felon I&D and right thumb distal phalanx partial excision for osteomyelitis on 09/13/18. -The patient will be admitted to the hospitalist service (Dr. Miles) and infectious disease will be consulted for long-term IV antibiotic recommendations -Leave current dressing intact -Keep the right hand clean and dry -Hand team to remove dressing and packing strips and possibly exchange packing strips in roughly two days 09/13/18 18:17 Objective: Vital Signs Temp Pulse Resp BP Pulse Ox 36.6 C 80 16 150/60 H 95 09/13/18 16:56 09/13/18 16:56 09/13/18 16:56 09/13/18 16:56 09/13/18 16:56 09/12/18 09/13/18 09/14/18 05:59 05:59 05:59 Intake Total 100 Balance 100 ICD10 Worksheet Patient Problems: Problems Problem Status Onset Infected hand Acute Cellulitis of right hand Acute
[2018-09-13] MEDS ORDERED: HYDROCODONE/APAP 5/325 TAB PO PRN ×2 (18:28→18:36)
[2018-09-13] MEDS ORDERED: oxyCODONE IR 5 MG TAB PO PRN (18:36)
[2018-09-13] MEDS ORDERED: LABETALOL HCL 5 MG/ML 20 ML MDV IVP PRN (18:36)
[2018-09-13] MEDS ORDERED: DIAZEPAM 5 MG/ML 1 ML SYR IVP PRN (18:36)
[2018-09-13] MEDS ORDERED: HYDROmorphONE/DILAUDID 2 MG/ML INJ IVP PRN (18:36)
[2018-09-13] MEDS ORDERED: ALBUTEROL 3 ML DEYVIAL IH PRN (18:36)
[2018-09-13] MEDS ORDERED: NALOXONE HCL 0.4 MG/ML INJ IVP PRN (18:36)
[2018-09-13] MEDS ORDERED: PROMETHAZINE HCL 25 MG/ML INJ IVP PRN (18:36)
[2018-09-13] MEDS ORDERED: fentaNYL 100 MCG/2 ML INJ ONE (18:37)
[2018-09-13] MEDS: fentaNYL 100 MCG/2 ML INJ IVP PRN ×2 (18:44→18:58)
[2018-09-13] MEDS ORDERED: HYDROCODONE/APAP 5/325 TAB ONE (19:11)
[2018-09-13] MEDS ORDERED: VANCOMYCIN 2 GM in D5W 500 ML IV ONE (20:30)
--- NOTE | 2018-09-13 20:59 | GHP ---
[f rep st] HISTORY AND PHYSICAL DATE OF ADMISSION: 09/13/2018 CHIEF COMPLAINT: Right thumb osteomyelitis. HISTORY OF PRESENT ILLNESS: This is a 27-year-old male with a history of IV drug use, right 3rd finger septic arthritis/tenosynovitis/abscess (MRSA) who presents to the ER for medical clearance for long term in police custody. 8 days ago he was holding a tarp over him and his girlfriend when sleeping outside to keep the rain off them. His hand was sticking out of the edge of the tarp and he got frostbite injury to the distal part of his thumb. He said it was black and then developed milky purulence. Endorses chills. No fevers. Mild nausea. No vomiting or diarrhea. Says he last used IV drugs months ago. He was evaluated by Dr. Carney and went to the OR. Status post right thumb felon incision and drainage and right thumb distal phalanx partial excision for osteomyelitis. Has a history of MRSA and Streptococcus. REVIEW OF SYSTEMS: I completed a 10-point review of systems, negative except as noted in HPI. PAST MEDICAL HISTORY: Right 3rd finger septic arthritis/abscess/tenosynovitis, left AWOL previously. Tobacco dependence. PAST SURGICAL HISTORY: On his right leg, right hand. SOCIAL HISTORY: He is homeless. History of IV drug use. At least a pack of cigarettes a day. No alcohol. FAMILY HISTORY: Noncontributory. HOME MEDICATIONS: Albuterol, vitamin C, multivitamin. ALLERGIES: Procaine. PHYSICAL EXAMINATION: VITAL SIGNS: Temperature 36.5, blood pressure 147/85, heart rate is in the 70s, respirations 16, 93% on room air. GENERAL: He is sitting in bed, no acute distress. HEENT: PERRLA. Moist mucous membranes. CV : Regular rate and rhythm. LUNGS: Diminished, a few expiratory wheezes. ABDOMEN: Soft, nontender, nondistended. Positive bowel sounds. : _. MUSCULOSKELETAL: Right thumb, hand dressed. No streaking up the forearm. NEURO: II-XII intact. PSYCHIATRIC: Alert and oriented x3. LABORATORIES: WBCs 5, hemoglobin 14, hematocrit 43, platelets 236. Sodium 136 , potassium 3.8, chloride 104, carbon dioxide 25, creatinine 0.7, glucose 95, calcium 8.8. Wound cultures pending. X-ray, 09/13/2018: Development of focal erosion, distal tuft of right thumb, possibly osteomyelitis. ASSESSMENT AND PLAN: 1. Right thumb distal phalanx osteomyelitis: s/p I&D right thumb felon and partial excision of right thumb distal phalanx by Dr. Carney this evening. Keep dressing in place. Hand Surgery will replace in 2 days. Pain control with Toradol, [place]. h/o MRSA, Strep. IV vancomycin until cultures resulted. Infectious Disease consult. It may be difficult to treat since he has left AWOL on prior occasions. 3. History of IV drug abuse: Denies recently. Social history will be released to long term after hospitalization is complete. 4. Tobacco dependence. Nicotine patch. 5. Asthma. Albuterol inhaler. 6. Diet, regular. 7. Deep vein thrombosis prophylaxis: ambulatory AMBULATORY DISPOSITION: Inpatient admission for IV antibiotics, Infectious Disease consultation. /[id number]/MODL MTDD
[2018-09-13] MEDS: KETOROLAC 30 MG/1 ML SDV IVP PRN (22:46)
[2018-09-13] MEDS ORDERED: ceFAZolin 2 GM/DEXTROSE 100 ML IV SCH (23:00)
[2018-09-13] MEDS: HYDROmorphONE/DILAUDID 1 MG/ML INJ IVP PRN (23:49)
[2018-09-14] MEDS: NICOTINE 21 MG/24 HR PATCH TD SCH ×2 (02:41→08:14)
--- NOTE | 2018-09-14 05:36 | GCON ---
[f rep st] CONSULTATION Patient Name: JERZY JIMÉNEZ N-Number: [id number] Date of : 1990 Patient Status: Inpatient Attending Doctor: Roselia Miles MD Consulting Doctor: Kumar Carney MD Date of service: 09/13/18 CPT codes: CPT code 14383 ER visit requiring admission or initial inpatient visit, level three Modifier 57 Decision for surgery CHIEF COMPLAINT: Right thumb pain and swelling HISTORY OF PRESENT ILLNESS: This is a 27 year old male with a significant history for: -IVDU -10/24/17 right long finger MCP joint irrigation and debridement (Dr. Deleon) -05/15/18 right long finger MCP joint irrigation and debridement (Dr. Monzon) for recurrent infection -08/28/18 initial visit to the [facility] ED for right thumb swelling and pain given instructions for outpatient follow-up -09/13/18 re-evaluated at the [facility] ED due to persistent right thumb swelling and pain with evidence of purulent drainage from right thumb PROBLEM LIST: IVDU, right long finger MCP joint infection (recurrent), right thumb infection PAST MEDICAL HISTORY: IVDU, right long finger MCP joint infection (recurrent), right thumb infection SURGERIES: Right long finger MCP joint irrigation and debridement SOCIAL HISTORY: IVDU, homelessness FAMILY HISTORY: Non-contributory CURRENT MEDICATIONS: None ALLERGIES: NKDA REVIEW OF SYSTEMS Constitutional: No unexpected weight loss, weight gain, fevers, chills, or fatigue. Eyes: No blurred or double vision, no eye pain, redness or swelling. ENT: No headaches, difficulty swallowing, nose bleeds, tinnitus, or earaches. Cardiovascular: No chest pain, palpitations, fainting or murmurs. Respiratory: No shortness of breath, wheezing, cough, of difficulty breathing. GI: No reflux, no nausea or vomiting, no constipation, diarrhea, or bloody stools. Genitourinary: No urinary frequency or urgency, no pain with urination. Skin: No skin changes, rashes, itching, or redness. Neurologic: No unsteadiness of gait, no dizziness, tremors, or seizures. Psychiatric: No nervousness, anxiety, depression, or hallucinations. Hematologic: No increased bleeding or easy bruising. Endocrine: No excessive thirst or urination and no heat or cold intolerances. Allergic: No reactions to food or environment. Musculoskeletal: See history of present illness. PHYSICAL EXAM General: No apparent distress. Orientation: Alert and oriented times three Mood and affect: Calm, appropriate. Gait and station: Normal gait and station. Skin: Warm, dry. Lymph: Non tender neck, axillary and inguinal nodes. Chest: Equal expansion, no pain with deep breaths, speaks in coherent sentences. Cardiovascular: Regular pulse. Abdomen: Soft, non-tender, no masses, no palpable hernias. Bilateral thumb examination Inspection/palpation: Right: 2mm by 2mm puncture wound along the tip of the right thumb distal phalanx with purulent drainage, moderate enlargement of right thumb pulp space, no TTP overlying the flexor sheath proximally Left: Soft, no tenderness to palpation. Thumb ROM CMC Radial abduction: 80 / 80 / 80 Palmar abduction: 80 / 80 / 80 MCP: 0-60 / 0-60 / 0-60 IP: 0-30 / 0-50 / 0-50 Thumb motors FPL: 3 / 5 / 5 EPL: 3 / 5 / 5 Thumb sensory RDN: + / + / + UDN: + / + / + Vascular exam (R / L / Normal) Radial pulse: 2+ / 2+ / 2+ Ulnar pulse: 2+ / 2+ / 2+ Medical decision making Data Imaging study: right thumb radiographs, three views Action: interpreted Interpretation / pertinent findings: erosion along the right thumb distal phalanx tuft c/w possible chronic osteomyelitis Diagnoses New diagnosis: right thumb felon with probable chronic osteomyelitis of the distal phalanx Work-up planned: yes: see assessment and plan Assessment and plan This is a 27 year old male with a significant history for IVDU and a right thumb felon with probable associated chronic osteomyelitis -As such I have discussed with the patient the risks, benefits, alternatives, and complications associated with both non-operative (specifically, observation , antibiotics) and operative (specifically, right thumb irrigation and debridement) forms of treatment and I am recommending emergent operative intervention -The patient fully understands the risks, benefits, alternatives, and complications of both forms of treatment and the patient wishes to proceed with operative intervention as outlined above - He has signed the informed consent form for surgery and surgery will be performed as soon as the OR is available Time I have spent 80 minutes of [id number] time with the patient during this visit. Over fifty percent of this time was spent counseling the patient on the risks, benefits, alternatives, and complications of both non-operative and operative forms of treatment as outlined above. /[id number]/MODL MTDD
--- NOTE | 2018-09-14 05:46 | GOP ---
[f rep st] OPERATIVE REPORT PATIENT: JERZY JIMÉNEZ DATE OF SERVICE: 09/13/18 PATIENT DATE OF : 1990 SURGEON: Kumar Carney M.D. SECURITY GUARD: Alessia ANESTHESIA: General anesthesia PRE-OPERATIVE DIAGNOSES: Right thumb felon (ICD-10 code L02.519 -- Cutaneous abscess of hand) Right thumb distal phalanx osteomyelitis (ICD-10 code M86.241 right hand osteomyelitis) Right thumb laceration without damage to nail (ICD-10 code S61.011S right thumb laceration, sequela) POST-OPERATIVE DIAGNOSES: Right thumb felon (ICD-10 code L02.519 -- Cutaneous abscess of hand) Right thumb distal phalanx osteomyelitis (ICD-10 code M86.241 right hand osteomyelitis) Right thumb laceration without damage to nail (ICD-10 code S61.011S right thumb laceration, sequela) OPERATIVE PROCEDURES: CPT code 69293 - Right thumb felon incision and drainage CPT code 64081 Right thumb distal phalanx partial excision for osteomyelitis CPT code 14995 Debridement of bone, first 20 square cm or less CPT code 16740 Right thumb laceration repair, 2.5cm or less CPT code 02560 Fluoroscopy by surgeon, up to one hour EBL: 0.2cc COMPLICATIONS: None TOURNIQUET TIME: 43 minutes at 250 mmHg IMPLANTS: Two inch Nu-gauze iodoform packing strips BRIEF CLINICAL NOTE: This is a 27 year old male IVDU with a right thumb distal phalanx laceration with subsequent felon and probable chronic right thumb distal phalanx osteomyelitis. As such, I discussed the risks, benefits, alternatives, and complications associated with both non-operative (specifically , observation, antibiotics) and operative (specifically, right thumb irrigation and debridement) forms of treatment. The patient fully understood the risks, benefits, alternatives, and complications associated with both forms of treatment and wished to proceed with operative intervention as outlined above. The patient signed the informed consent form for surgery. OPERATIVE NOTE: On the day of surgery, all of the patients questions were answered. The patient was then transferred from the pre-operative area into the operating room and a formal, Time-Out procedure was performed. The patient was identified by name, medical record number, social security number, and date of . In addition, the patients right upper extremity was identified as the correct portion of the patients body for surgery with the patients right thumb being identified as the correct portion of that extremity for surgery. The brachium was padded with webril and an 18-inch tourniquet was applied. The extremity was then prepped and draped in the normal sterile fashion. A sterile marking pen was utilized to soo out a transverse mid-axial incision extending from a puncture wound along the tip of the distal phalanx radially. The extremity was then elevated for several minutes and the tourniquet was inflated to 250mm Hg. A number 15 blade was then utilized to incise the skin overlying and a full thickness skin flap was elevated and retract proximally. A large felon (abscess ) was encountered within the pulp space of the distal phalanx. All septa of the pulp space were incised to completely decompress the felon. Swab and tissue cultures were obtained and sent to the laboratory for microbiologic examination. The anesthesia team then administered intravenous antibiotics. The abscess cavity was further explored and found to communicate directly with the right thumb distal phalanx. The distal phalanx demonstrated clear evidence of osteomyelitis. The affected portion of the distal phalanx was excised. PA and lateral C-arm fluoroscopic images demonstrated appropriate contouring of the remaining distal phalanx. The entire wound including skin, pulp space, and the distal phalanx was then sharply surgically debrided and copiously irrigated with sterile normal saline mixed with bacitracin and polymixin. Two inch Nu-gauze iodoform packing strips were then inserted into the pulp space. The skin and the original laceration were re-approximated with 4-0 nylon sutures. The hand, fingers, and thumb were then cleaned with sterile normal saline and dried. Betadine soaked gauze was then applied to the incision and laceration followed by a dry sterile dressing and a compressive Coban wrap. Once the dressing was completely in place, the tourniquet was deflated. After complete deflation of the tourniquet, all fingers and the thumb demonstrated brisk capillary refill. The patient was then reversed from anesthesia and transferred from the operating room table onto the post- operative gurney and transferred from the operating room to the post-anesthesia care unit in stable condition. POST-OPERATIVE PLAN: The patient will remain in the current dressing with the packing strips in place for the next two days. The patient will be admitted to the hospitalist team and the infectious disease team will be consulted for recommendations on long-term intravenous antibiotics. /[id number]/MODL MTDD
[2018-09-14] MEDS: KETOROLAC 30 MG/1 ML SDV IVP PRN ×2 (08:12→13:59)
[2018-09-14] MEDS: ASCORBIC ACID 500 MG TAB PO SCH (08:13)
[2018-09-14] MEDS: HYDROCODONE/APAP 5/325 TAB PO PRN ×3 (08:13→14:11)
[2018-09-14] MEDS: ALBUTEROL 60 PUFFS/8 GM MDI IH PRN ×3 (09:31→19:52)
[2018-09-14] MEDS: IRON PO SCH (09:46)
[2018-09-14] MEDS: FOLIC PO SCH (09:46)
[2018-09-14] MEDS: VIT K1 PO SCH (09:46)
[2018-09-14] MEDS: MULTIVIT MIN PO SCH (09:46)
--- NOTE | 2018-09-14 13:14 | PCMIDPN ---
Assessment/Plan: Assessment: Right thumb abscess with distal phalanx osteomyelitis. Status post debridement. G stain showing GPCs in chains. Recent prior infection in the same hand with group a strep. Will use cefazolin as opposed to vancomycin. Patient with some clinical complaints of double vision and feeling poorly with low amounts of urination. Will recheck his CBC and metabolic panel. Plan: 1. Discontinue vancomycin. 2. Start cefazolin 2 g IV q.8 hours. 3. Repeat standard labs-CBC and comprehensive metabolic panel today. Subjective: Patient is resting in his hospital bed. His tray of food arrived as I did. He is hungry however he has complaints of dizziness and double vision. He states that he urinated earlier this morning but was only a very small amount which surprised him. Objective: Vancomycin # 1 Vital Signs Temp Pulse Resp BP Pulse Ox 37.1 C 57 L 18 131/65 H 94 09/14/18 11:39 09/14/18 11:39 09/14/18 11:39 09/14/18 11:39 09/14/18 11:39 Microbiology 09/13/18 17:24 Gram Stain - Final Finger - Tissue 09/13/18 17:24 Gram Stain - Final Finger - Eswab 09/13/18 09/14/18 09/15/18 05:59 05:59 05:59 Intake Total 2120 1050 Output Total 10 400 Balance 2110 650 - Physical Exam General Appearance: WD/WN, alert, no apparent distress, non-toxic Respiratory: lungs clear, normal breath sounds, No respiratory distress Cardiac/Chest: regular rate, rhythm, No tachycardia Extremities: non-tender, No normal inspection (Right upper extremity with a hand wrapped postoperatively. No strike through the dressing. No proximal erythema.), No erythema Skin: normal color, warm/dry, No rash Neuro/Psych: alert, normal mood/affect, oriented x 3 ICD10 Worksheet Patient Problems: Problems Problem Status Onset Infected hand Acute Cellulitis of right hand Acute
[2018-09-14 13:54] LABS: PLATELET COUNT 215 10^3/uL (150-400)
[2018-09-14] MEDS: ceFAZolin 2 GM/DEXTROSE 100 ML IV SCH ×2 (13:59→21:52)
--- NOTE | 2018-09-14 14:31 | HOSPPROG ---
Hospitalist Progress Note Assessment/Plan: Right thumb distal phalynx osteomyelitis - s/p operative debridement by hand surgery, POD #1. GS with GPC chains, Cx pending. Discussed with Dr. Ruiz. 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 [place] vision was a little blurry earlier, now normal. No fevers/chills. no CP or SOB. Objective: Vital Signs Temp Pulse Resp BP Pulse Ox 37.1 C 57 L 18 131/65 H 94 09/14/18 11:39 09/14/18 11:39 09/14/18 11:39 09/14/18 11:39 09/14/18 11:39 Microbiology 09/13/18 17:24 Gram Stain - Final Finger - Tissue 09/13/18 17:24 Gram Stain - Final Finger - Eswab Laboratory Results 09/14/18 13:35 09/14/18 13:35 09/13/18 09/14/18 09/15/18 05:59 05:59 05:59 Intake Total 2120 1650 Output Total 10 400 Balance 2110 1250 - Physical Exam Constitutional: no apparent distress Eyes: PERRL Ears, Nose, Mouth, Throat: moist mucous membranes Cardiovascular: regular rate and rhythym Respiratory: no respiratory distress, clear to auscultation Gastrointestinal: normoactive bowel sounds, soft, non-tender abdomen Skin: warm Musculoskeletal: full muscle strength, other (right thumb bandage c/d/i) Neurologic: AAOx3 Psychiatric: interacting appropriately ICD10 Worksheet Patient Problems: Problems Problem Status Onset Infected hand Acute Cellulitis of right hand Acute
--- NOTE | 2018-09-14 14:55 | ASMTCMCOM ---
CM Note CM Note Notes: Patient well known to [facility], admitted for R thumb infection, s/p I&D. Patient is currently on IV antibiotics. He has a hx of substance abuse and homelessness. He admits to us from the [facility]. Will need to contact the [facility] medical team when d/c is confirmed at #[phone]. CM will follow. Plan: Likely return to [facility]. Date Signed: 09/14/2018 02:54 PM Electronically Signed By:Jayde Huston RN
[2018-09-14] MEDS: oxyCODONE IR 5 MG TAB PO PRN ×2 (16:05→20:01)
--- NOTE | 2018-09-14 17:00 | PDMN ---
Medical Necessity Medical necessity: Change to inpt as of 09/14/18 @ 1551, meets inpt criteria per MD order and MCG M-600, Osteomyelitis, 3 days. 27 y/o w/hx IV drug use w/ reported recent frostbite to distal part of thumb admitted w/R thumb dital phalanx osteomyelitis requiring surg intervention: R thumb felon I&D and R thumb distal phalanx partial excision for chronic osteomyelitis. IV ABX's, bl cx 's pending, IV Toradol and PO meds for pain, ID consult. Anticioate>2MN for ongoing management of above.
[2018-09-14 19:53] LABS: HEPATITIS A ANTIBODY IGM (BCH) NEGATIVE (NEGATIVE); HEPATITIS B CORE AB IGM NEGATIVE (NEGATIVE); HEPATITIS B SURFACE ANTIGEN NEGATIVE (NEGATIVE); HEPATITIS C ANTIBODY TOTAL REACTIVE (NEGATIVE)
[2018-09-15] MEDS: oxyCODONE IR 5 MG TAB PO PRN ×5 (01:56→19:18)
[2018-09-15] MEDS: ceFAZolin 2 GM/DEXTROSE 100 ML IV SCH (06:05)
[2018-09-15] MEDS: MULTIVIT MIN PO SCH (09:48)
[2018-09-15] MEDS: IRON PO SCH (09:48)
[2018-09-15] MEDS: ASCORBIC ACID 500 MG TAB PO SCH (09:48)
[2018-09-15] MEDS: FOLIC PO SCH (09:48)
[2018-09-15] MEDS: VIT K1 PO SCH (09:48)
[2018-09-15] MEDS: NICOTINE 21 MG/24 HR PATCH TD SCH (09:48)
[2018-09-15] MEDS: ALBUTEROL 60 PUFFS/8 GM MDI IH PRN ×2 (09:53→19:17)
[2018-09-15] MEDS: KETOROLAC 30 MG/1 ML SDV IVP PRN ×2 (10:03→16:52)
[2018-09-15] MEDS ORDERED: LACTULOSE 20 GM/30 ML UDCUP PO PRN (11:24)
[2018-09-15] MEDS ORDERED: MAGNESIUM HYDROXIDE 30 ML UDCUP PO PRN (11:24)
[2018-09-15] MEDS ORDERED: BISACODYL 10 MG SUPP PR PRN (11:24)
[2018-09-15] MEDS: POLYETHYLENE GLYCOL 3350 17 GM PKT PO SCH (12:52)
[2018-09-15] MEDS: SENNOSIDES/DOCUSATE SODIUM TAB PO SCH ×2 (12:52→20:51)
--- NOTE | 2018-09-15 13:35 | PCMIDPN ---
Assessment/Plan: Assessment/Plan: * Right thumb felon/osteomyelitis distal phalanx status post incision and drainage and partial excision of distal phalanx: Cultures with growth of group A Streptococcus and Staphylococcus aureus. Prior history of MRSA. Will change cefazolin to daptomycin given prior history of MRSA as both pathogens could be contributing to current findings. Duration of therapy will be based on clinical course with need to complete therapy with oral antibiotics based on prior history of noncompliance with attempted outpatient IV antibiotics. Potential regimen will include amoxicillin and doxycycline provided MRSA remains tetracyclines susceptible. * Positive hepatitis C antibody: Previously had been negative. Likely represents infection in interim since negative antibody testing. Will obtain hepatitis C RNA for confirmatory testing. 09/15/18 13:31 Subjective: Patient with persistent right thumb pain. Operative findings noted. Objective: Vital Signs Temp Pulse Resp BP Pulse Ox 36.8 C 59 L 18 151/75 H 92 09/15/18 11:45 09/15/18 11:45 09/15/18 11:45 09/15/18 11:45 09/15/18 11:45 09/14/18 09/15/18 09/16/18 05:59 05:59 05:59 Intake Total 2900 174 Output Total 1050 Balance 1850 174 Cefazolin # 1 Thumb cultures with group A Streptococcus, Staphylococcus aureus - Physical Exam General Appearance: alert, no apparent distress EENT: No scleral icterus, No conjunctival petechiae Respiratory: lungs clear, No respiratory distress Cardiac/Chest: regular rate, rhythm Extremities: inflammation (Right hand dressed postoperatively; previous incision at base of right 3rd digit well-healed) Abdomen: non-tender, No distended ICD10 Worksheet Patient Problems: Problems Problem Status Onset Infected hand Acute Cellulitis of right hand Acute
[2018-09-15] MEDS: DAPTOmycin 600 MG in NS 100 ML IV SCH (15:01)
--- NOTE | 2018-09-15 15:27 | HOSPPROG ---
Hospitalist Progress Note Assessment/Plan: Right thumb distal phalanx osteomyelitis -s/p operative debridement by hand surgery, POD #2. - cultures w growth of group A Streptococcus and Staph aureus - was on Cefazolin but was changed to daptomycin w hx of MRSA *positive hepatitis C antibody -to get hepatitis RNA per ID *Transaminitis - neg hepatitis panel in 05/2018 *H/O IVDA - neg HIV and hep C + antibody on this admission *Tobacco use - NicoDerm prn DVT PPLX - low risk, SCD's *plan: nursing staff said Lizabeth has significant anxiety issues, will see if Maggie Allen can see during his hospital stay Subjective: Lizabeth said his hand is hurting. Objective: Vital Signs Temp Pulse Resp BP Pulse Ox 36.8 C 59 L 18 151/75 H 92 09/15/18 11:45 09/15/18 11:45 09/15/18 11:45 09/15/18 11:45 09/15/18 11:45 09/14/18 09/15/18 09/16/18 05:59 05:59 05:59 Intake Total 2900 174 Output Total 1050 Balance 1850 174 - Physical Exam Constitutional: uncomfortable, No not in pain Eyes: PERRL Ears, Nose, Mouth, Throat: hearing normal Cardiovascular: regular rate and rhythym Respiratory: no respiratory distress Gastrointestinal: normoactive bowel sounds Skin: warm, other (right thumb area in a cast, some swelling noted in his other fingers) Neurologic: AAOx3 Psychiatric: interacting appropriately, anxious ICD10 Worksheet Patient Problems: Problems Problem Status Onset Infected hand Acute Cellulitis of right hand Acute
[2018-09-15] MEDS: HYDROmorphONE/DILAUDID 1 MG/ML INJ IVP PRN ×3 (16:21→20:51)
--- NOTE | 2018-09-15 17:14 | SOAPPROG ---
SOAP Progress Note Assessment/Plan: Assessment: HPI: This is a 27 year old male now POD#2 from right thumb felon I&D and right thumb distal phalanx partial excision for osteomyelitis on 09/13/18. He reports some pain over his right thumb. PE: Gen: NAD AVSS RUE: Well approximated incision over tip of distal phalanx with two packing strips intact. Mild amount of expressible bloody fluid. Surrounding erythema over distal phalanx. +EPL, FPL, FDS, FDP, FDP-I, DI, PI +M/R/U SILT 2+ DP and PT pulses Assessment and Plan This is a 27 year old male now POD#2 from right thumb felon I&D and right thumb distal phalanx partial excision for osteomyelitis on 09/13/18. -Removed post op dressing and packing strips. Applied two new packing strips, Betadine, and a DSD. Keep dressing intact. Keep right hand clean and dry. -Appreciate medical management per hospitalist service -Continue antibiotics per ABIMAEL Thomason PA-C 09/15/18 17:10 Objective: Vital Signs Temp Pulse Resp BP Pulse Ox 36.9 C 64 12 119/51 L 93 09/15/18 15:46 09/15/18 15:46 09/15/18 15:46 09/15/18 15:46 09/15/18 15:46 09/14/18 09/15/18 09/16/18 05:59 05:59 05:59 Intake Total 2900 174 Output Total 1050 Balance 1850 174 ICD10 Worksheet Patient Problems: Problems Problem Status Onset Infected hand Acute Cellulitis of right hand Acute
[2018-09-15] MEDS ORDERED: HYDROmorphONE/DILAUDID 1 MG/ML INJ IVP ONE (17:15)
[2018-09-15] MEDS ORDERED: SENNOSIDES/DOCUSATE SODIUM TAB PO SCH (21:00)
[2018-09-16] MEDS: oxyCODONE IR 5 MG TAB PO PRN ×4 (07:02→20:49)
[2018-09-16] MEDS: NICOTINE 21 MG/24 HR PATCH TD SCH (10:31)
[2018-09-16] MEDS: DAPTOmycin 600 MG in NS 100 ML IV SCH (10:31)
[2018-09-16] MEDS: SENNOSIDES/DOCUSATE SODIUM TAB PO SCH ×2 (10:31→20:49)
[2018-09-16] MEDS: POLYETHYLENE GLYCOL 3350 17 GM PKT PO SCH ×2 (10:31→10:34)
[2018-09-16] MEDS: ASCORBIC ACID 500 MG TAB PO SCH (10:31)
[2018-09-16] MEDS: VIT K1 PO SCH (10:32)
[2018-09-16] MEDS: FOLIC PO SCH (10:32)
[2018-09-16] MEDS: MULTIVIT MIN PO SCH (10:32)
[2018-09-16] MEDS: IRON PO SCH (10:32)
--- NOTE | 2018-09-16 12:06 | PCMIDPN ---
Assessment/Plan: Assessment/Plan: * Right thumb felon/osteomyelitis distal phalanx status post incision and drainage and partial excision of distal phalanx: Cultures with growth of group A Streptococcus and MRSA. Continue daptomycin pending additional clinical improvement in thumb. Will try to coordinate with Orthopedic surgery when next dressing change is performed for further assessment of thumb. Given prior history of noncompliance, anticipate transition to amoxicillin and doxycycline at time of discharge provided MRSA isolate remains doxycycline susceptible. Side effects of daptomycin including potential for myositis and hypersensitivity pneumonitis discussed. Baseline CPK ordered. * Positive hepatitis C antibody: Previously had been negative. Await hepatitis C RNA for confirmation of positivity. 09/16/18 12:01 09/16/18 12:07 Subjective: Patient complains of right thumb pain, most notably with dressing change last p.m.. No diffuse myalgia or cough. Objective: Vital Signs Temp Pulse Resp BP Pulse Ox 36.8 C 59 L 17 144/77 H 94 09/16/18 11:29 09/16/18 11:29 09/16/18 11:29 09/16/18 11:29 09/16/18 11:29 09/15/18 09/16/18 09/17/18 05:59 05:59 05:59 Intake Total 2900 174 Output Total 1050 Balance 1850 174 Daptomycin # 2 Thumb cultures MRSA, group A Streptococcus - Physical Exam General Appearance: alert, no apparent distress EENT: No scleral icterus, No thrush Respiratory: lungs clear, No respiratory distress Cardiac/Chest: regular rate, rhythm Extremities: inflammation (Right thumb dressed with decreased range of motion present; improved range of motion of other digits but still incomplete ability to fully flex; mild tenderness at base of thumb) ICD10 Worksheet Patient Problems: Problems Problem Status Onset Infected hand Acute Cellulitis of right hand Acute
[2018-09-16] MEDS: KETOROLAC 30 MG/1 ML SDV IVP PRN ×2 (14:22→20:56)
--- NOTE | 2018-09-16 14:58 | HOSPPROG ---
Hospitalist Progress Note Assessment/Plan: Right thumb distal phalanx osteomyelitis -s/p operative debridement by hand surgery, POD #3. - cultures w growth of group A Streptococcus and Staph aureus - was on Cefazolin but was changed to daptomycin + MRSA *positive hepatitis C antibody - hepatitis RNA per ID *Transaminitis - neg hepatitis panel in 05/2018 *H/O IVDA - neg HIV and hep C + antibody on this admission *Tobacco use - NicoDerm prn DVT PPLX - low risk, SCD's *plan: continued IV abx, Maggie Allen to see tomorrow Subjective: Lizabeth says his thumb hurts. Objective: Vital Signs Temp Pulse Resp BP Pulse Ox 36.8 C 59 L 17 144/77 H 94 09/16/18 11:29 09/16/18 11:29 09/16/18 11:29 09/16/18 11:29 09/16/18 11:29 09/15/18 09/16/18 09/17/18 05:59 05:59 05:59 Intake Total 2900 174 Output Total 1050 Balance 1850 174 - Physical Exam Constitutional: no apparent distress, appears nourished, uncomfortable Eyes: PERRL Ears, Nose, Mouth, Throat: hearing normal Cardiovascular: regular rate and rhythym Respiratory: no respiratory distress Skin: warm Musculoskeletal: full muscle strength Neurologic: AAOx3 Psychiatric: interacting appropriately ICD10 Worksheet Patient Problems: Problems Problem Status Onset Infected hand Acute Cellulitis of right hand Acute
[2018-09-16] MEDS: ALBUTEROL 60 PUFFS/8 GM MDI IH PRN (17:45)
[2018-09-16 18:18] LABS: CREATINE KINASE 61 IU/L (0-224)
[2018-09-17] MEDS: oxyCODONE IR 5 MG TAB PO PRN ×6 (01:55→22:27)
[2018-09-17] MEDS: KETOROLAC 30 MG/1 ML SDV IVP PRN ×2 (01:56→14:50)
[2018-09-17] MEDS: ALBUTEROL 60 PUFFS/8 GM MDI IH PRN (01:58)
[2018-09-17] MEDS: MULTIVITAMINS 1 EACH TAB PO SCH (09:26)
[2018-09-17] MEDS: SENNOSIDES/DOCUSATE SODIUM TAB PO SCH ×2 (09:26→20:48)
[2018-09-17] MEDS: DAPTOmycin 600 MG in NS 100 ML IV SCH (09:26)
[2018-09-17] MEDS: NICOTINE 21 MG/24 HR PATCH TD SCH (09:26)
[2018-09-17] MEDS: ASCORBIC ACID 500 MG TAB PO SCH (09:26)
[2018-09-17] MEDS: POLYETHYLENE GLYCOL 3350 17 GM PKT PO SCH (09:26)
--- NOTE | 2018-09-17 13:47 | PCMIDPN ---
Assessment/Plan: Assessment: 27-year-old man with acute right thumb cellulitis with deep soft tissue infection and probable acute osteomyelitis of the distal phalanx. 1. Right thumb cellulitis with probable acute osteomyelitis of the distal phalanx; status post debridement 09/13/2018 2. Hepatitis C virus infection; likely chronic 3. History of right dorsal hand infection with scarring Plan: 1. Continue daptomycin 2. Can discharge on doxycycline 100 mg p.o. Twice daily and amoxicillin 500 mg p.o. Three times daily 3. Reviewed in detail potential side effects of daptomycin to include: allergy, rash, nausea, antibiotic-associated diarrhea, Clostridioides difficile colitis, myopathy/myositis, eosinophilic pneumonitis, eosinophilia. 4. Will need follow-up to treat hepatitis C virus infection 5. Serologies for hepatitis B surface antibody and hepatitis a IgG to determine if he should be vaccinated for these two viruses Michael Walters MD Infectious Diseases 09/17/18 13:51 Subjective: No fever or chills. Denies diarrhea, nausea, rash. Appetite normal. Pain right thumb improving. No myalgias. Objective: Vital Signs Temp Pulse Resp BP Pulse Ox 36.8 C 63 18 153/78 H 90 L 09/17/18 09:32 09/17/18 09:32 09/17/18 09:32 09/17/18 09:32 09/17/18 09:32 09/16/18 09/17/18 09/18/18 05:59 05:59 05:59 Intake Total 174 1500 Balance 174 1500 Medications Generic Name Dose Route Start Last Admin Trade Name Freq PRN Reason Stop Dose Admin Daptomycin 600 mg/ Sodium 112 mls @ 200 mls/hr 09/15/18 13:30 09/17/18 09:26 Chloride IV 10/15/18 13:29 112 mls DAILY MARJORIE Protocol Microbiology 09/13/18 17:24 Finger - Tissue Gram Stain - Final 09/13/18 17:24 Finger - Eswab Gram Stain - Final 09/13/18 17:24 Finger - Tissue Anaerobic Culture - Preliminary MRSA Streptococcus Pyogenes Grp A 09/13/18 17:24 Finger - Eswab Anaerobic Culture - Preliminary Streptococcus Pyogenes Grp A MRSA Laboratory Tests 09/13/18 09/14/18 09/14/18 15:23 13:35 13:35 WBC 5.36 5.20 Hgb 14.1 13.1 L Hct 43.1 39.6 L Plt Count 236 215 AST 130 H ALT 199 H HCV RNA (PCR) IUs/ml HCV RNA PCR log IUs/ml 09/14/18 13:35 WBC Hgb Hct Plt Count AST ALT HCV RNA (PCR) IUs/ml [id number] H HCV RNA PCR log IUs/ml 5.49 H Laboratory Tests 05/22/18 05/22/18 10:30 10:30 Hepatitis A Ab Total NEGATIVE Hep Bs Antibody Negative Hep Bs Antibody, Quant <5.0 HIV 1&2 Antibody NEGATIVE - Physical Exam General Appearance: no apparent distress, non-toxic EENT: No scleral icterus Respiratory: No accessory muscle use Neck: full range of motion, supple Extremities: other (Right thumb dressing not taken down; no erythema extending proximally from the thumb) Neuro/Psych: alert, normal mood/affect, oriented x 3, No confused ICD10 Worksheet Patient Problems: Problems Problem Status Onset Infected hand Acute Cellulitis of right hand Acute
--- NOTE | 2018-09-17 14:22 | ASMTCMCOM ---
CM Note CM Note Notes: CM spoke to Alka Ochoa NP regarding d/c POC. Pt will most likely be ready to d/c tomorrow. Pt will be switched over to oral antibiotics. GAURANG spoke to Darell at [facility] (P#: [phone]) and updated them. Darell reports that CM will most likely call the booking line to schedule a metal pickling equipment operator when he is ready (P#: [phone]). CM to follow. Plan: [facility] Date Signed: 09/17/2018 02:18 PM Electronically Signed By:CATHERINE Abraham
--- NOTE | 2018-09-17 15:20 | HOSPPROG ---
Hospitalist Progress Note Assessment/Plan: Right thumb distal phalanx osteomyelitis -s/p operative debridement by hand surgery, POD #3. - cultures w growth of group A Streptococcus and Staph aureus - was on Cefazolin but was changed to daptomycin + MRSA -dc likely tomorrow with oral abx *positive hepatitis C antibody - likely chronic *Transaminitis - neg hepatitis panel in 05/2018 *H/O IVDA - neg HIV and hep C + antibody on this admission *Tobacco use - NicoDerm prn DVT PPLX - low risk, SCD's *plan: likely dc tomorrow back to long-term on oral abx, will dc iv Toradol and start ibuprofen Subjective: Lizabeth said his thumb hurts. Objective: Vital Signs Temp Pulse Resp BP Pulse Ox 36.8 C 63 18 153/78 H 90 L 09/17/18 09:32 09/17/18 09:32 09/17/18 09:32 09/17/18 09:32 09/17/18 09:32 09/16/18 09/17/18 09/18/18 05:59 05:59 05:59 Intake Total 174 1500 Balance 174 1500 - Physical Exam Constitutional: uncomfortable Eyes: PERRL Ears, Nose, Mouth, Throat: hearing normal Cardiovascular: regular rate and rhythym Respiratory: no respiratory distress Skin: warm, other (right thumb w dressing in place) Neurologic: AAOx3 Psychiatric: interacting appropriately ICD10 Worksheet Patient Problems: Problems Problem Status Onset Infected hand Acute Cellulitis of right hand Acute
[2018-09-17] MEDS: HYDROmorphONE/DILAUDID 1 MG/ML INJ IVP PRN (17:18)
--- NOTE | 2018-09-17 17:33 | SOAPPROG ---
SOAP Progress Note Assessment/Plan: Assessment: HPI: This is a 27 year old male now POD#4 from right thumb felon I&D and right thumb distal phalanx partial excision for osteomyelitis on 09/13/18. He reports some pain over his right thumb. PE: Gen: NAD AVSS RUE: Well approximated incision over tip of distal phalanx with two packing strips intact. Mild amount of expressible bloody fluid. Surrounding erythema over distal phalanx. +EPL, FPL, FDS, FDP, FDP-I, DI, PI +M/R/U SILT 2+ DP and PT pulses Assessment and Plan This is a 27 year old male now POD#4 from right thumb felon I&D and right thumb distal phalanx partial excision for osteomyelitis on 09/13/18. -Removed post op dressing and packing strips. Applied two new packing strips, Betadine, and a DSD. Keep dressing intact. Keep right hand clean and dry. -Appreciate medical management per hospitalist service -Continue antibiotics per ABIMAEL Thomason PA-C 09/17/18 17:32 Objective: Vital Signs Temp Pulse Resp BP Pulse Ox 36.9 C 69 14 121/57 H 93 09/17/18 15:37 09/17/18 15:37 09/17/18 15:37 09/17/18 15:37 09/17/18 15:37 09/16/18 09/17/18 09/18/18 05:59 05:59 05:59 Intake Total 174 1500 Balance 174 1500 ICD10 Worksheet Patient Problems: Problems Problem Status Onset Infected hand Acute Cellulitis of right hand Acute
[2018-09-17] MEDS: FAMOTIDINE 20 MG TAB PO PRN (20:48)
[2018-09-17] MEDS: IBUPROFEN 200 MG TAB PO PRN (20:48)
[2018-09-18 04:36] LABS: HEPATITIS A ANTIBODY TOTAL NEGATIVE (NEGATIVE)
[2018-09-18] MEDS: POLYETHYLENE GLYCOL 3350 17 GM PKT PO SCH (09:29)
[2018-09-18] MEDS: NICOTINE 21 MG/24 HR PATCH TD SCH (09:29)
[2018-09-18] MEDS: oxyCODONE IR 5 MG TAB PO PRN ×4 (09:30→23:05)
[2018-09-18] MEDS: DAPTOmycin 600 MG in NS 100 ML IV SCH (09:30)
[2018-09-18] MEDS: ASCORBIC ACID 500 MG TAB PO SCH (09:30)
[2018-09-18] MEDS: MULTIVITAMINS 1 EACH TAB PO SCH (09:30)
[2018-09-18] MEDS: SENNOSIDES/DOCUSATE SODIUM TAB PO SCH ×2 (09:35→23:01)
[2018-09-18] MEDS: ALBUTEROL 60 PUFFS/8 GM MDI IH PRN ×2 (10:14→23:07)
--- NOTE | 2018-09-18 10:18 | ASMTCMCOM ---
CM Note CM Note Notes: Pts case discussed w/ Rekha Ferrara NP. Surgery would like to keep pt until Friday for dressing and packing purposes. CM communicated this w/ [facility] (P#: [phone]). CM spoke to Darell. CM to call booking line to schedule cigar packer and picker when he is medically stable to d/c (P#: [phone]). No other needs at this time. CM to follow. Plan: [facility] Date Signed: 09/18/2018 10:17 AM Electronically Signed By:CATHERINE Abraham
--- NOTE | 2018-09-18 13:05 | HOSPPROG ---
Hospitalist Progress Note Assessment/Plan: 27y male with repeat hand infections. C/O thumb pain. First encounter, chart reviewed. Right thumb distal phalanx osteomyelitis -s/p operative debridement by hand surgery, POD #4. - cultures w growth of group A Streptococcus and Staph aureus - was on Cefazolin but was changed to daptomycin + MRSA - recommendation is to keep in the hospital due to requirement of dressing changes per surgery. - They have recommended continued IV abx due to the extensiveness of his wound. *positive hepatitis C antibody - likely chronic *pain -cont meds *Transaminitis - neg hepatitis panel in 05/2018 *H/O IVDA - neg HIV and hep C + antibody on this admission *Tobacco use - NicoDerm prn DVT PPLX - low risk, SCD's *plan: cont IV abx and dressing changes. return to long-term when able D/W CM and RN Subjective: Still having pain. No other complaints. Objective: Vital Signs Temp Pulse Resp BP Pulse Ox 36.9 C 79 18 135/71 H 91 L 09/18/18 08:00 09/18/18 08:00 09/18/18 08:00 09/18/18 08:00 09/18/18 08:00 09/17/18 09/18/18 09/19/18 05:59 05:59 05:59 Intake Total 1500 1240 Balance 1500 1240 - Physical Exam Constitutional: appears nourished, uncomfortable, No obese Eyes: PERRL, anicteric sclera, EOMI Ears, Nose, Mouth, Throat: moist mucous membranes, hearing normal, ears appear normal Cardiovascular: No JVD, No tachycardia, No edema Respiratory: no respiratory distress, no rales or rhonchi, reduced air movement Gastrointestinal: normoactive bowel sounds, No tenderness, No ascites Skin: warm, normal color, No erythema Musculoskeletal: full muscle strength, joint tenderness, pain with ROM Neurologic: AAOx3 Psychiatric: not anxious, poor insight, poor judgement, poor memory ICD10 Worksheet Patient Problems: Problems Problem Status Onset Cellulitis of right hand Acute Infected hand Acute
[2018-09-18] MEDS: IBUPROFEN 200 MG TAB PO PRN (13:49)
--- NOTE | 2018-09-18 14:51 | PCMIDPN ---
Assessment/Plan: Assessment/Plan: * Right thumb felon/osteomyelitis distal phalanx status post incision and drainage and partial excision of distal phalanx: Cultures with growth of group A Streptococcus and MRSA. Tolerating daptomycin well. Plan continue daptomycin while inpatient. Will try to coordinate evaluation of thumb with next dressing change by Orthopedic surgery. * Positive hepatitis C antibody: Hepatitis-C RNA detectable consistent with chronic hepatitis C infection. Nonimmune to hepatitis A with hepatitis-B surface antibody pending. Await hepatitis-B surface antibody results before proceeding with vaccination with need for hepatitis A vaccination given no protective antibody present. 09/18/18 14:49 Subjective: Patient complains of right thumb pain. Objective: Vital Signs Temp Pulse Resp BP Pulse Ox 36.9 C 79 18 135/71 H 91 L 09/18/18 08:00 09/18/18 08:00 09/18/18 08:00 09/18/18 08:00 09/18/18 08:00 09/17/18 09/18/18 09/19/18 05:59 05:59 05:59 Intake Total 1500 1240 Balance 1500 1240 Daptomycin # 4 Laboratory Tests 09/14/18 09/16/18 09/16/18 13:35 17:45 17:45 Creatine Kinase 61 Hepatitis A Ab Total NEGATIVE Hep Bs Antibody HCV RNA (PCR) IUs/ml [id number] H 09/16/18 17:45 Creatine Kinase Hepatitis A Ab Total Hep Bs Antibody Pending HCV RNA (PCR) IUs/ml - Physical Exam General Appearance: alert, no apparent distress EENT: No scleral icterus, No thrush Respiratory: lungs clear, No respiratory distress Cardiac/Chest: regular rate, rhythm Extremities: other (Right thumb dressed postoperatively; improved range of motion of digits; no palmar erythema or erythema below base of thumb dressing) Abdomen: non-tender ICD10 Worksheet Patient Problems: Problems Problem Status Onset Infected hand Acute Cellulitis of right hand Acute
[2018-09-18] MEDS: FAMOTIDINE 20 MG TAB PO PRN (23:03)
[2018-09-19] MEDS: oxyCODONE IR 5 MG TAB PO PRN ×4 (10:06→23:50)
[2018-09-19] MEDS: DAPTOmycin 600 MG in NS 100 ML IV SCH (10:06)
[2018-09-19] MEDS: NICOTINE 21 MG/24 HR PATCH TD SCH (10:06)
[2018-09-19] MEDS: MULTIVITAMINS 1 EACH TAB PO SCH (10:06)
[2018-09-19] MEDS: SENNOSIDES/DOCUSATE SODIUM TAB PO SCH ×2 (10:07→19:45)
[2018-09-19] MEDS: ASCORBIC ACID 500 MG TAB PO SCH (10:07)
[2018-09-19] MEDS: POLYETHYLENE GLYCOL 3350 17 GM PKT PO SCH (12:33)
--- NOTE | 2018-09-19 12:58 | HOSPPROG ---
Hospitalist Progress Note Assessment/Plan: 27y male with repeat hand infections. C/O thumb pain. *Right thumb distal phalanx osteomyelitis -s/p operative debridement by hand surgery, POD #5 - cultures w growth of group A Streptococcus and Staph aureus - was on Cefazolin but was changed to daptomycin + MRSA - recommendation is to keep in the hospital due to requirement of dressing changes per surgery. - They have recommended continued IV abx due to the extensiveness of his wound. *positive hepatitis C antibody - likely chronic *pain -cont meds *Transaminitis - neg hepatitis panel in 05/2018 *H/O IVDA - neg HIV and hep C + antibody on this admission *Tobacco use - NicoDerm prn DVT PPLX - low risk, SCD's *plan: cont IV abx and dressing changes. return to assisted when able D/W CM and RN Subjective: Sleeping. Objective: Vital Signs Temp Pulse Resp BP Pulse Ox 36.8 C 59 L 16 137/71 H 91 L 09/19/18 10:37 09/19/18 10:37 09/19/18 10:37 09/19/18 10:37 09/19/18 10:37 09/18/18 09/19/18 09/20/18 05:59 05:59 05:59 Intake Total 1240 1800 Balance 1240 1800 - Physical Exam Constitutional: appears nourished, chronically ill appearing Eyes: PERRL, anicteric sclera Ears, Nose, Mouth, Throat: moist mucous membranes, hearing normal Cardiovascular: No JVD, No edema Respiratory: no respiratory distress, reduced air movement Gastrointestinal: No tenderness, No ascites Skin: warm, normal color Musculoskeletal: pain with ROM, generalized weakness Psychiatric: poor insight, poor judgement ICD10 Worksheet Patient Problems: Problems Problem Status Onset Cellulitis of right hand Acute Infected hand Acute
[2018-09-19] MEDS: ACETAMINOPHEN 325 MG TAB PO PRN (15:45)
[2018-09-19] MEDS: HYDROmorphONE/DILAUDID 1 MG/ML INJ IVP PRN (18:17)
[2018-09-19] MEDS: FAMOTIDINE 20 MG TAB PO PRN (19:42)
[2018-09-19] MEDS: ALBUTEROL 60 PUFFS/8 GM MDI IH PRN (19:43)
--- NOTE | 2018-09-19 19:46 | SOAPPROG ---
SOAP Progress Note Assessment/Plan: Assessment: HPI: This is a 27 year old male now POD#6 from right thumb felon I&D and right thumb distal phalanx partial excision for osteomyelitis on 09/13/18. PE: Gen: NAD AVSS RUE: Dressing CDI Two 1/4 inch nu-gauze packing strips in place +EPL, FPL, FDS, FDP, FDP-I, DI, PI +M/R/U SILT 2+ DP and PT pulses Assessment and Plan This is a 27 year old male now POD#6 from right thumb felon I&D and right thumb distal phalanx partial excision for osteomyelitis on 09/13/18. -Packing strips removed and replaced -New dry sterile dressing applied -NWB on RUE -Continue on IV antibiotics per ID recommendations 09/19/18 19:44 Objective: Vital Signs Temp Pulse Resp BP Pulse Ox 37.0 C 66 16 142/76 H 94 09/19/18 15:48 09/19/18 15:48 09/19/18 15:48 09/19/18 15:48 09/19/18 15:48 09/18/18 09/19/18 09/20/18 05:59 05:59 05:59 Intake Total 1240 1800 Balance 1240 1800 ICD10 Worksheet Patient Problems: Problems Problem Status Onset Infected hand Acute Cellulitis of right hand Acute
[2018-09-19] MEDS: IBUPROFEN 200 MG TAB PO PRN (22:18)
[2018-09-20] MEDS: SENNOSIDES/DOCUSATE SODIUM TAB PO SCH ×2 (08:36→20:50)
[2018-09-20] MEDS: oxyCODONE IR 5 MG TAB PO PRN ×4 (08:36→20:44)
[2018-09-20] MEDS: MULTIVITAMINS 1 EACH TAB PO SCH (08:37)
[2018-09-20] MEDS: ASCORBIC ACID 500 MG TAB PO SCH (08:37)
[2018-09-20] MEDS: ACETAMINOPHEN 325 MG TAB PO PRN (08:37)
[2018-09-20] MEDS: DAPTOmycin 600 MG in NS 100 ML IV SCH (08:37)
--- NOTE | 2018-09-20 11:22 | HOSPPROG ---
Hospitalist Progress Note Assessment/Plan: 27y male with repeat hand infections. C/O thumb pain. *Right thumb distal phalanx osteomyelitis -s/p operative debridement by hand surgery, POD #6 - cultures w growth of group A Streptococcus and Staph aureus - was on Cefazolin but was changed to daptomycin + MRSA - recommendation is to keep in the hospital due to requirement of dressing changes per surgery. - They have recommended continued IV abx due to the extensiveness of his wound. *positive hepatitis C antibody - likely chronic *pain -cont meds *Transaminitis - neg hepatitis panel in 05/2018 *H/O IVDA - neg HIV and hep C + antibody on this admission *Tobacco use - NicoDerm prn DVT PPLX - low risk, SCD's *plan: cont IV abx and dressing changes. return to [facility] when able D/W CM and RN Subjective: Sleeping. Doesn't want to be bothered. Objective: Vital Signs Temp Pulse Resp BP Pulse Ox 37.1 C 59 L 16 149/74 H 94 09/19/18 23:51 09/19/18 23:51 09/19/18 23:51 09/19/18 23:51 09/19/18 23:51 09/19/18 09/20/18 09/21/18 05:59 05:59 05:59 Intake Total 1800 Balance 1800 - Physical Exam Constitutional: appears nourished, not in pain Eyes: PERRL, anicteric sclera Ears, Nose, Mouth, Throat: moist mucous membranes, hearing normal Cardiovascular: No JVD, No edema Respiratory: no respiratory distress Skin: normal color, No mottled Neurologic: AAOx3 Psychiatric: not encephalopathic, poor insight, poor judgement ICD10 Worksheet Patient Problems: Problems Problem Status Onset Cellulitis of right hand Acute Infected hand Acute
[2018-09-20] MEDS: ALBUTEROL 60 PUFFS/8 GM MDI IH PRN ×2 (11:26→20:45)
[2018-09-20] MEDS: NICOTINE 21 MG/24 HR PATCH TD SCH (12:07)
[2018-09-20] MEDS: POLYETHYLENE GLYCOL 3350 17 GM PKT PO SCH (12:08)
[2018-09-20] MEDS: IBUPROFEN 200 MG TAB PO PRN (15:55)
[2018-09-20] MEDS: FAMOTIDINE 20 MG TAB PO PRN (20:44)
[2018-09-20] MEDS ORDERED: diphenhydrAMINE 25 MG CAP PO ONE (20:59)
[2018-09-20] MEDS: hydrOXYzine HCL 25 MG TAB PO PRN (23:29)
[2018-09-21] MEDS: oxyCODONE IR 5 MG TAB PO PRN ×4 (00:43→20:03)
[2018-09-21 04:53] LABS: PLATELET COUNT 209 10^3/uL (150-400)
[2018-09-21 05:03] LABS: CREATINE KINASE 51 IU/L (0-224)
[2018-09-21] MEDS: DAPTOmycin 600 MG in NS 100 ML IV SCH (09:42)
[2018-09-21] MEDS: NICOTINE 21 MG/24 HR PATCH TD SCH (09:46)
[2018-09-21] MEDS: SENNOSIDES/DOCUSATE SODIUM TAB PO SCH ×2 (09:48→22:41)
[2018-09-21] MEDS: ASCORBIC ACID 500 MG TAB PO SCH (09:48)
[2018-09-21] MEDS: POLYETHYLENE GLYCOL 3350 17 GM PKT PO SCH (09:48)
[2018-09-21] MEDS: MULTIVITAMINS 1 EACH TAB PO SCH (09:48)
[2018-09-21] MEDS: IBUPROFEN 200 MG TAB PO PRN ×2 (10:02→20:04)
[2018-09-21] MEDS: ALBUTEROL 60 PUFFS/8 GM MDI IH PRN (10:05)
--- NOTE | 2018-09-21 11:35 | PCMIDPN ---
Assessment/Plan: Assessment: Right thumb abscess with distal phalanx osteomyelitis. Status post debridement. Micro growing MRSA and group a strep. Patient is currently covered for both pathogens with daptomycin. He is having issues with anxiety and sleep disturbance. Will discuss with primary service about this management. Chronic hepatitis-C infection. Patient will need to be vaccinated for both hepatitis a and hepatitis B as results indicated that he is nonimmune. Plan: 1. Continue daptomycin. 2. Explore the feasibility of vaccinating with twinrix while inpatient. Remainder of hepatitis C preparation and treatment will need to wait as an outpatient. 09/21/18 12:46 Subjective: Patient is complaining of difficulty sleeping and anxiety. Otherwise states that he is feeling better in regards to his thumb. No fevers or chills. Tolerating daptomycin without problem. Objective: Daptomycin # 7 Vital Signs Temp Pulse Resp BP Pulse Ox 36.4 C 63 16 137/80 H 94 09/21/18 09:49 09/21/18 09:49 09/21/18 09:49 09/21/18 09:49 09/21/18 09:49 Laboratory Results 09/21/18 04:34 09/21/18 04:34 09/20/18 09/21/18 09/22/18 05:59 05:59 05:59 Intake Total 100 800 800 Balance 100 800 800 - Physical Exam General Appearance: WD/WN, alert, no apparent distress, non-toxic Cardiac/Chest: regular rate, rhythm, No tachycardia Extremities: non-tender, No normal inspection (Right hand/thumb wrapped in dressing. No proximal erythema.) Skin: normal color, warm/dry, No rash ICD10 Worksheet Patient Problems: Problems Problem Status Onset Infected hand Acute Cellulitis of right hand Acute
--- NOTE | 2018-09-21 16:14 | HOSPPROG ---
Hospitalist Progress Note Assessment/Plan: 27y male with repeat hand infections, here with osteomyelitis/cellulitis *Right thumb distal phalanx osteomyelitis -s/p operative debridement by hand surgery, POD #7 - cultures w growth of group A Streptococcus and Staph aureus - was on Cefazolin but was changed to daptomycin + MRSA - recommendation is to keep in the hospital due to requirement of dressing changes per surgery. - They have recommended continued IV abx due to the extensiveness of his wound. *positive hepatitis C antibody - likely chronic *pain -cont meds *Transaminitis - neg hepatitis panel in 05/2018 *H/O IVDA - neg HIV and hep C + antibody on this admission *Tobacco use - NicoDerm prn DVT PPLX - low risk, SCD's *plan: cont IV abx and dressing changes. return to senior care when able D/W CM and RN Subjective: pain manageable Objective: Vital Signs Temp Pulse Resp BP Pulse Ox 36.4 C 63 16 137/80 H 94 09/21/18 09:49 09/21/18 09:49 09/21/18 09:49 09/21/18 09:49 09/21/18 09:49 Laboratory Results 09/21/18 04:34 09/21/18 04:34 09/20/18 09/21/18 09/22/18 05:59 05:59 05:59 Intake Total 716 750 5679 Balance 123 902 2735 - Physical Exam Constitutional: no apparent distress, appears nourished, not in pain Eyes: PERRL, anicteric sclera, EOMI Ears, Nose, Mouth, Throat: moist mucous membranes, hearing normal, ears appear normal, no oral mucosal ulcers Cardiovascular: regular rate and rhythym, no murmur, rub, or gallop Respiratory: no respiratory distress, no rales or rhonchi, clear to auscultation Gastrointestinal: normoactive bowel sounds, soft, non-tender abdomen, no palpable masses Genitourinary: no bladder fullness, no bladder tenderness, no renal bruits Skin: no rashes or abrasions, no fluctuance, no induration Musculoskeletal: full muscle strength, no muscle tenderness, normal joint ROM, other (finger wrapped, cdi bandage. ) Neurologic: AAOx3, sensation intact bilaterally Psychiatric: interacting appropriately, not anxious, not encephalopathic, thought process linear Lymph, Heme, Immunologic: no cervical LAD, no supraclavicular LAD ICD10 Worksheet Patient Problems: Problems Problem Status Onset Infected hand Acute Cellulitis of right hand Acute
--- NOTE | 2018-09-21 16:43 | ASMTCMCOM ---
CM Note CM Note Notes: Discussed pt with RN and hospitalist. Pt to remain inpatient for the time being for dressing changes and IV daptomycin. Pt to return to [facility] when stable for discharge. Contact Booking dept at [facility] to arrange discharge to [facility] . Of note pt has tried in the past to leave AMA before officers arrived for discharge transport. CM to follow. D/C Plan: Independent to [facility] Date Signed: 09/21/2018 04:42 PM Electronically Signed By:Kamala Rahman
[2018-09-21] MEDS: traZODone 50 MG TAB PO PRN (22:42)
[2018-09-22 05:18] LABS: PLATELET COUNT 191 10^3/uL (150-400)
[2018-09-22] MEDS: SENNOSIDES/DOCUSATE SODIUM TAB PO SCH ×2 (11:01→19:45)
[2018-09-22] MEDS: MULTIVITAMINS 1 EACH TAB PO SCH (11:01)
[2018-09-22] MEDS: oxyCODONE IR 5 MG TAB PO PRN ×3 (11:01→19:46)
[2018-09-22] MEDS: NICOTINE 21 MG/24 HR PATCH TD SCH (11:02)
[2018-09-22] MEDS: ASCORBIC ACID 500 MG TAB PO SCH (11:02)
[2018-09-22] MEDS: DAPTOmycin 600 MG in NS 100 ML IV SCH (11:02)
--- NOTE | 2018-09-22 12:36 | HOSPPROG ---
Hospitalist Progress Note Assessment/Plan: 27y male with repeat hand infections, here with osteomyelitis/cellulitis positive for MRSA *Right thumb distal phalanx osteomyelitis -s/p operative debridement by hand surgery, POD #8 - cultures w growth of group A Streptococcus and Staph aureus - was on Cefazolin but was changed to daptomycin + MRSA - recommendation is to keep in the hospital due to requirement of dressing changes per surgery. - They have recommended continued IV abx due to the extensiveness of his wound. -Discussed with ID who recommends continuing dapto, duration to be determined. *positive hepatitis C antibody - likely chronic *pain -cont meds *Transaminitis - neg hepatitis panel in 05/2018 *H/O IVDA - neg HIV and hep C + antibody on this admission *Tobacco use - NicoDerm prn DVT PPLX - low risk, SCD's *plan: cont IV abx and dressing changes. return to [facility] when able D/W CM and RN Subjective: annoyed by nurse. pain manageable. Objective: Vital Signs Temp Pulse Resp BP Pulse Ox 36.6 C 72 16 108/54 L 97 09/22/18 08:00 09/22/18 08:00 09/22/18 08:00 09/22/18 08:00 09/22/18 08:00 Laboratory Results 09/22/18 04:43 09/21/18 04:34 09/21/18 09/22/18 09/23/18 05:59 05:59 05:59 Intake Total 800 2800 Balance 800 2800 - Physical Exam Constitutional: no apparent distress, appears nourished, not in pain Eyes: PERRL, anicteric sclera, EOMI Ears, Nose, Mouth, Throat: moist mucous membranes, hearing normal, ears appear normal, no oral mucosal ulcers Cardiovascular: regular rate and rhythym, no murmur, rub, or gallop Respiratory: no respiratory distress, no rales or rhonchi, clear to auscultation Gastrointestinal: normoactive bowel sounds, soft, non-tender abdomen, no palpable masses Genitourinary: no bladder fullness, no bladder tenderness, no renal bruits Skin: no rashes or abrasions, no fluctuance, no induration Musculoskeletal: full muscle strength, no muscle tenderness, normal joint ROM Neurologic: AAOx3, sensation intact bilaterally Psychiatric: interacting appropriately, not anxious, not encephalopathic, thought process linear Lymph, Heme, Immunologic: no cervical LAD, no supraclavicular LAD ICD10 Worksheet Patient Problems: Problems Problem Status Onset Infected hand Acute Cellulitis of right hand Acute
[2018-09-22] MEDS: POLYETHYLENE GLYCOL 3350 17 GM PKT PO SCH (13:07)
[2018-09-22] MEDS: HYDROmorphONE/DILAUDID 1 MG/ML INJ IVP PRN (16:39)
--- NOTE | 2018-09-22 17:01 | SOAPPROG ---
SOAP Progress Note Assessment/Plan: SOAP Progress Note Assessment/Plan: Assessment: HPI: This is a 27 year old male now POD#9 from right thumb felon I&D and right thumb distal phalanx partial excision for osteomyelitis on 09/13/18. PE: Gen: NAD AVSS RUE: Dressing CDI One 1/4 inch nu-gauze packing strip in place +EPL, FPL, FDS, FDP, FDP-I, DI, PI +M/R/U SILT 2+ DP and PT pulses Assessment and Plan This is a 27 year old male now POD#9 from right thumb felon I&D and right thumb distal phalanx partial excision for osteomyelitis on 09/13/18. -Packing strip removed and replaced -New dry sterile dressing applied -NWB on RUE -Continue on IV antibiotics per ID recommendations Darleen Thomason PA-C 09/22/18 16:59 Objective: Vital Signs Temp Pulse Resp BP Pulse Ox 36.2 C 76 14 161/98 H 97 09/22/18 16:00 09/22/18 16:00 09/22/18 16:00 09/22/18 16:00 09/22/18 16:00 Laboratory Results 09/22/18 04:43 09/21/18 04:34 09/21/18 09/22/18 09/23/18 05:59 05:59 05:59 Intake Total 800 2800 Balance 800 2800 ICD10 Worksheet Patient Problems: Problems Problem Status Onset Infected hand Acute Cellulitis of right hand Acute
--- NOTE | 2018-09-22 18:34 | PCMIDPN ---
Assessment/Plan: Assessment/Plan: * Right thumb felon/osteomyelitis distal phalanx status post incision and drainage and partial excision of distal phalanx: Photos of thumb reviewed at time of dressing exchange clerk weekend. Plan continued daptomycin while inpatient. Outpatient Care complicated by social circumstances and history of noncompliance. * Neutropenia: Patient with decreased neutrophil proportion with absolute neutrophil count approximately 1300. Unclear if this may be related to daptomycin. Plan repeat CBC on 09/24/2018 for repeat assessment. If continues to decrease, may need to discontinue daptomycin which there are rare reports of in association with neutropenia. * Positive hepatitis C antibody: Plan hepatitis a and B vaccination prior to hospital discharge as he is nonimmune. 09/22/18 18:31 Subjective: Patient with some pain present at time of dressing change. No other specific complaints. No significant muscle pain or cough. Objective: Vital Signs Temp Pulse Resp BP Pulse Ox 36.2 C 72 14 161/98 H 96 09/22/18 16:00 09/22/18 17:04 09/22/18 17:04 09/22/18 16:00 09/22/18 17:04 Laboratory Results 09/22/18 04:43 09/21/18 04:34 09/21/18 09/22/18 09/23/18 05:59 05:59 05:59 Intake Total 800 2800 Balance 800 2800 Daptomycin # 8 ANC 1330 - Physical Exam General Appearance: alert, no apparent distress EENT: No scleral icterus, No thrush Respiratory: lungs clear, No respiratory distress Cardiac/Chest: regular rate, rhythm Extremities: other (No muscular tenderness to palpation; thumb dressed and tender at base of digit) Abdomen: non-tender, No distended Skin: No rash ICD10 Worksheet Patient Problems: Problems Problem Status Onset Infected hand Acute Cellulitis of right hand Acute
[2018-09-22] MEDS: IBUPROFEN 200 MG TAB PO PRN (19:02)
[2018-09-22] MEDS: ACETAMINOPHEN 325 MG TAB PO PRN (21:24)
[2018-09-22] MEDS: traZODone 50 MG TAB PO PRN (21:24)
[2018-09-22] MEDS: ALBUTEROL 60 PUFFS/8 GM MDI IH PRN (21:28)
[2018-09-23] MEDS: oxyCODONE IR 5 MG TAB PO PRN ×4 (05:45→19:25)
[2018-09-23] MEDS: DAPTOmycin 600 MG in NS 100 ML IV SCH (10:21)
[2018-09-23] MEDS: NICOTINE 21 MG/24 HR PATCH TD SCH (10:22)
[2018-09-23] MEDS: SENNOSIDES/DOCUSATE SODIUM TAB PO SCH ×2 (10:34→21:22)
[2018-09-23] MEDS: POLYETHYLENE GLYCOL 3350 17 GM PKT PO SCH (10:34)
[2018-09-23] MEDS: MULTIVITAMINS 1 EACH TAB PO SCH (10:34)
[2018-09-23] MEDS: ASCORBIC ACID 500 MG TAB PO SCH (10:34)
[2018-09-23] MEDS: IBUPROFEN 200 MG TAB PO PRN (13:30)
[2018-09-23] MEDS: ACETAMINOPHEN 325 MG TAB PO PRN (14:26)
--- NOTE | 2018-09-23 14:34 | HOSPPROG ---
Hospitalist Progress Note Assessment/Plan: Right thumb distal phalanx osteomyelitis -s/p operative debridement by hand surgery, POD #3. - cultures w growth of group A Streptococcus and Staph aureus - daptomycin + MRSA *positive hepatitis C antibody - needs hepatitis A and B vaccination prior to dc *neutropenia -recheck tomorrow -poss due to dapto *Transaminitis - likely due to the above *H/O IVDA - neg HIV and hep C + antibody on this admission *Tobacco use - NicoDerm prn DVT PPLX - low risk, SCD's *plan: cont dressing changes per orthopedics. needs to stay in the hospital for this. Will dc back to [facility] when ok w ortho and ID. Subjective: Lizabeth said his thumb is hurting. Objective: Vital Signs Temp Pulse Resp BP Pulse Ox 36.6 C 55 L 18 135/71 H 95 09/23/18 11:56 09/23/18 11:56 09/23/18 11:56 09/23/18 11:56 09/23/18 11:56 Laboratory Results 09/22/18 04:43 09/21/18 04:34 09/22/18 09/23/18 09/24/18 05:59 05:59 05:59 Intake Total 2800 600 Balance 2800 600 - Physical Exam Constitutional: uncomfortable, No not in pain (r thumg) Eyes: PERRL Ears, Nose, Mouth, Throat: hearing normal Respiratory: no respiratory distress Gastrointestinal: normoactive bowel sounds Skin: warm, other (r thumb in dressing) Musculoskeletal: full muscle strength Neurologic: AAOx3 Psychiatric: interacting appropriately ICD10 Worksheet Patient Problems: Problems Problem Status Onset Infected hand Acute Cellulitis of right hand Acute
[2018-09-23] MEDS: ALBUTEROL 60 PUFFS/8 GM MDI IH PRN (21:21)
[2018-09-23] MEDS: MELATONIN 3 MG TAB PO PRN (21:22)
[2018-09-23] MEDS: traZODone 50 MG TAB PO PRN (21:23)
[2018-09-24] MEDS ORDERED: NICOTINE 21 MG/24 HR PATCH TD ONE (09:49)
[2018-09-24] MEDS: NICOTINE 21 MG/24 HR PATCH TD SCH (09:57)
[2018-09-24] MEDS: DAPTOmycin 600 MG in NS 100 ML IV SCH (09:57)
[2018-09-24] MEDS: ALBUTEROL 60 PUFFS/8 GM MDI IH PRN (09:59)
[2018-09-24] MEDS: oxyCODONE IR 5 MG TAB PO PRN ×3 (10:06→20:31)
--- NOTE | 2018-09-24 10:36 | ASMTCMCOM ---
CM Note CM Note Notes: Pts case discussed w/ Alka Ochoa NP. Surgery has been doing every other day dressing changes. [facility] CM to call [phone] to have [employer] [employer] to pick pt up. CM to follow. Plan: [facility]-Way Date Signed: 09/24/2018 10:35 AM Electronically Signed By:CATHERINE Abraham
[2018-09-24] MEDS: POLYETHYLENE GLYCOL 3350 17 GM PKT PO SCH (10:42)
[2018-09-24] MEDS: MULTIVITAMINS 1 EACH TAB PO SCH (10:53)
[2018-09-24] MEDS: SENNOSIDES/DOCUSATE SODIUM TAB PO SCH ×2 (10:53→20:32)
[2018-09-24] MEDS: ASCORBIC ACID 500 MG TAB PO SCH (10:53)
[2018-09-24 11:34] LABS: PLATELET COUNT 188 10^3/uL (150-400)
--- NOTE | 2018-09-24 15:19 | HOSPPROG ---
Hospitalist Progress Note Assessment/Plan: Right thumb distal phalanx osteomyelitis -s/p operative debridement by hand surgery, POD #3. - cultures w growth of group A Streptococcus and Staph aureus - daptomycin + MRSA *positive hepatitis C antibody - needs hepatitis A and B vaccination prior to dc *neutropenia-ongoing -will discuss w ID about continuing Daptomycin *Transaminitis - likely due to the above *H/O IVDA - neg HIV and hep C + antibody on this admission *Tobacco use - NicoDerm prn *mental health issues -appreciate Maggie Allen seeing him, patient has significant anxiety. She will talk w Dr Marcus about seeing Lizabeth and med management. DVT PPLX - low risk, SCD's *plan: cont dressing changes per orthopedics. needs to stay in the hospital for this. [facility] w [facility]o and ID. Subjective: Lizabeth said he is feeling fine, in good spirits. Objective: Vital Signs Temp Pulse Resp BP Pulse Ox 37.0 C 66 16 159/81 H 95 09/24/18 10:57 09/24/18 10:57 09/24/18 10:57 09/24/18 10:57 09/24/18 10:57 Laboratory Results 09/24/18 11:29 09/21/18 04:34 09/23/18 09/24/18 09/25/18 05:59 05:59 05:59 Intake Total 600 2000 Balance 600 1999 - Physical Exam Constitutional: no apparent distress, appears nourished Eyes: PERRL Ears, Nose, Mouth, Throat: hearing normal Respiratory: no respiratory distress Skin: warm, other (right thumb in dressing) Musculoskeletal: full muscle strength Neurologic: AAOx3 Psychiatric: interacting appropriately ICD10 Worksheet Patient Problems: Problems Problem Status Onset Infected hand Acute Cellulitis of right hand Acute
[2018-09-24] MEDS ORDERED: HEPATITIS A VIRUS VACCINE 1,440 UNIT/ML SYRINGE IM ONE (15:20)
[2018-09-24] MEDS ORDERED: HEPATITIS B VIRUS VACCINE-PF 20 MCG/ML INJ IM ONE (15:20)
--- NOTE | 2018-09-24 17:25 | PCMIDPN ---
Assessment/Plan: Assessment/Plan: * Right thumb felon/osteomyelitis distal phalanx status post incision and drainage and partial excision of distal phalanx: Continue daptomycin while patient inpatient. Absolute neutrophil count remains stable with lower neutrophil proportion. If drops below 1000, will discontinue daptomycin and transition to amoxicillin and doxycycline orally. * Neutropenia: See above discussion. ANC improved versus prior value. Still well above a 1000. * Positive hepatitis C antibody: Will provide hepatitis A and B vaccination today given patient is not immune with significant risk in the setting of hepatitis C and homelessness. 09/24/18 17:21 Subjective: Patient without specific complaints other than thumb pain at time of dressing change. No myalgias or shortness of breath. Objective: Vital Signs Temp Pulse Resp BP Pulse Ox 37.2 C 71 18 154/69 H 95 09/24/18 15:23 09/24/18 15:23 09/24/18 15:23 09/24/18 15:23 09/24/18 15:23 Laboratory Results 09/24/18 11:29 09/21/18 04:34 09/23/18 09/24/18 09/25/18 05:59 05:59 05:59 Intake Total 600 2000 Balance 600 2000 Daptomycin # 10 ANC 1760 - Physical Exam General Appearance: alert, no apparent distress EENT: No scleral icterus, No conjunctival petechiae Respiratory: lungs clear, No respiratory distress Cardiac/Chest: regular rate, rhythm Extremities: inflammation (Right thumb dressed postoperatively with note pain at base of thumb; normal range of motion of other digits.) Skin: No rash ICD10 Worksheet Patient Problems: Problems Problem Status Onset Infected hand Acute Cellulitis of right hand Acute
[2018-09-24] MEDS: MELATONIN 3 MG TAB PO PRN (20:33)
[2018-09-24] MEDS: traZODone 50 MG TAB PO PRN (20:33)
[2018-09-25] MEDS: oxyCODONE IR 5 MG TAB PO PRN ×4 (06:18→19:42)
--- NOTE | 2018-09-25 10:28 | PCMIDPN ---
Assessment/Plan: 1. 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 Will assume that he has residual diseased bone and need 6 weeks of therapy. I am not convinced, however that the patient requires intravenous daptomycin at this point in time given history of debridement, and good data showing that oral therapy is as good as IV therapy for these types of situations. Hopefully, I will be able to see his wound later today, and will switch to oral amoxicillin and doxycycline. 2. Chronic hepatitis-C: Patient will need treatment for this moving forward. He was given hepatitis a and B vaccines yesterday. HIV negative in May. 3. Neutropenia: Repeat CBC on Friday. Stable as per yesterday. CK within normal limits on September 21. Over 20 mins spent with pt today. Subjective: Patient is slightly grumpy today, and tells me that his dressing will be changed at 4:30. This afternoon. No diarrhea or body aches. No dry cough or shortness of breath. Says that his thumb is hurting. Objective: Daptomycin 600 mg IV daily day 11 T-max 37.2 degrees Vital Signs Temp Pulse Resp BP Pulse Ox 36.8 C 78 17 149/68 H 94 09/24/18 20:00 09/24/18 20:00 09/24/18 20:00 09/24/18 20:00 09/24/18 20:00 Laboratory Results 09/24/18 11:29 09/21/18 04:34 09/24/18 09/25/18 09/26/18 05:59 05:59 05:59 Intake Total 1999 1899 Balance 1999 1899 Previous wound cultures with group a strep and MRSA - Physical Exam General Appearance: other (Grumpy. eye mask in place) Extremities: other (Right thumb is dressed. From what I can see the rest of his hand, there is no evidence of active infection or cellulitis.) ICD10 Worksheet Patient Problems: Problems Problem Status Onset Infected hand Acute Cellulitis of right hand Acute
[2018-09-25] MEDS: ASCORBIC ACID 500 MG TAB PO SCH (10:40)
[2018-09-25] MEDS: MULTIVITAMINS 1 EACH TAB PO SCH (10:40)
[2018-09-25] MEDS: NICOTINE 21 MG/24 HR PATCH TD SCH (10:40)
--- NOTE | 2018-09-25 10:52 | ASMTCMCOM ---
CM Note CM Note Notes: CM discussed with Alka Ochoa NP, plan [facility] to [facility] to [facility], likely juanc[facility]os not be discharging soon. CM to follow. Plan: [facility]. Date Signed: 09/25/2018 10:51 AM Electronically Signed By:Delores Park
[2018-09-25] MEDS: POLYETHYLENE GLYCOL 3350 17 GM PKT PO SCH (11:32)
[2018-09-25] MEDS: SENNOSIDES/DOCUSATE SODIUM TAB PO SCH (11:32)
[2018-09-25] MEDS: DAPTOmycin 600 MG in NS 100 ML IV SCH (11:32)
[2018-09-25] MEDS ORDERED: HYDROmorphONE/DILAUDID 1 MG/ML INJ IVP ONE (13:15)
--- NOTE | 2018-09-25 13:20 | SOAPPROG ---
SOAP Progress Note Assessment/Plan: SOAP Progress Note Assessment/Plan: Assessment: HPI: This is a 27 year old male now POD#12 from right thumb felon I&D and right thumb distal phalanx partial excision for osteomyelitis on 09/13/18. PE: Gen: NAD AVSS RUE: Dressing CDI One 1/4 inch nu-gauze packing strip in place +EPL, FPL, FDS, FDP, FDP-I, DI, PI +M/R/U SILT 2+ DP and PT pulses Assessment and Plan This is a 27 year old male now POD#12 from right thumb felon I&D and right thumb distal phalanx partial excision for osteomyelitis on 09/13/18. -Packing strip removed and replaced -New dry sterile dressing applied -NWB on RUE -Continue antibiotics per ID recommendations Darleen Thomason PA-C 09/25/18 13:19 Objective: Vital Signs Temp Pulse Resp BP Pulse Ox 36.9 C 64 18 138/66 H 94 09/25/18 08:00 09/25/18 08:00 09/25/18 08:00 09/25/18 08:00 09/25/18 08:00 Laboratory Results 09/24/18 11:29 09/21/18 04:34 09/24/18 09/25/18 09/26/18 05:59 05:59 05:59 Intake Total 1999 1899 Balance 1999 1899 ICD10 Worksheet Patient Problems: Problems Problem Status Onset Infected hand Acute Cellulitis of right hand Acute
--- NOTE | 2018-09-25 15:43 | HOSPPROG ---
Hospitalist Progress Note Assessment/Plan: Right thumb distal phalanx osteomyelitis -s/p operative debridement by hand surgery, POD #3. - cultures w growth of group A Streptococcus and Staph aureus - daptomycin + MRSA *positive hepatitis C antibody - needs hepatitis A and B vaccination prior to dc *neutropenia-ongoing -will discuss w ID about continuing Daptomycin *Transaminitis - likely due to the above *H/O IVDA - neg HIV and hep C + antibody on this admission *Tobacco use - NicoDerm prn *mental health issues -appreciate Maggie Allen seeing him, patient has significant anxiety. She will talk w Dr Marcus about seeing Lizabeth and med management. DVT PPLX - low risk, SCD's *plan: cont dressing changes per orthopedics. needs to stay in the hospital for this. Will dc back to custodial when ok w ortho and ID. Reviewed his care w Dr Ames. Subjective: Lizabeth said his thumb hurts. Objective: Vital Signs Temp Pulse Resp BP Pulse Ox 37.3 C 68 17 138/85 H 98 09/25/18 15:27 09/25/18 15:27 09/25/18 15:27 09/25/18 15:27 09/25/18 15:27 Laboratory Results 09/24/18 11:29 09/21/18 04:34 09/24/18 09/25/18 09/26/18 05:59 05:59 05:59 Intake Total 1999 1899 Balance 1999 1899 - Physical Exam Constitutional: no apparent distress, appears nourished, uncomfortable Eyes: PERRL Ears, Nose, Mouth, Throat: hearing normal Respiratory: no respiratory distress Skin: warm Musculoskeletal: full muscle strength Neurologic: AAOx3 Psychiatric: interacting appropriately ICD10 Worksheet Patient Problems: Problems Problem Status Onset Infected hand Acute Cellulitis of right hand Acute
[2018-09-25] MEDS: ALBUTEROL 60 PUFFS/8 GM MDI IH PRN (19:43)
[2018-09-25] MEDS ORDERED: hydrOXYzine HCL 25 MG TAB PO PRN (21:00)
[2018-09-25] MEDS: MELATONIN 3 MG TAB PO PRN (21:05)
[2018-09-25] MEDS: traZODone 100 MG TAB PO SCH (21:05)
[2018-09-26] MEDS: SENNOSIDES/DOCUSATE SODIUM TAB PO SCH ×3 (00:12→21:16)
--- NOTE | 2018-09-26 09:01 | HOSPPROG ---
Hospitalist Progress Note Assessment/Plan: Right thumb distal phalanx osteomyelitis -s/p operative debridement by hand surgery, POD #3. - cultures w growth of group A Streptococcus and Staph aureus - daptomycin + MRSA *positive hepatitis C antibody - needs hepatitis A and B vaccination prior to dc *neutropenia-ongoing -will discuss w ID about continuing Daptomycin *Transaminitis - likely due to the above *H/O IVDA - neg HIV and hep C + antibody on this admission *Tobacco use - NicoDerm prn *mental health issues -appreciate Maggie Allen seeing him, patient has significant anxiety-hydroxyzine dose increased. DVT PPLX - low risk, SCD's *plan: cont dressing changes per orthopedics. needs to stay in the hospital for this. [facility] to [facility] when ok w ortho and ID. Anxiety worsening today, increased dose of hydroxyzine. Subjective: Lizabeth said he is feeling fine, feels more anxious. Objective: Vital Signs Temp Pulse Resp BP Pulse Ox 37.0 C 60 16 142/68 H 95 09/25/18 19:52 09/25/18 19:52 09/25/18 19:52 09/25/18 19:52 09/25/18 19:52 Laboratory Results 09/24/18 11:29 09/21/18 04:34 09/25/18 09/26/18 09/27/18 05:59 05:59 06:59 Intake Total 1900 Balance 190 - Physical Exam Constitutional: no apparent distress Eyes: PERRL Ears, Nose, Mouth, Throat: hearing normal Respiratory: no respiratory distress Skin: warm, other (right thumb in dressing) Neurologic: AAOx3 Psychiatric: anxious ICD10 Worksheet Patient Problems: Problems Problem Status Onset Infected hand Acute Cellulitis of right hand Acute
[2018-09-26] MEDS: NICOTINE 21 MG/24 HR PATCH TD SCH (09:55)
[2018-09-26] MEDS: oxyCODONE IR 5 MG TAB PO PRN ×3 (09:57→19:36)
[2018-09-26] MEDS: MULTIVITAMINS 1 EACH TAB PO SCH (09:58)
[2018-09-26] MEDS: ASCORBIC ACID 500 MG TAB PO SCH (09:58)
[2018-09-26] MEDS: POLYETHYLENE GLYCOL 3350 17 GM PKT PO SCH (09:58)
[2018-09-26] MEDS: ALBUTEROL 60 PUFFS/8 GM MDI IH PRN ×2 (10:03→19:37)
[2018-09-26] MEDS: DAPTOmycin 600 MG in NS 100 ML IV SCH (10:31)
[2018-09-26] MEDS ORDERED: hydrOXYzine HCL 25 MG TAB PO PRN (14:03)
[2018-09-26] MEDS: MELATONIN 3 MG TAB PO PRN (21:15)
[2018-09-26] MEDS: traZODone 100 MG TAB PO SCH (21:15)
[2018-09-26] MEDS: IBUPROFEN 200 MG TAB PO PRN (22:22)
[2018-09-26] MEDS: ACETAMINOPHEN 325 MG TAB PO PRN (22:22)
[2018-09-26] MEDS: hydrOXYzine HCL 25 MG TAB PO PRN (22:23)
[2018-09-26] MEDS ORDERED: KETOROLAC 15 MG/1 ML SDV IVP PRN (22:39)
[2018-09-27] MEDS: hydrOXYzine HCL 25 MG TAB PO PRN (05:24)
[2018-09-27] MEDS: oxyCODONE IR 5 MG TAB PO PRN ×2 (05:24→09:25)
[2018-09-27 05:28] LABS: PLATELET COUNT 157 10^3/uL (150-400)
[2018-09-27 09:24] VITALS: BP 131/97
[2018-09-27] MEDS: MULTIVITAMINS 1 EACH TAB PO SCH (09:27)
[2018-09-27] MEDS: NICOTINE 21 MG/24 HR PATCH TD SCH (09:27)
[2018-09-27] MEDS: ASCORBIC ACID 500 MG TAB PO SCH (09:27)
[2018-09-27] MEDS: IBUPROFEN 200 MG TAB PO PRN (09:27)
[2018-09-27] MEDS: DAPTOmycin 600 MG in NS 100 ML IV SCH (09:28)
[2018-09-27] MEDS: POLYETHYLENE GLYCOL 3350 17 GM PKT PO SCH (09:28)
[2018-09-27] MEDS: SENNOSIDES/DOCUSATE SODIUM TAB PO SCH (09:29)
--- NOTE | 2018-09-27 11:46 | HOSPPROG ---
Hospitalist Progress Note Assessment/Plan: Right thumb distal phalanx osteomyelitis -s/p operative debridement by hand surgery, POD #3. - cultures w growth of group A Streptococcus and Staph aureus - daptomycin + MRSA *positive hepatitis C antibody - needs hepatitis A and B vaccination prior to dc *neutropenia-ongoing -will discuss w ID about continuing Daptomycin *Transaminitis - likely due to the above *H/O IVDA - neg HIV and hep C + antibody on this admission *Tobacco use - NicoDerm prn *mental health issues -,patient has significant anxiety-hydroxyzine dose increased DVT PPLX - low risk, SCD's *plan:Patient had escalated last night, some of the staff are fearful for their safety. Per Lizabeth, the dressing on his right thumb slipped off and he was in pain. He felt this was not addressed. Evaluated his right thumb now, has some dried blood on the tip and is quite tender. Lizabeth would not let me repack the wound and only wants the orthopedic surgeon to do this. Sterile dressing applies with the nurse assisting. Reviewed his care with the front office secretary orthopedic doctor who agrees the best treatment for Lizabeth is do the dressing changes in the hospital to promote good healing. He will talk w Dr Byrnes. The concern is for the safety of the staff at this point. The police are not able to provide an officer at the bedside because Lizabeth is not in custody. Will await further input from Dr Maguire. Appreciate the [facility] Arabella, assisting in this situation. Dr Ames has also been involved today with input. Subjective: Lizabeth is upset and doesn't want certain people in his room, says his thumb is hurting. Objective: Vital Signs Temp Pulse Resp BP Pulse Ox 36.4 C 51 L 14 131/97 H 96 09/27/18 08:00 09/27/18 08:00 09/27/18 08:00 09/27/18 08:00 09/27/18 08:00 Laboratory Results 09/27/18 05:19 09/21/18 04:34 09/26/18 09/27/18 09/28/18 04:59 05:59 05:59 Intake Total 900 Balance 900 - Physical Exam Constitutional: appears nourished, No not in pain Eyes: PERRL Ears, Nose, Mouth, Throat: hearing normal Skin: warm, other (right thumb dark on the tip area, has a small tunneled area. very tender and red. ) Neurologic: AAOx3 Psychiatric: anxious, poor insight ICD10 Worksheet Patient Problems: Problems Problem Status Onset Infected hand Acute Cellulitis of right hand Acute
[2018-09-27] MEDS ORDERED: HYDROmorphONE/DILAUDID 1 MG/ML INJ IVP ONE (12:51)
--- NOTE | 2018-09-27 12:59 | PCMIDPN ---
Assessment/Plan: 1. 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 Twice daily and doxycycline 100 mg p. O. Twice daily. He will need oral antibiotics for 6 weeks after most recent debridement; tentative stop date October 25. Our staff will reach out to the nursing home to get him a follow- up appointment if possible in at our clinic, the patient will follow-up with Dr. Khan. 2. Chronic hepatitis-C: Patient will need treatment for this moving forward. He was given hepatitis a and B vaccines yesterday. HIV negative in May. 3. Neutropenia: Patient will need a follow-up CBC in a few days at the nursing home, and at least once weekly moving forward along with a CMP for safety in the setting of long-term oral antibiotics to ensure he is not having progressive neutropenia or another subclinical side effect. Subjective: Spoke to nursing staff and hospitalist. Patient is having increasingly threatening behavior, and staff no longer feels safe taking care of him. Apparently pulled dressing off, and is demanding to have packing put back in in the operating room. After extensive conversation with [facility] nursing staff, care team and nursing ferry terminal supervisor, , who was on-call for orthopedics was asked to discuss case with Dr. Khan, as keeping patient in-house indefinitely is not a viable option given his behavioral issues. Please see his note. I was asked to write a note to document oral antibiotic therapy. I did not go in and see the patient given above issues. Objective: Vital Signs Temp Pulse Resp BP Pulse Ox 36.4 C 51 L 14 131/97 H 96 09/27/18 08:00 09/27/18 08:00 09/27/18 08:00 09/27/18 08:00 09/27/18 08:00 Laboratory Results 09/27/18 05:19 09/21/18 04:34 09/26/18 09/27/18 09/28/18 04:59 05:59 05:59 Intake Total 900 Balance 900 ICD10 Worksheet Patient Problems: Problems Problem Status Onset Infected hand Acute Cellulitis of right hand Acute
[2018-09-27] MEDS: ALBUTEROL 60 PUFFS/8 GM MDI IH PRN (13:07)
--- NOTE | 2018-09-27 13:45 | SOAPPROG ---
SOAP Progress Note Assessment/Plan: Assessment: s/p R thumb I&D by Dr. Carney -my assistance was requested by floor staff to help pack this thumb as he has been verbally threatening to staff in the past. Plan: -Floor staff and administration wish to have the patient transferred to halfway facility as he has been threatening to multiple members of staff. I spoke with Dr. Carney regarding recommendations for further care and dressing changes. Per Dr. Carney he may have packing and dressing changes performed in halfway, or he may f/u in their clinic every 2-3 days for packing changes. One of these criteria need to be fulfilled for him to leave. I will defer further care and recommendations to Dr. Carney and his team. -If packing changes are to be performed in halfway, he will need to have 1/4in packing strips packed into the R thumb wound. The thumb will then need to be covered with a 2x2in gauze, wrapped with a 1in Donaldo wrap or gauze wrap equivalent, and then wrapped in coban. 09/27/18 13:39 Subjective: Doing well. Pull dressing off on accident last night when he sat on his hand. Objective: Vital Signs Temp Pulse Resp BP Pulse Ox 36.4 C 51 L 14 131/97 H 96 09/27/18 08:00 09/27/18 08:00 09/27/18 08:00 09/27/18 08:00 09/27/18 08:00 Laboratory Results 09/27/18 05:19 09/21/18 04:34 09/26/18 09/27/18 09/28/18 04:59 05:59 05:59 Intake Total 900 Balance 900 R thumb -incision appears healing well -there is a 5mm opening in the thumb pulp at site of prior packing. No drainage seen Procedure -Verbal consent obtained. I irrigated the wound with sterile saline and packed with 1/4 in packing strips and wrapped the thumb. He tolerated well ICD10 Worksheet Patient Problems: Problems Problem Status Onset Infected hand Acute Cellulitis of right hand Acute
--- NOTE | 2018-09-27 14:48 | ASMTLACE ---
LACE Length of stay for Answers: 7-13 days current admission Acuity / Level of Answers: Yes Care: Did the patient have an inpatient admission? # of Emergency department Answers: 5-8 visits in the last 6 months Social determinants Answers: History of substance abuse (ETOH, street drugs, prescription drugs, etc.) Homelessness (street, penitentiary) Score: 18 Date Signed: 09/27/2018 02:48 PM Electronically Signed By:Judith Butler RN
--- NOTE | 2018-09-27 14:48 | ASMTCMCOM ---
CM Note CM Note Notes: Plan of care review with [employer]. Patient is stable for discharge. Call to [place] [employer], they will dispatch police officers to take patient into custody. This author had called the [facility] and patient had served his sentence and was released in July . The patient is to be arrested and processed but as of now there is no medical professional for a repport to be called to. Information relayed to Nancy Clinical Lead. CM available should other needs arise. Plan: Dc to police custody. Date Signed: 09/27/2018 02:47 PM Electronically Signed By:Judith Butler RN
--- NOTE | 2018-09-27 18:11 | GDS ---
[f rep st] DISCHARGE SUMMARY DISCHARGE DIAGNOSES: 1. Right distal thumb phalanx osteomyelitis. 2. Positive hepatitis C antibody. 3. Neutropenia. 4. Transaminitis. 5. History of intravenous drug abuse. 6. Nicotine dependence. 7. Mental health issues. Briefly, Lizabeth is a 27-year-old male who presented to the emergency room on September 13, with pain to his right thumb. He has a history of IV drug use and right 3rd finger septic arthritis, tenosynovitis, and abscess who presented to the ER for medical clearance to the alf while on police custody. He had been holding a tarp over him and his girlfriend when they were sleeping outside to keep the rain off and his hand was sticking out the edge of the tarp and he got a frostbite injury to the distal part of the thumb. It became black and developed purulence. He was seen and evaluated by Dr. Byrnes and on September 13, he had a right thumb irrigation and debridement and a distal phalanx partial excision. His hospital stay was complicated because of requiring dressing changes. There was concern that this would not be available in the alf setting. The patient has a history of underlying mental illness and overall had been doing okay. He was seen and evaluated by Maggie Allen, registered nurse with Behavioral Health. He was also evaluated by Dr. Raegan Marcus of Psychiatry. He has underlying issue of anxiety. He had escalated last night and became very confrontational with the nursing staff. The staff at this time was very fearful for their safety. He was seen and evaluated by Dr. Andrez downing who spoke to Dr. Byrnes. The plan is for the patient to go to alf this evening with close followup with Dr. Byrnes. His dressing changes have been written out in detail for nursing care to provide this in the alf or if possible to take him to Dr. Byrnes office for dressing changes. He has been provided with scripts for antibiotics as well as OxyIR. HOSPITAL COURSE: 1. Right thumb distal phalanx osteomyelitis. He was treated with daptomycin. His cultures had a growth with group A Streptococcus and Staph aureus. He will be discharged on amoxicillin and daptomycin, to complete treatment until October 25. 2. Positive hepatitis C antibody. Further follow up with his PCP. 3. Neutropenia. This is secondary from the daptomycin. Will have his labs monitored at the alf. 4. Transaminitis due to the above. 5. History of IV drug abuse. He has a negative human immunodeficiency virus and positive hep C antibody on this admission. 6. Nicotine dependence, patch. 7. Mental health issues. These have been significant on this stay and on previous stays. What helped with his anxiety was hydroxyzine. This was continued at discharge. DISCHARGE CONDITION: Stable. Blood pressure is 131/97, respiratory rate of 14 , pulse 51, temperature is 36.4 Celsius, O2 sats on room air 96%. MEDICATIONS AT DISCHARGE: Please see the EMR. DISCHARGE INSTRUCTIONS: 1. Dressing changes were written out in detail. 2. A script for OxyIR was given because the patient has been using this regularly. I recommended the staff at the alf wean him off this medication and use it prior to dressing changes. 3. To follow up with the Infectious Disease team as well as Dr. Byrnes. Greater than 30 minutes discharging and coordinating his care. /[id number]/MODL MTDD
--- NOTE | 2018-10-03 01:27 | GPROG ---
[f rep st] PROGRESS NOTE POSTANESTHESIA NOTE Patient had a right some debridement on September 13, 2018. This required a general anesthetic. Gene ral anesthetic was performed without difficulty or problems. Patient was awakened and taken to [facility] in good condition. Pain was controlled. Nausea was controlled. Patient required multiple sherman ge changes over the next week. Patient was ultimately discharged to [facility]. No apparen t general anesthetic complications were noted. /[id number]/MODL
== END 2018-09-27 15:11 | DRG 516 ==
LOC: F3N 19:45 → OBSVTOIN 09-14 15:51
PROVIDERS: ADMIT Internal Medicine; ATTEND Internal Medicine
DX: M86.141 Other acute osteomyelitis, right hand (principal); L02.512 Cutaneous abscess of left hand; B19.20 Unspecified viral hepatitis C without hepatic coma; D70.9 Neutropenia, unspecified; F17.200 Nicotine dependence, unspecified, uncomplicated; F41.9 Anxiety disorder, unspecified; B95.0 Streptococcus, group A, as the cause of diseases classified elsewhere; B95.61 Methicillin susceptible Staphylococcus aureus infection as the cause of diseases classified elsewhere; J45.909 Unspecified asthma, uncomplicated
CPT/HCPCS: 86708-90; 96365; G0010; G0378; G0472; J0690; J0878; J1170; J1885; J2250; J2405; J2704; J2710; J3010; J3370

== ENCOUNTER 2018-10-10 18:10 | Emergency (ER) | payer OTHER, MEDICAID ==
[2018-10-10] MEDS ORDERED: oxyCODONE IR 5 MG TAB PO ONE (18:22)
[2018-10-10] MEDS ORDERED: ACETAMINOPHEN 500 MG TAB PO ONE (18:23)
[2018-10-10] MEDS ORDERED: IBUPROFEN 600 MG TAB PO ONE (18:23)
[2018-10-10 18:24] VITALS: BP 154/87
--- NOTE | 2018-10-10 18:32 | EDPHY ---
H & P Stated Complaint: dressing change Time Seen by Provider: 10/10/18 18:13 HPI/ROS: Chief complaint: Wound care for right thumb History of present illness: This is a 27-year-old male, in police custody, brought by the police for wound care. He was admitted to this hospital in mid August with septic arthritis, osteomyelitis an abscess to his right thumb that was debrided and treated with IV antibiotics. He is currently followed by the wound care clinic. He was unable to make his appointment on Friday. He is therefore brought here for dressing changes. He has no new complaints this evening. - Personal History Current Tetanus Diphtheria and Acellular Pertussis (TDAP): Yes Tetanus Vaccine Date: 2017 - Medical/Surgical History Hx Asthma: Yes Hx Chronic Respiratory Disease: No Hx Diabetes: No Hx Cardiac Disease: No Hx Renal Disease: No Hx Cirrhosis: No Hx Alcoholism: No Hx HIV/AIDS: No Hx Splenectomy or Spleen Trauma: No Other PMH: TENDON INFECTION R HAND, asthma, IV drug use - Social History Smoking Status: Current every day smoker - Physical Exam Exam: General: Alert, nontoxic. Skin: Extensive wound to the tip of the right thumb with tissue defect. There is no active erythema or edema. No pustular discharge. Musculoskeletal: Decreased range of motion in both the PIP and MCP joint which she reports is baseline. Vascular: Capillary refill is delayed and the thumb but present. Neurologic: Decreased sensation throughout the thumb. Constitutional: Initial Vital Signs Temperature (C) 36.7 C 10/10/18 18:20 Heart Rate 65 10/10/18 18:20 Respiratory Rate 16 10/10/18 18:20 Blood Pressure 154/87 H 10/10/18 18:20 O2 Sat (%) 97 10/10/18 18:20 O2 Delivery Mode Room Air Allergies/Adverse Reactions: procaine [From Novocain] Allergy (Severe, Verified 10/10/18 18:22) hard to breathe Home Medications: Medication Instructions Recorded Albuterol Hfa Anes Only [Proair 2 puffs IH TID 09/13/18 Hfa Icu (*)] Ascorbic Acid [Vitamin C 500 mg 500 mg PO DAILY 09/13/18 (*)] Multivit-Min/Iron/Folic/Vit K1 1 each PO DAILY 09/13/18 [Centrum Chewables Adults Tab] Acetaminophen [Tylenol 325mg (*)] 650 mg PO Q4HRS PRN tab 09/27/18 Amoxicillin Trihydrate [Amoxil] 1,000 mg PO Q12H #108 cap 09/27/18 Doxycycline Hyclate [Vibramycin 100 mg PO BID #54 cap 09/27/18 100 MG (*)] Famotidine [Pepcid 20 MG (*)] 20 mg PO BID PRN tab 09/27/18 Ibuprofen [Motrin (*)] 400 mg PO Q6HRS PRN tab 09/27/18 Melatonin [Melatonin 3 MG (*)] 6 mg PO HS PRN tab 09/27/18 Multivitamins [Multivitamin (*)] 1 each PO DAILY tab 09/27/18 Nicotine [Nicoderm Cq 21 mg (*)] 21 mg TD DAILY patch 09/27/18 Polyethylene Glycol 3350 [Miralax 17 gm PO DAILY pkt 09/27/18 17 gm (*)] Sennosides/Docusate Sodium 1 - 2 tab PO BID tab 09/27/18 [Senokot-S] hydrOXYzine HCL [hydrOXYzine HCL 25 - 50 mg PO HS PRN tab 09/27/18 (RX)] hydrOXYzine HCL [hydrOXYzine HCL 25 mg PO TID PRN tab 09/27/18 (RX)] oxyCODONE IR [Oxycodone Ir (*)] 5 - 10 mg PO Q4HRS PRN tab 09/27/18 traZODone [traZODONE 100MG (*)] 100 mg PO HS tab 09/27/18 traZODone [traZODONE 50MG (*)] 50 mg PO HS PRN tab 09/27/18 Medical Decision Making ED Course/Re-evaluation: Patient seen under the supervision of my secondary supervising physician Dr. Tong Toscano. Patient presents for a dressing change of a right thumb wound. His thumb appears to be at baseline. He has had a severe infection and is currently undergoing wound care at the wound Care Clinic. He has an appointment on Friday and I have discussed the importance of maintaining this appointment with both him and the police radio dispatcher with him. He is to continue all medications he is on. Return precautions were discussed. - Data Points Medications Given: Discontinued Medications Acetaminophen (Tylenol) 500 mg PO EDNOW ONE Stop: 10/10/18 18:24 Last Admin: 10/10/18 18:27 Dose: 500 mg Ibuprofen (Motrin) 600 mg PO EDNOW ONE Stop: 10/10/18 18:24 Last Admin: 10/10/18 18:27 Dose: 600 mg Oxycodone HCl (Oxycodone Ir) 5 mg PO EDNOW ONE Stop: 10/10/18 18:23 Last Admin: 10/10/18 18:26 Dose: 5 mg Departure - Departure Disposition: Home, Routine, Self-Care Clinical Impression: Encounter for wound care Condition: Good Instructions: Chronic Wounds (ED), Acute Wounds (ED) Additional Instructions: Follow-up with your wound care doctor on Friday as already planned Continue to take your medications as prescribed If symptoms worsen or new symptoms develop return to the emergency room for recheck Referrals: NONE *PRIMARY CARE P,. [Primary Care Provider] - As per Instructions [facility],. [Clinic] - As per Instructions [facility] (ED,. [Edm Groups for Call Sched] - As per Instructions
== END 2018-10-10 18:50 | disposition home or self-care (01) ==
DX: Z48.00 Encounter for change or removal of nonsurgical wound dressing (principal); M86.141 Other acute osteomyelitis, right hand

== ENCOUNTER 2018-11-09 09:02 | Emergency (ER) | payer MEDICAID, OTHER ==
[2018-11-09] MEDS ORDERED: IBUPROFEN 600 MG TAB PO ONE (09:08)
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
[2018-11-09] MEDS ORDERED: LET GEL TOPICAL 1 EA SYR TP ONE (09:38)
[2018-11-09 10:29] VITALS: BP 133/88
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
== END 2018-11-09 10:45 | disposition home or self-care (01) ==
LOC: EDUNIT#
DX: S62.521A Displaced fracture of distal phalanx of right thumb, initial encounter for closed fracture (principal); M25.512 Pain in left shoulder; V19.9XXA Pedal cyclist (driver) (passenger) injured in unspecified traffic accident, initial encounter; Y93.55 Activity, bike riding